=== PATIENT | male | born 1945 | race Caucasian/White ===

== ENCOUNTER 2022-08-04 14:24 | Emergency (ER) | payer MEDICARE, SELFPAY ==
[2022-08-04 14:36] VITALS: BP 126/77; PULSE 89; RESP 20; TEMP 36.3; O2SAT 96; BMI 31.0
--- NOTE | 2022-08-04 14:54 | ED_ITS ---
HPI - General Adult General Time Seen by Provider: 14:56 Date Seen: 08/04/22 Chief complaint: Arrhythmia/Palpitations Stated complaint: AFIB Time Seen by Provider: 08/04/22 14:47 Source: patient, family, RN notes reviewed and old records reviewed Mode of arrival: ambulatory Limitations: no limitations History of Present Illness HPI narrative: 76-year-old male with history of paroxysmal atrial fibrillation who comes in today with palpitations. Patient had a history of atrial fibrillation was doing well until recently when he started having episodes again. Has seen Cardiology and was recently started on Eliquis. Today started about 1:00 p.m. started having palpitations and some chest pressure with neck tightness. Denies nausea, vomiting, shortness of breath. Denies leg swelling. He is not sure what medications he takes, review of chart shows amlodipine on his medication list but he thinks this was stopped. No other medications for rate control noted. No lightheadedness or dizziness. Related Data Home Medications Medication Instructions Recorded Confirmed amlodipine 5 mg tablet 5 mg PO QDAY 07/24/22 08/04/22 aspirin 81 mg tablet,delayed 81 mg PO QDAY 07/24/22 08/04/22 release cetirizine 10 mg tablet (Zyrtec) 10 mg PO QDAY PRN 07/24/22 08/04/22 donepezil 10 mg tablet 10 mg PO QPM 07/24/22 08/04/22 donepezil 5 mg tablet 5 mg PO QPM 07/24/22 07/24/22 rosuvastatin 40 mg tablet 40 mg PO QDAY 07/24/22 08/04/22 tamsulosin 0.4 mg capsule 0.4 mg PO QDAY 07/24/22 08/04/22 apixaban 5 mg tablet (Eliquis) 5 mg PO Q12H 08/04/22 08/04/22 Previous Rx's Medication Instructions Recorded fluticasone propionate 50 2 spray intranasal QDAY #16 grams 07/24/22 mcg/actuation nasal spray,suspension (Flonase Allergy Relief) Allergies Allergy/AdvReac Type Severity Reaction Status Date / Time Iodinated Contrast Media Allergy Severe Anaphylaxis Verified 08/04/22 14:44 adhesive Allergy Mild Rash Verified 08/04/22 14:44 Penicillins Allergy Unknown Unknown Verified 08/04/22 14:44 methylphenidate AdvReac Unknown Verified 08/04/22 14:44 [From Ritalin] Review of Systems Status of ROS: Reports: 10 or more systems reviewed and unremarkable except as noted in History and below [facility] Medical History (Updated 08/04/22 @ 16:41 by Bull Min MD) Attention deficit disorder Borderline diabetes mellitus BPH (benign prostatic hyperplasia) Carotid artery stenosis Chronic headache Coronary artery disease (2017) Dementia Erectile dysfunction Essential hypertension History of alcoholism History of atrial fibrillation (2013) History of rheumatic fever as a child History of TIA (transient ischemic attack) (11/05/19) Hyperlipidemia Obstructive sleep apnea syndrome Paroxysmal atrial fibrillation Traumatic brain injury (1958) Wears hearing aid Surgical History (Updated 07/24/22 @ 10:50 by Iwona Packer) History of coronary artery stent placement (2017) History of detached retina repair History of left inguinal hernia repair History of left-sided carotid endarterectomy (2020) History of nasal septoplasty (2008) History of phacoemulsification of cataract of both eyes with intraocular lens implantation (12/31/21) History of repair of right rotator cuff (1996) History of umbilical hernia repair History of unilateral orchiectomy (1973) History of vasectomy Social History Smoking Status: Never smoker Non-prescribed substance use: denies use Exam Narrative: Exam Narrative: General: Well-developed and well-nourished, no acute distress Head: Atraumatic and normocephalic Eyes: Pupils are equal reactive, extraocular motions intact, conjunctiva clear ENT: External nose and ears are normal, posterior pharynx without erythema or exudate Neck: No midline cervical tenderness, full spontaneous range of motion the neck, trachea midline, no adenopathy Heart: Regular rate and irregular rhythm no murmurs or thrills Lungs: Clear to auscultation bilaterally without wheezes or crackles Abdomen: Soft, nontender, nondistended with active bowel sounds Musculoskeletal: No tenderness, deformity, or edema Neurologic: Awake, alert, and oriented x3, no gross focal neurologic deficits, cranial nerves intact as tested Psych: Mood and affect are appropriate Skin: No rashes Const: Vital Signs, click to edit/add: Vital Signs - 24 hr 08/04/22 14:36 Temperature 97.3 F L Pulse Rate [Right Pulse Oximeter] 89 Respiratory Rate 20 Blood Pressure [Ri ght Upper Arm] 126/77 Pulse Oximetry 96 Oxygen Delivery Me thod Room Air Course Course Hospital Course: Patient seen and examined, prior records reviewed. Differential diagnosis includes but not limited to dysrhythmia, heart failure, acute coronary syndrome. Patient with history of paroxysmal atrial fibrillation who appears to be back in atrial fibrillation for about the last 2 hours. He has associated chest tightness with this. Review of his phone says is heart rate was as high as 119 but generally around 80-90. In the emergency department, by auscultation patient is in atrial fibrillation with a heart rate of 80-100. Labs are ordered including troponin due to report of neck pain tightness and chest pain. Will have patient review of medications and further treatment for there. At this point, no indication for emergent cardioversion and as patient just started his Eliquis, like to avoid this if possible. Reevaluation(s) Reevaluation #1: EKG is reassuring, no ischemic changes edges rate controlled atrial fibrillation. Basic panel is reassuring, potassium and magnesium are both normal. Initial troponin is negative. BNP is pending. Plan for repeat troponin in 2 hours if this is negative patient can be discharged. Time: 16:13 Reevaluation #2: Repeat troponin is negative. Patient remains in route atrial fibrillation with rate control. Stable for discharge with outpatient follow-up with primary care doctor and cardiology. Time: 18:13 Vital Signs Vital signs: Initial Vital Signs Temperature 97.3 F L 08/04/22 14:36 Temperature Source Temporal Artery Scan 08/04/22 14:36 Pulse Rate 89 08/04/22 14:36 Respiratory Rate 20 08/04/22 14:36 Blood Pressure 126/77 08/04/22 14:36 Blood Pressure Mean 93 08/04/22 14:36 Blood Pressure Position Sitting 08/04/22 14:36 Pulse Oximetry 96 08/04/22 14:36 Oxygen Delivery Method 08/04/22 14:36 Vital Signs Temperature 97.3 F L 08/04/22 14:36 Pulse Rate 89 08/04/22 14:36 Respiratory Rate 20 08/04/22 14:36 Blood Pressure 126/77 08/04/22 14:36 Pulse Oximetry 96 08/04/22 14:36 Oxygen Delivery Method 08/04/22 14:36 Temperature 97.3 F L 08/04/22 14:36 Pulse Rate 89 08/04/22 14:36 Respiratory Rate 20 08/04/22 14:36 Blood Pressure 126/77 08/04/22 14:36 Pulse Oximetry 96 08/04/22 14:36 Oxygen Delivery Method 08/04/22 14:36 Medical Decision Making Medical Records Medical records reviewed: Yes I reviewed the patient's medical records Lab Data Lab results reviewed: Yes I reviewed the patient's lab results Labs: Lab Results 08/04/22 08/04/22 08/04/22 Range/Units 15:20 15:20 15:20 WBC 8.30 (4.50-11.00) K/uL RBC 5.14 (4.30-5.90) m/uL Hgb 15.0 (13.5-17.5) gm/dL Hct 47.3 (37.0-53.0) % MCV 92 (80-100) fL MCH 29 (26-34) pg MCHC 32 (32-36) gm/dL RDW Coeff of Gabe 13.5 (11.5-15.5) % Plt Count 265 (140-440) K/uL Neut % (Auto) 69.7 (42.0-72.0) % Lymph % (Auto) 19.9 L (20-44) % Stanley % (Auto) 8.2 (0.0-11.0) % Eos % (Auto) 2.0 (0.0-7.0) % Baso % (Auto) 0.1 (0.0-3.0) % Neut # (Auto) 5.78 (1.7-7.0) K/uL Lymph # (Auto) 1.70 (0.90-2.90) K/uL Stanley # (Auto) 0.70 (0.00-0.90) K/UL Eos # (Auto) 0.17 (0.00-0.50) K/uL Baso # (Auto) 0.01 (0.00-0.30) K/uL Abs Immat Gran (auto) 0.01 (0.00-0.30) K/uL Imm/Tot Granulo (auto) 0.1 % Sodium 143 (135-149) mmol/L Potassium 3.6 (3.6-5.1) mmol/L Chloride 108 (96-114) mmol/L Carbon Dioxide 28 (20-32) mmol/L BUN 16 (7-30) mg/dL Creatinine 0.8 (0.5-1.5) mg/dL Estimated Creat Clear 71.02 Estimated GFR 92 ml/min Glucose 91 (60-115) mg/dL Calcium 9.4 (8.4-10.6) mg/dL Magnesium 2.0 (1.5-2.6) mg/dL NT-Pro-B Natriuret Pep 214 (0-450) PG/mL POC Troponin I 0.00 L (0.01-0.04) ng/ml ECG Data Attestation: I personally reviewed and interpreted this ECG as follows: Prior ECG tracings: not available for review Interpretation: Performed at 3:24 p.m. demonstrates atrial fibrillation rate 85 with incomplete right bundle-branch block, no acute ST elevations or depressions, normal axis, QTC 452. No prior for comparison. Discharge Plan Discharge Clinical Impression: Anticoagulant long-term use, Paroxysmal atrial fibrillation Patient Disposition: Home, Self-Care Condition: Stable Instructions: A-fib (Atrial Fibrillation) (DC) Additional Instructions: Follow-up with your primary doctor this week or next week. Call your physical therapy aide as well. As long as your heart rate is below 100, if you are feeling okay you do not need to be seen in the emergency department. If your heart rate is consistently over 120 or you have shortness of breath or severe chest pain, return to the emergency department. Activity Level: No Restrictions Discharge Diet: Low Fat/Low Cholesterol Prescriptions: No Action rosuvastatin 40 mg tablet 40 mg PO QDAY tamsulosin 0.4 mg capsule 0.4 mg PO QDAY amlodipine 5 mg tablet 5 mg PO QDAY Label Comments: TAKE 1 TABLET BY MOUTH ONCE DAILY. donepezil 5 mg tablet 5 mg PO QPM donepezil 10 mg tablet 10 mg PO QPM Label Comments: Takes 15mg po daily cetirizine [Zyrtec] 10 mg tablet 10 mg PO QDAY PRN aspirin 81 mg tablet,delayed release (DR/EC) 81 mg PO QDAY fluticasone propionate [Flonase Allergy Relief] 50 mcg/actuation spray,suspension 2 spray intranasal QDAY Qty: 16 0RF Rx Instructions: administer into each nostril Eliquis 5 mg tablet 5 mg PO Q12H Follow Up/Referrals: Karan Mirza MD [Primary Care Provider] - Stand Alone Forms: [employer] Info Instructions
[2022-08-04 15:38] LABS: Basophils Absolute Auto 0.01 K/uL (0.00-0.30); Basophils Percent Auto 0.1 % (0.0-3.0); Eosinophils Absolute Auto 0.17 K/uL (0.00-0.50); Hematocrit 47.3 % (37.0-53.0); Immature Granulocytes Abs Auto 0.01 K/uL (0.00-0.30); Immature Granulocytes Pct Auto 0.1 %; Lymphocytes Percent Auto 19.9 % (20-44); Mean Corpuscular HGB Conc 32 gm/dL (32-36); Mean Corpuscular Hemoglobin 29 pg (26-34); Mean Corpuscular Volume 92 fL (80-100); Monocytes Percent Auto 8.2 % (0.0-11.0); Neutrophils Absolute Auto 5.78 K/uL (1.7-7.0); Neutrophils Percent Auto 69.7 % (42.0-72.0); Platelet Count* 265 K/uL (140-440); RDW Coefficient of Variation % 13.5 % (11.5-15.5); Red Blood Count 5.14 m/uL (4.30-5.90)
[2022-08-04 15:46] LABS: Slide Review Reflex No
[2022-08-04 16:00] LABS: Chloride* 108 mmol/L (96-114); Potassium* 3.6 mmol/L (3.6-5.1); Sodium* 143 mmol/L (135-149)
[2022-08-04 16:02] LABS: Creatinine* 0.8 mg/dL (0.5-1.5); Est. Creatinine Clearance* 71.02; Estimated Glomerular Filt Rate 92 ml/min
[2022-08-04 16:03] LABS: Blood Urea Nitrogen* 16 mg/dL (7-30); Calcium* 9.4 mg/dL (8.4-10.6); Carbon Dioxide* 28 mmol/L (20-32); Glucose* 91 mg/dL (60-115)
[2022-08-04 16:12] LABS: NT Pro B Type NatriureticPept* 214 PG/mL (0-450)
[2022-08-04 16:25] VITALS: BP 116/80; PULSE 80; RESP 15; O2SAT 95
--- NOTE | 2022-08-04 16:26 | CRLHL7_ITS ---
For Patients: As a result of the Century Cures Act, medical imaging exams and procedure reports are released immediately into your electronic medical record. You may view this report before your referring provider. If you have questions, please contact your health care provider. Indication: Cardiac dysrhythmia Technique: Chest 1 view Comparison: September 06, 2018 Findings/Impression: Cardiovascular and mediastinum: Heart size and vasculature are normal in caliber and appearance. Mediastinum is within normal limits. Lungs and pleural space: Lungs are clear. No sign of infiltrate or mass. No sign of pleural effusion. No pneumothorax. Bones and soft tissues: No significant findings. Dictated by Sridevi Muhammad MD @ 08/04/2022 5:43:28 PM (Electronically Signed)
[2022-08-04 18:23] VITALS: BP 109/81; PULSE 80; RESP 20; TEMP 36.3
== END 2022-08-04 18:28 | disposition home or self-care (01) ==
PROVIDERS: Emergency Provider Family Medicine; PCP Internal Medicine
DX: I48.0 Paroxysmal atrial fibrillation (principal); Z79.01 Long term (current) use of anticoagulants
CPT/HCPCS: 36415; 71045; 80048; 83735; 83880; 85025; 93005; 99284

== ENCOUNTER 2022-08-19 02:46 | Emergency (ER) | payer MEDICARE, SELFPAY ==
[2022-08-19] VITALS (9 sets, daily range): BP systolic 130–184; BP diastolic 74–108; PULSE 57–84; RESP 18; TEMP 36.7; O2SAT 96–99; BMI 30.3
--- NOTE | 2022-08-19 03:01 | CRLHL7_ITS ---
For Patients: As a result of the Cures Act, medical imaging exams and procedure reports are released immediately into your electronic medical record. You may view this report before your referring provider. If you have questions, please contact your health care provider. Indication: Fall Technique: Two views left knee Comparison: None Findings: Bones: Alignment is normal. No fractures or bone lesions. Joint spaces: Mild degenerative changes in the patellofemoral compartment. Soft tissues: Small suprapatellar effusion. Impression: No acute fracture. Small suprapatellar effusion. Mild degenerative changes in the patellofemoral compartment. Dictated by Sridevi Muhammad MD @ 08/19/2022 4:00:19 AM (Electronically Signed)
--- NOTE | 2022-08-19 03:01 | CRLHL7_ITS ---
For Patients: As a result of the Century Cures Act, medical imaging exams and procedure reports are released immediately into your electronic medical record. You may view this report before your referring provider. If you have questions, please contact your health care provider. INDICATION: Fall, on blood thinners TECHNIQUE: Head CT without contrast. COMPARISON: FINDINGS: CSF spaces: Within normal limits for age. Brain parenchyma: There are nonspecific low attenuation white matter changes consistent with chronic microvascular disease. No sign of mass, hemorrhage, or midline shift. Skull base and calvarium: The visualized paranasal sinuses and mastoid air cells demonstrate no acute or significant findings. The visualized orbits are grossly unremarkable. No skull fractures. There is intracranial atherosclerosis. IMPRESSION: 1. No acute findings. 2. Nonspecific white matter disease, typical of chronic microvascular disease. Please note that all CT scans at this facility use dose modulation, iterative reconstruction, and/or weight-based dosing when appropriate to reduce radiation dose to as low as reasonably achievable. Dictated by Sridevi Muhammad MD @ 08/19/2022 3:34:22 AM (Electronically Signed)
--- NOTE | 2022-08-19 03:02 | CRLHL7_ITS ---
For Patients: As a result of the Century Cures Act, medical imaging exams and procedure reports are released immediately into your electronic medical record. You may view this report before your referring provider. If you have questions, please contact your health care provider. Indication: Fall Technique: Three views right wrist Comparison: None Findings: Bones: On the lateral view there is a linear lucency through what is likely the pisiform bone. Joint spaces: Unremarkable. Soft tissues: Dorsal soft tissue swelling. Impression: Likely minimally displaced pisiform fracture. Recommend wrist CT for confirmation. Dictated by Sridevi Muhammad MD @ 08/19/2022 3:58:45 AM (Electronically Signed)
--- NOTE | 2022-08-19 03:06 | ED.GENADULT ---
HPI - General Adult General Time Seen by Provider: 03:07 Date Seen: 08/19/22 Chief complaint: Syncope/Fainted Stated complaint: fell and doesn't remember what happen. Time Seen by Provider: 08/19/22 02:55 Source: patient and family Mode of arrival: wheelchair Limitations: no limitations History of Present Illness HPI narrative: Guillermo is a 76-year-old male past medical history includes atrial fibrillation on chronic anticoagulation with Eliquis, CAD status post stent placement, hyperlipidemia, dementia presents emerged department via private car with after of fall. Patient states that around an hour ago he was up walking through the dining room when he had a syncopal episode, he knocked over the chair. He was able to get himself up, sustained an injury to his right wrist, left knee and left side of his head. Patient denied any chest pain, diaphoresis or shortness of breath prior to the fall. Patient did become lightheaded. There are times when he had a heart rate in the upper 40s with his atrial fibrillation, per patient and , patient does get lightheaded at these times. He states he has never had a syncopal episode before. Prior to going to bed this evening he was feeling well, he has been eating and drinking normally, he has not had any nausea vomiting, chest pain, abdominal pain diarrhea or urinary complaints. Patient denies any fevers or chills. Patient denies any neck pain or headache. He denies any upper lower back pain. Pain is worse in his right wrist 6/10, patient has full range of motion. Related Data Home Medications Medication Instructions Recorded Confirmed amlodipine 5 mg tablet 5 mg PO QDAY 07/24/22 08/19/22 donepezil 10 mg tablet 10 mg PO QPM 07/24/22 08/19/22 donepezil 5 mg tablet 5 mg PO QPM 07/24/22 08/19/22 rosuvastatin 40 mg tablet 40 mg PO QDAY 07/24/22 08/19/22 tamsulosin 0.4 mg capsule 0.4 mg PO QDAY 07/24/22 08/19/22 apixaban 5 mg tablet (Eliquis) 5 mg PO Q12H 08/04/22 08/19/22 Allergies Allergy/AdvReac Type Severity Reaction Status Date / Time Iodinated Contrast Media Allergy Severe Anaphylaxis Verified 08/19/22 03:01 adhesive Allergy Mild Rash Verified 08/19/22 03:01 Penicillins Allergy Mild Rash Verified 08/19/22 03:01 methylphenidate AdvReac Unknown Verified 08/19/22 03:01 [From Ritalin] Review of Systems Status of ROS: Reports: 10 or more systems reviewed and unremarkable except as noted in History and below [facility] Medical History Attention deficit disorder Borderline diabetes mellitus BPH (benign prostatic hyperplasia) Carotid artery stenosis Chronic headache Coronary artery disease (2017) Dementia Erectile dysfunction Essential hypertension History of alcoholism History of atrial fibrillation (2013) History of rheumatic fever as a child History of TIA (transient ischemic attack) (11/05/19) Hyperlipidemia Obstructive sleep apnea syndrome Paroxysmal atrial fibrillation Traumatic brain injury (1958) Wears hearing aid Surgical History History of coronary artery stent placement (2017) History of detached retina repair History of left inguinal hernia repair History of left-sided carotid endarterectomy (2020) History of nasal septoplasty (2008) History of phacoemulsification of cataract of both eyes with intraocular lens implantation (12/31/21) History of repair of right rotator cuff (1996) History of umbilical hernia repair History of unilateral orchiectomy (1973) History of vasectomy Social History Smoking Status: Never smoker Do you use any of these nicotine containing products: None Second hand tobacco smoke exposure: No How often do you have a drink containing alcohol: never How often do you have six or more drinks on one occasion: Never AUDIT-C Alcohol total score: 0 Non-prescribed substance use: denies use Exam Narrative: Exam Narrative: General: No obvious distress laying comfortably, HEENT: Tympanic membranes within normal limits bilaterally, is a small left frontal contusion with abrasion, pupils equal round reactive to light, extraocular muscles intact, oral mucosa moist Neck: Full range of motion, nontender to palpation the cervical spine, supple Lungs: Clear to auscultation bilaterally Heart: Normal sinus rhythm S1-S2 Abdomen: Nontender to palpation, bowel sounds present Muscle skeletal: Right wrist, tender to palpation the distal ulna, no deformity, no swelling or ecchymosis, active extension and flexion Left knee: Small abrasion to the patella, full range of motion extension and flexion, no effusion, no swelling or ecchymosis, nontender to palpation the medial and lateral joint line Neuro: Alert awake and oriented x3, GCS 15 Const: Vital Signs, click to edit/add: Vital Signs - 24 hr 08/19/22 02:55 08/19/22 03:27 08/19/22 03:03 Temperature 98.0 F Pulse Rate Pulse Rate [Right Pulse Oximeter] 84 Pulse Rate [orthos tatic lying] 66 66 Pulse Rate [orthos tatic sitting] 75 75 Pulse Rate [orthos tatic standing] 77 77 Respiratory Rate 18 Blood Pressure Blood Pressure [Ri ght Upper Arm] 184/78 H Blood Pressure [or thostatic lying] 164/86 H 164/86 H Blood Pressure [or thostatic sitting] 152/82 H 152/82 H Blood Pressure [or thostatic standing ] 136/78 136/78 Pulse Oximetry 99 Oxygen Delivery Me thod Room Air 08/19/22 03:26 08/19/22 03:31 08/19/22 04:02 Temperature Pulse Rate 84 75 64 Pulse Rate [Right Pulse Oximeter] Pulse Rate [orthos tatic lying] Pulse Rate [orthos tatic sitting] Pulse Rate [orthos tatic standing] Respiratory Rate 18 18 Blood Pressure 136/78 172/108 H 130/75 Blood Pressure [Ri ght Upper Arm] Blood Pressure [or thostatic lying] Blood Pressure [or thostatic sitting] Blood Pressure [or thostatic standing ] Pulse Oximetry 96 98 97 Oxygen Delivery Me thod 08/19/22 04:32 Temperature Pulse Rate 57 L Pulse Rate [Right Pulse Oximeter] Pulse Rate [orthos tatic lying] Pulse Rate [orthos tatic sitting] Pulse Rate [orthos tatic standing] Respiratory Rate Blood Pressure 152/79 H Blood Pressure [Ri ght Upper Arm] Blood Pressure [or thostatic lying] Blood Pressure [or thostatic sitting] Blood Pressure [or thostatic standing ] Pulse Oximetry 97 Oxygen Delivery Me thod Course Course Hospital Course: 2:55 am: AIDET performed. vitals are normal. Based on his history of chronic anticoagulation with head injury and fall, will obtain CT head without IV contrast, XR right wrist three views and left knee 2-3 views, will obtain orthostatics, EKG, troponin point of care, CBC, CMP, 500 mL bolus 0.9 normal saline. Differential diagnosis include cardiac arrhythmia, acute blood loss and intracranial bleed. Other differential diagnosis include but not limited to vasovagal syncope orthostatic syncope seizure as well as all etiologies. EKG showed a normal sinus rhythm, bpm 62, no ectopy or acute ST changes compared to 08/05/2022. Per ED provider. Orthostatics obtain, laying blood pressure 164/86, to standing 136/78 pretty significant drop of almost 30 systolic. Heart rate changed 66-77. Patient did have some symptoms of lightheadedness. Reevaluation(s) Reevaluation #1: CT head showed no acute findings. XR right wrist three views showed a minimally displaced pisiforme fracture, XR left knee showed no acute fracture. CBC and metabolic panel unchanged from previous. Chronically elevated LFTs, he was given the above care and did well, ambulating with no difficulty, went ahead and did a CT left wrist to rule out fracture. Imaging did show Acute nondisplaced fracture is present in the posterior margin of the triquetrum. No other fracture. Normal bone alignment. Unremarkable joint spaces and soft tissues. Time: 03:42 Reevaluation #2: Second point of care troponin was negative, volar splint applied with Ortho Glass, recommendations by orthopedics were to have him follow up with them in 1 weeks time, to continue with 1 g Tylenol every 4-6 hours as needed for pain, to follow up also with primary care provider in the next 7-10 days. Return if worsening symptoms. Time: 05:26 Vital Signs Vital signs: Initial Vital Signs Temperature 98.0 F 08/19/22 02:55 Temperature Source Temporal Artery Scan 08/19/22 02:55 Pulse Rate 84 08/19/22 02:55 Respiratory Rate 18 08/19/22 02:55 Blood Pressure 184/78 H 08/19/22 02:55 Blood Pressure Mean 113 08/19/22 02:55 Blood Pressure Position Sitting 08/19/22 02:55 Pulse Oximetry 99 08/19/22 02:55 Oxygen Delivery Method 08/19/22 02:55 Vital Signs Temperature 98.0 F 08/19/22 02:55 Pulse Rate 84 08/19/22 02:55 Respiratory Rate 18 08/19/22 02:55 Blood Pressure 184/78 H 08/19/22 02:55 Pulse Oximetry 99 11/30/22 02:55 Oxygen Delivery Method 08/19/22 02:55 Temperature 98.0 F 08/19/22 02:55 Pulse Rate 57 L 08/19/22 04:32 Respiratory Rate 18 08/19/22 03:31 Blood Pressure 152/79 H 08/19/22 04:32 Pulse Oximetry 97 08/19/22 04:32 Oxygen Delivery Method 08/19/22 02:55 Medical Decision Making Lab Data Labs: Lab Results 08/19/22 08/19/22 08/19/22 Range/Units 03:03 03:32 05:00 WBC 9.03 (4.50-11.00) K/uL RBC 5.47 (4.30-5.90) m/uL Hgb 16.1 (13.5-17.5) gm/dL Hct 49.8 (37.0-53.0) % MCV 91 (80-100) fL MCH 29 (26-34) pg MCHC 32 (32-36) gm/dL RDW Coeff of Gabe 13.5 (11.5-15.5) % Plt Count 276 (140-440) K/uL Neut % (Auto) 73.1 H (42.0-72.0) % Lymph % (Auto) 17.1 L (20-44) % [place] % (Auto) 7.4 (0.0-11.0) % Eos % (Auto) 2.2 (0.0-7.0) % Baso % (Auto) 0.1 (0.0-3.0) % Neut # (Auto) 6.60 (1.7-7.0) K/uL Lymph # (Auto) 1.50 (0.90-2.90) K/uL [place] # (Auto) 0.70 (0.00-0.90) K/UL Eos # (Auto) 0.20 (0.00-0.50) K/uL Baso # (Auto) 0.01 (0.00-0.30) K/uL Abs Immat Gran (auto) 0.01 (0.00-0.30) K/uL Imm/Tot Granulo (auto) 0.1 % Sodium 141 (135-149) mmol/L Potassium 4.9 (3.6-5.1) mmol/L Chloride 108 (96-114) mmol/L Carbon Dioxide 26 (20-32) mmol/L BUN 13 (7-30) mg/dL Creatinine 0.8 (0.5-1.5) mg/dL Estimated Creat Clear 71.02 Estimated GFR 92 ml/min Glucose 113 (60-115) mg/dL Calcium 9.1 (8.4-10.6) mg/dL Total Bilirubin 1.6 H (0.1-1.5) mg/dL AST 46 H (12-35) U/L ALT 54 H (4-50) U/L Alkaline Phosphatase 54 (40-150) U/L Troponin I < 0.01 L (0.01-0.04) ng/mL Total Protein 7.9 (6.0-8.3) g/dL Albumin 4.8 (3.3-5.0) g/dL POC Troponin I 0.00 L (0.01-0.04) ng/ml Discharge Plan Discharge Clinical Impression: Orthostatic hypotension, Syncope, Head injury, Closed fracture of triquetrum of right wrist Patient Disposition: Home, Self-Care Condition: Improved Instructions: Syncope (ED), Head Injury (ED), Hypotension (ED) Additional Instructions: To follow up with [facility]opedic [facility] in one weeks time for ED follow up and recheck. To also follow up with primary care provider over the next 7-10 days. Return if worsening symptoms. Activity Level: No Restrictions Prescriptions: No Action rosuvastatin 40 mg tablet 40 mg PO QDAY tamsulosin 0.4 mg capsule 0.4 mg PO QDAY amlodipine 5 mg tablet 5 mg PO QDAY Label Comments: TAKE 1 TABLET BY MOUTH ONCE DAILY. donepezil 5 mg tablet 5 mg PO QPM donepezil 10 mg tablet 10 mg PO QPM Label Comments: Takes 15mg po daily Eliquis 5 mg tablet 5 mg PO Q12H Follow Up/Referrals: Karan Mirza MD [Primary Care Provider] - Stand Alone [facility] Procedures Orthopedic Splinting/Casting Injury #1: Side: right Upper Extremity Injury Location: wrist Upper extremity immobilizer: volar splint Applied by clinician: / Conclusion: patient tolerated procedure
[2022-08-19] MEDS: 0.9 % SODIUM CHLORIDE 500 ML 500 ML IV (03:30)
[2022-08-19] MEDS: MORPHINE 2 MG/ML inj IVP (03:31)
[2022-08-19 03:37] LABS: Basophils Absolute Auto 0.01 K/uL (0.00-0.30); Basophils Percent Auto 0.1 % (0.0-3.0); Eosinophils Percent Auto 2.2 % (0.0-7.0); Hematocrit 49.8 % (37.0-53.0); Hemoglobin* 16.1 gm/dL (13.5-17.5); Immature Granulocytes Abs Auto 0.01 K/uL (0.00-0.30); Immature Granulocytes Pct Auto 0.1 %; Lymphocytes Percent Auto 17.1 % (20-44); Mean Corpuscular HGB Conc 32 gm/dL (32-36); Mean Corpuscular Hemoglobin 29 pg (26-34); Mean Corpuscular Volume 91 fL (80-100); Monocytes Percent Auto 7.4 % (0.0-11.0); Neutrophils Percent Auto 73.1 % (42.0-72.0); Platelet Count* 276 K/uL (140-440); RDW Coefficient of Variation % 13.5 % (11.5-15.5); Red Blood Count 5.47 m/uL (4.30-5.90); White Blood Count* 9.03 K/uL (4.50-11.00)
[2022-08-19 03:38] LABS: Slide Review Reflex No
[2022-08-19 03:49] LABS: Chloride* 108 mmol/L (96-114)
[2022-08-19 03:50] LABS: Albumin* 4.8 g/dL (3.3-5.0); Potassium* 4.9 mmol/L (3.6-5.1); Sodium* 141 mmol/L (135-149)
[2022-08-19 03:52] LABS: Creatinine* 0.8 mg/dL (0.5-1.5); Est. Creatinine Clearance* 71.02; Estimated Glomerular Filt Rate 92 ml/min
[2022-08-19 03:53] LABS: Alanine Aminotransferase* 54 U/L (4-50); Alkaline Phosphatase* 54 U/L (40-150); Aspartate Amino Transferase* 46 U/L (12-35); Bilirubin Total* 1.6 mg/dL (0.1-1.5); Blood Urea Nitrogen* 13 mg/dL (7-30); Carbon Dioxide* 26 mmol/L (20-32); Glucose* 113 mg/dL (60-115); Total Protein* 7.9 g/dL (6.0-8.3)
[2022-08-19 03:54] LABS: Calcium* 9.1 mg/dL (8.4-10.6)
--- NOTE | 2022-08-19 04:04 | CRLHL7_ITS ---
For Patients: As a result of the Century Cures Act, medical imaging exams and procedure reports are released immediately into your electronic medical record. You may view this report before your referring provider. If you have questions, please contact your health care provider. Indication: Trauma. Technique: CT right wrist without contrast. Comparison: Wrist x-ray August 19, 2022. Findings: Acute nondisplaced fracture is present in the posterior margin of the triquetrum. No other fracture. Normal bone alignment. Unremarkable joint spaces and soft tissues. Impression: Acute nondisplaced fracture of the triquetrum. Please note that all CT scans at this facility use dose modulation, iterative reconstruction, and/or weight-based dosing when appropriate to reduce radiation dose to as low as reasonably achievable. Dictated by Jonathan Fuller MD @ 08/19/2022 4:50:28 AM (Electronically Signed)
[2022-08-19 04:13] LABS: Troponin I* < 0.01 ng/mL (0.01-0.04)
== END 2022-08-19 05:30 | disposition home or self-care (01) ==
PROVIDERS: Emergency Provider Student in an Organized Health Care Education/Training Program; PCP Internal Medicine
DX: R55 Syncope and collapse (principal); S62.114A Nondisplaced fracture of triquetrum [cuneiform] bone, right wrist, initial encounter for closed fracture; W19.XXXA Unspecified fall, initial encounter
CPT/HCPCS: 29125; 36415; 70450; 73110; 73200; 73560; 80053; 84484; 85025; 93005; 94761; 96374; 99283; 99284; J2270; J7120

== ENCOUNTER 2022-10-31 14:27 | Emergency (ER) | payer MEDICARE, SELFPAY ==
[2022-10-31] VITALS (7 sets, daily range): BP systolic 127–183; BP diastolic 71–91; PULSE 52–72; RESP 11–23; TEMP 36.9; O2SAT 96–99; BMI 30.3
--- NOTE | 2022-10-31 15:07 | ED_ITS ---
HPI - General Adult General Date Seen: 10/31/22 Chief complaint: Chest Pain Stated complaint: Chest Pressure in upper right and neck Time Seen by Provider: 10/31/22 14:35 Source: patient Mode of arrival: ambulatory Limitations: no limitations History of Present Illness HPI narrative: Patient is a 77-year-old male here for evaluation of pressure in his left neck. He was with his at urgent care where she was being seen for rash. Apparently, while there, her blood pressure was noted to be high, and as a result they did an EKG. Her EKG looked abnormal and so she was referred to the ER because of her EKG. While here with her, he thought he would get his neck pressure checked out. He says earlier today, couple of hours ago, he developed this pressure in his neck associated with a funny feeling in his chest. He says he had 4 stents placed a while back and this feels sort of like what he remembers before his stents were placed. Pain started while at rest earlier today and has been present ever since. He feels like it got worse once he got here. Not associated with shortness of breath, nausea, vomiting, diaphoresis or any other symptoms. It otherwise does not radiate. It is not positional. He takes Eliquis due to atrial fibrillation. He is currently in sinus rhythm. He has had this sensation associated with atrial fibrillation in the past. Related Data Home Medications Medication Instructions Recorded Confirmed amlodipine 5 mg tablet 5 mg PO QDAY 07/24/22 10/31/22 donepezil 10 mg tablet 10 mg PO QPM 07/24/22 10/31/22 donepezil 5 mg tablet 5 mg PO QPM 07/24/22 10/31/22 rosuvastatin 40 mg tablet 40 mg PO QDAY 07/24/22 10/31/22 tamsulosin 0.4 mg capsule 0.4 mg PO QDAY 07/24/22 10/31/22 apixaban 5 mg tablet (Eliquis) 5 mg PO Q12H 08/04/22 10/31/22 Allergies Allergy/AdvReac Type Severity Reaction Status Date / Time Iodinated Contrast Media Allergy Severe Anaphylaxis Verified 10/31/22 14:43 adhesive Allergy Mild Rash Verified 10/31/22 14:43 Penicillins Allergy Mild Rash Verified 10/31/22 14:43 methylphenidate AdvReac Unknown Verified 10/31/22 14:43 [From Ritalin] Review of Systems Status of ROS: Reports: 10 or more systems reviewed and unremarkable except as noted in History and below [facility] Medical History Attention deficit disorder Borderline diabetes mellitus BPH (benign prostatic hyperplasia) Carotid artery stenosis Chronic headache Coronary artery disease (2017) Dementia Erectile dysfunction Essential hypertension History of alcoholism History of atrial fibrillation (2013) History of rheumatic fever as a child History of TIA (transient ischemic attack) (11/05/19) Hyperlipidemia Obstructive sleep apnea syndrome Paroxysmal atrial fibrillation Traumatic brain injury (1958) Wears hearing aid Surgical History History of coronary artery stent placement (2017) History of detached retina repair History of left inguinal hernia repair History of left-sided carotid endarterectomy (2020) History of nasal septoplasty (2008) History of phacoemulsification of cataract of both eyes with intraocular lens implantation (12/31/21) History of repair of right rotator cuff (1996) History of umbilical hernia repair History of unilateral orchiectomy (1973) History of vasectomy Social History Smoking Status: Former smoker What tobacco products do you use: cigarettes Smoking quit date/years: >15 years ago Do you use any of these nicotine containing products: None Second hand tobacco smoke exposure: No How often do you have a drink containing alcohol: never How often do you have six or more drinks on one occasion: Never AUDIT-C Alcohol total score: 0 Non-prescribed substance use: denies use Exam Narrative: Exam Narrative: Vital signs as noted above. In general, an alert, well-appearing patient. Head: Normocephalic, atraumatic. Eyes: Pupils are equal reactive. Extraocular movements are full. Conjunctivae are normal. ENT: Mucous membranes are moist. Throat is normal. Neck: Supple without lymphadenopathy. Heart: Regular rate and rhythm. No murmur or rub. Lungs: Clear bilaterally. No increased work of breathing, crackles or wheezes. Abdomen: Soft and nontender. No organomegaly. Extremities: Well perfused. No edema. No calf tenderness. Pulses intact. Neurologic: Patient is alert and oriented to person and place. Speech is flue nt. Face is symmetric. Moves all extremities equally. Affect: Normal. Skin: Warm and dry. Well perfused. Const: Vital Signs, click to edit/add: Vital Signs - 24 hr 10/31/22 14:38 10/31/22 15:18 Temperature 98.5 F Pulse Rate [Left P ulse Oximeter] 72 Respiratory Rate 16 Blood Pressure [Ri ght Upper Arm] 183/91 H Pulse Oximetry 99 96 Oxygen Delivery Me thod Room Air Documenting provider has reviewed patient's vital signs: yes Course Course Hospital Course: An EKG on arrival shows sinus rhythm today, ventricular rate of 67 beats per minute. No acute ST segment changes. T-waves are unremarkable. Initial troponin is 0. He was somewhat hypertensive on arrival. I did try giving him a nitroglycerin, and he also had an aspirin. Chest x-ray by my review did not show any acute findings. Final radiology report is likewise negative. CBC shows a white count of 8, hemoglobin of 14.9, normal platelets. Metabolic panel is normal. LFTs are normal and CRP is less than 0.5. His BNP is 85. A 2nd troponin at 2:00 a.m. is likewise negative. He did have relief of his symptoms with a single nitroglycerin and has been pain-free without further complaints since then. His chest symptoms are somewhat atypical, the neck pressure in isolation is a little bit unusual, but he does feel that this is similar to what he had prior to his stents. He did wonder if he might be having some muscle tension there related to stress. Fortunately, he is seeing Cardiology in just a few days, so I think it is reasonable to let him go home given the 2- troponins and unremarkable EKG with resolution of symptoms. I have asked him to avoid strenuous activity, and certainly if he has recurrences significant symptoms, he should return to the emergency department. He is comfortable with that plan. Vital Signs Vital signs: Initial Vital Signs Temperature 98.5 F 10/31/22 14:38 Temperature Source Temporal Artery Scan 10/31/22 14:38 Pulse Rate 72 10/31/22 14:38 Pulse Rhythm 10/31/22 14:38 Respiratory Rate 16 10/31/22 14:38 Blood Pressure 183/91 H 10/31/22 14:38 Blood Pressure Mean 121 10/31/22 14:38 Blood Pressure Position Supine 10/31/22 14:38 Pulse Oximetry 99 10/31/22 14:38 Oxygen Delivery Method 10/31/22 14:38 Vital Signs Temperature 98.5 F 10/31/22 14:38 Pulse Rate 72 10/31/22 14:38 Respiratory Rate 16 10/31/22 14:38 Blood Pressure 183/91 H 10/31/22 14:38 Pulse Oximetry 99 10/31/22 14:38 Oxygen Delivery Method 10/31/22 14:38 Temperature 98.5 F 10/31/22 14:38 Pulse Rate 72 10/31/22 14:38 Respiratory Rate 16 10/31/22 14:38 Blood Pressure 183/91 H 10/31/22 14:38 Pulse Oximetry 96 10/31/22 15:18 Oxygen Delivery Method 10/31/22 14:38 Medical Decision Making Lab Data Labs: Lab Results 10/31/22 10/31/22 10/31/22 Range/Units 15:19 15:40 15:40 WBC 8.08 (4.50-11.00) K/uL RBC 5.12 (4.30-5.90) m/uL Hgb 14.9 (13.5-17.5) gm/dL Hct 46.8 (37.0-53.0) % MCV 91 (80-100) fL MCH 29 (26-34) pg MCHC 32 (32-36) gm/dL RDW Coeff of Gabe 13.7 (11.5-15.5) % Plt Count 271 (140-440) K/uL Neut % (Auto) 67.0 (42.0-72.0) % Lymph % (Auto) 21.4 (20-44) % [place] % (Auto) 9.2 (0.0-11.0) % Eos % (Auto) 1.9 (0.0-7.0) % Baso % (Auto) 0.1 (0.0-3.0) % Neut # (Auto) 5.42 (1.7-7.0) K/uL Lymph # (Auto) 1.73 (0.90-2.90) K/uL [place] # (Auto) 0.70 (0.00-0.90) K/UL Eos # (Auto) 0.15 (0.00-0.50) K/uL Baso # (Auto) 0.01 (0.00-0.30) K/uL Sodium 145 (135-149) mmol/L Potassium 3.7 (3.6-5.1) mmol/L Chloride 110 (96-114) mmol/L Carbon Dioxide 27 (20-32) mmol/L BUN 14 (7-30) mg/dL Creatinine 0.7 (0.5-1.5) mg/dL Estimated Creat Clear 69.91 Estimated GFR 95 ml/min Glucose 100 (60-115) mg/dL Calcium 9.0 (8.4-10.6) mg/dL Total Bilirubin 1.5 (0.1-1.5) mg/dL Direct Bilirubin 0.0 (0.0-0.5) mg/dL AST 32 (12-35) U/L ALT 40 (4-50) U/L Alkaline Phosphatase 44 (40-150) U/L C-Reactive Protein < 0.5 L (0.5-1.0) mg/dL NT-Pro-B Natriuret Pep 85 pg/mL Total Protein 7.5 (6.0-8.3) g/dL Albumin 4.5 (3.3-5.0) g/dL POC Troponin I 0.00 L (0.01-0.04) ng/ml 10/31/22 Range/Units 17:25 WBC (4.50-11.00) K/uL RBC (4.30-5.90) m/uL Hgb (13.5-17.5) gm/dL Hct (37.0-53.0) % MCV (80-100) fL MCH (26-34) pg MCHC (32-36) gm/dL RDW Coeff of Gabe (11.5-15.5) % Plt Count (140-440) K/uL Neut % (Auto) (42.0-72.0) % Lymph % (Auto) (20-44) % [place] % (Auto) (0.0-11.0) % Eos % (Auto) (0.0-7.0) % Baso % (Auto) (0.0-3.0) % Neut # (Auto) (1.7-7.0) K/uL Lymph # (Auto) (0.90-2.90) K/uL [place] # (Auto) (0.00-0.90) K/UL Eos # (Auto) (0.00-0.50) K/uL Baso # (Auto) (0.00-0.30) K/uL Sodium (135-149) mmol/L Potassium (3.6-5.1) mmol/L Chloride (96-114) mmol/L Carbon Dioxide (20-32) mmol/L BUN (7-30) mg/dL Creatinine (0.5-1.5) mg/dL Estimated Creat Clear Estimated GFR ml/min Glucose (60-115) mg/dL Calcium (8.4-10.6) mg/dL Total Bilirubin (0.1-1.5) mg/dL Direct Bilirubin (0.0-0.5) mg/dL AST (12-35) U/L ALT (4-50) U/L Alkaline Phosphatase (40-150) U/L C-Reactive Protein (0.5-1.0) mg/dL NT-Pro-B Natriuret Pep pg/mL Total Protein (6.0-8.3) g/dL Albumin (3.3-5.0) g/dL POC Troponin I 0.00 L (0.01-0.04) ng/ml Discharge Plan Discharge Clinical Impression: Atypical chest pain, Neck pain Patient Disposition: Home, Self-Care Condition: Improved Instructions: Chest Pain (DC) Additional Instructions: Follow-up with marketing operations associate as planned on Wednesday. Avoid strenuous activities until then. If at any time you have severe symptoms return to the emergency department. Prescriptions: No Action rosuvastatin 40 mg tablet 40 mg PO QDAY tamsulosin 0.4 mg capsule 0.4 mg PO QDAY amlodipine 5 mg tablet 5 mg PO QDAY Label Comments: TAKE 1 TABLET BY MOUTH ONCE DAILY. donepezil 5 mg tablet 5 mg PO QPM donepezil 10 mg tablet 10 mg PO QPM Label Comments: Takes 15mg po daily Eliquis 5 mg tablet 5 mg PO Q12H Follow Up/Referrals: Karan Mirza MD [Primary Care Provider] - Stand Alone Forms: [facility] Info Instructions
--- NOTE | 2022-10-31 15:19 | CRLHL7_ITS ---
For Patients: As a result of the Cures Act, medical imaging exams and procedure reports are released immediately into your electronic medical record. You may view this report before your referring provider. If you have questions, please contact your health care provider. HISTORY: Chest pain. TECHNIQUE: Two-view chest. COMPARISON: Chest x-ray 08/04/2022. FINDINGS: Electronic device along the anterior left chest wall. No airspace consolidation. No pleural effusion or pneumothorax. Pulmonary vasculature and cardiomediastinal silhouette are unremarkable. Degenerative changes of the spine. IMPRESSION: No cardiopulmonary abnormality. Dictated by Faustino Watson MD @ 10/31/2022 4:51:24 PM (Electronically Signed)
[2022-10-31] MEDS: NITROGLYCERIN 0.4 MG TAB.SUBL SUBLINGUAL (15:29)
[2022-10-31] MEDS: ASPIRIN 81 MG TAB.CHEW 324 MG PO (15:29)
[2022-10-31 15:51] LABS: Basophils Absolute Auto 0.01 K/uL (0.00-0.30); Basophils Percent Auto 0.1 % (0.0-3.0); Eosinophils Absolute Auto 0.15 K/uL (0.00-0.50); Eosinophils Percent Auto 1.9 % (0.0-7.0); Hematocrit 46.8 % (37.0-53.0); Hemoglobin* 14.9 gm/dL (13.5-17.5); Immature Granulocytes Abs Auto 0.03 K/uL (0.00-0.30); Immature Granulocytes Pct Auto 0.4 %; Lymphocytes Absolute Auto 1.73 K/uL (0.90-2.90); Lymphocytes Percent Auto 21.4 % (20-44); Mean Corpuscular HGB Conc 32 gm/dL (32-36); Mean Corpuscular Hemoglobin 29 pg (26-34); Mean Corpuscular Volume 91 fL (80-100); Monocytes Percent Auto 9.2 % (0.0-11.0); Neutrophils Absolute Auto 5.42 K/uL (1.7-7.0); Platelet Count* 271 K/uL (140-440); RDW Coefficient of Variation % 13.7 % (11.5-15.5); Red Blood Count 5.12 m/uL (4.30-5.90); White Blood Count* 8.08 K/uL (4.50-11.00)
[2022-10-31 15:54] LABS: Slide Review Reflex No
[2022-10-31 16:04] LABS: Albumin* 4.5 g/dL (3.3-5.0); Chloride* 110 mmol/L (96-114); Sodium* 145 mmol/L (135-149)
[2022-10-31 16:05] LABS: Potassium* 3.7 mmol/L (3.6-5.1)
[2022-10-31 16:06] LABS: Creatinine* 0.7 mg/dL (0.5-1.5); Est. Creatinine Clearance* 69.91; Estimated Glomerular Filt Rate 95 ml/min
[2022-10-31 16:07] LABS: Alanine Aminotransferase* 40 U/L (4-50); Alkaline Phosphatase* 44 U/L (40-150); Aspartate Amino Transferase* 32 U/L (12-35); Bilirubin Total* 1.5 mg/dL (0.1-1.5); Blood Urea Nitrogen* 14 mg/dL (7-30); Carbon Dioxide* 27 mmol/L (20-32); Total Protein* 7.5 g/dL (6.0-8.3)
[2022-10-31 16:08] LABS: Glucose* 100 mg/dL (60-115)
[2022-10-31 16:13] LABS: C Reactive Protein* < 0.5 mg/dL (0.5-1.0)
[2022-10-31 16:16] LABS: NT Pro B Type NatriureticPept* 85 pg/mL
== END 2022-10-31 18:18 | disposition home or self-care (01) ==
PROVIDERS: Emergency Provider Emergency Medicine; PCP Internal Medicine
DX: R07.89 Other chest pain (principal); M54.2 Cervicalgia
CPT/HCPCS: 36415; 71046; 80048; 80076; 83880; 84484; 85025; 86140; 93005; 94761; 99284; 99285; A9270

== ENCOUNTER 2023-04-08 09:15 | Emergency (ER) | payer MEDICARE, SELFPAY ==
[2023-04-08] VITALS (17 sets, daily range): BP systolic 124–151; BP diastolic 70–86; PULSE 62–77; RESP 16–20; TEMP 36.2–36.4; O2SAT 92–97; BMI 30.3
--- NOTE | 2023-04-08 09:31 | ED_ITS ---
HPI - General Adult General Time Seen by Provider: 09:31 Date Seen: 04/08/23 Chief complaint: Flank Pain Stated complaint: possible kidney stones Time Seen by Provider: 04/08/23 09:31 Source: patient, RN notes reviewed and old records reviewed Mode of arrival: ambulatory Limitations: no limitations History of Present Illness HPI narrative: Guillermo is a very pleasant 77-year-old gentleman with history of anticoagulation with Eliquis status post atrial fibrillation and ablation, traumatic brain injury, recent urology procedure with recent diagnosis of UTI who comes to the emergency room for evaluation regarding right sided abdominal and back pain. Patient notes that a week ago he was seen by Urology at which time they wanted to look at his bladder and prostate. He actually had cystoscopy and was told everything ?looked good?. He began experiencing pain on that side in association with occasional dysuria and on WednesdayApril 05 was treated with Bactrim for UTI. Unfortunately he notes that the pain is actually worsening. Today he had an event where he had a lot of back pain in his right lower back to the point where was hard to move his right leg. He states that he is now urinating every 2 hours and thus is not getting a lot of sleep. He has not experienced any nausea or vomiting and denies a fever. He has not had a history of kidney stones. He has not taken any medication for pain. Related Data Home Medications Medication Instructions Recorded Confirmed amlodipine 5 mg tablet 5 mg PO QDAY 07/24/22 04/08/23 donepezil 10 mg tablet 10 mg PO QPM 07/24/22 04/08/23 donepezil 5 mg tablet 5 mg PO QPM 07/24/22 12/22/22 rosuvastatin 40 mg tablet 40 mg PO QDAY 07/24/22 04/08/23 tamsulosin 0.4 mg capsule 0.4 mg PO QDAY 07/24/22 04/08/23 apixaban 5 mg tablet (Eliquis) 5 mg PO Q12H 08/04/22 04/08/23 losartan 25 mg tablet 25 mg PO QDAY 12/22/22 04/08/23 sulfamethoxazole 800 1 tab PO BID 04/08/23 04/08/23 mg-trimethoprim 160 mg tablet Allergies Allergy/AdvReac Type Severity Reaction Status Date / Time Iodinated Contrast Media Allergy Severe Anaphylaxis Verified 12/22/22 13:22 adhesive Allergy Mild Rash Verified 12/22/22 13:22 Penicillins Allergy Mild Rash Verified 12/22/22 13:22 methylphenidate AdvReac Unknown Verified 12/22/22 13:22 [From Ritalin] Review of Systems Status of ROS: Reports: 10 or more systems reviewed and unremarkable except as noted in History and below Const: Reports: fatigue; Denies: fever or chills ENMT: Denies: difficulty swallowing Cardio: Denies: chest pain or shortness of breath with exertion Resp: Denies: shortness of breath GI: Reports: abdominal pain; Denies: nausea, vomiting, diarrhea, difficulty swallowing or blood in stool : Reports: painful urination, urinary frequency and urinary urgency; Denies: blood in urine Musculo: Reports: back pain Neuro: Reports: weakness in extremities; Denies: numbness in extremities Psych: Reports: anxiety Endo: Reports: fatigue PFSH PFS Medical History Paroxysmal atrial fibrillation ?I48.0 - Paroxysmal atrial fibrillation (ICD-10) Chronic headache ?R51.9 - Headache, unspecified (ICD-10) ?G89.29 - Other chronic pain (ICD-10) Carotid artery stenosis ?I65.29 - Occlusion and stenosis of unspecified carotid artery (ICD-10) Wears hearing aid ?Z97.4 - Presence of external hearing-aid (ICD-10) Traumatic brain injury (1959) ?S06.9XAA - Unspecified intracranial injury with loss of consciousness status unknown, initial encounter (ICD-10) Obstructive sleep apnea syndrome ?G47.33 - Obstructive sleep apnea (adult) (pediatric) (ICD-10) Hyperlipidemia ?E78.5 - Hyperlipidemia, unspecified (ICD-10) History of alcoholism ?F10.21 - Alcohol dependence, in remission (ICD-10) Essential hypertension ?I10 - Essential (primary) hypertension (ICD-10) Erectile dysfunction ?N52.9 - Male erectile dysfunction, unspecified (ICD-10) Dementia ?F03.90 - Unspecified dementia, unspecified severity, without behavioral disturbance, psychotic disturbance, mood disturbance, and anxiety (ICD-10) Coronary artery disease (2018) ?I25.10 - Atherosclerotic heart disease of [place] coronary artery without angina pectoris (ICD-10) BPH (benign prostatic hyperplasia) ?N40.0 - Benign prostatic hyperplasia without lower urinary tract symptoms (ICD-10) Borderline diabetes mellitus ?R73.03 - Prediabetes (ICD-10) Attention deficit disorder ?F98.8 - Other specified behavioral and emotional disorders with onset usually occurring in childhood and adolescence (ICD-10) History of TIA (transient ischemic attack) (11/05/19) ?Z86.73 - Personal history of transient ischemic attack (TIA), and cerebral infarction without residual deficits (ICD-10) History of rheumatic fever as a child ?Z86.79 - Personal history of other diseases of the circulatory system (ICD- 10) History of atrial fibrillation (2013) ?Z86.79 - Personal history of other diseases of the circulatory system (ICD- 10) Surgical History S/P ablation of atrial fibrillation ?Z98.890 - Other specified postprocedural states (ICD-10) ?Z86.79 - Personal history of other diseases of the circulatory system (ICD- 10) History of left inguinal hernia repair ?Z98.890 - Other specified postprocedural states (ICD-10) ?Z87.19 - Personal history of other diseases of the digestive system (ICD-10) History of repair of right rotator cuff (1996) ?Z98.890 - Other specified postprocedural states (ICD-10) History of phacoemulsification of cataract of both eyes with intraocular lens implantation (12/31/21) ?Z98.41 - Cataract extraction status, right eye (ICD-10) ?Z98.42 - Cataract extraction status, left eye (ICD-10) ?Z96.1 - Presence of intraocular lens (ICD-10) History of coronary artery stent placement (2017) ?Z95.5 - Presence of coronary angioplasty implant and graft (ICD-10) History of vasectomy ?Z98.52 - Vasectomy status (ICD-10) History of unilateral orchiectomy (1973) ?Z90.79 - Acquired absence of other genital organ(s) (ICD-10) History of umbilical hernia repair ?Z98.890 - Other specified postprocedural states (ICD-10) ?Z87.19 - Personal history of other diseases of the digestive system (ICD-10) History of nasal septoplasty (2008) ?Z98.890 - Other specified postprocedural states (ICD-10) History of left-sided carotid endarterectomy (2020) ?Z98.890 - Other specified postprocedural states (ICD-10) History of detached retina repair ?Z98.890 - Other specified postprocedural states (ICD-10) ?Z86.69 - Personal history of other diseases of the nervous system and sense organs (ICD-10) Social History Smoking Status: Former smoker What tobacco products do you use: cigarettes Smoking quit date/years: >15 years ago Do you use any of these nicotine containing products: None Second hand tobacco smoke exposure: No How often do you have a drink containing alcohol: never How often do you have six or more drinks on one occasion: Never AUDIT-C Alcohol total score: 0 Non-prescribed substance use: denies use Little interest or pleasure in doing things: not at all Feeling down, depressed, or hopeless: not at all Exam Narrative: Exam Narrative: Patient is alert and oriented. He is intermittently smiling but then he is near tears. Very emotional today. GCS appears to be 15. Neck is supple. Heart with regular rate and rhythm and lungs are clear bilaterally. Abdomen is protrude print but it is soft. Patient has pain in the right middle and lower lateral abdomen as well as pain with palpation over the right flank. He is able to move without difficulty but complains of extreme pain when he does it. The pain appears to be in the area of the right posterior superior iliac spine. Lower extremities without edema. He has full motor and sensation of the lower extremities. Const: Vital Signs, click to edit/add: Vital Signs - 24 hr 04/08/23 09:20 04/08/23 10:07 04/08/23 10:08 Temperature 97.2 F L Pulse Rate 72 66 Pulse Rate [Pulse Oximeter] 72 Respiratory Rate 20 16 Blood Pressure 140/78 H Blood Pressure [Ri ght Upper Arm] 151/86 H Pulse Oximetry 97 96 96 Oxygen Delivery Me thod Room Air 04/08/23 10:15 04/08/23 10:30 04/08/23 10:32 Temperature Pulse Rate 76 64 68 Pulse Rate [Pulse Oximeter] Respiratory Rate Blood Pressure 124/70 Blood Pressure [Ri ght Upper Arm] Pulse Oximetry 95 96 94 Oxygen Delivery Me thod 04/08/23 10:45 04/08/23 11:00 04/08/23 11:02 Temperature Pulse Rate 73 77 63 Pulse Rate [Pulse Oximeter] Respiratory Rate 16 Blood Pressure 132/79 Blood Pressure [Ri ght Upper Arm] Pulse Oximetry 97 97 96 Oxygen Delivery Me thod 04/08/23 11:03 04/08/23 11:15 04/08/23 11:30 Temperature Pulse Rate 62 65 66 Pulse Rate [Pulse Oximeter] Respiratory Rate Blood Pressure Blood Pressure [Ri ght Upper Arm] Pulse Oximetry 96 95 95 Oxygen Delivery Me thod 04/08/23 11:32 04/08/23 11:33 04/08/23 11:45 Temperature Pulse Rate 63 64 65 Pulse Rate [Pulse Oximeter] Respiratory Rate 16 Blood Pressure 128/74 Blood Pressure [Ri ght Upper Arm] Pulse Oximetry 92 93 92 Oxygen Delivery Me thod 04/08/23 12:00 04/08/23 12:02 Temperature 97.6 F Pulse Rate 65 63 Pulse Rate [Pulse Oximeter] Respiratory Rate 16 Blood Pressure 135/76 Blood Pressure [Ri ght Upper Arm] Pulse Oximetry 96 96 Oxygen Delivery Me thod Documenting provider has reviewed patient's vital signs: yes Course Course Hospital Course: Differential diagnosis includes but is not limited to ureteral colic, nephrolithiasis, pyelonephritis, retroperitoneal bleed, musculoskeletal pain. Will place IV. Patient has an anaphylactic reaction to IV contrast and therefore will do a noncontrast CT of the abdomen and pelvis. Will give patient morphine 4 mg Zofran 4 mg and 1 L of normal saline. Will check CBC, comprehensive panel, CRP as well as urinalysis. Reevaluation(s) Reevaluation #1: Patient feeling much better after catheter placed. Vital Signs Vital signs: Initial Vital Signs Temperature 97.2 F L 04/08/23 09:20 Temperature Source Temporal Artery Scan 04/08/23 09:20 Pulse Rate 72 04/08/23 09:20 Respiratory Rate 20 04/08/23 09:20 Blood Pressure 151/86 H 04/08/23 09:20 Blood Pressure Mean 107 H 04/08/23 09:20 Blood Pressure Position Supine 04/08/23 09:20 Pulse Oximetry 97 04/08/23 09:20 Oxygen Delivery Method Room Air 04/08/23 09:20 Vital Signs Temperature 97.2 F L 04/08/23 09:20 Pulse Rate 72 04/08/23 09:20 Respiratory Rate 20 04/08/23 09:20 Blood Pressure 151/86 H 04/08/23 09:20 Pulse Oximetry 97 04/08/23 09:20 Oxygen Delivery Method Room Air 04/08/23 09:20 Temperature 97.6 F 04/08/23 12:02 Pulse Rate 63 04/08/23 12:02 Respiratory Rate 16 04/08/23 12:02 Blood Pressure 135/76 04/08/23 12:02 Pulse Oximetry 96 04/08/23 12:02 Oxygen Delivery Method Room Air 04/08/23 09:20 Medical Decision Making MDM Narrative Medical decision making narrative: 1. Urinary retention-patient is feeling much better after catheter placement. Patient did have a bladder stone measuring 2.5 cm but it is mobile in so I am not entirely convinced that this was causing and outlet problem. I think this is more likely related to prostate issue. The [place] will remain in place. Patient will need to follow-up with urology for further evaluation. Patient did have some white cells on his urine. Previous urine grew out mixed kota. Will have patient stay on his antibiotic until this particular urine culture is returned. I do believe abdominal pain likely from urinary retention. 2. Constipation-patient did have large stool burden on the CT. Recommend Abdoulaye ax 1/2 cap p.o. b.i.d. for 3 days. May discontinue if stools get particularly loose. 3. Right renal nodule-will need outpatient follow-up with ultrasound. 3. Disposition-home. This time feeling much better. Back pain has also resolved any is ambulating without difficulty. Patient is discharged home in the care of his son. We did have a discussion with [facility] on the phone. She is up [place]. We spoke about the urinary retention, need for catheter, continuance of antibiotic. Spoke about using MiraLax to help with bowel clear out. Finally as she is aware that we will need outpatient follow-up ultrasound for the right renal nodule. Return as needed for worsening symptoms. Medical Records Medical records reviewed: Yes I reviewed the patient's medical records Lab Data Lab results reviewed: Yes I reviewed the patient's lab results Labs: Lab Results 04/08/23 04/08/23 Range/Units 09:45 10:04 WBC 11.36 H (4.50-11.00) K/uL RBC 5.14 (4.30-5.90) m/uL Hgb 14.7 (13.5-17.5) gm/dL Hct 46.4 (37.0-53.0) % MCV 90 (80-100) fL MCH 29 (26-34) pg MCHC 32 (32-36) gm/dL RDW Coeff of Gabe 14.4 (11.5-15.5) % Plt Count 250 (140-440) K/uL Neut % (Auto) 81.3 H (42.0-72.0) % Lymph % (Auto) 9.4 L (20-44) % Baxter % (Auto) 8.3 (0.0-11.0) % Eos % (Auto) 0.7 (0.0-7.0) % Baso % (Auto) 0.1 (0.0-3.0) % Neut # (Auto) 9.20 H (1.7-7.0) K/uL Lymph # (Auto) 1.10 (0.90-2.90) K/uL Baxter # (Auto) 0.90 (0.00-0.90) K/UL Eos # (Auto) 0.10 (0.00-0.50) K/uL Baso # (Auto) 0.00 (0.00-0.30) K/uL Abs Immat Gran (auto) 0.00 (0.00-0.30) K/uL Imm/Tot Granulo (auto) 0.2 % Sodium 138 (135-149) mmol/L Potassium 4.0 (3.6-5.1) mmol/L Chloride 104 (96-114) mmol/L Carbon Dioxide 23 (20-32) mmol/L BUN 14 (7-30) mg/dL Creatinine 0.9 (0.5-1.5) mg/dL Estimated Creat Clear 69.91 Estimated GFR 88 ml/min Glucose 99 (60-115) mg/dL Calcium 9.1 (8.4-10.6) mg/dL Total Bilirubin 1.7 H (0.1-1.5) mg/dL AST 28 (12-35) U/L ALT 34 (4-50) U/L Alkaline Phosphatase 53 (40-150) U/L C-Reactive Protein < 0.5 L (0.5-1.0) mg/dL Total Protein 7.8 (6.0-8.3) g/dL Albumin 4.5 (3.3-5.0) g/dL Urine Color Yellow (Yellow) Urine Appearance Clear (Clear) Urine pH 6.0 (5.0-8.5) Ur Specific [place] 1.020 (1.000-1.030) Urine Protein Negative (Negative) Urine Glucose (UA) Negative (Negative) Urine Ketones Negative (Negative) Urine Blood Trace-intact A (Negative) Urine Nitrite Negative (Negative) Urine Bilirubin Negative (Negative) Urine Urobilinogen 1.0 (0.2-1.0) Ur Leukocyte Esterase 1+ A (Negative) Urine RBC 2-5 A (0-2) Urine WBC 5-10 A (0-5) Ur Squamous Epith Cells Few (None-Few) Urine Bacteria None (None) Coarse Granular Casts Few A (None) Imaging Data CT scan - abdomen: Attestation: I have reviewed the pertinent imaging results. Radiologist's impression: Subcentimeter low-attenuation lesion in the inferior right hepatic lobe is too small to characterize but likely benign (series 2, image 50). The unenhanced liver is otherwise unremarkable. The unenhanced gallbladder, spleen, and adrenal glands are normal in appearance. Scattered pancreatic calcifications likely related to sequela of prior pancreatitis. No biliary dilation. No hydronephrosis or ureteral dilation. No obstructing urinary calculi identified. There is a 0.8 cm exophytic hyperdense nodule arising from the upper pole of the right kidney laterally. Small left renal cyst. There is a large irregular stone layering in the midline posterior bladder measuring approximately 2.5 cm (series 2, image 132). No signs of bladder inflammation. Enlarged prostate gland with calcifications. Atrophy of the right seminal vesicles. No small bowel dilation. Large amount of stool throughout the colon. Colonic diverticulosis without evidence of diverticulitis. Mildly redundant sigmoid colon. Negative appendix. No intraperitoneal free air or fluid. No lymphadenopathy. Aortoiliac vascular calcifications. Status post ventral hernia repair with mesh. Moderate-sized fat containing right inguinal hernia. Degenerative changes of the spine. Peripheral reticular opacities in the lung bases may be due to underlying pulmonary fibrosis. Coronary artery calcifications. IMPRESSION: 1. Large irregular stone layering in the midline posterior bladder. No evidence of bladder inflammation. Enlarged prostate gland. 2. No hydronephrosis or obstructing ureteral calculi. 3. Indeterminate hyperdense lesion in the right kidney. This could be further evaluated with nonemergent renal ultrasound. 4. Large amount of stool. 5. No other acute findings in the abdomen or pelvis on this noncontrast exam. Discharge Plan Discharge Clinical Impression: Bladder stone, Acute urinary retention Constipation Qualifiers: Constipation type: unspecified constipation type Qualified Code(s): K59.00 - Constipation, unspecified Patient Disposition: Home w/ Parent or Adult Condition: Improved Instructions: How to Change a Catheter Drainage Bag (DC) Additional Instructions: Continue current antibiotic. Follow-up with primary MD for outpatient ultrasound of your kidney. Follow-up with Urology to let them know that you had to have a catheter and that you have a large bladder stone measuring 2.5 cm. Suggest use of MiraLax 1/2 dose twice a day for 3 days.. If you start developing diarrhea, stop the medication. Return to the emergency room for worsening symptoms. Prescriptions: No Action rosuvastatin 40 mg tablet 40 mg PO QDAY tamsulosin 0.4 mg capsule 0.4 mg PO QDAY amlodipine 5 mg tablet 5 mg PO QDAY Patient Comments: TAKE 1 TABLET BY MOUTH ONCE DAILY. donepezil 5 mg tablet 5 mg PO QPM donepezil 10 mg tablet 10 mg PO QPM Patient Comments: Takes 15mg po daily losartan 25 mg tablet 25 mg PO QDAY Eliquis 5 mg tablet 5 mg PO Q12H sulfamethoxazole-trimethoprim 800-160 mg tablet 1 tab PO BID Follow Up/Referrals: Karan Mirza MD [Primary Care Provider] - Stand Alone Forms: [employer] Instructions
--- NOTE | 2023-04-08 09:43 | CRLHL7_ITS ---
For Patients: As a result of the Century Cures Act, medical imaging exams and procedure reports are released immediately into your electronic medical record. You may view this report before your referring provider. If you have questions, please contact your health care provider. INDICATION: Right lower quadrant and right flank pain. TECHNIQUE: CT of the abdomen and pelvis without intravenous contrast. Coronal and sagittal reconstructions. COMPARISON: None. FINDINGS: Subcentimeter low-attenuation lesion in the inferior right hepatic lobe is too small to characterize but likely benign (series 2, image 50). The unenhanced liver is otherwise unremarkable. The unenhanced gallbladder, spleen, and adrenal glands are normal in appearance. Scattered pancreatic calcifications likely related to sequela of prior pancreatitis. No biliary dilation. No hydronephrosis or ureteral dilation. No obstructing urinary calculi identified. There is a 0.8 cm exophytic hyperdense nodule arising from the upper pole of the right kidney laterally. Small left renal cyst. There is a large irregular stone layering in the midline posterior bladder measuring approximately 2.5 cm (series 2, image 132). No signs of bladder inflammation. Enlarged prostate gland with calcifications. Atrophy of the right seminal vesicles. No small bowel dilation. Large amount of stool throughout the colon. Colonic diverticulosis without evidence of diverticulitis. Mildly redundant sigmoid colon. Negative appendix. No intraperitoneal free air or fluid. No lymphadenopathy. Aortoiliac vascular calcifications. Status post ventral hernia repair with mesh. Moderate-sized fat containing right inguinal hernia. Degenerative changes of the spine. Peripheral reticular opacities in the lung bases may be due to underlying pulmonary fibrosis. Coronary artery calcifications. IMPRESSION: 1. Large irregular stone layering in the midline posterior bladder. No evidence of bladder inflammation. Enlarged prostate gland. 2. No hydronephrosis or obstructing ureteral calculi. 3. Indeterminate hyperdense lesion in the right kidney. This could be further evaluated with nonemergent renal ultrasound. 4. Large amount of stool. 5. No other acute findings in the abdomen or pelvis on this noncontrast exam. Please note that all CT scans at this facility use dose modulation, iterative reconstruction, and/or weight-based dosing when appropriate to reduce radiation dose to as low as reasonably achievable. Dictated by Devora Tomas MD @ 04/08/2023 10:45:48 AM (Electronically Signed)
[2023-04-08 09:56] LABS: Basophils Percent Auto 0.1 % (0.0-3.0); Eosinophils Percent Auto 0.7 % (0.0-7.0); Hematocrit 46.4 % (37.0-53.0); Hemoglobin* 14.7 gm/dL (13.5-17.5); Immature Granulocytes Pct Auto 0.2 %; Lymphocytes Percent Auto 9.4 % (20-44); Mean Corpuscular HGB Conc 32 gm/dL (32-36); Mean Corpuscular Hemoglobin 29 pg (26-34); Mean Corpuscular Volume 90 fL (80-100); Monocytes Percent Auto 8.3 % (0.0-11.0); Neutrophils Percent Auto 81.3 % (42.0-72.0); Platelet Count* 250 K/uL (140-440); RDW Coefficient of Variation % 14.4 % (11.5-15.5); Red Blood Count 5.14 m/uL (4.30-5.90); White Blood Count* 11.36 K/uL (4.50-11.00)
[2023-04-08 09:57] LABS: Slide Review Reflex No
[2023-04-08] MEDS: ONDANSETRON 2 MG/ML inj 4 MG IVP (10:07)
[2023-04-08] MEDS: 0.9 % SODIUM CHLORIDE 1000 ml 1,000 ML IV (10:07)
[2023-04-08] MEDS: MORPHINE 4 MG/ML INJ IVP (10:07)
[2023-04-08 10:11] LABS: Albumin* 4.5 g/dL (3.3-5.0); Chloride* 104 mmol/L (96-114); Sodium* 138 mmol/L (135-149)
[2023-04-08 10:14] LABS: Alanine Aminotransferase* 34 U/L (4-50); Alkaline Phosphatase* 53 U/L (40-150); Aspartate Amino Transferase* 28 U/L (12-35); Bilirubin Total* 1.7 mg/dL (0.1-1.5); Blood Urea Nitrogen* 14 mg/dL (7-30); Carbon Dioxide* 23 mmol/L (20-32); Creatinine* 0.9 mg/dL (0.5-1.5); Est. Creatinine Clearance* 69.91; Estimated Glomerular Filt Rate 88 ml/min; Total Protein* 7.8 g/dL (6.0-8.3)
[2023-04-08 10:15] LABS: Calcium* 9.1 mg/dL (8.4-10.6); Glucose* 99 mg/dL (60-115)
[2023-04-08 10:19] LABS: C Reactive Protein* < 0.5 mg/dL (0.5-1.0)
--- NOTE | 2023-04-08 10:32 | ED.NURSE ---
Patient's called to get an update. Patient okay for us to talk to her. is up near [facility] but has arranged for her grandson jewels to come and slat pickler patient when ready to be discharged. She would like updates once we have a plan. Stated he had a bladder scope done on april 01 for incontinence and frequency. Then on went to urgent care and they diagnosed him with UTI. Cultures came back today and it was mixed bacteria. Dr. Knowles was notified of this and will determine if patient needs to stay on antibiotic or not. Dr. Knowles notified that bladder scan was 335cc. Dr. Knowles requests to place a ricks and leave in place.
--- OUTSIDE RECORDS SUMMARY | 2023-04-08 10:55 | XMS_ITS | Continuity of Care Document ---
Author Name [employer] 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 [facility] Decreased hearing (finding) Active 10/29/2017 [facility] Hyperlipidemia (disorder) Resolved 10/29/2017 [facility] Hypertensive disorder, systemic arterial (disorder) Resolved 10/29/2017 [facility] Hypercholesterolemia (disorder) Active 10/29/2017 [facility] Impotence of organic origin (disorder) Active 10/29/2017 [facility] Obesity (disorder) Active 10/29/2017 [facility] Coronary arteriosclerosis (disorder) Active 10/29/2017 [facility] Non-ST elevation (NSTEMI) myocardial infarction 10/29/2017 [facility] Obstructive sleep apnea (adult) (pediatric) 10/29/2017 [facility] Atherosclerotic heart disease of [place] coronary artery without angina pectoris 10/29/2017 [facility] Essential (primary) hypertension 10/29/2017 [facility] Unspecified atrial fibrillation 10/29/2017 [facility] Obesity, unspecified 10/29/2017 [facility] Enlarged prostate without lower urinary tract symptoms 10/29/2017 [facility] Bradycardia, unspecified 10/29/2017 [facility] Hyperlipidemia, unspecified 10/29/2017 [facility] MCC (current) use of aspirin 10/29/2017 [facility] Body mass index (BMI) 30.0-30.9, adult 10/29/2017 [facility] Allergy status to penicillin 10/29/2017 [facility] Personal history of nicotine dependence 10/29/2017 [facility] Medications Medication Details Route Status Patient Instructions Ordering Provider Order Date Source Ticagrelor 90 MG Oral Tablet [Brilinta] 1 Tab, PO BID, Qty: 60 Tab, Refills: 0, Print Requisition Active [facility] lisinopril 10 mg oral tablet 1 Tab Tab, PO qDay, Qty: 30 Tab, Refills: 0, Print Requisition Active [facility] Metoprolol Tartrate 50 MG Oral Tablet [Lopressor] 1 Tab Tab, PO BID, Qty: 60 Tab, Refills: 0, Print Requisition Active [facility] atorvastatin 80 mg oral tablet 1 Tab Tab, PO qDay, Qty: 30 Tab, Refills: 0, Print Requisition Active [facility] Aspirin 81 MG Enteric Coated Tablet 1 Tab Tab, EC, PO qDay, Qty: 30 Tab, Refills: 0, Print Requisition Active [facility] alfuzosin 10 mg oral tablet, extended release 1 Tab, PO Daily, Refills: 0 Active [facility] Allergies, Adverse Reactions, Alerts Substance Category Reaction Severity Reaction type Status Date Reported Comments Source penicillins Assertion Unknown Drug allergy Active [facility] contrast media (iodine-based ) Assertion Severe Drug allergy Active [facility] Results Order Name Results Value Reference Range Date Interpretation Comments Source Renal Pnl Sodium 142 134 - 144 10/22 [facility] Pnl Potassium 3.5 3.4 - 4.6 10/22 [facility] Renal Pnl Chloride 110 98 - 111 10/22 [facility] Renal Pnl CO2 19 19 - 29 10/22 [facility] Renal Pnl Anion Gap 13 10/22 [facility] Renal Pnl BUN 20 5 - 23 10/22 [facility] Renal Pnl Creatinine .86 .50 - 1.20 10/22 [facility] Renal Pnl Glucose Level 155 65 - 99 10/[address] [facility] Renal Pnl BUN/Cr Ratio 23.3 10/22 [facility] Renal Pnl Calcium 8.1 8.1 - 10.0 10/22 [facility] Renal Pnl Phosphorus 3.4 2.3 - 4.4 10/22 [facility] Renal Pnl Albumin 3.1 3.2 - 5.0 10/[address] [facility] Renal Pnl eGFR NonAfr/Am >60 >=60 10/22 eGFR calculation is based on factors that include the age and gender of the patient. The calculation has not been validated for individuals below 18 years and above 70 years of age, or in women. [facility] Renal Pnl eGFR Afr/Am >60 >=60 10/22 eGFR calculation is based on factors that include the age and gender of the patient. The calculation has not been validated for individuals below 18 years and above 70 years of age, or in women. [facility] Hem[facility] WBC 12.3 4.0 - 12.0 10/22 H Note: Reference range change effective 12/13/2014 [facility] Hemogram RBC 4.79 4.00 - 6.00 10/22 Note: Reference range change effective 12/13/2014 [facility] Hemogram Hgb 14.1 12.5 - 17.5 10/22 Note: Reference range change effective 12/13/2014 [facility] Hemogram Hct 42.9 35.0 - 50.0 10/22 Note: Reference range change effective 12/13/2014 [facility] Hemogram MCV 89.7 81.0 - 99.0 10/22 [facility] Hemogram MCH 29.5 27.0 - 34.0 10/22 [facility] Hemogram MCHC 32.9 32.0 - 36.0 10/22 [facility] Hemogram RDW 15.0 12.0 - 17.0 10/22 Note: Reference range change effective 12/13/2014 [facility] Plt 253 150 - 400 [facility] 8.5 6.0 - 11.0 10/22 Note: Reference range change effective 12/13/2014 [facility] CBC MCHC 32.9 32.0 - 36.0 10/22 [facility] CBC MPV 8.5 6.0 - 11.0 10/22 [facility] CBC Plt 253 150 - 400 10/22 [facility] CBC RDW 15.0 12.0 - 17.0 10/22 [facility] CBC MCH 29.5 27.0 - 34.0 10/22 [facility] CBC MCV 89.7 81.0 - 99.0 10/22 [facility] CBC Hct 42.9 35.0 - 50.0 10/22 [facility] CBC Hgb 14.1 12.5 - 17.5 10/22 [facility] CBC RBC 4.79 4.00 - 6.00 10/22 [facility] CBC WBC 12.3 4.0 - 12.0 10/22 [facility] General Chemistry eGFR Afr/Am >60 >=60 10/22 [facility] General Chemistry BUN/Cr Ratio 23.3 10/22 [facility] General Chemistry Glucose Level 155 65 - 99 10/22 [facility] General Chemistry Anion Gap 13 10/22 [facility] General Chemistry Phosphorus 3.4 2.3 - 4.4 10/22 [facility] General Chemistry Albumin 3.1 3.2 - 5.0 10/22 [facility] General Chemistry Calcium 8.1 8.1 - 10.0 10/22 [facility] General Chemistry BUN 20 5 - 23 10/22 [facility] General Chemistry CO2 19 19 - 29 10/22 [facility] General Chemistry Potassium 3.5 3.4 - 4.6 10/22 [facility] General Chemistry Chloride 110 98 - 111 10/22 [facility] General Chemistry Creatinine 0.86 0.50 - 1.20 10/22 [facility] General Chemistry Sodium 142 134 - 144 10/22 [facility] General Chemistry eGFR NonAfr/Am >60 >=60 10/22 [facility] Renal Pnl Sodium 144 134 - 144 10/21 [facility] Renal Pnl Potassium 3.4 3.4 - 4.6 10/21 [facility] Renal Pnl Chloride 110 98 - 111 10/21 [facility] Renal Pnl CO2 22 19 - 29 10/21 [facility] Renal Pnl Anion Gap 12 10/21 [facility] Renal Pnl BUN 23 5 - 23 10/21 [facility] Renal Pnl Creatinine .81 .50 - 1.20 10/21 [facility] Renal Pnl Glucose Level 106 65 - 99 10/21 H [facility] Renal Pnl BUN/Cr Ratio 28.4 10/21 [facility] Renal Pnl Calcium 8.9 8.1 - 10.0 10/21 [facility] Renal Pnl Phosphorus 3.2 2.3 - 4.4 10/21 [facility] Renal Pnl Albumin 3.6 3.2 - 5.0 10/21 [facility] Renal Pnl eGFR Afr/Am >60 >=60 10/21 eGFR calculation is based on factors that include the age and gender of the patient. The calculation has not been validated for individuals below 18 years and above 70 years of age, or in women. [facility] Renal Pnl eGFR NonAfr/Am >60 >=60 10/21 eGFR calculation is based on factors that include the age and gender of the patient. The calculation has not been validated for individuals below 18 years and above 70 years of age, or in women. [facility] PTT PTT 41.0 25.1 - 36.5 10/21 H ???Published data suggest effective therapeutic heparin range to prevent extension of thrombosis with a minimum of hemorrhage is generally obtained with plasma heparin value of 0.3-0.7 U/mL. This level may be achieved with an average APTT value of 1.5-2.5 times patient baseline APTT value. Lepirudin may be monitored using the aPTT. The therapeutic range is 1.5 to 2.5 times the baseline value. Argatroban may be monitored using the aPTT. The therapeutic range is 1.5 to 3.0 times the baseline value. Bivalirudin may be monitored using the ACT. Low Molecular weight heparin can be monitored using Anti-Xa assay.??? Note: Reference range change effective 06/11/2015 [facility] Hemogram WBC 15.4 4.0 - 12.0 10/21 H Note: Reference range change effective 12/13/2014 [facility] Hemogram RBC 5.24 4.00 - 6.00 10/21 Note: Reference range change effective 12/13/2014 [facility] Hemogram Hgb 15.3 12.5 - 17.5 10/21 Note: Reference range change effective 12/13/2014 [facility] Hemogram Hct 46.5 35.0 - 50.0 10/21 Note: Reference range change effective 12/13/2014 [facility] MCV 88.8 81.0 - 99.0 10/[facility] MCH 29.3 27.0 - 34.0 10/21 [facility] MCHC 33.0 32.0 - 36.0 10/21 [facility] RDW 15.2 12.0 - 17.0 10/21 Note: Reference range change effective 12/13/2014 [facility] Hemogram Plt 274 150 - 400 10/[facility] MPV 8.7 6.0 - 11.0 10/21 Note: Reference range change effective 12/13/2014 [facility] CBC MPV 8.7 6.0 - 11.0 10/21 [facility] CBC Plt 274 150 - 400 10/21 [facility] CBC RDW 15.2 12.0 - 17.0 10/21 [facility] CBC MCV 88.8 81.0 - 99.0 10/21 [facility] CBC Hct 46.5 35.0 - 50.0 10/21 [facility] CBC RBC 5.24 4.00 - 6.00 10/21 [facility] CBC Hgb 15.3 12.5 - 17.5 10/21 [facility] CBC MCHC 33.0 32.0 - 36.0 10/21 [facility] CBC MCH 29.3 27.0 - 34.0 10/21 [facility] CBC WBC 15.4 4.0 - 12.0 10/21 [facility] Coagulation PTT 41.0 25.1 - 36.5 10/21 [facility] General Chemistry Potassium 3.4 3.4 - 4.6 02/01 /2018 [facility] General Chemistry Chloride 110 98 - 111 10/21 [facility] General Chemistry CO2 22 19 - [address] [facility] General Chemistry Anion Gap 12 10/21 [facility] General Chemistry BUN 23 5 - 23 10/21 [facility] General Chemistry Creatinine 0.81 0.50 - 1.20 10/21 [facility] General Chemistry Sodium 144 134 - 144 10/21 [facility] General Chemistry Glucose Level 106 65 - 99 10/21 [facility] General Chemistry BUN/Cr Ratio 28.4 10/21 [facility] General Chemistry Calcium 8.9 8.1 - 10.0 10/21 [facility] General Chemistry Albumin 3.6 3.2 - 5.0 10/21 [facility] General Chemistry Phosphorus 3.2 2.3 - 4.4 10/21 [facility] General Chemistry eGFR Afr/Am >60 >=60 10/21 [facility] General Chemistry eGFR NonAfr/Am >60 >=60 10/21 [facility] HgbA1C HgbA1C 5.6 - <=5.5 10/21 H <= 5.6% Normal 5.7 - 6.4% High risk Pre-Diabetes >=6.5% Diabetes, if confirmed by repeating test on different day. [facility] HgbA1C Est Mean Bld Glu 114 10/21 [facility] PTT PTT 45.4 25.1 - 36.5 10/20 H ???Published data suggest effective therapeutic heparin range to prevent extension of thrombosis with a minimum of hemorrhage is generally obtained with plasma heparin value of 0.3-0.7 U/mL. This level may be achieved with an average APTT value of 1.5-2.5 times patient baseline APTT value. Lepirudin may be monitored using the aPTT. The therapeutic range is 1.5 to 2.5 times the baseline value. Argatroban may be monitored using the aPTT. The therapeutic range is 1.5 to 3.0 times the baseline value. Bivalirudin may be monitored using the ACT. Low Molecular weight heparin can be monitored using Anti-Xa assay.??? Note: Reference range change effective 06/11/2015 [facility] Lipid Panel Cholesterol 156 140 - 200 10/20 [facility] Triglycerides 78 30 - 150 10/20 [facility] HDL 44 35 - 65 10/20 [facility] Cholest/HDL Ratio 3.55 10/20 [facility] LDL 96 70 - 130 10/20 Triglycerides greater than 400 mg/dL render the LDL calculation invalid. [facility] Lipid Panel VLDL 16 0 - 40 10/20 [facility] Hemogram WBC 15.7 4.0 - 12.0 10/20 H Note: Reference range change effective 12/13/2014 [facility] Hemogram RBC 4.98 4.00 - 6.00 10/20 Note: Reference range change effective 12/13/2014 [facility] Hemogram Hgb 14.8 12.5 - 17.5 10/20 Note: Reference range change effective 12/13/2014 [facility] Hemogram Hct 44.2 35.0 - 50.0 10/20 Note: Reference range change effective 12/13/2014 [facility] Hemogram MCV 88.8 81.0 - 99.0 10/20 [facility] Hemogram MCH 29.8 27.0 - 34.0 10/20 [facility] Hemogram MCHC 33.6 32.0 - 36.0 10/20 [facility] Hemogram RDW 15.3 12.0 - 17.0 10/20 Note: Reference range change effective 12/13/2014 [facility] Hemogram Plt 279 150 - 400 10/20 [facility] Hemogram MPV 8.2 6.0 - 11.0 10/20 Note: Reference range change effective 12/13/2014 [facility] CBC MPV 8.2 6.0 - 11.0 10/20 [facility] CBC Plt 279 150 - 400 10/20 [facility] CBC RDW 15.3 12.0 - 17.0 10/20 [facility] CBC MCHC 33.6 32.0 - 36.0 10/20 [facility] CBC MCV 88.8 81.0 - 99.0 10/20 [facility] CBC Hct 44.2 35.0 - 50.0 10/20 [facility] CBC Hgb 14.8 12.5 - 17.5 10/20 [facility] CBC RBC 4.98 4.00 - 6.00 10/20 [facility] CBC WBC 15.7 4.0 - 12.0 10/20 [facility] CBC MCH 29.8 27.0 - 34.0 10/20 [facility] Coagulation PTT 45.4 25.1 - 36.5 10/20 [facility] Special Chemistry Est Mean Bld Glu 114 10/20 [facility] Special Chemistry HgbA1C 5.6 <=5.5 % 10/20 [facility] PT PT 12.0 9.4 - 12.5 10/20 Note: Reference range change effective 06/11/2015 [facility] PT INR 1.06 0.86 - 1.14 10/20 Recommended therapeutic ranges for INR: Therapeutic Range 2.0-3.0 Mechanical Prosthetic Aortic Valve Pts 2.0-3.0 Mechanical Prosthetic Mitral Valve Pts 2.5-3.5 Note: Reference range change effective 06/11/2015 [facility] PTT PTT 53.0 25.1 - 36.5 10/20 H ???Published data suggest effective therapeutic heparin range to prevent extension of thrombosis with a minimum of hemorrhage is generally obtained with plasma heparin value of 0.3-0.7 U/mL. This level may be achieved with an average APTT value of 1.5-2.5 times patient baseline APTT value. Lepirudin may be monitored using the aPTT. The therapeutic range is 1.5 to 2.5 times the baseline value. Argatroban may be monitored using the aPTT. The therapeutic range is 1.5 to 3.0 times the baseline value. Bivalirudin may be monitored using the ACT. Low Molecular weight heparin can be monitored using Anti-Xa assay.??? Note: Reference range change effective 06/11/2015 [facility] Troponin-I Troponin I 1.716 - <=0.028 10/19 [facility] PREVIOUSLY CALLED CRITICAL Less than normal high: No evidence of myocardial damage Normal high to critical high: Indeterminate Greater than critical high: Consistent with myocardial injury (94.6 ??? 96.5% specific for myocardial infarction) [facility] Cardiac Troponin I 1.716 <=0.028 ng/mL 10/19 Result Comment: PREVIOUSLY CALLED CRITICAL [facility] Coagulation PT 12.0 9.4 - 12.5 10/19 [facility] Coagulation INR 1.06 0.86 - 1.14 10/19 [facility] Coagulation PTT 53.0 25.1 - 36.5 10/19 [facility] Troponin-I Troponin I 1.529 - <=0.028 10/19 HH Previously Called Critical _ Less than normal high: No evidence of myocardial damage Normal high to critical high: Indeterminate Greater than critical high: Consistent with myocardial injury (94.6 ??? 96.5% specific for myocardial infarction) [facility] CMP Sodium 141 134 - 144 10/19 [facility] CMP Potassium 4.1 3.4 - 4.6 10/19 [facility] CMP Chloride 109 98 - 111 10/19 [facility] CMP CO2 20 19 - 29 10/19 [facility] CMP Anion Gap 12 10/19 [facility] CMP Glucose Level 149 65 - 99 10/[address] [facility] CMP BUN 15 5 - 23 10/19 [facility] CMP Creatinine .81 .50 - 1.20 10/19 [facility] CMP BUN/Cr Ratio 18.5 10/19 [facility] CMP Calcium 9.3 8.1 - 10.0 10/19 [facility] CMP Protein, Total 7.3 6.3 - 8.6 10/19 [facility] CMP Albumin 3.9 3.2 - 5.0 10/19 [facility] CMP Globulin 3.4 10/19 [facility] CMP A/G Ratio 1.1 10/19 [facility] CMP Alkphos 75 25 - 120 10/19 [facility] CMP ALT 36 5 - 54 10/19 [facility] CMP AST 27 9 - 34 10/19 [facility] CMP Bili Total 1.7 0.2 - 1.2 10/[address] [facility] CMP eGFR Afr/Am >60 >=60 10/19 eGFR calculation is based on factors that include the age and gender of the patient. The calculation has not been validated for individuals below 18 years and above 70 years of age, or in women. [facility] CMP eGFR NonAfr/Am >60 >=60 10/19 eGFR calculation is based on factors that include the age and gender of the patient. The calculation has not been validated for individuals below 18 years and above 70 years of age, or in women. [facility] PT PT 11.2 9.4 - 12.5 10/19 Note: Reference range change effective 06/11/2015 [facility] PT INR 0.99 0.86 - 1.14 10/19 Recommended therapeutic ranges for INR: Therapeutic Range 2.0-3.0 Mechanical Prosthetic Aortic Valve Pts 2.0-3.0 Mechanical Prosthetic Mitral Valve Pts 2.5-3.5 Note: Reference range change effective 06/11/2015 [facility] PTT PTT 56.4 25.1 - 36.5 10/19 H ???Published data suggest effective therapeutic heparin range to prevent extension of thrombosis with a minimum of hemorrhage is generally obtained with plasma heparin value of 0.3-0.7 U/mL. This level may be achieved with an average APTT value of 1.5-2.5 times patient baseline APTT value. Lepirudin may be monitored using the aPTT. The therapeutic range is 1.5 to 2.5 times the baseline value. Argatroban may be monitored using the aPTT. The therapeutic range is 1.5 to 3.0 times the baseline value. Bivalirudin may be monitored using the ACT. Low Molecular weight heparin can be monitored using Anti-Xa assay.??? Note: Reference range change effective 06/11/2015 [facility] *Diff Auto Neut% 88.4 41.0 - 75.0 10/19 H Note: Reference range change effective 12/13/2014 [facility] *Diff Auto Lymph% 10.2 20.0 - 45.0 10/19 L Note: Reference range change effective 12/13/2014 [facility] *Diff Auto [place]% 1.1 2.0 - 15.0 10/19 L Note: Reference range change effective 12/13/2014 [facility] *Diff Auto Eos% 0.1 0.0 - 8.0 10/19 [facility] *Diff Auto Baso% 0.2 0.0 - 2.9 10/19 [facility] CBC w/ Diff WBC 6.5 4.0 - 12.0 10/19 Note: Reference range change effective 12/13/2014 [facility] CBC w/ Diff RBC 5.23 4.00 - 6.00 10/19 Note: Reference range change effective 12/13/2014 [facility] CBC w/ Diff Hgb 15.7 12.5 - 17.5 10/19 Note: Reference range change effective 12/13/2014 [facility] CBC w/ Diff Hct 46.4 35.0 - 50.0 10/19 Note: Reference range change effective 12/13/2014 [facility] CBC w/ Diff MCV 88.8 81.0 - 99.0 10/[facility] MCH 30.0 27.0 - 34.0 10/[facility] w/ Diff MCHC 33.8 32.0 - 36.0 10/19 [facility] w/ Diff RDW 14.7 12.0 - 17.0 10/19 Note: Reference range change effective [facility]/13/[facility] w/ Diff Plt 237 150 - 400 10/[facility] w/ Diff MPV 8.0 6.0 - 11.0 10/19 Note: Reference range change effective [facility]13/[facility] Card[facility] T[facility] I 1.529 <=0.028 ng/mL 10/19 Result Comment: Previously Called Critical _ [facility] CBC Eos% 0.1 0.0 - 8.0 10/19 [facility] CBC Baso% 0.2 0.0 - 2.9 10/19 [facility] CBC Lymph% 10.2 20.0 - 45.0 10/19 [facility] CBC Neut% 88.4 41.0 - 75.0 10/19 [facility] CBC [place]% 1.1 2.0 - 15.0 10/19 [facility] Coagulation PT 11.2 9.4 - 12.5 10/19 [facility] Coagulation INR 0.99 0.86 - 1.14 10/19 [facility] General Chemistry eGFR Afr/Am >60 >=60 10/19 [facility] General Chemistry A/G Ratio 1.1 10/19 [facility] General Chemistry ALT 36 5 - 54 10/19 [facility] General Chemistry Glucose Level 149 65 - 99 10/19 [facility] General Chemistry Calcium 9.3 8.1 - 10.0 10/19 [facility] General Chemistry AST 27 9 - 34 10/19 [facility] General Chemistry BUN/Cr Ratio 18.5 10/19 [facility] General Chemistry Alkphos 75 25 - 120 10/19 [facility] General Chemistry Bili Total 1.7 0.2 - 1.2 10/19 [facility] General Chemistry Globulin 3.4 10/19 [facility] General Chemistry Albumin 3.9 3.2 - 5.0 10/19 [facility] General Chemistry Protein, Total 7.3 6.3 - 8.6 10/19 [facility] General Chemistry CO2 20 19 - 29 10/19 [facility] General Chemistry Potassium 4.1 3.4 - 4.6 10/19 [facility] General Chemistry Chloride 109 98 - 111 10/19 [facility] General Chemistry BUN 15 5 - 23 10/19 [facility] General Chemistry Anion Gap 12 10/19 [facility] General Chemistry Sodium 141 134 - 144 10/19 [facility] General Chemistry Creatinine 0.81 0.50 - 1.20 10/19 [facility] General Chemistry eGFR NonAfr/Am >60 >=60 10/19 [facility] PTT PTT 29.5 25.1 - 36.5 10/19 ???Published data suggest effective therapeutic heparin range to prevent extension of thrombosis with a minimum of hemorrhage is generally obtained with plasma heparin value of 0.3-0.7 U/mL. This level may be achieved with an average APTT value of 1.5-2.5 times patient baseline APTT value. Lepirudin may be monitored using the aPTT. The therapeutic range is 1.5 to 2.5 times the baseline value. Argatroban may be monitored using the aPTT. The therapeutic range is 1.5 to 3.0 times the baseline value. Bivalirudin may be monitored using the ACT. Low Molecular weight heparin can be monitored using Anti-Xa assay.??? Note: Reference range change effective 06/11/2015 [facility] Troponin-I Troponin I 0.659 - <=0.028 10/19 HH _ results called (read-back confirmed) to nick shabazz @ 10/19/2017 00:27:28 PST by aylin. Less than normal high: No evidence of myocardial damage Normal high to critical high: Indeterminate Greater than critical high: Consistent with myocardial injury (94.6 ??? 96.5% specific for myocardial infarction) [facility] BNP B-Natriuretic Peptide 14 0 - 100 10/19 In the appropriate clinical setting, a BNP value greater than or equal to 100 pg/mL is consistent with the diagnosis of CHF. [facility] CK w/rflx CK 145 30 - 234 10/19 [facility] CMP Sodium 142 134 - 144 10/19 [facility] CMP Potassium 3.8 3.4 - 4.6 10/19 [facility] CMP Chloride 108 98 - 111 10/19 [facility] CMP CO2 21 19 - 29 10/19 [facility] CMP Anion Gap 13 10/19 [facility] CMP Glucose Level 109 65 - 99 10/19 H [facility] CMP BUN 17 5 - 23 10/19 [facility] CMP Creatinine .82 .50 - 1.20 10/19 [facility] CMP BUN/Cr Ratio 20.7 10/19 [facility] CMP Calcium 9.1 8.1 - 10.0 10/19 [facility] CMP Protein, Total 7.2 6.3 - 8.6 10/19 [facility] CMP Albumin 3.8 3.2 - 5.0 10/19 [facility] CMP Globulin 3.4 10/19 [facility] CMP A/G Ratio 1.1 10/19 [facility] CMP Alkphos 73 25 - 120 10/19 [facility] CMP ALT 36 5 - 54 10/19 [facility] CMP AST 28 9 - 34 10/19 [facility] CMP Bili Total 1.3 0.2 - 1.2 10/[address] [facility] CMP eGFR Afr/Am >60 >=60 10/19 eGFR calculation is based on factors that include the age and gender of the patient. The calculation has not been validated for individuals below 18 years and above 70 years of age, or in women. [facility] CMP eGFR NonAfr/Am >60 >=60 10/19 eGFR calculation is based on factors that include the age and gender of the patient. The calculation has not been validated for individuals below 18 years and above 70 years of age, or in women. [facility] PT PT 11.3 9.4 - 12.5 10/19 Note: Reference range change effective 06/11/2015 [facility] PT INR 1.00 0.86 - 1.14 10/19 Recommended therapeutic ranges for INR: Therapeutic Range 2.0-3.0 Mechanical Prosthetic Aortic Valve Pts 2.0-3.0 Mechanical Prosthetic Mitral Valve Pts 2.5-3.5 Note: Reference range change effective 06/11/2015 [facility] CBC w/ Diff WBC 9.0 4.0 - 12.0 10/19 Note: Reference range change effective 12/13/2014 [facility] CBC w/ Diff RBC 5.01 4.00 - 6.00 10/19 Note: Reference range change effective 12/13/2014 [facility] CBC w/ Diff Hgb 15.1 12.5 - 17.5 10/19 Note: Reference range change effective 12/13/2014 [facility] CBC w/ Diff Hct 44.9 35.0 - 50.0 10/19 Note: Reference range change effective 12/13/2014 [facility] CBC w/ Diff MCV 89.7 81.0 - 99.0 10/19 [facility] CBC w/ Diff MCH 30.1 27.0 - 34.0 10/19 [facility] CBC w/ Diff MCHC 33.5 32.0 - 36.0 10/19 [facility] CBC w/ Diff RDW 14.9 12.0 - 17.0 10/19 Note: Reference range change effective 12/13/2014 [facility] CBC w/ Diff Plt 231 150 - 400 10/19 [facility] CBC w/ Diff MPV 8.0 6.0 - 11.0 10/19 Note: Reference range change effective 12/13/2014 [facility] *Diff Auto Neut% 69.0 41.0 - 75.0 10/19 Note: Reference range change effective 12/13/2014 [facility] *Diff Auto Lymph% 21.1 20.0 - 45.0 10/19 Note: Reference range change effective 12/13/2014 [facility] *Diff Auto [place]% 7.2 2.0 - 15.0 10/19 Note: Reference range change effective 12/13/2014 [facility] *Diff Auto Eos% 2.5 0.0 - 8.0 10/19 [facility] *Diff Auto Baso% 0.2 0.0 - 2.9 10/19 [facility] Cardiac Troponin I 0.659 <=0.028 ng/mL 10/19 Result Comment: _ results called (read-back confirmed) to nick shabazz @ 10/19/2017 00:27:[address] [facility] Cardiac B-Natriuretic Peptide 14 0 - 100 10/19 [facility] Cardiac CK 145 30 - 234 10/19 [facility] CBC Neut% 69.0 41.0 - 75.0 10/19 [facility] CBC Eos% 2.5 0.0 - 8.0 10/19 [facility] CBC [place]% 7.2 2.0 - 15.0 10/19 [facility] CBC Lymph% 21.1 20.0 - 45.0 10/19 [facility] CBC Baso% 0.2 0.0 - 2.9 10/19 [facility] Coagulation INR 1.00 0.86 - 1.14 10/19 [facility] Coagulation PT 11.3 9.4 - 12.5 10/19 [facility] General Chemistry Globulin 3.4 10/19 [facility] General Chemistry Alkphos 73 25 - 120 10/19 [facility] General Chemistry Bili Total 1.3 0.2 - 1.2 10/19 [facility] General Chemistry Protein, Total 7.2 6.3 - 8.6 10/19 [facility] General Chemistry A/G Ratio 1.1 10/19 [facility] General Chemistry ALT 36 5 - [address] [facility] General Chemistry AST 28 9 - 34 10/19 [facility] BNP B-Natriuretic Peptide 12 0 - 100 11/11 In the appropriate clinical setting, a BNP value greater than or equal to 100 pg/mL is consistent with the diagnosis of CHF. [facility] Troponin-I Troponin I 0.007 - <=0.100 11/11 Less than normal high: No evidence of myocardial damage Normal high to critical high: Indeterminate Greater than critical high: Consistent with myocardial injury (94.6 ??? 96.5% specific for myocardial infarction) [facility] CK CK 104 30 - 234 11/11 Note: Reference range change effective 10/18/2013 [facility] CMP Sodium 140 134 - 144 11/11 Note: Reference range change effective 10/18/2013 [facility] CMP Potassium 3.9 3.4 - 4.6 11/11 Note: Reference range change effective 10/18/2013 [facility] CMP Chloride 107 98 - 111 11/11 Note: Reference range change effective 02/05/2014 [facility] CMP CO2 22 19 - 29 11/11 Note: Reference range change effective 10/18/2013 [facility] CMP Anion Gap 11 11/11 [facility] CMP Glucose Level 98 65 - 99 11/11 [facility] CMP BUN 22 5 - 23 11/11 Note: Reference range change effective 10/18/2013 [facility] CMP Creatinine 1.40 .50 - 1.20 11/11 H Note: Reference range change effective 10/18/2013 [facility] CMP BUN/Cr Ratio 15.7 11/11 [facility] CMP Calcium 9.7 8.1 - 10.0 11/11 Note: Reference range change effective 02/05/2014 [facility] CMP Protein, Total 7.6 6.3 - 8.6 11/11 Note: Reference range change effective 10/18/2013 [facility] CMP Albumin 4.1 3.2 - 5.0 11/11 Note: Reference range change effective 10/18/2013 [facility] CMP Globulin 3.5 11/11 [facility] CMP A/G Ratio 1.2 11/11 [facility] CMP Alkphos 62 25 - 120 11/11 [facility] CMP ALT 42 5 - 54 11/11 [facility] CMP AST 20 9 - 34 11/11 Note: Reference range change effective 10/18/2013 [facility] CMP Bili Total 1.4 0.2 - 1.2 11/11 H Note: Reference range change effective 10/18/2013 [facility] CMP eGFR Afr/Am >60 >=60 11/11 eGFR calculation is based on factors that include the age and gender of the patient. The calculation has not been validated for individuals below 18 years and above 70 years of age, or in women. [facility] CMP eGFR NonAfr/Am 50 >=60 11/11 L eGFR calculation is based on factors that include the age and gender of the patient. The calculation has not been validated for individuals below 18 years and above 70 years of age, or in women. [facility] CMP Drug Calc Weight (kg) 97.000 11/11 [facility] CMP Height cm 180.00 0 11/11 [facility] PTT PTT 26.0 23.0 - 38.0 11/10 Published data suggest effective therapeutic heparin range to prevent extension of thrombosis with a minimum of hemorrhage is generally obtained with plasma heparin value of 0.2-0.5 U/mL. This level may be achieved with an average APTT value of 1.5-2.5 times patient baseline APTT value. Lepirudin may be monitored using the aPTT. The therapeutic range is 1.5 to 2.5 times the baseline value. Argatroban may be monitored using the aPTT. The therapeutic range is 1.5 to 3.0 times the baseline value. Bivalirudin may be monitored using the ACT. Low Molecular weight heparin can be monitored using Anti-Xa assay. [facility] PT PT 13.50 13.00 - 14.50 11/10 [facility] PT INR 0.98 0.90 - 1.20 11/10 RECOMMENDED THERAPEUTIC RANGES FOR INR: THERAPEUTIC RANGE 2.0-3.0 MECHANICAL PROSTHETIC HEART VALVE PTS 2.5-3.5 [facility] *Diff Auto Neut% 74.9 41.0 - 71.0 11/[address] [facility] *Diff Auto Lymph% 15.8 24.0 - 44.0 11/[address] [facility] *Diff Auto [place]% 7.5 2.0 - 12.0 11/10 [facility] *Diff Auto Eos% 1.3 0.0 - 8.0 11/10 [facility] *Diff Auto Baso% 0.5 0.0 - 2.9 11/10 [facility] CBC w/ Diff WBC Instr 11 11/10 [facility] CBC w/ Diff WBC 10.6 4.0 - 11.0 11/10 [facility] CBC w/ Diff RBC 5.01 4.50 - 6.00 11/10 [facility] CBC w/ Diff Hgb 15.2 12.5 - 17.5 11/10 [facility] CBC w/ Diff Hct 46.1 37.0 - 50.0 11/10 [facility] CBC w/ Diff MCV 92.1 81.0 - 99.0 11/10 [facility] CBC w/ Diff MCH 30.3 27.0 - 34.0 11/10 [facility] CBC w/ Diff MCHC 32.9 32.0 - 36.0 11/10 [facility] CBC w/ Diff RDW 13.7 10.0 - 16.0 11/10 [facility] CBC w/ Diff Plt 294 150 - 400 11/10 [facility] CBC w/ Diff MPV 7.9 6.0 - 10.0 11/10 [facility] Diagnostic Reports Report Value Date Source EKG Stationary ECG Study SRS Test Date: 2017-10-22 Pat Name: TIANNA HERNANDEZ Department: Room: 2282 Gender: M Refractory Manager: Raúl Mcdowell : 1945 Requested By: Lidia Finley Order Number: [id number] Reading MD: JARRED SANDERS MD Measurements Intervals [place] Rate: 61 P: 54 OR: 168 QRS: -7 QRSD: 105 T: 9 QT: 422 QTc: 427 Severity: Borderline ECG Interpretive Statements SINUS RHYTHM MODERATE VOLTAGE CRITERIA FOR LVH, CONSIDER NORMAL VARIANT Borderline ECG Compared to ECG 10/20/2017 04:23:27 Sinus bradycardia no longer present Left-axis deviation no longer present Electronically signed on 10-25-2017 17:08:05 PST by will Piedra on behalf of JARRED SANDERS MD 10/22/2017 [facility] EKG Stationary ECG Study SRS Test Date: 2017-10-20 Pat Name: TIANNA HERNANDEZ Department: Room: 2282 Gender: M Refractory Manager: Hay Lemus : 1945 Requested By: LIZZY SUGGS Order Number: [id number] Reading MD: ALEXANDER CUMMINGS MD Measurements Intervals [place] Rate: 59 P: 64 OR: 178 QRS: -32 QRSD: 102 T: 28 QT: 421 QTc: 419 Severity: Abnormal ECG Interpretive Statements SINUS BRADYCARDIA MARKED LEFT AXIS DEVIATION Abnormal ECG Compared to ECG 10/18/2017 22:09:08 Left-axis deviation now present Sinus rhythm no longer present Electronically signed on 10-21-2017 15:14:13 PST by Batool Navarro on behalf of ALEXANDER CUMMINGS MD. 10/20/2017 [facility] ECHO TTE w Doppler Comp *[facility]* *[facility]* [address] [place] [address] Shreya Gonzales [address] TRANSTHORACIC ECHOCARDIOGRAM PATIENT: Tianna Hernandez STUDY DATE: 10/19/2017 STUDY TIME: 05:08 PM : 1945 AGE: 72 GENDER: M HT/WT: 0 cm 0 kg ORDERING PHYSICIAN: Jerson Velásquez Md SIDE STAPLER: Giovanna Fitzpatrick RDCS INTERPRETING PHYSICIAN: Lizzy Suggs MD --------- INDICATIONS: Angina Pectoris, Unspecified. --------- CONCLUSIONS SUMMARY: 1. Left ventricle: The cavity size is normal. Wall thickness is normal. Systolic function is normal. The estimated ejection fraction is 55-65%. Wall motion is normal; there are no regional wall motion abnormalities. Doppler parameters are consistent with abnormal left ventricular relaxation (grade 1 diastolic dysfunction). 2. Mitral valve: There is mild regurgitation. --------- STUDY DATA: M-mode, complete 2D, complete spectral Doppler, and color Doppler. --------- FINDINGS LEFT VENTRICLE: The cavity size is normal. Wall thickness is normal. Systolic function is normal. The estimated ejection fraction is 55-65%. Wall motion is normal; there are no regional wall motion abnormalities. Doppler parameters are consistent with abnormal left ventricular relaxation (grade 1 diastolic dysfunction). RIGHT VENTRICLE: The cavity size is normal. Wall thickness is normal. Systolic function is normal. MITRAL VALVE: Structurally normal valve. Leaflet separation is normal. Doppler: There is no evidence for stenosis. There is mild regurgitation. Peak gradient (D): 3 mm Hg. AORTIC VALVE: Structurally normal valve. Trileaflet. Doppler: There is no stenosis. There is no regurgitation. TRICUSPID VALVE: Structurally normal valve. Leaflet separation is normal. Doppler: There is no evidence for stenosis. There is mild regurgitation. PULMONIC VALVE: Structurally normal valve. Doppler: There is no regurgitation. AORTA: Aortic root: The aortic root is not dilated. PERICARDIUM: There is no pericardial effusion. --------- Measurements Left ventricle Value Reference LV ID, ED, MM (N) 5.0 cm 4.2 - 5.9 LV ID, ES, MM 2.9 cm --------- LV fx shortening, MM (N) 43 % 25 - 43 LV PW thickness, ED, MM (H) 1.1 cm 0.6 - 1.0 LV PW thickness, ES, MM 1.6 cm --------- LV ejection fraction, Teichholz MM (N) 74 % >=55 Ventricular septum Value Reference IVS thickness, ED, MM (H) 1.1 cm 0.6 - 1.0 IVS thickness, ES, MM 1.6 cm --------- Aortic valve Value Reference Aortic leaflet separation, MM 1.6 cm --------- Aorta Value Reference Ascending aorta ID, A-P, S 3.4 cm --------- Aortic root ID, ED, MM 3.1 cm --------- Left atrium Value Reference LA ID, A-P, ES (L) 0.0 cm 3.0 - 4.0 Mitral valve Value Reference Mitral E-wave peak velocity 0.84 m/sec --------- Mitral A-wave peak velocity 1.08 m/sec --------- Mitral deceleration slope 4.27 cm/s2 --------- Mitral deceleration time 196 ms --------- Mitral pressure half-time 57 ms --------- Mitral peak gradient, D 3 mm Hg --------- Mitral E/A ratio, peak 0.77 --------- Mitral valve area, PHT, DP 3.9 cm2 --------- Pulmonary arteries Value Reference PA pressure, S, DP 44 mm Hg --------- Tricuspid valve Value Reference Tricuspid regurg peak velocity 2.3 m/sec --------- Tricuspid peak RV-RA gradient 21 mm Hg --------- Systemic veins Value Reference Estimated CVP 10 mm Hg --------- Right ventricle Value Reference RV pressure, S, DP 44 mm Hg --------- Legend: (L) and (H) mindi values outside specified reference range. (N) martinez values inside specified reference range. Electronically signed by Lizzy Suggs MD 10/21/2017 17:16 10/20/2017 [facility] EKG Stationary ECG Study SRS Test Date: 2017-10-19 Pat Name: TIANNA HERNANDEZ Department: Room: 2282 Gender: M Refractory Manager: SOLAAKASH PINOBRADEN : 1945 Requested By: Dang Dozier Order Number: [id number] Artis MD: ALESSIA WILLIAMSON MD Measurements Intervals [place] Rate: 75 P: 60 OR: 195 QRS: -31 QRSD: 100 T: 34 QT: 381 QTc: 428 Severity: Abnormal ECG Interpretive Statements SINUS RHYTHM MARKED LEFT AXIS DEVIATION [QRS AXIS < -30] Abnormal ECG Compared to ECG 10/18/2017 22:09:08 Left-axis deviation now present Electronically signed on 10-22-2017 9:25:07 PST by Batool Navarro on behalf of ALESSIA WILLIAMSON MD. 10/19/2017 [facility] XR Chest 2 Views Reason For Exam Shortness of Breath Clinical history: Left neck, shoulder, and arm pain with shortness of breath. Comparison: 11/10/2014. Technique 2 views of the chest were obtained at 9:36 PM on 10/18/2017. Findings: Heart size is normal. Aortic contours are normal. No pleural effusion or pneumothorax. Atelectasis/scarring the left lower lobe is similar. Peribronchial inflammatory changes. No focal consolidation, edema, or suspicious nodule/mass. Trachea is patent. No acute bony or soft tissue abnormality. IMPRESSION: Acute viral small airway disease. No consolidation or edema. Report generated on workstation: [id number] 10/19/2017 [facility] Electrocardiogram (retail department reset) Stationary ECG Study SRS Test Date: 2017-10-18 Pat Name: TIANNA HERNANDEZ Department: Room: Gender: M Refractory Manager: MANUEL CHARLTON : 1945 Requested By: Jada Hicks Order Number: [id number] Reading MD: Pedro Harris DO Measurements Intervals [place] Rate: 83 P: 63 OR: 188 QRS: -10 QRSD: 89 T: 75 QT: 357 QTc: 421 Severity: Normal ECG Interpretive Statements SINUS RHYTHM Normal ECG No previous ECG available for comparison Electronically signed on 10-18-2017 22:29:41 PST by MANUEL CHARLTON on behalf of Pedro Harris DO. 10/19/2017 [facility] XR Chest 2 Views AP or PA+Lat Reason For Exam Acute Weakness EXAM: XR Chest 2 Views AP or PA+Lat 11/10/2014 3:39 PM HISTORY: Acute Weakness COMPARISON: None available. TECHNIQUE: XR Chest 2 Views AP or PA+Lat FINDINGS: The heart is of normal size. The pulmonary vasculature is unremarkable. There are no focal areas of lung consolidation or suspicious lung masses. No pleural, hilar, or mediastinal masses are detected. No acute bony lesions are seen. IMPRESSION: 1. No acute pathology noted. Report generated on workstation: [id number] 11/10/2014 [facility] EKG 83 Atrial Rate 83 BPM P-R Interval 166 ms QRS Duration 84 ms Q-T Interval 380 ms QTC Calculation(Bezet) 446 ms P [place] 72 degrees R [place] 14 degrees T [place] 51 degrees Diagnosis Normal sinus rhythm Normal ECG no stemi Confirmed by MD Meneses Patrick ([id number]), food editor ANN ANDINO ([id number]) on 11/10/2014 3:18:20 PM 11/10/2014 [facility] Consultation Notes Results Value Date Source Office/Clinic Note-Physician Patient: TIANNA HERNANDEZ Age: 72 years Sex: M : 1945 Admitting MD: Location: [facility]: : Author: Neo Hampton MD Chief Complaint cc: hospital follow up from heart attack History of Present Illness Hospital follow-up p jovanna presented to hospital the evening of October 18 with discomfort in left jaw and chest. EKG was negative. CK was negative but troponin was abnormal. Patient eventually went to cath on October 21. Patient describes that he had right coronary artery disease requiring 4 stents. Patient did well with this and is on Brilinta. Lisinopril was restarted and metoprolol was added empirically. Patient has had no more chest pain. Patient interested in following up in [place] where he has family. He also has physicians and has an appointment in another week or so. Review of Systems as per hpi Physical Exam Vitals and Measurements T: 36.5 C (Oral) HR: 51 RR: 16 BP: 134/75 SpO2: 97% HT: 180 cm WT: 102.909 kg WT: 226.4 lb BMI: 31.76 in room [facility]N in no distress lungs clear, cor regular. arms nontender without bruise right groin site clean, minimal superior bruising.no redness Assessment/Plan Coronary artery disease I25.10 s/p stenting for symptomatic disease. follow with cards on brillinta , nathan, aspirin, b-delicia, statin. encourage increase activity. cath site reasonable Hypertension I10 on lisinopril and metoprolol . previously had problems with low bp. watch Problem List/Past Medical History Chronic Acute low back pain ADD (attention deficit disorder) Atrial fibrillation Coronary artery disease Decreased hearing Erectile dysfunction High cholesterol Hypertension Obesity, Class I, BMI 30-34.9 Historical BPH - Benign prostatic hypertrophy Central sleep apnea HLD - Hyperlipidaemia HTN - Hypertension HTN - Hypertension Procedure/Surgical History Colonoscopy (09/20/2008) Ear work Feet work Inguinal hernia Shoulder Testicle removal Umbilical hernia Vasectomy Medications alfuzosin 10 mg oral tablet, extended release, 10 mg, 1 Tab, PO, Daily aspirin 81 mg oral enteric coated tablet, 81 mg, 1 Tab, PO, qDay atorvastatin 80 mg oral tablet, 80 mg, 1 Tab, PO, qDay Brilinta (ticagrelor) 90 mg oral tablet, 90 mg, 1 Tab, PO, BID lisinopril 10 mg oral tablet, 10 mg, 1 Tab, PO, qDay Lopressor 50 mg oral tablet, 50 mg, 1 Tab, PO, BID Allergies contrast media (iodine-based) Reaction: None Documented penicillins Reaction: None Documented Social History Alcohol Current Denies Home/Environment [employer] restrictions/concerns: None. Living situation: Home/Independent. Alcohol abuse in household: No. Substance abuse in household: No. Smoker in household: No. Injuries/Abuse/Neglect in household: No. Feels unsafe at home: No. [employer] restrictions/concerns: None. Substance Abuse Denies Denies Tobacco Never (less than 100 in lifetime), Previous treatment: None. Never used tobacco, Denies Family History Heart disease...: Mother and Father. Electronically Signed By: Neo Hampton MD On 10/26/17 11:52 Co Signature By: Modified Signature By: 10/26/2017 [facility] Case Management DC Needs - Text Discharge Plan Entered On: 10/22/2017 10:58 PST Performed On: 10/22/2017 10:57 PST by Kim Jessica RN Discharge Plan Discharge Location : Home with family Important Message Notification (CM) : Yes DME (CM) : None Transportation (CM) : Family, Self Kim Jessica RN - 10/22/2017 10:57 PST 10/22/2017 [facility] Heart Cath Procedure \[id number]\ *[facility]* *[facility]* [address] [place], [place] [address] INVASIVE CARDIAC PROCEDURE Patient: Lady, : 1945 Tianna Hernandez #: Patient [id number] Age: 72 ID: Study 10/21/2017 Gender: M Date: Clinical Operations Specialist: Moses Galeana MD Ordering Physician: Moses Arredondo Md ------- HISTORY: Risk factors: Family history of coronary artery disease. Hypertension. Diabetes mellitus; on therapy with oral hypog lycemics. Dyslipidemia. Allergies: Penicillin allergy. Iodinated contrast allergy. ------- LABS, PRIOR TESTS, PROCEDURES, and SURGERY: Serum creatinine (current admission) of 0.8 mg/dl. Prothrombin time (PT) of 12 sec. Partial thromboplastin time (PTT) of 41 sec. Hematocrit of 46.5 %. White blood cell count (WBC) of 15.4 th/ul. Platelet count of 274 th/ul. Serum sodium (Na) of 144 mEq/l. Serum potassium (K) of 3.4 mEq/l. Glucose of 106 mg/dl. CPK peak of 145 units/l. Blood urea nitrogen of 23 mg/dl. Hemoglobin (pre-procedu re) of 15.3 g/dl. International normalized ratio (INR) of 1.06. Tr oponin I (pre-procedure) of 1.72 ng/ml. ------- Procedures performed: \XE2\20AC\XA2\ Right femoral sheath side-port angiography. \XE2\20AC\XA2\ Left coronary angiography. \XE2\20AC\XA2\ Right coronary angiography. \XE2\20AC\XA2\ Percutaneous intervention on the 75% stenosis in the proximal right coronary. Balloon angioplasty. Stent placement. Stent placement. Stent placement. Stent placement. Balloon angioplasty. Balloon angioplasty. ------- PROCEDURE IN DETAIL: Study status: Cardiac cath: elective. Percutaneous coronary intervention: elective. Percutaneous coronary intervention performed for high risk NSTEMI or unstable angina. Con sent: The risks, benefits, and alternatives to the procedure were e xplained to the patient and informed consent was obtained. A time ou t was performed prior to procedure. Fluoroscopy time: Fluoroscopy time: 6.7 min. Fluoroscopy dose: Fluoroscopy dose: 230.4 cGy. Location: Catheterization laboratory. PROCEDURE: 1. Initial setup. The patient was brought to the laboratory in the fasting state. A baseline ECG was recorded. Surface ECG leads, blood pressure measurements, and pulse oximetric signals were monitored. 2. Skin preparation. The planned puncture sites were prepped and draped in the usual sterile manner. 3. Right femoral artery access. The access site was infiltrated with lidocaine. The vessel was entered with a Micro needle and the Seldinger technique. A 6Fr x 10cm [place] sheath was advanced into the vessel. 4. Nonselective right femoral sheath side-port angiography for closure evaluation, under fluoroscopic guidance. Contrast was injected into the sheath side port by hand. Images were obtained in ZACARIAS projections. 5. Selective left coronary angiography. A 6FR x 100cm FL4 (MultiPack Kit) catheter was advanced into the left coronary vessel ostium under fluoroscopic guidance. Contrast was injected by hand. Images were obtained in multiple projections. The catheter was removed. 6. Selective right coronary angiography. A 6FR x 100cm FR4 (MultiPack Kit) catheter was advanced into the right coronary vessel ostium under fluoroscopic guidance. Contrast was injected by hand. Images were obtained in multiple projections. The catheter was removed. 7. Activated clotting time measurement. ACT was 218 secby Silentsoft. This value was maintained throughout the case. 8. Right femoral artery hemostasis. The sheath was removed. Vessel closure was achieved with a 6Fr Perclose ProGlide device. Hemostasis was successfully obtained.There was no groin hematoma. 1st lesion intervention: Percutaneous intervention on the 75% stenosis in the proximal right coronary. 1. Guider placement. A 6Fr x 100cm RunWay ART4 guiding catheter was successfully placed into the ostium of the right coronary artery. 2. Wire placement. A .014/182cm Mailman wire was placed across the lesion in the right coronary artery. 3. Successful balloon angioplasty. A 3 mm (D) x 15 mm (L), AngioSculpt RX PTCA balloon was employed. The balloon was placed across the lesion and given two inflations with a maximum inflation pressure of 20 lidya. The resulting stenosis was 50%. 4. Successful drug-eluting stent placement. A 3 mm (D) x 38 mm (L), drug-eluting, RESOLUTE NELL RX stent was advanced across the lesion and deployed with a single inflation and a maximum pressure of 20 lidya. The resulting stenosis was 0%. 5. Successful drug-eluting stent placement. A 4 mm (D) x 38 mm (L), drug-eluting, RESOLUTE NELL RX stent was advanced across the lesion and deployed with a single inflation and a maximum pressure of 12 lidya. The resulting stenosis was 0%. 6. Successful drug-eluting stent placement. A 4 mm (D) x 38 mm (L), drug-eluting, RESOLUTE NELL RX stent was advanced across the lesion and deployed with a single inflation and a maximum pressure of 12 lidya. The resulting stenosis was 0%. 7. Successful drug-eluting stent placement. A 4.5 mm (D) x 30 mm (L), drug-eluting, RESOLUTE NELL RX stent was advanced across the lesion and deployed with a single inflation and a maximum pressure of 12 lidya. The resulting stenosis was 0%. 8. Successful balloon angioplasty. A 4 mm (D) x 20 mm (L), NC Euphora RX balloon was employed. The balloon was placed across the lesion and given six inflations with a maximum inflation pressure of 26 lidya. The resulting stenosis was 0%. 9. Successful balloon angioplasty. A 4.5mm x 20mm NC Emerge RX balloon was employed. The balloon was placed across the lesion and given two inflations with a maximum inflation pressure of 12 lidya. The resulting stenosis was 0%. 10. All wires, catheters and devices used for this lesion were removed. STUDY COMPLETION: The estimated blood loss was 20 ml. All catheters inserted during the procedure were removed. The patient to lerated the procedure well and was transferred from the lab in a sta ble condition. There were no immediate complications. Administered medications: OXYGEN, infusion rate of 2L/min. Midazolam, 2mg. Fe ntanyl, 50mcg. Heparin, 10,000units. Nitroglycerin, 1,000mcg. Hyd rocortisone, 100mg. Meperidine, 50mg. BRILINTA, 180mg. Aspirin, 3 25mg. OXYGEN, infusion rate of 4L/min. Protamine sulfate, 20mg. F entanyl, 50mcg. Contrast: Isovue 300/200cc 170 ml (total dose). Isovue 300/200cc 30 ml (wasted). ------- CORONARY ARTERIES: The coronary circulation is right dominant. The left main bifurcates normally into the LAD and circumflex. The l eft anterior descending gives rise to 2 diagonals. The left circumfl ex gives rise to 1 obtuse marginal and no posterolaterals. The right coronary gives rise to an AV node branch, the posterior descending artery, and 1 posterolateral. Left main: Normal. LAD: Ostial lesion: There is a 30% stenosis. Proximal vessel lesion: There is a 30% stenosis. This lesion is calcified. Left circumflex: Ostial lesion: There is a 30% stenosis. Proximal vessel lesion: There is a 30% stenosis. 1st obtuse marginal: Proximal vessel lesion: There is a 50% stenosis. This lesion is eccentric. Right coronary: Proximal vessel lesion: There is a diffuse, 75% stenosis. This lesion is irregularly contoured, hazy, and calcified. There is ARTURO grade 3 flow (brisk flow) across the lesion. The lesi on was stented using a drug-eluting stent (see 1st lesion interventi on), with balloon angioplasty. Following intervention, the lesion [place] s a residual stenosis of 0%, an excellent angiographic appearance, a nd ARTURO grade 3 flow (brisk flow). There were no site complications. HEMODYNAMICS: + +--- + !Stage description !Condition1:Condition 1 -! + +--- + !Arterial pressure s/d (m)!176/82 (117) ! + +--- + ------- SUMMARY: 1. 1st obtuse marginal: Proximal vessel lesion: There is a 50% stenosis. 2. Right coronary: Proximal vessel lesion: There is a diffuse, 75% stenosis. The lesion was stented using a drug-eluting stent (see 1st lesion intervention), with balloon angioplasty. Following intervention, the lesion has a residual stenosis of 0%, an excellent angiographic appearance, and ARTURO grade 3 flow (brisk flow). IMPRESSIONS: successful rca intervention with todd. RECOMMENDATIONS: 1. Patient management should include aggressive medical therapy, risk factor modification, and a cardiac rehabilitation program. The patient was counseled regarding the importance of adherence to the prescribed antiplatelet therapy and a low fat diet. The patient may resume all previous activities in 1 wk. 2. Add statin therapy. 3. Add beta blockers. 4. Continue aspirin, at 81mgPOdaily, indefinitely. 5. Add ticagrelor (Brilinta), loading dose 180mgPO, standing dose 90mgPObid. 6. DC HOME IN AM. ------- Prepared and electronically signed by Moses Galeana MD [id number] 10/22/2017 [facility] Case Management DC Needs - Text Discharge Plan Entered On: 10/20/2017 17:18 PST Performed On: 10/20/2017 16:00 PST by Catherine Angeles Discharge Plan Discharge Location : Home with family Discharge Referrals/Instructions : Home care needs: Pending hospital course; for cardaic cath today; IV Hep. gtt D/C Disposition: Home with STG: Stabilize current medical condition. Provide resources throughout Hospitalization. LTG: Facilitate safe and timely Transition to next appropriate LOC by collaborating with Multidisciplinary Team. Catherine Angeles - 10/20/2017 17:12 PST 10/21/2017 [facility] Consultation DATE OF CONSULTATION : CARDIAC CONSULTATION HISTORY OF PRESENT ILLNESS: Mr. Hernandez is a pleasant 72-year-old gentleman, who was admitted to the hospital with one day of chest pressure that radiated to his jaw and his arm. For several weeks, he has noted increasing shortness of breath with some associated wheezing. Here, his initial troponin is elevated at 0.6. His EKG shows sinus rhythm with no significant ST-T wave abnormalities. His risk factors include hypertension and hyperlipidemia. He states that last January, he went off his blood pressure medications when he was experiencing hypotension. He has obstructive sleep apnea, which is central in nature and does use a CPAP routinely. He is currently pain-free. PAST MEDICAL HISTORY: Central sleep apnea, hypertension, hyperlipidemia, and BPH. PAST SURGICAL HISTORY: Bilateral inguinal surgery and umbilical hernia surgery. ALLERGIES: TO IODINE CONTRAST AND PENICILLIN. MEDICATIONS: Aspirin, atorvastatin, and alfuzosin. SOCIAL HISTORY: Nonsmoker, quit many years ago, smoking about 3 packs a day. Alcohol, does not use. He is and goes back and forth between [facility] and [place]. PHYSICAL EXAMINATION: VITAL SIGNS: Blood pressure is 150/90. HEENT EXAM: Pupils are equal, round, and reactive to light. Extraocular muscles are intact. Mucous membranes are moist. NECK: Supple. LUNGS: Expiratory wheezes. CARDIAC EXAM: Regular rate and rhythm. No murmurs, rubs, or gallops. ABDOMEN: Soft and nontender. EXTREMITIES: Negative for edema. DIAGNOSTIC DATA: Chest x-ray shows small airway disease with atelectasis and scarring in the left lower lobe demonstrated. LABORATORY DATA: Labs are otherwise unremarkable outside of the elevated troponin. Mr. Hernandez presents with what appears to be a non-STEMI. His initial cardiac troponin is elevated and he did present with symptoms consistent with acute coronary syndrome. We will await further cardiac troponins, but likely we will proceed with the recommendation of invasive angiography. Because of his iodine-based allergy, we will administer appropriate medications for contrast allergy including steroids, proton-pump inhibitors, as well as Benadryl therapy. I have discussed the risks, benefits, and indications of diagnostic coronary angiography with him and his today. We will try and arrange this in 24 hours from now as he is currently symptom-free. He will be maintained on aspirin, beta-blockers, heparin, and statin therapy. We will administer bronchodilators for his wheezing. Transthoracic echo will be ordered for assessment of left ventricular function. Lizzy Suggs M.D. PI / MedQ Electronically Signed By: LIZZY SUGGS MD On 11/11/17 10:17 Co Signature By: Modified Signature By: 10/19/2017 [facility] ED Physician Notes Patient: TIANNA HERNANDEZ Age: 72 years Sex: M : 1945 Associated Diagnoses: None Author: Pedro Harris DO Basic Information Time seen: Provider Initial Contact Time 10/18/2017 22:23. History source: Patient. Arrival mode: Private vehicle. History limitation: None. Additional information: Patient's physician(s): No PCP, Chief Complaint (ST) Chief Complaint ED: complain of left sided chest pain that radiate to the left arm started today but went away.now pain coming back 10/18/17 22:23. History of Present Illness The patient presents with chest pain. The onset was 3 days ago and gradual. The course/duration of symptoms is resolved. Location: Left chest. Radiating pain: left side of the neck. The character of symptoms is pressure. The degree at present is none. The exacerbating factor is exertion. The relieving factor is none. Risk factors consist of hypertension and obesity. Associated symptoms: denies back pain and denies abdominal pain. Pt presents to the ED c/o left sided chest pain onset 3 days ago. Pt states pain is pressure-like and radiates to left neck. Pt states pain is worse with exertion but is currently resolved. Pt is positive for MARRERO. Pt denies orthopnea, abdominal pain, back pain, and hx of blood thinners. Review of Systems Constitutional symptoms: No fever, no chills. Respiratory symptoms: Shortness of breath, no orthopnea, no cough, no hemoptysis. Cardiovascular symptoms: Chest pain, left chest, pressure, No palpitations, Gastrointestinal symptoms: no hematemesis, no hematochezia, no melena, no abdominal pain, no nausea, no vomiting, no diarrhea. Genitourinary symptoms: No dysuria, no excessive urination. Musculoskeletal symptoms: No back pain, Neurologic symptoms: No headache, Additional review of systems information: All other systems reviewed and otherwise negative, Ten point review of system was conducted and otherwise negative, please see the HPI and MDM for any other questions. Health Status Allergies: Allergic Reactions (Selected) Severe Contrast media (iodine-based)- No reactions were documented. Unknown Penicillins- No reactions were documented., Per nurse's notes. Medications: Include documented meds (Selected) Prescriptions Prescribed atorvastatin 40 mg oral tablet: See Instructions, TAKE ONE TABLET BY MOUTH DAILY, 90 Tab Documented Medications Documented Aspirin (ASA): 300 mg, PO, q4hr, PRN: Fever alfuzosin 10 mg oral tablet, extended release: 1 Tab, PO, Daily, per nurse's notes. Past Medical/ Family/ Social History Medical history: All Problems Acute low back pain / [id number] / Confirmed ADD (attention deficit disorder) / [id number] / Confirmed Decreased hearing / 452488430 / Confirmed Erectile dysfunction / 982455655 / Confirmed High cholesterol / 83732744 / Confirmed Hypertension / 2331969611 / Confirmed Obesity, Class I, BMI 30-34.9 / 9915407179 / Confirmed Inactive: Atrial fibrillation / [id number], Per nurse's notes. Surgical history: Colonoscopy on 09/20/2008 at 63 Years. Shoulder. Feet work. Vasectomy. Comments: 06/10/2015 07:27 - 1973 Ear work. Umbilical hernia. Inguinal hernia. Testicle removal. Comments: 06/10/2015 07:27 - Due to infection, Per nurse's notes. Social history: Alcohol use: Occasionally, Tobacco use: Denies, Drug use: Denies. Physical Examination Vital Signs Vital-Signs 10/18/2017 22:23 PST Temperature PO 36.7 deg C Heart Rate 79 bpm NIBP Systolic 186 mm Hg >HHI NIBP Diastolic 90 mm Hg Resp Rate (Monitor) 18 Breaths/Min SPO2 97 % Oxygen Amount Room air . Per nurse's notes. General: Alert, no acute distress, awake and oriented, appropriate and non-toxic appearing. Skin: Warm, dry, pink, no rashes or lesions. Head: Normocephalic, atraumatic. Eye: Pupils are equal, round and reactive to light, extraocular movements are intact. Cardiovascular: Regular rate and rhythm, S1, S2. Respiratory: Lungs are clear to auscultation, good air movement, Respirations: no respiratory distress. Gastrointestinal: Soft, Nontender (benign abdomen), Guarding: Negative, Rebound: Negative. Back: No costovertebral angle tenderness, Musculoskeletal: Normal ROM, no swelling. Neurological: No focal neurological deficit observed. Psychiatric: appropriate mentation and thought processing. Medical Decision Making Rationale: Please see seperate dictation for MDM. Documents reviewed: Emergency department nurses' notes, no emergency department records. Orders Launch Order Profile (Selected) Inpatient Orders Ordered Decadron INJ: 10 mg, IV, once Heparin additive 25,000 Unit + Dextrose 5% in Water Heparin 250 mL: 10 mL/hr, IV, Stop: 11/18/17 1:21:00 PST heparin 10,000 unit/mL (SUPPLEMENTAL boluses): SeeRefTxt, IV Push, Per Parameter, PRN: Other (see Comments) heparin 10,000 unit/mL bolus (ACS): 5,000 Unit, IV Push, x1 saline flush 0.9%: 3 mL, IV Push, Per Parameter, PRN: Other (see Comments) Completed Aspirin (ASA): 324 mg, Chew, x1. Electrocardiogram: Time 10/18/17 22:09:00, rate 83, normal sinus rhythm, No ST-T changes, no ectopy, normal OR and QRS intervals, EP Interp, The [place] is leftward. , EKG interpreted contemporaneously by me, QTC within normal limits. soda tester: Time 10/18/17 22:09:00, Rate 83, normal sinus rhythm, interpreted contemporaneously by me no Premature Atrial Contraction (PAC), no Premature Ventricular Contraction (PVC). Results review: Lab results : Laboratory 10/18/2017 22:44 PST WBC 9.0 K/uL RBC 5.01 M/uL Hgb 15.1 gm/dL Hct 44.9 % MCV 89.7 fL MCH 30.1 pg MCHC 33.5 gm/dL RDW 14.9 % Plt 231 K/uL MPV 8.0 fL Neut% 69.0 % Lymph% 21.1 % [place]% 7.2 % Eos% 2.5 % Baso% 0.2 % PT 11.3 sec INR 1.00 ratio PTT 29.5 sec Sodium 142 mmol/L Potassium 3.8 mmol/L Chloride 108 mmol/L CO2 21 mmol/L Anion Gap 13 NA Glucose Level 109 mg/dL H BUN 17 mg/dL Creatinine 0.82 mg/dL BUN/Cr Ratio 20.7 NA eGFR Afr/Am >60 eGFR NonAfr/Am >60 Calcium 9.1 mg/dL Protein, Total 7.2 gm/dL Albumin 3.8 gm/dL Globulin 3.4 NA A/G Ratio 1.1 NA Bili Total 1.3 mg/dL H ALT 36 Units/L AST 28 Units/L Alkphos 73 Units/L B-Natriuretic Peptide 14 pg/mL CK 145 Units/L Troponin I 0.659 ng/mL CRIT . Radiology results: Reviewed radiologist's report, Report : XR Chest 2 Views IMPRESSION: Acute viral small airway disease. No consolidation or edema . Reexamination/ Reevaluation Vital signs results included from flowsheet : Vital-Signs 10/19/2017 02:00 PST Heart Rate 69 bpm NIBP Systolic 152 mm Hg H NIBP Diastolic 80 mm Hg Resp Rate (Monitor) 18 Breaths/Min SPO2 95 % per nurse's notes Notes: Rechecked pt. D/w pt about all results, dx, and plan for admission. Pt understands and agrees with plan. All questions answered. Procedure Critical care note Total time: 35 minutes spent engaged in work directly related to patient care and/ or available for direct patient care, exclusive of procedure time. Critical condition(s) addressed for impending deterioration include: cardiovascular. Associated risk factors. Management: bedside assessment, supervision of care, Interpretation, Interventions, Case review (medical dosimetrist, nursing). Performed by: self. Impression and Plan Diagnosis NSTEMI (non-ST elevated myocardial infarction) ([id number]-AN I21.4, Admitting, Medical) Calls-Consults - 10/19/17 00:59:00 , Florence Diaz MD, Clinical Operations Specialist, phone call, consult. Plan Condition: Stable. Disposition: Admit: Time 10/19/17 01:22:00, Jerson Velásquez MD, The patient has Medicare insurance which has no insurance directive. The patient's PCP is none who has no directive in which patient will be [facility] [place] [facility]. Call returned: [phone] Dr[address] Velásquez covering, and at this time they have assumed care of the patient. Admitting provider is aware of time-sensitive studies and will follow these results. Counseled: Patient, Regarding diagnosis, Regarding diagnostic results, Regarding treatment plan, Patient indicated understanding of instructions. Notes: Nando Tyson, (10/19/2017 and 034) scribing for and in the presence of Pedro Harris DO, I personally performed the services described in the documentation, reviewed and edited the documentation which was dictated to the scribe in my presence and it accurately records my words and actions. Pedro Harris DO. Electronically Signed By: Pedro Harris DO On 10/20/17 13:45 Co Signature By: Modified Signature By: Nando Tyson On 10/19/17 02:46 10/19/2017 [facility] Admit ER Report DATE OF SERVICE: BRIEF HISTORY AND MEDICAL DECISION MAKING: This is a 72-year-old male, who has had left-sided chest pain for the last 3 days that got worse today. He describes as pressure like, radiating to his left neck and worse when he exerts himself. He endorses dyspnea on exertion, but denies orthopnea, back pain, abdominal pain, or blood thinning medications and his chest pain is currently resolved. EKG does not show much, but essentially he appears to be having an NSTEMI with a troponin of 0.7. He was started on heparin and he is admitted for the same. I spoke with Dr. Diaz of Cardiology, who agrees to be involved in his care. ADMISSION DIAGNOSES: 1. Non ST-elevation myocardial infarction. 2. Chest pain (as above). 3. Shortness of breath (as above). 4. History of hypertension. 5. History of atrial fibrillation (currently in sinus rhythm). Please see PowerNote for critical care attestation. Pedro Harris DO DG / MedQ Electronically Signed By: Pedro Harris DO On 10/19/17 03:11 Co Signature By: Modified Signature By: 10/19/2017 [facility] Office/Clinic Note-Physician Patient: TIANNA HERNANDEZ Age: 71 years Sex: M : 1945 Admitting MD: Location: [facility]: Exam 18: Author: Anu Marion MD Chief Complaint F/u back pain, discuss HTN and weight gain History of Present Illness 71yo WM PMH sig for HTN presenting for f/u back pain and discuss HTN and weight gain Back pain: Improved. Inc ROM. Still with some pain and stiffness. Tizanidine helped but pt ran out. Pt also using Naproxen. HTN: Brought log- scanned into chart. Using Lisinopril 10mg recently instead of 5mg. Weight gain: Pt has not been monitoring his nutrition. Pt states he can work on it. Was on medication for ADD in past, but is not longer on it therefore appetite has inc. Afib: On Verapamil. No recent issues. Review of Systems As mentioned in HPI. Physical Exam Vitals and Measurements T: 36.5 C (Oral) HR: 64 (Apical) RR: 14 BP: 156/91 SpO2: 96% HT: 185 cm WT: 106.455 kg BMI: 31.1 GEN: NAD, A&Ox3 HEENT: NCAT; EOMI, no conjunctival erythema CV: RRR, no m/r/g PULM: CTAB, no w/r/r, no labored breathing MS: Limited ROM extension, flexion, lateral bending and twisting hip DERM: No visible rashes NEURO: Stable gait PSYCH: Full affect Assessment/Plan 1. Acute low back pain M54.5 Improved. ROM on PE improved, too. Refill Tizanidine as pt still with stiffness and pain. Can use Naproxen PRN, too. Ordered: Office Visit Level 4 Est 64797 AMB 2. Hypertension I10 Elevated today but controlled at home. H/o labile BP. Controlled using Lisinopril 10mg qday- pt to cont, no change in regimen. Ordered: Office Visit Level 4 Est 81580 AMB 3. Obesity, Class I, BMI 30-34.9 E66.9 Weight gain due to pt not monitoring nutrition. Discussed lifestyle changes- mon nutrition and inc activity. Rec DASH diet as pt with HTN. Ordered: Office Visit Level 4 Est 31485 AMB 4. Atrial fibrillation I48.91 Rate controlled on Verapamil- cont. Ordered: Office Visit Level 4 Est 11693 AMB Problem List/Past Medical History Chronic Acute low back pain ADD (attention deficit disorder) Atrial fibrillation Decreased hearing Erectile dysfunction High cholesterol Hypertension Obesity, Class I, BMI 30-34.9 Historical No qualifying data Procedure/Surgical History Colonoscopy (09/20/2008), Ear work, Feet work, Inguinal hernia, Shoulder, Testicle removal, Umbilical hernia, Vasectomy. Medications alfuzosin 10 mg oral tablet, extended release, 10 mg, 1 Tab, PO, Daily atorvastatin 40 mg oral tablet, See Instructions, 3 refills, TAKE ONE TABLET BY MOUTH DAILY lisinopril 10 mg oral tablet, See Instructions, 3 refills, TAKE 1 TABLET BY MOUTH EVERY DAY naproxen 500 mg oral tablet, 500 mg, 1 Tab, PO, q12hr, PRN tiZANidine 2 mg oral tablet, 2 mg, 1 Tab, PO, every 8 hours, PRN, Stop if causes dizziness verapamil 180 mg oral tablet, extended release, 360 mg, 2 Tab, PO, qHS Allergies contrast media (iodine-based) Reaction: None Documented penicillins Reaction: None Documented Social History Alcohol Denies Home/Environment [employer] restrictions/concerns: None. Substance Abuse Denies Tobacco Never used tobacco, Denies Electronically Signed By: Anu Marion MD On 12/14/16 03:22 Co Signature By: Modified Signature By: Anu Marion MD On 12/14/16 03:22 12/11/2016 [facility] Office/Clinic Note-Physician Patient: TIANNA HERNANDEZ Age: 71 years Sex: M : 1945 Admitting MD: Location: [facility]: Exam 17: Author: Anu Marion MD Chief Complaint LBP History of Present Illness 71yo WM LBP: Started Wed after lifting sewing machine, which is heavy. Difficulty getting out of bed. R paraspinal. No LE weakness, sciatica, saddle anesthesia. Taking Aleve and icing. Not using heat. +Muscle spasm. HTN and afib: Verapamil 120mg bid, Lisinopril 5-10mg qday depending on BP. H/o labile BP. No recent issues with afib. Review of Systems As mentioned in HPI. Physical Exam Vitals and Measurements T: 36.5 C (Oral) HR: 72 (Apical) RR: 15 BP: 120/76 SpO2: 94% HT: 185 cm WT: 105 kg BMI: 30.68 Initial BP 155/88 GEN: NAD, A&Ox3 HEENT: NCAT; EOMI, no conjunctival erythema CV: RRR, no m/r/g PULM: CTAB, no w/r/r, no labored breathing MS: TTP R paraspinal muscles with muscle tension, limited hip flexion/extension/lateral bend/twist DERM: No visible rashes NEURO: Stable gait but appears to be in mod pain PSYCH: Full affect Assessment/Plan 1. Acute low back pain M54.5 No xray for now. Rec heat, Zanaflex and Naproxen. ADEs of Zanaflex d/w pt. Ordered: Office Visit Level 4 Est 61301 AMB 2. Hypertension I10 Repeat improved. Cont current regimen. Cont mon BP. Seek medical attention if hypotensive. Ordered: Office Visit Level 4 Est 76954 AMB 3. Atrial fibrillation I48.91 Currently rate controlled. Cont current regimen. Ordered: Office Visit Level 4 Est 87674 AMB Problem List/Past Medical History Chronic Acute low back pain ADD (attention deficit disorder) Atrial fibrillation Decreased hearing Erectile dysfunction High cholesterol Hypertension Historical No qualifying data Procedure/Surgical History Colonoscopy (09/20/2008), Ear work, Feet work, Inguinal hernia, Shoulder, Testicle removal, Umbilical hernia, Vasectomy. Medications alfuzosin 10 mg oral tablet, extended release, 10 mg, 1 Tab, PO, Daily atorvastatin 40 mg oral tablet, See Instructions, 3 refills, TAKE ONE TABLET BY MOUTH DAILY lisinopril 10 mg oral tablet, See Instructions, 3 refills, TAKE 1 TABLET BY MOUTH EVERY DAY naproxen 500 mg oral tablet, 500 mg, 1 Tab, PO, q12hr, PRN tiZANidine 2 mg oral tablet, 2 mg, 1 Tab, PO, every 8 hours, PRN, Stop if causes dizziness verapamil 180 mg oral tablet, extended release, 360 mg, 2 Tab, PO, qHS Allergies contrast media (iodine-based) Reaction: None Documented penicillins Reaction: None Documented Social History Alcohol Denies Home/Environment [employer] restrictions/concerns: None. Substance Abuse Denies Tobacco Never used tobacco, Denies Electronically Signed By: Anu Marion MD On 12/07/16 07:51 Co Signature By: Modified Signature By: Anu Marion MD On 12/07/16 07:51 12/04/2016 [facility] ED Physician Notes Patient: TIANNA HERNANDEZ Age: 69 years Sex: M : 1945 Author: Roger Meneses DO Basic Information Time seen: Date and time 11/10/14 15:01:00. History source: Patient. Arrival mode: Private vehicle. History limitation: None. Additional information: Patient's physician(s): Neo Hampton (PCP), Chief Complaint (ST) Chief Complaint ED: stated have low bld pressure and felt dizzy after eating 11/10/14 14:52, Triage Assessment :awake alert gcs 15 verbally responsive gcs 15 . History of Present Illness The patient presents with dizziness. The onset was just prior to arrival. The course/duration of symptoms is resolved: lasted 30 minute(s). The character of symptoms is lightheaded and presyncope. The degree at present is moderate. The exacerbating factor is none. The relieving factor is none. Risk factors consist of hypertension, not diabetes mellitus, not cerebral vascular accident and not medication change. Prior episodes: occasional. Associated symptoms: denies nausea, denies vomiting, denies headache, denies palpitations and denies altered vision. Additional history: pt reports a 30 minute episode of lightheadedness and near syncope after eating a sandwich at [employer]. Denies nausea, visual or neurological changes, or sweats at that time. No recent medication change. Pt's states that pt's BP was similar to 70s systolic and was advised by PCP to be seen in the ED. Review of Systems Constitutional symptoms: No fever, no chills, no sweats. Skin symptoms: Negative except as documented in HPI. Eye symptoms: Vision unchanged. ENMT symptoms: Negative except as documented in HPI. Respiratory symptoms: No shortness of breath, no cough. Cardiovascular symptoms: No chest pain, no palpitations. Gastrointestinal symptoms: No abdominal pain, no nausea, no vomiting. Genitourinary symptoms: Negative except as documented in HPI. Musculoskeletal symptoms: Negative except as documented in HPI. Neurologic symptoms: Dizziness, no headache, no numbness, no tingling. Psychiatric symptoms: Negative except as documented in HPI. Endocrine symptoms: Negative except as documented in HPI. Hematologic/Lymphatic symptoms: Negative except as documented in HPI. Allergy/immunologic symptoms: Negative except as documented in HPI. Additional review of systems information: All other systems reviewed and otherwise negative, other than the above noted. Health Status Allergies: Allergic Reactions (Selected) Unknown Penicillins- No reactions were documented.. Medications: Include documented meds (Selected) Documented Medications Documented alfuzosin 10 mg oral tablet, extended release: 1 Tab, PO, Daily atorvastatin 40 mg oral tablet: 1 Tab, PO, Daily hydrochlorothiazide-lisinopril 12.5 mg-10 m Tab, PO, Daily verapamil 180 mg oral tablet, extended release: , per nurse's notes. Past Medical/ Family/ Social History Medical history: All Problems High cholesterol / [id number] / Confirmed Hypertension / [id number] / Confirmed, Atrial fibrillation. Surgical history: Hernia ([id number]). Shoulder ([id number]).. Family history: Not significant. Social history: Alcohol use: Denies, Tobacco use: Denies, Drug use: Denies. Physical Examination Vital Signs Vital-Signs 11/10/2014 14:52 Heart Rate 89 bpm NIBP Systolic 132 mm Hg NIBP Diastolic 79 mm Hg Resp Rate (Monitor) 18 Breaths/Min SPO2 97 % . Per nurse's notes. General: Alert, appropriate for age, within normal limits, within normal limits, well hydrated, No signs of distress, Skin: Warm, dry, no rash. Head: Normocephalic, atraumatic. Neck: Supple, trachea midline, no JVD, no carotid bruit, full range of motion, No stiffness, Eye: Pupils are equal, round and reactive to light, extraocular movements are intact, vision grossly normal. Ears, nose, mouth and throat: Oral mucosa moist. Cardiovascular: Regular rate and rhythm, No murmur, Normal peripheral perfusion, No edema. Respiratory: Lungs are clear to auscultation, breath sounds are equal. Chest wall: No tenderness. Back: Nontender, Normal range of motion. Musculoskeletal: Normal ROM, normal strength, no tenderness. Gastrointestinal: Soft, Nontender, Non distended, Normal bowel sounds, Mass: No abdominal bruit, not pulsatile. Genitourinary: Exam deferred. Neurological: Alert and oriented to person, place, time, and situation, No focal neurological deficit observed, CN II-XII intact, normal sensory observed, normal motor observed, normal speech observed. Lymphatics: No lymphadenopathy. Psychiatric: Cooperative, appropriate mood and affect, normal judgment. Medical Decision Making Differential Diagnosis: Syncope, hypotension. Rationale: pt with near syncope on and off for the last month. he states he has had intermittent hypotension and his symptoms usually occur when he stands up too fast. he states he is on 'quite a few' bp meds. labs, bp and imaging neg here. he is asymptomatic. no orthostasis. dw pt and offered admission however he declined and stated he wanted to go home and fu pcp. zully ordoñez. dw at bedside.. Documents reviewed: Emergency department nurses' notes, no emergency department records. Orders Launch Order Profile (Selected) Inpatient Orders Ordered saline flush (SL): 3 mL, IV Push, qShift (12hr). soda tester: Time 11/10/14 15:09:00, Rate 83, normal sinus rhythm, interpreted contemporaneously by me, no Premature Atrial Contraction (PAC). Electrocardiogram: Time 11/10/14 15:09:00, rate 83, normal sinus rhythm, No ST-T changes, no ectopy, normal OR and QRS intervals, The [place] is normal. , Previous EKG available None available, Interpretation by Emergency Physician no STEMI, no ischemic changes, Interpreted contemporaneously by me. Results review: Lab results : Laboratory 11/10/2014 15:30 WBC 10.6 K/uL WBC Instr 11 thousand/uL NA RBC 5.01 M/uL Hgb 15.2 gm/dL Hct 46.1 % Plt 294 K/uL MCV 92.1 fL MCH 30.3 gm/dL MCHC 32.9 gm/dL RDW 13.7 M/uL MPV 7.9 fL Neut% 74.9 % H Lymph% 15.8 % L [place]% 7.5 % Eos% 1.3 % Baso% 0.5 % PT 13.50 sec INR 0.98 ratio PTT 26.0 sec Sodium 140 mmol/L Potassium 3.9 mmol/L Chloride 107 mmol/L CO2 22 mmol/L Anion Gap 11 NA Glucose Level 98 mg/dL BUN 22 mg/dL Creatinine 1.40 mg/dL H BUN/Cr Ratio 15.7 NA eGFR Afr/Am >60 eGFR NonAfr/Am 50 L Calcium 9.7 mg/dL Protein, Total 7.6 gm/dL Albumin 4.1 gm/dL Globulin 3.5 NA A/G Ratio 1.2 NA Bili Total 1.4 mg/dL H ALT 42 Units/L AST 20 Units/L Alkphos 62 Units/L B-Natriuretic Peptide 12 pg/mL CK 104 Units/L Troponin I 0.007 ng/mL . Radiology results: Reviewed radiologist's report, Radiologist's interpretation Report : XR Chest 2 Views AP or PA+Lat IMPRESSION: 1. No acute pathology noted. Reexamination/ Reevaluation Time: 11/10/14 16:40:00 . Vital signs results included from flowsheet : Vital-Signs 11/10/2014 16:50 Temperature PO 36.6 deg C Heart Rate 80 bpm NIBP Systolic 130 mm Hg NIBP Diastolic 70 mm Hg Resp Rate (Monitor) 17 Breaths/Min SPO2 98 % per nurse's notes Notes: Discussed all results with pt with at bedside. Offered admission for further testing but pt declines at this time and states that he would like to f/u with his PCP closely. Pt informed to return immediately should another episode occur and pt voices understanding. Impression and Plan Diagnosis 1. Near syncope Plan Condition: Stable. Disposition: Discharged: Time 11/10/14 16:58:00, to home. Patient was given the following educational materials: Near-Syncope. Follow up with: Neo Hampton Within 1 to 3 days Call for follow up appointment. Return to ED if symptoms worsen. Counseled: Patient, Family, Regarding diagnosis, Regarding diagnostic results, Regarding treatment plan, Patient indicated understanding of instructions, family indicated understanding of instructions. Notes: This document was transcribed by prosper Kraft for Provider: Dr. Roger Meneses on 11/10/14 at 16:41. 11/11/2014 [facility] Discharge Summaries Results Value Date Source Discharge Summary Patient: DIEGO HERNANDEZ Age: 72 years Sex: M : 1945 Admitting MD: Jerson Velásquez MD Location: [facility] COU: 2282: P Author: Constantin Rodriguez DO Admission Information Admit Date: 10/19/17 02:35 Discharge Date: 10/22/17 Diagnosis NSTEMI (non-ST elevated myocardial infarction) 10/22/2017 10:07 Discharge CAD (coronary artery disease) 10/22/2017 10:07 Discharge HTN (hypertension) 10/22/2017 10:07 Discharge DEANN (obstructive sleep apnea) 10/22/2017 10:07 Discharge Reason for Admission NSTEMI Hospital Course HPI: 72 year old male presents with 1 week of paroxysmal chest pain radiating to the jaw found to have an NSTEMI. Assessment/Plan Consults Cardiology: Dr. Suggs Assessment NSTEMI - troponin elevated - Cardiac Echo suggests preserved ejection fraction with Grade 1 diastolic dysfunction. - Patient underwent cardiac cath on 10/21/17 with TODD stenting to the proximal RCA by Dr. Galeana. - Per cardiology patient to continue aggressive medical management, diet modifications, and cardiac rehab - Continue Aspirin, Atorvastatin, Metoprolol, Brilinta, and Lisinopril - Follow up with cardiology Dr. Sugsg in 1-2 weeks. - Resume regular activities in 1 week. Hypertension - Continue above prescribed medications - Continue outpatient follow up BPH - Continue Afluzosin DEANN - CPAP at home Previous smoker Patient is now cleared by cardiology and stable for discharge with follow up to outpatient cardiology in 1-2 weeks. Patient states understanding and is in full agreement with the discharge plan. Note: More than 30 minutes spent on this discharge. Objective Vitals and Measurements T: 36.5 C (Oral) HR: 60 RR: 18 BP: 155/76 SpO2: 95% Oxygen Amount: Room air Oxygen Method: Nasal cannula Physical Exam GEN: No acute distress, awake and alert HEENT: atraumatic, oropharynx clear, mucous membranes moist NECK: supple, no jugular venous distention CV: regular rate and regular rhythm, no murmurs, groin cardiac cath insertion site clean/dry PULM: clear to auscultation bilaterally, mild bilateral wheezes ABD: soft, nontender, nondistended, normoactive bowel sounds, no guarding or rebound. EXTR: no cyanosis, no edema NEURO: Non-focal, , no gross motor deficits, Cranial nerves 2-12 grossly intact Lab Results Common Labs - This Encounter, Most Recent, Last 24 hrs Last 24 Hours Basic Metabolic Panel: Hematology: Sodium: 142 (10/22/17) Hgb: 14.1 (10/22/17) Potassium: 3.5 (10/22/17) HgbA1c: ------ Phosphorus: 3.4 (10/22/17) WBC: 12.3 (10/22/17) Mg: ------ Plt: 253 (10/22/17) BUN: 20 (10/22/17) INR: ------ Creatinine: .86 (10/22/17) Creatinine Clearance: ------ Additional - Last 24 Hours Albumin: 3.1 (10/22/17) Anion Gap: 13 (10/22/17) BUN/Cr Ratio: 23.3 (10/22/17) Calcium: 8.1 (10/22/17) Chloride: 110 (10/22/17) CO2: 19 (10/22/17) eGFR Afr/Am: >60 (10/22/17) eGFR NonAfr/Am: >60 (10/22/17) Glucose Level: 155 (10/22/17) Hct: 42.9 (10/22/17) MCH: 29.5 (10/22/17) MCHC: 32.9 (10/22/17) MCV: 89.7 (10/22/17) MPV: 8.5 (10/22/17) RBC: 4.79 (10/22/17) RDW: 15.0 (02/02/18) Diagnostic Results Radiology - Full Interpretation, This Encounter Name: TIANNA HERNANDEZ Account: [id number] : 1945 Result Date: 10/18/17 22:55 Verified By: Holden Marie MD at 10/18/17 23:00 Report : XR Chest 2 Views Clinical history: Left neck, shoulder, and arm pain with shortness of breath. Comparison: 11/10/2014. Technique 2 views of the chest were obtained at 9:36 PM on 10/18/2017. Findings: Heart size is normal. Aortic contours are normal. No pleural effusion or pneumothorax. Atelectasis/scarring the left lower lobe is similar. Peribronchial inflammatory changes. No focal consolidation, edema, or suspicious nodule/mass. Trachea is patent. No acute bony or soft tissue abnormality. IMPRESSION: Acute viral small airway disease. No consolidation or edema. Report generated on workstation: [id number] 10/18/17 23:00 +++++++++++++++++++++++++++++++++++++++++ ++++++++++++++ Result Date: 10/18/17 22:08 Verified By: Moses Arredondo MD at 10/21/17 19:40 Report : CA Heart Cath Procedure \XBB\XBF *[facility]* [facility]* [address] [place], [place] [id number] INVASIVE CARDIAC PROCEDURE Patient: Lady : 1945 Tianna Hernandez #: Patient [id number] Age: 72 ID: Study 10/21/2017 Gender: M Date: Clinical Operations Specialist: Moses Galeana MD Ordering Physician: Moses Arredondo Md HISTORY: Risk factors: Family history of coronary artery disease. Hypertension. Diabetes mellitus; on therapy with oral hypog lycemics. Dyslipidemia. Allergies: Penicillin allergy. Iodinated contrast allergy. LABS, PRIOR TESTS, PROCEDURES, and SURGERY: Serum creatinine (current admission) of 0.8 mg/dl. Prothrombin time (PT) of 12 sec. Partial thromboplastin time (PTT) of 41 sec. Hematocrit of 46.5 %. White blood cell count (WBC) of 15.4 th/ul. Platelet count of 274 th/ul. Serum sodium (Na) of 144 mEq/l. Serum potassium (K) of 3.4 mEq/l. Glucose of 106 mg/dl. CPK peak of 145 units/l. Blood urea nitrogen of 23 mg/dl. Hemoglobin (pre-procedu re) of 15.3 g/dl. International normalized ratio (INR) of 1.06. Tr oponin I (pre-procedure) of 1.72 ng/ml. Procedures performed: ACRight femoral sheath side-port angiography. ACLeft coronary angiography. ACRight coronary angiography. ACPercutaneous intervention on the 75% stenosis in the proximal right coronary. Balloon angioplasty. Stent placement. Stent placement. Stent placement. Stent placement. Balloon angioplasty. Balloon angioplasty. PROCEDURE IN DETAIL: Study status: Cardiac cath: elective. Percutaneous coronary intervention: elective. Percutaneous coronary intervention performed for high risk NSTEMI or unstable angina. Con sent: The risks, benefits, and alternatives to the procedure were e xplained to the patient and informed consent was obtained. A time ou t was performed prior to procedure. Fluoroscopy time: Fluoroscopy time: 6.7 min. Fluoroscopy dose: Fluoroscopy dose: 230.4 cGy. Location: Catheterization laboratory. PROCEDURE: 1. Initial setup. The patient was brought to the laboratory in the fasting state. A baseline ECG was recorded. Surface ECG leads, blood pressure measurements, and pulse oximetric signals were monitored. 2. Skin preparation. The planned puncture sites were prepped and draped in the usual sterile manner. 3. Right femoral artery access. The access site was infiltrated with lidocaine. The vessel was entered with a Micro needle and the Seldinger technique. A 6Fr x 10cm [place] sheath was advanced into the vessel. 4. Nonselective right femoral sheath side-port angiography for closure evaluation, under fluoroscopic guidance. Contrast was injected into the sheath side port by hand. Images were obtained in ZACARIAS projections. 5. Selective left coronary angiography. A 6FR x 100cm FL4 (MultiPack Kit) catheter was advanced into the left coronary vessel ostium under fluoroscopic guidance. Contrast was injected by hand. Images were obtained in multiple projections. The catheter was removed. 6. Selective right coronary angiography. A 6FR x 100cm FR4 (MultiPack Kit) catheter was advanced into the right coronary vessel ostium under fluoroscopic guidance. Contrast was injected by hand. Images were obtained in multiple projections. The catheter was removed. 7. Activated clotting time measurement. ACT was 218 secby Hemochron. This value was maintained throughout the case. 8. Right femoral artery hemostasis. The sheath was removed. Vessel closure was achieved with a 6Fr Perclose ProGlide device. Hemostasis was successfully obtained.There was no groin hematoma. 1st lesion intervention: Percutaneous intervention on the 75% stenosis in the proximal right coronary. 1. Guider placement. A 6Fr x 100cm RunWay ART4 guiding catheter was successfully placed into the ostium of the right coronary artery. 2. Wire placement. A .014/182cm Mailman wire was placed across the lesion in the right coronary artery. 3. Successful balloon angioplasty. A 3 mm (D) x 15 mm (L), AngioSculpt RX PTCA balloon was employed. The balloon was placed across the lesion and given two inflations with a maximum inflation pressure of 20 lidya. The resulting stenosis was 50%. 4. Successful drug-eluting stent placement. A 3 mm (D) x 38 mm (L), drug-eluting, RESOLUTE NELL RX stent was advanced across the lesion and deployed with a single inflation and a maximum pressure of 20 lidya. The resulting stenosis was 0%. 5. Successful drug-eluting stent placement. A 4 mm (D) x 38 mm (L), drug-eluting, RESOLUTE NELL RX stent was advanced across the lesion and deployed with a single inflation and a maximum pressure of 12 lidya. The resulting stenosis was 0%. 6. Successful drug-eluting stent placement. A 4 mm (D) x 38 mm (L), drug-eluting, RESOLUTE NELL RX stent was advanced across the lesion and deployed with a single inflation and a maximum pressure of 12 lidya. The resulting stenosis was 0%. 7. Successful drug-eluting stent placement. A 4.5 mm (D) x 30 mm (L), drug-eluting, RESOLUTE NELL RX stent was advanced across the lesion and deployed with a single inflation and a maximum pressure of 12 lidya. The resulting stenosis was 0%. 8. Successful balloon angioplasty. A 4 mm (D) x 20 mm (L), NC Euphora RX balloon was employed. The balloon was placed across the lesion and given six inflations with a maximum inflation pressure of 26 lidya. The resulting stenosis was 0%. 9. Successful balloon angioplasty. A 4.5mm x 20mm NC Emerge RX balloon was employed. The balloon was placed across the lesion and given two inflations with a maximum inflation pressure of 12 lidya. The resulting stenosis was 0%. 10. All wires, catheters and devices used for this lesion were removed. STUDY COMPLETION: The estimated blood loss was 20 ml. All catheters inserted during the procedure were removed. The patient to lerated the procedure well and was transferred from the lab in a sta ble condition. There were no immediate complications. Administered medications: OXYGEN, infusion rate of 2L/min. Midazolam, 2mg. Fe ntanyl, 50mcg. Heparin, 10,000units. Nitroglycerin, 1,000mcg. Hyd rocortisone, 100mg. Meperidine, 50mg. BRILINTA, 180mg. Aspirin, 3 25mg. OXYGEN, infusion rate of 4L/min. Protamine sulfate, 20mg. F entanyl, 50mcg. Contrast: Isovue 300/200cc 170 ml (total dose). Isovue 300/200cc 30 ml (wasted). CORONARY ARTERIES: The coronary circulation is right dominant. The left main bifurcates normally into the LAD and circumflex. The l eft anterior descending gives rise to 2 diagonals. The left circumfl ex gives rise to 1 obtuse marginal and no posterolaterals. The right coronary gives rise to an AV node branch, the posterior descending artery, and 1 posterolateral. Left main: Normal. LAD: Ostial lesion: There is a 30% stenosis. Proximal vessel lesion: There is a 30% stenosis. This lesion is calcified. Left circumflex: Ostial lesion: There is a 30% stenosis. Proximal vessel lesion: There is a 30% stenosis. 1st obtuse marginal: Proximal vessel lesion: There is a 50% stenosis. This lesion is eccentric. Right coronary: Proximal vessel lesion: There is a diffuse, 75% stenosis. This lesion is irregularly contoured, hazy, and calcified. There is ARTURO grade 3 flow (brisk flow) across the lesion. The lesi on was stented using a drug-eluting stent (see 1st lesion interventi on), with balloon angioplasty. Following intervention, the lesion [place] s a residual stenosis of 0%, an excellent angiographic appearance, a nd ARTURO grade 3 flow (brisk flow). There were no site complications. HEMODYNAMICS: + + + !Stage description !Condition1:Condition 1 -! + + + !Arterial pressure s/d (m)!176/82 (117) ! + + + SUMMARY: 1. 1st obtuse marginal: Proximal vessel lesion: There is a 50% stenosis. 2. Right coronary: Proximal vessel lesion: There is a diffuse, 75% stenosis. The lesion was stented using a drug-eluting stent (see 1st lesion intervention), with balloon angioplasty. Following intervention, the lesion has a residual stenosis of 0%, an excellent angiographic appearance, and ARTURO grade 3 flow (brisk flow). IMPRESSIONS: successful rca intervention with todd. RECOMMENDATIONS: 1. Patient management should include aggressive medical therapy, risk factor modification, and a cardiac rehabilitation program. The patient was counseled regarding the importance of adherence to the prescribed antiplatelet therapy and a low fat diet. The patient may resume all previous activities in 1 wk. 2. Add statin therapy. 3. Add beta blockers. 4. Continue aspirin, at 81mgPOdaily, indefinitely. 5. Add ticagrelor (Brilinta), loading dose 180mgPO, standing dose 90mgPObid. 6. DC HOME IN AM. Prepared and electronically signed by Moses Galeana MD [id number] 10/21/17 17:59 +++++++++++++++++++++++++++++++++++++++++ ++++++++++++++ Result Date: 10/18/17 22:08 Verified By: LIZZY SUGGS MD at 10/21/17 17:16 Report : CA ECHO TTE w Doppler Comp *[facility]* *[facility]* [address] [place], [place] [address] TRANSTHORACIC ECHOCARDIOGRAM PATIENT: Tianna Hernandez STUDY DATE: 10/19/2017 STUDY TIME: 05:08 PM : 1945 AGE: 72 GENDER: M HT/WT: 0 cm 0 kg ORDERING PHYSICIAN: Jerson Velásquez Md SIDE STAPLER: Giovanna Fitzpatrick [facility] INTERPRETING PHYSICIAN: Lizzy Suggs MD INDICATIONS: Angina Pectoris, Unspecified. CONCLUSIONS SUMMARY: 1. Left ventricle: The cavity size is normal. Wall thickness is normal. Systolic function is normal. The estimated ejection fraction is 55-65%. Wall motion is normal; there are no regional wall motion abnormalities. Doppler parameters are consistent with abnormal left ventricular relaxation (grade 1 diastolic dysfunction). 2. Mitral valve: There is mild regurgitation. STUDY DATA: M-mode, complete 2D, complete spectral Doppler, and color Doppler. FINDINGS LEFT VENTRICLE: The cavity size is normal. Wall thickness is normal. Systolic function is normal. The estimated ejection fraction is 55-65%. Wall motion is normal; there are no regional wall motion abnormalities. Doppler parameters are consistent with abnormal left ventricular relaxation (grade 1 diastolic dysfunction). RIGHT VENTRICLE: The cavity size is normal. Wall thickness is normal. Systolic function is normal. MITRAL VALVE: Structurally normal valve. Leaflet separation is normal. Doppler: There is no evidence for stenosis. There is mild regurgitation. Peak gradient (D): 3 mm Hg. AORTIC VALVE: Structurally normal valve. Trileaflet. Doppler: There is no stenosis. There is no regurgitation. TRICUSPID VALVE: Structurally normal valve. Leaflet separation is normal. Doppler: There is no evidence for stenosis. There is mild regurgitation. PULMONIC VALVE: Structurally normal valve. Doppler: There is no regurgitation. AORTA: Aortic root: The aortic root is not dilated. PERICARDIUM: There is no pericardial effusion. Measurements Left ventricle Value Reference LV ID, ED, MM (N) 5.0 cm 4.2 - 5.9 LV ID, ES, MM 2.9 cm --------- LV fx shortening, MM (N) 43 % 25 - 43 LV PW thickness, ED, MM (H) 1.1 cm 0.6 - 1.0 LV PW thickness, ES, MM 1.6 cm --------- LV ejection fraction, Teichholz MM (N) 74 % >=55 Ventricular septum Value Reference IVS thickness, ED, MM (H) 1.1 cm 0.6 - 1.0 IVS thickness, ES, MM 1.6 cm --------- Aortic valve Value Reference Aortic leaflet separation, MM 1.6 cm --------- Aorta Value Reference Ascending aorta ID, A-P, S 3.4 cm --------- Aortic root ID, ED, MM 3.1 cm --------- Left atrium Value Reference LA ID, A-P, ES (L) 0.0 cm 3.0 - 4.0 Mitral valve Value Reference Mitral E-wave peak velocity 0.84 m/sec --------- Mitral A-wave peak velocity 1.08 m/sec --------- Mitral deceleration slope 4.27 cm/s2 --------- Mitral deceleration time 196 ms --------- Mitral pressure half-time 57 ms --------- Mitral peak gradient, D 3 mm Hg --------- Mitral E/A ratio, peak 0.77 --------- Mitral valve area, PHT, DP 3.9 cm2 --------- Pulmonary arteries Value Reference PA pressure, S, DP 44 mm Hg --------- Tricuspid valve Value Reference Tricuspid regurg peak velocity 2.3 m/sec --------- Tricuspid peak RV-RA gradient 21 mm Hg --------- Systemic veins Value Reference Estimated CVP 10 mm Hg --------- Right ventricle Value Reference RV pressure, S, DP 44 mm Hg --------- Legend: (L) and (H) mindi values outside specified reference range. (N) martinez values inside specified reference range. Electronically signed by Lizzy Suggs MD 10/21/2017 17:16 10/19/17 17:08 +++++++++++++++++++++++++++++++++++++++++ ++++++++++++++ Condition on Discharge Stable Discharge Plan Discharge Medications 1. lisinopril(lisinopril 10 mg oral tablet) 10 mg= 1 Tab By mouth Tab once daily 2. ticagrelor(Brilinta (ticagrelor) 90 mg oral tablet) 90 mg= 1 Tab By mouth twice daily 30 Day 3. Aspirin (ASA)(aspirin 81 mg oral enteric coated tablet) 81 mg= 1 Tab By mouth Tab, EC once daily 4. atorvastatin(atorvastatin 80 mg oral tablet) 80 mg= 1 Tab By mouth Tab once daily 5. metoprolol(Lopressor 50 mg oral tablet) 50 mg= 1 Tab By mouth Tab twice daily Medications to Continue 6. alfuzosin(alfuzosin 10 mg oral tablet, extended release) 10 mg= 1 Tab By mouth once daily Discontinued Meds Aspirin (ASA) By mouth Tab every 4 hours as needed for Fever Discharge Disposition Discharge Order Details: 10/22/17 10:16:00 PST, Today, Home or self long term self care Discharge Diet Heart Healthy Discharge Activity As tolerated in 1 week Discharge Follow-up Instructions Follow-Up Details: Provider/Org Name: LIZZY SUGGS Within: 1 week Provider/Org Name: Follow up with primary care provider Within: 1 week Electronically Signed By: Constantin Rodriguez DO On 10/22/17 10:25 Co Signature By: Modified Signature By: 10/22/2017 [facility] History and Physicals Results Value Date Source History and Physical Patient: Loly HERNANDEZ Age: 72 years Sex: M : 1945 Admitting MD: Jerson Velásquez MD Location: [facility] COU: 2282: P Author: Lidia Finley Subjective resting no complaints Objective Vitals and Measurements T: 36.5 C (Oral) HR: 60 RR: 18 BP: 155/76 SpO2: 95% Oxygen Amount: Room air Oxygen Method: Nasal cannula Physical Exam alert/oriented no distress regular rate and rhythm no edema LE bilat R groin mildly tender to palpation but no hematoma- pedal pulses present Lab Results Common Labs - This Encounter, Most Recent, Last 24 hrs Last 24 Hours Basic Metabolic Panel: Hematology: Sodium: 142 (10/22/17) Hgb: 14.1 (10/22/17) Potassium: 3.5 (10/22/17) HgbA1c: ------ Phosphorus: 3.4 (10/22/17) WBC: 12.3 (10/22/17) Mg: ------ Plt: 253 (10/22/17) BUN: 20 (10/22/17) INR: ------ Creatinine: .86 (10/22/17) Creatinine Clearance: ------ Additional - Last 24 Hours Albumin: 3.1 (10/22/17) Anion Gap: 13 (10/22/17) BUN/Cr Ratio: 23.3 (10/22/17) Calcium: 8.1 (10/22/17) Chloride: 110 (10/22/17) CO2: 19 (10/22/17) eGFR Afr/Am: >60 (10/22/17) eGFR NonAfr/Am: >60 (10/22/17) Glucose Level: 155 (10/22/17) Hct: 42.9 (10/22/17) MCH: 29.5 (10/22/17) MCHC: 32.9 (10/22/17) MCV: 89.7 (10/22/17) MPV: 8.5 (10/22/17) RBC: 4.79 (10/22/17) RDW: 15.0 (10/22/17) Diagnostic Results XR - Most Recent, Last 24 hours No qualifying data available. Assessment/Plan IMPRESSIONS: 1- NSTEMI s/p PCI RCA TODD 2- dyslipids 3- sleep apnea - on CPAP 4- sinus bradycardia 5- normal LVEF PLAN: patient with some chest tightness atypical this am- on exam pain is reproducible with palpation of chest wall f/u ekg ambulate if stable ok for DC home and f/u in clinic (as well as establish care with student activities director in [place]) asa/brilinta discussed with patient and family add low dose BB as HR allows Electronically Signed By: Lidia Finley On 10/22/17 11:05 Co Signature By: Modified Signature By: Pt amulated well in [place]. As above. OK for discharge and follow up as outpt Electronically Signed By: Brett Barnes DO On 10/22/17 13:02 Co Signature By: Moses Arredondo MD On 10/22/17 15:20 Modified Signature By: Brett Barnes DO On 10/22/17 13:02 10/22/2017 [facility] History and Physical Patient: Loly HERNANDEZ Age: 72 years Sex: M : 1945 Admitting MD: Jerson Velásquez MD Location: [facility] COU: 2282: P Author: LIZZY SUGGS MD Subjective Still with persistent cp. BP running high. On iv heparin. Objective Vitals and Measurements T: 36.7 C (Oral) HR: 54 RR: 20 BP: 154/96 SpO2: 97% Oxygen Amount: 1 L/min Oxygen Method: Nasal cannula Physical Exam GEN: No acute distress, alert and oriented x 3 HEENT: oropharynx clear, mucous membranes moist NECK: supple, no jugular venous distention CV: regular rate and rhythm, no rubs or gallops PULM: clear to auscultation bilaterally, normal respiratory excursion ABD: soft, nontender, nondistended, normoactive bowel sounds, no guarding or rebound. EXTR: no cyanosis, clubbing or edema NEURO: Non-focal, moves all extremities Lab Results Common Labs - This Encounter, Most Recent, Last 24 hrs Last 24 Hours Basic Metabolic Panel: Hematology: Sodium: 144 (10/21/17) Hgb: 15.3 (10/21/17) Potassium: 3.4 (10/21/17) HgbA1c: ------ Phosphorus: 3.2 (10/21/17) WBC: 15.4 (10/21/17) Mg: ------ Plt: 274 (10/21/17) BUN: 23 (10/21/17) INR: ------ Creatinine: .81 (10/21/17) Creatinine Clearance: ------ Additional - Last 24 Hours Albumin: 3.6 (10/21/17) Anion Gap: 12 (10/21/17) BUN/Cr Ratio: 28.4 (10/21/17) Calcium: 8.9 (10/21/17) Chloride: 110 (10/21/17) CO2: 22 (10/21/17) eGFR Afr/Am: >60 (10/21/17) eGFR NonAfr/Am: >60 (10/21/17) Est Mean Bld Glu: 114 (10/20/17) Glucose Level: 106 (10/21/17) Hct: 46.5 (10/21/17) HgbA1C: 5.6 (10/20/17) MCH: 29.3 (10/21/17) MCHC: 33.0 (10/21/17) MCV: 88.8 (10/21/17) MPV: 8.7 (10/21/17) PTT: 41.0 (10/21/17) RBC: 5.24 (10/21/17) RDW: 15.2 (10/21/17) Assessment/Plan 1. Non ST SC - cath planned for today. Iodine allergy - pt received medications (steroids, benadryl, pepcid) through yesterday. Will administer dose of steroids today. Cont asa, bb, add nathan, statin Electronically Signed By: LIZZY SUGGS MD On 10/21/17 15:10 Co Signature By: Modified Signature By: 10/21/2017 [facility] History and Physical Patient: Loly HERNANDEZ Age: 72 years Sex: M : 1945 Admitting MD: Jerson Velásquez MD Location: [facility] COU: 2282: P Author: Constantin Rodriguez DO Subjective HPI: 72 year old male presents with 1 week of paroxysmal chest pain radiating to the jaw found to have an NSTEMI. Resting comfortably Mild episode of chest pain overnight, now resolved Still Pending cardiac cath Review of Systems Pertinent positives as noted in HPI. All other ROS reviewed and are negative. Objective Vitals and Measurements T: 36.7 C (Oral) HR: 54 RR: 20 BP: 154/96 SpO2: 97% Oxygen Amount: 1 L/min Oxygen Method: Nasal cannula WT: 104.5 kg Physical Exam GEN: No acute distress, awake and alert HEENT: atraumatic, oropharynx clear, mucous membranes moist NECK: supple, no jugular venous distention CV: regular rate and regular rhythm, no murmurs PULM: clear to auscultation bilaterally, mild bilateral wheezes ABD: soft, nontender, nondistended, normoactive bowel sounds, no guarding or rebound. EXTR: no cyanosis, no edema NEURO: Non-focal, , no gross motor deficits, Cranial nerves 2-12 grossly intact Lab Results Common Labs - This Encounter, Most Recent, Last 24 hrs Last 24 Hours Basic Metabolic Panel: Hematology: Sodium: 144 (10/21/17) Hgb: 15.3 (10/21/17) Potassium: 3.4 (10/21/17) HgbA1c: ------ Phosphorus: 3.2 (10/21/17) WBC: 15.4 (10/21/17) Mg: ------ Plt: 274 (10/21/17) BUN: 23 (10/21/17) INR: ------ Creatinine: .81 (10/21/17) Creatinine Clearance: ------ Additional - Last 24 Hours Albumin: 3.6 (10/21/17) Anion Gap: 12 (10/21/17) BUN/Cr Ratio: 28.4 (10/21/17) Calcium: 8.9 (10/21/17) Chloride: 110 (10/21/17) CO2: 22 (10/21/17) eGFR Afr/Am: >60 (10/21/17) eGFR NonAfr/Am: >60 (10/21/17) Est Mean Bld Glu: 114 (10/20/17) Glucose Level: 106 (10/21/17) Hct: 46.5 (10/21/17) HgbA1C: 5.6 (10/20/17) MCH: 29.3 (10/21/17) MCHC: 33.0 (10/21/17) MCV: 88.8 (10/21/17) MPV: 8.7 (10/21/17) PTT: 41.0 (10/21/17) RBC: 5.24 (10/21/17) RDW: 15.2 (10/21/17) Diagnostic Results Radiology - Full Interpretation, This Encounter Name: TIANNA HERNANDEZ Account: [id number] : 1945 Result Date: 10/18/17 22:55 Verified By: Holden Marie MD at 10/18/17 23:00 Report : XR Chest 2 Views Clinical history: Left neck, shoulder, and arm pain with shortness of breath. Comparison: 11/10/2014. Technique 2 views of the chest were obtained at 9:36 PM on 10/18/2017. Findings: Heart size is normal. Aortic contours are normal. No pleural effusion or pneumothorax. Atelectasis/scarring the left lower lobe is similar. Peribronchial inflammatory changes. No focal consolidation, edema, or suspicious nodule/mass. Trachea is patent. No acute bony or soft tissue abnormality. IMPRESSION: Acute viral small airway disease. No consolidation or edema. Report generated on workstation: [id number] 10/18/17 23:00 ++++++++++++++++++++++++++++++++++++++ +++++++++++++++++ Assessment/Plan Consults Cardiology: Dr. Suggs Assessment NSTEMI - troponin elevated Hypertension BPH DEANN - CPAP at home Previous smoker Plan - Pending cardiac cath today, cath was postponed yesterday - TTE pending - Continue with cardiac monitoring - Continue heparin gtt - Continue with ASA/Statin/BB - Prophylaxis for iodine allergy prior to cath - Blood pressure control - Continue Flomax - CPAP QHS for DEANN - DVT Prophylaxis: heparin gtt - Diet: Heart Healthy - Activity: As tolerated - Code Status: Full Code Dispo: Pending cardiac cath, continue current mgmt Constantin Rodriguez DO Electronically Signed By: Constantin Rodriguez DO On 10/21/17 12:55 Co Signature By: Modified Signature By: 10/21/2017 [facility] History and Physical Patient: Loly HERNANDEZ Age: 72 years Sex: M : 1945 Admitting MD: Jerson Velásquez MD Location: [facility] COU: 2282: P Author: Constantin Rodriguez DO Subjective HPI: 72 year old male presents with 1 week of paroxysmal chest pain radiating to the jaw found to have an NSTEMI. Resting comfortably No chest pain Pending cardiac cath Review of Systems Pertinent positives as noted in HPI. All other ROS reviewed and are negative. Objective Vitals and Measurements T: 36.8 C (Oral) HR: 65 RR: 18 BP: 154/83 SpO2: 96% Oxygen Amount: Room air Oxygen Method: None WT: 104.5 kg Physical Exam GEN: No acute distress, awake and alert HEENT: atraumatic, oropharynx clear, mucous membranes moist NECK: supple, no jugular venous distention CV: regular rate and regular rhythm, no murmurs PULM: clear to auscultation bilaterally, mild bilateral wheezes ABD: soft, nontender, nondistended, normoactive bowel sounds, no guarding or rebound. EXTR: no cyanosis, no edema NEURO: Non-focal, , no gross motor deficits, Cranial nerves 2-12 grossly intact Lab Results Common Labs - This Encounter, Most Recent, Last 24 hrs Last 24 Hours Lipid Profile: Hematology: Triglyceride: ------ Hgb: 14.8 (10/20/17) Cholesterol Total: ------ HgbA1c: ------ HDL Cholesterol: ------ WBC: 15.7 (10/20/17) LDL Ca (10/20/17) Plt: 279 (10/20/17) INR: 1.06 (10/19/17) Additional - Last 24 Hours Cholest/HDL Ratio: 3.55 (10/20/17) Cholesterol: 156 (10/20/17) Hct: 44.2 (10/20/17) HDL: 44 (10/20/17) MCH: 29.8 (10/20/17) MCHC: 33.6 (10/20/17) MCV: 88.8 (10/20/17) MPV: 8.2 (10/20/17) PT: 12.0 (10/19/17) PTT: 45.4 (10/20/17) RBC: 4.98 (10/20/17) RDW: 15.3 (10/20/17) Triglycerides: 78 (10/20/17) Troponin I: 1.716 (10/19/17) VLDL: 16 (10/20/17) Diagnostic Results Radiology - Full Interpretation, This Encounter Name: TIANNA HERNANDEZ Account: [id number] : 1945 Result Date: 10/18/17 22:55 Verified By: Holden Marie MD at 10/18/17 23:00 Report : XR Chest 2 Views Clinical history: Left neck, shoulder, and arm pain with shortness of breath. Comparison: 11/10/2014. Technique 2 views of the chest were obtained at 9:36 PM on 10/18/2017. Findings: Heart size is normal. Aortic contours are normal. No pleural effusion or pneumothorax. Atelectasis/scarring the left lower lobe is similar. Peribronchial inflammatory changes. No focal consolidation, edema, or suspicious nodule/mass. Trachea is patent. No acute bony or soft tissue abnormality. IMPRESSION: Acute viral small airway disease. No consolidation or edema. Report generated on workstation: [id number] 10/18/17 23:00 ++++++++++++++++++++++++++++++++++++++ +++++++++++++++++ Assessment/Plan Consults Cardiology: Dr. Suggs Assessment NSTEMI - troponin elevated Hypertension BPH DEANN - CPAP at home Previous smoker Plan - Pending cardiac cath today - TTE pending - Continue with cardiac monitoring - Continue heparin gtt - Continue with ASA/Statin/BB - Prophylaxis for iodine allergy started prior to cath - Blood pressure control - Continue Flomax - CPAP QHS for DEANN - DVT Prophylaxis: heparin gtt - Diet: Heart Healthy - Activity: As tolerated - Code Status: Full Code Dispo: Pending cardiac cath, continue current mgmt Constantin Rodriguez DO Electronically Signed By: Constantin Rodriguez DO On 10/20/17 11:54 Co Signature By: Modified Signature By: 10/20/2017 [facility] History and Physical Patient: Loly HERNANDEZ Age: 72 years Sex: M : 1945 Admitting MD: Jerson Velásquez MD Location: [facility] EDIP: [facility]: Author: Constantin Rodriguez DO Subjective HPI: 72 year old male presents with 1 week of paroxysmal chest pain radiating to the jaw found to have an NSTEMI. 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 All other ROS reviewed and are negative.o Objective Vitals and Measurements T: 37.0 C (Oral) HR: 75 RR: 19 BP: 143/93 SpO2: 91% Oxygen Amount: Room air WT: 104.545 kg WT: 230 lb Physical Exam GEN: No acute distress, awake and alert HEENT: atraumatic, oropharynx clear, mucous membranes moist NECK: supple, no jugular venous distention CV: regular rate and regular rhythm, no murmurs PULM: clear to auscultation bilaterally, no wheezes ABD: soft, nontender, nondistended, normoactive bowel sounds, no guarding or rebound. EXTR: no cyanosis, no edema NEURO: Non-focal, , no gross motor deficits, Cranial nerves 2-12 grossly intact Lab Results Common Labs - This Encounter, Most Recent, Last 24 hrs Last 24 Hours Basic Metabolic Panel: Hematology: Sodium: 141 (10/19/17) Hgb: 15.7 (10/19/17) Potassium: 4.1 (10/19/17) HgbA1c: ------ Phosphorus: ------ WBC: 6.5 (10/19/17) Mg: ------ Plt: 237 (10/19/17) BUN: 15 (10/19/17) INR: 1.06 (10/19/17) Creatinine: .81 (10/19/17) Creatinine Clearance: ------ Additional - Last 24 Hours A/G Ratio: 1.1 (10/19/17) Albumin: 3.9 (10/19/17) Alkphos: 75 (10/19/17) ALT: 36 (10/19/17) Anion Gap: 12 (10/19/17) AST: 27 (10/19/17) B-Natriuretic Peptide: 14 (10/18/17) Baso%: 0.2 (10/19/17) Bili Total: 1.7 (10/19/17) BUN/Cr Ratio: 18.5 (10/19/17) Calcium: 9.3 (10/19/17) Chloride: 109 (10/19/17) CK: 145 (10/18/17) CO2: 20 (10/19/17) eGFR Afr/Am: >60 (10/19/17) eGFR NonAfr/Am: >60 (10/19/17) Eos%: 0.1 (10/19/17) Globulin: 3.4 (10/19/17) Glucose Level: 149 (10/19/17) Hct: 46.4 (10/19/17) Lymph%: 10.2 (10/19/17) MCH: 30.0 (10/19/17) MCHC: 33.8 (10/19/17) MCV: 88.8 (10/19/17) [place]%: 1.1 (10/19/17) MPV: 8.0 (10/19/17) Neut%: 88.4 (10/19/17) Protein, Total: 7.3 (10/19/17) PT: 12.0 (10/19/17) PTT: 53.0 (10/19/17) RBC: 5.23 (10/19/17) RDW: 14.7 (10/19/17) Troponin I: 1.716 (10/19/17) Diagnostic Results Radiology - Full Interpretation, This Encounter Name: TIANNA HERNANDEZ Account: [id number] : 1945 Result Date: 10/18/17 22:55 Verified By: Holden Marie MD at 10/18/17 23:00 Report : XR Chest 2 Views Clinical history: Left neck, shoulder, and arm pain with shortness of breath. Comparison: 11/10/2014. Technique 2 views of the chest were obtained at 9:36 PM on 10/18/2017. Findings: Heart size is normal. Aortic contours are normal. No pleural effusion or pneumothorax. Atelectasis/scarring the left lower lobe is similar. Peribronchial inflammatory changes. No focal consolidation, edema, or suspicious nodule/mass. Trachea is patent. No acute bony or soft tissue abnormality. IMPRESSION: Acute viral small airway disease. No consolidation or edema. Report generated on workstation: [id number] 10/18/17 23:00 ++++++++++++++++++++++++++++++++++++++ +++++++++++++++++ Assessment/Plan Consults Cardiology: Dr. Suggs Assessment NSTEMI - troponin elevated on admission Hypertension BPH DEANN Plan - Continue with cardiac monitoring - Continue heparin gtt - Continue with ASA/Statin/BB - Pending cardiac cath - Prophylaxis for iodine allergy started prior to cath - TTE pending - Blood pressure control - Continue Flomax - CPAP QHS for DEANN - DVT Prophylaxis: heparin gtt - Diet: Heart Healthy - Activity: As tolerated - Code Status: Full Code Dispo: Pending cardiac cath, continue current mgmt Constantin Rodriguez DO Electronically Signed By: Constantin Rodriguez DO On 10/19/17 18:43 Co Signature By: Modified Signature By: 10/20/2017 [facility] History and Physical Patient: TIANNA HERNANDEZ Age: 72 years Sex: M : 1945 Associated Diagnoses: None Author: Jerson Velásquez MD Admission Information Date of Service: 10/19/2017 02:46. History of Present Illness The patient is a 72 year old male with a past medical history of htn, bph, and central sleep apnea presenting to the ED with a one-week history of wosening left sided chest pain that is squeezing in character and radiates to the left shoulder and jaw. The patient and his note that there was no inciting event and the only associated symptom is dyspnea on exertion. . Review of Systems ROS reviewed as documented in chart Constitutional: Decreased activity, No fever, No chills. Eye: No visual disturbances. Respiratory: Shortness of breath. Cardiovascular: Chest pain. Gastrointestinal: No nausea, No vomiting. Musculoskeletal: No trauma. Psychiatric: No anxiety, No depression. Histories Past Medical History: Resolved BPH - Benign prostatic hypertrophy ([id number]): Resolved. Central sleep apnea (9537694193): Resolved. HLD - Hyperlipidaemia (778252416): Resolved. HTN - Hypertension (4340594052): Resolved. HTN - Hypertension (1636990509): Resolved. Procedure history: No active procedure history items have been selected or recorded. Family History: Mother Heart disease... Father Heart disease... Social History Social and Psychosocial Habits Alcohol 10/19/2017 Use: Current Home/Environment 10/19/2017 [employer] restrictions/concerns: None Living situation: Home/Independent Alcohol abuse in household: No Substance abuse in household: No Smoker in household: No Injuries/Abuse/Neglect in household: No Feels unsafe at home: No Substance Abuse 10/19/2017 Use: Denies Tobacco 10/19/2017 Tobacco Use Never (less than 100 in l Previous treatment: None . Health Status Intake and Output 24 hour I&O data 24hr I&O Intake Output Balance Yesterday: 0.00 0.00 0.00 Today: 0.00 0.00 0.00 Allergies: Allergic Reactions (Selected) Severe Contrast media (iodine-based)- No reactions were documented. Unknown Penicillins- No reactions were documented., Allergies (1) Active Reaction penicillins None Documented VS/Measurements 24 hr vital signs (All documented values resulted over the prior 24 hours) Low High Last 36.7 36.7 36.7 (10/18 22:23) (10/18 21:23) (10/18 21:) Temperature PO Temperature PO Temperature PO HR 69 80 69 (10/19 02:00) (10/19 00:48) (10/19 02:00) RR 16 18 18 (10/19 00:48) (10/19 02:00) (10/19 02:00) NIBP 152/80 186/90 152/80 (10/19 02:00) (10/18 22:23) (10/19 02:00) Weight (kg) Admit 104.55 (10/18 21:23) Current 104.55 (10/18 21:23) BMI = 30.41 10/18/17 22:23 BMI Ventilation Low High Last SaO2 95 98 95 (10/19 02:00) (10/19 00:48) (10/19 02:00) L/min (10/18 21:23) (10/18 21:23) (10/18 21:) , Last Documented Vital Signs Vital Signs (Most Recent ) Temp PO Heart Rate Resp Rate 36.7 69 18 (10/18 22:23) (10/19 02:00) (10/19 02:00) Non Invasive BP AdmitWeight CurrentWeight BMI 152 / 80 104.55 104.55 30.41 (10/19 02:00) (10/18 22:23) (10/18 22:23) (10/18 22:23) Ventilation SaO2 L/min 95 Room air (10/19 02:00) (10/18 22:23) , Vital Signs Summary 10/19/2017 02:00 PST SPO2 95 % Heart Rate 69 bpm NIBP Systolic 152 mm Hg H NIBP Diastolic 80 mm Hg Resp Rate (Monitor) 18 Breaths/Min 10/19/2017 00:48 PST SPO2 98 % Heart Rate 80 bpm Monitored Cardiac Rhythm Normal sinus rhythm NIBP Systolic 153 mm Hg H NIBP Diastolic 79 mm Hg Resp Rate (Monitor) 16 Breaths/Min 10/18/2017 22:23 PST Oxygen Amount Room air SPO2 97 % Heart Rate 79 bpm NIBP Systolic 186 mm Hg >HHI NIBP Diastolic 90 mm Hg Resp Rate (Monitor) 18 Breaths/Min Temperature PO 36.7 deg C Current medications: Antibiotic Info - Active ( 0 days ) , Scheduled aspirin 81 mg EC Tab: 81 mg, PO, qDay atorvastatin 80 mg Tab: 80 mg, PO, qDay dexamethasone 10 mg/mL 1mL Inj 10 mg, IV, once heparin 10,000 Units/mL 1mL In 5,000 Unit, IV Push, x1 sodium chloride: 3 mL, IV Push, q12hr tamsulosin 0.4 mg Cap: 0.4 mg, PO, qDay PRN Meds heparin 10,000 Units/mL 1mL In SeeRefTxt, IV Push, Per Parameter, PRN: Other (see Comments) morphine: 1 - 3 mg, IV Push, q4hr, PRN: Pain Scale (See Comments) nalOXone 0.4 mg/mL 1mL Inj: 0.2 mg, IV Push, q2min, PRN: Respiratory depression sodium chloride: 3 mL, IV Push, Per Parameter, PRN: Other (see Comments) Unscheduled Electrolyte Replacement Protoc 1 Each, MISC, oncall IV Medications heparin/ D5W + D5W for Premix: 10 mL/hr, IV, Stop: 11/18/17 1:21:00 PST . Physical Examination General: No acute distress. Integumentary: Warm, Dry. HENT: Normocephalic. Respiratory: Lungs are clear to auscultation, Respirations are non-labored, Symmetrical chest wall expansion. Cardiovascular: Normal rate, Regular rhythm, Trace Pedal Edema. Gastrointestinal: Soft, Non-tender, Normal bowel sounds. Neurologic: Alert, Orientation. Psychiatric: Cooperative. Review / Management Results Review: 24 hr Labs Labs (All documented values resulted over the prior 24 hours..) Hematology WBC 9.00 Hgb 15.10 Hct 44.90 Plt 231.00 Chemistry Na 142.00 K 3.80 Cl 108.00 CO2 21.00 Gluc 109.00H Bun 17.00 Cr 0.82 Ca 9.10 T Bili 1.30H Enzymes Alkphos 73.00 ALT 36 Trop.I. 0.659C AST 28 Coagulation PT 11.30 INR 1.00 PTT 29.50 Proteins Alb 3.80 (10/18 22:44) Anion Anion Gap 13.00 (10/18 22:44) , Microbiology Studies Recently Resulted 0 . Radiology Results Radiologist's interpretation Name: TIANNA HERNANDEZ Account: [id number] : 1945 Result Date: 10/18/17 22:55 Verified By: Holden Marie MD at 10/18/17 23:00 Report : XR Chest 2 Views IMPRESSION: Acute viral small airway disease. No consolidation or edema.Report generated on workstation: [id number] 10/18/17 23:00 ++++++++++++++++++++++++++++++++++++++ +++++++++++++++++ Impression and Plan The patient is a 72 year old male with a past medical history of htn, bph, and central sleep apnea presenting to the ED with a one-week history of wosening left sided chest pain that is squeezing in character and radiates to the left shoulder and jaw. 1. NSTEMI -Troponin elevated x 1 set -Cardiology consulted from ED (Dr. Jackie Diaz): For likely intervention this AM, will keep NPO for now -Premedicate with Decadron for iodine allergy -Received ASA in ED -CW Heparin GTT -CW ASA/Statin -TTE Pending 2. BPH -CW Flomax 3. HTN-BP Stable -No home meds, had been discontinued by his PMD (in [place]) -Tele Monitor 4. HLD-Statin as above PPX: SCD Problem list: All Problems (Selected) Acute low back pain / [id number] / Confirmed ADD (attention deficit disorder) / [id number] / Confirmed Decreased hearing / 172209664 / Confirmed High cholesterol / 45962297 / Confirmed Hypertension / 6306829558 / Confirmed Erectile dysfunction / 478291466 / Confirmed Obesity, Class I, BMI 30-34.9 / 8435573765 / Confirmed. Electronically Signed By: Jerson Velásquez MD On 10/19/17 02:57 Co Signature By: Modified Signature By: 10/19/2017 [facility] Vital Signs Vital Sign Value Date Comments Source Heart Rate (bpm) 62 10/22/2017 [facility] Respiratory Rate 16 Breaths/Min 10/22/2017 [facility] Oxygen Amount Room air (10/22/17 11:00 AM) 10/22/2017 [facility] Systolic (mm Hg) 127 10/22/2017 [facility] Diastolic (mm Hg) 71 10/22/2017 [facility] NIBP Mean 88 10/22/2017 [facility] Temperature (c) 36.6 10/22/2017 [facility] SPO2 95 10/22/2017 [facility] Glucose Level (mg/dL) 155 10/22/2017 [facility] NIBP Mean 99 10/22/2017 [facility] Respiratory Rate 18 Breaths/Min 10/22/2017 [facility] Temperature (c) 36.5 10/22/2017 [facility] Heart Rate (bpm) 60 10/22/2017 [facility] Oxygen Amount Room air (10/22/17 7:00 AM) 10/22/2017 [facility] Systolic (mm Hg) 155 10/22/2017 [facility] Diastolic (mm Hg) 76 10/22/2017 [facility] Monitored Cardiac Rhythm Normal sinus rh ythm (10/22/17 7:00 AM) 10/22/2017 [facility] SPO2 95 10/22/2017 [facility] Monitored Cardiac Rhythm Normal sinus rh ythm (10/22/17 4:00 AM) 10/22/2017 [facility] Monitored Cardiac Rhythm Normal sinus rh ythm (10/22/17 12:00 AM) 10/22/2017 [facility] Heart Rate (bpm) 50 10/22/2017 [facility] NIBP Mean 114 10/21/2017 [facility] SPO2 97 10/21/2017 [facility] Systolic (mm Hg) 154 10/21/2017 [facility] Diastolic (mm Hg) 96 10/21/2017 [facility] Respiratory Rate 20 Breaths/Min 10/21/2017 [facility] Oxygen Amount 1 L/min (10/21/17 12:00 PM) 10/21/2017 [facility] Oxygen Method Nasal cannula (10/21/17 12:00 PM) 10/21/2017 [facility] Oxygen Method Nasal cannula (10/21/17 8:00 AM) 10/21/2017 [facility] Temperature (c) 36.7 10/21/2017 [facility] Oxygen Method Nasal cannula (10/21/17 6:15 AM) 10/21/2017 [facility] Glucose Level (mg/dL) 106 10/21/2017 [facility] Balancing Self (10/20/17 4:00 PM) 10/21/2017 [facility] Toileting Self (10/20/17 4:00 PM) 10/21/2017 [facility] Walking Self (10/20/17 4:00 PM) 10/21/2017 [facility] Dressing Self (10/20/17 4:00 PM) 10/21/2017 [facility] Transferring Self (10/20/17 4:00 PM) 10/21/2017 [facility] Eating Self (10/20/17 4:00 PM) 10/21/2017 [facility] Bathing Self (10/20/17 4:00 PM) 10/21/2017 [facility] Assistive Devices Home None (10/20/17 4:0 0 PM) 10/21/2017 [facility] Sensory Deficits None (10/20/17 4:00 PM) 10/21/2017 [facility] Sensory Deficits None (10/20/17 1:58 PM) 10/20/2017 [facility] Transferring Self (10/19/17 8:00 PM) 10/20/2017 [facility] Toileting Self (10/19/17 8:00 PM) 10/20/2017 [facility] Bathing Self (10/19/17 8:00 PM) 10/20/2017 [facility] Dressing Self (10/19/17 8:00 PM) 10/20/2017 [facility] Eating Self (10/19/17 8:00 PM) 10/20/2017 [facility] Living Situation Lives with spouse (10/19/17 8:00 PM) 10/20/2017 [facility] Sensory Deficits None (10/19/17 8:00 PM) 10/20/2017 [facility] Balancing Self (10/19/17 8:00 PM) 10/20/2017 [facility] Walking Self (10/19/17 8:00 PM) 10/20/2017 [facility] Glucose Level (mg/dL) 149 10/19/2017 [facility] Encounters Location Location Details Encounter Type Encounter Number Reason For Visit Attending Provider ADM Date DC Date Status Source [facility] Inpatient [id number] Pedro Harris 10/19 [facility] Procedures Procedure Code Date Perfomer Comments Source DILATION OF 1 COR ART WITH 4 DRUG-ELUT, PERC APPROACH [id number] 10/21/2017 [facility] Brooklynn [id number] 10/21/2017 [facility] FLUOROSCOPY OF MULT COR ART USING L OSM CONTRAST [id number] 10/21/2017 [facility] FLUOROSCOPY OF R LOW EXTREM ART USING L OSM CONTRAST [id number] 10/21/2017 [facility] INTRODUCE PLATELET INHIBITOR IN PERIPH VEIN, PERC [id number] 10/19/2017 [facility] Colonoscopy 09/20/2008 [facility] Ear work [facility] Feet work [facility] Inguinal hernia [facility] Shoulder [facility] Testicle removal<sup>1</sup> Due to infection [facility] Umbilical hernia [facility] Vasectomy<sup>2</sup> 1973 [facility] Social History Social History Date Source Social History TypeResponse Smoking Status Never (less than 100 in lifetime); Previous treatment: None entered on: 10/19/17 10/19/2017 [facility] Assessment and Plan Result Assessment and Plan Date Source Assessment and Plan Extracted from:Title : Discharge Summary Note Author: Constantin Rodriguez DO Date: 10/22/17 1. lisinopril(lisinopril 10 mg oral tablet) 10 mg= 1 Tab By mouth Tab once daily 2. ticagrelor(Brilinta (ticagrelor) 90 mg oral tablet) 90 mg= 1 Tab By mouth twice daily 30 Day 3. Aspirin (ASA)(aspirin 81 mg oral enteric coated tablet) 81 mg= 1 Tab By mouth Tab, EC once daily 4. atorvastatin(atorvastatin 80 mg oral tablet) 80 mg= 1 Tab By mouth Tab once daily 5. metoprolol(Lopressor 50 mg oral tablet) 50 mg= 1 Tab By mouth Tab twice daily Medications to Continue 6. alfuzosin(alfuzosin 10 mg oral tablet, extended release) 10 mg= 1 Tab By mouth once daily Discontinued Meds Aspirin (ASA) By mouth Tab every 4 hours as needed for Fever Discharge Order Details: 10/22/17 10:16:00 PST, Today, Home or self long term self care Heart Healthy As tolerated in 1 week Follow-Up Details: Provider/Org Name: [facility] Within: 1 week Provider/Org Name: Follow up with primary care provider Within: 1 week Extracted from:Title: History and Physical Author: Jerson Velásquez MD Date: 10/19/17 Impression and Plan The patient is a 72 year old male with a past medical history of htn, bph, and central sleep apnea presenting to the ED with a one-week history of wosening left sided chest pain that is squeezing in character and radiates to the left shoulder and jaw. 1. NSTEMI -Troponin elevated x 1 set -Cardiology consulted from ED (Dr. Jackie Diaz): For likely intervention this AM, will keep NPO for now -Premedicate with Decadron for iodine allergy -Received ASA in ED -CW Heparin GTT -CW ASA/Statin -TTE Pending 2. BPH -CW Flomax 3. HTN-BP Stable -No home meds, had been discontinued by his PMD (in [place]) -Tele Monitor 4. HLD-Statin as above PPX: SCD Problem list: All Problems (Selected) Acute low back pain / [id number] / Confirmed ADD (attention deficit disorder) / 3157497336 / Confirmed Decreased hearing / 498705515 / Confirmed High cholesterol / 28076427 / Confirmed Hypertension / 0274980131 / Confirmed Erectile dysfunction / 891654928 / Confirmed Obesity, Class I, BMI 30-34.9 / 4954140740 / Confirmed. 10/22/2017 [facility]
[2023-04-08 11:02] LABS: Appearance Urine Clear (Clear); Bilirubin Urine Negative (Negative); Blood Urine Trace-intact (Negative); Color Urine Yellow (Yellow); Glucose Urine Negative (Negative); Ketones Urine Negative (Negative); Leukocyte Esterase Urine 1+ (Negative); Nitrite Urine Negative (Negative); Protein Urine Negative (Negative)
[2023-04-08 11:20] LABS: Squamous Epithelial Cell Urine Few (None-Few)
[2023-04-08 11:21] LABS: Coarse Granular Casts Urine Few
--- NOTE | 2023-04-08 12:31 | ED.NURSE ---
Patients was on the phone when Dr. Knowles was in the room to discuss discharge plan. Ace donis was called at 1200 to come and get the patient. He plans to help patient and stay with patient overnight until returns tomorrow. Catheter care education was demonstrated and verbally understood by patient. Left with a leg bag on and night bag was sent with along with supplies to care for catheter. PIV was taken out and catheter intact. Patient ambulated to lobby without difficulty. Does still have right sided back pain but it is much better. All questions answered. Will follow up with PCP and urology.
== END 2023-04-08 12:35 | disposition home or self-care (01) ==
PROVIDERS: Emergency Provider Family Medicine; PCP Internal Medicine
DX: N21.0 Calculus in bladder (principal); R33.9 Retention of urine, unspecified; K59.00 Constipation, unspecified
CPT/HCPCS: 36415; 51702; 51798; 74176; 80053; 81001; 85025; 86140; 87086; 96374; 96375; 99284; 99285; J2270; J2405; J7030

== ENCOUNTER 2023-04-09 12:29 | Outpatient (CLI) | payer MEDICARE, SELFPAY ==
--- OUTSIDE RECORDS SUMMARY | 2023-04-11 06:42 | XMS_ITS | Continuity of Care Document ---
Author Name [email or web address] Trusted [facility] Care Team Providers Care Inventory Control Analyst Name Role Phone [facility] Unavailable Unavailable Problems Problem Status Onset Date Classification Date Reported Comments Source Acute low back pain (disorder) Active 10/29/2017 [facility] Attention deficit hyperactivity disorder (disorder) Active 10/29/2017 [facility] Benign prostatic hyperplasia (disorder) Resolved 10/29/2017 [facility] Central sleep apnea syndrome (disorder) Resolved 10/29/2017 [facility] Decreased hearing (finding) Active 10/29/2017 [facility] Hyperlipidemia (disorder) Resolved 10/29/2017 [facility] Hypertensive disorder, systemic arterial (disorder) Resolved 10/29/2017 [facility] Hypercholesterolemia (disorder) Active 10/29/2017 [facility] Impotence of organic origin (disorder) Active 10/29/2017 [facility] Obesity (disorder) Active 10/29/2017 [facility] Coronary arteriosclerosis (disorder) Active 10/29/2017 [facility] Non-ST elevation (NSTEMI) myocardial infarction 10/29/2017 [facility] Obstructive sleep apnea (adult) (pediatric) 10/29/2017 [facility] Atherosclerotic heart disease of [place] coronary artery without angina pectoris 10/29/2017 [facility] Essential (primary) hypertension 10/29/2017 [facility] Unspecified atrial fibrillation 10/29/2017 [facility] Obesity, unspecified 10/29/2017 [facility] Enlarged prostate without lower urinary tract symptoms 10/29/2017 [facility] Bradycardia, unspecified 10/29/2017 [facility] Hyperlipidemia, unspecified 10/29/2017 [facility] correction (current) use of aspirin 10/29/2017 [facility] Body mass index (BMI) 30.0-30.9, adult 10/29/2017 [facility] Allergy status to penicillin 10/29/2017 [facility] Personal history of nicotine dependence 10/29/2017 [facility] Medications Medication Details Route Status Patient Instructions Ordering Provider Order Date Source Ticagrelor 90 MG Oral Tablet [Brilinta] 1 Tab, PO BID, Qty: 60 Tab, Refills: 0, Print Requisition Active [facility] lisinopril 10 mg oral tablet 1 Tab Tab, PO qDay, Qty: 30 Tab, Refills: 0, Print Requisition Active [facility] Metoprolol Tartrate 50 MG Oral Tablet [Lopressor] 1 Tab Tab, PO BID, Qty: 60 Tab, Refills: 0, Print Requisition Active [facility] atorvastatin 80 mg oral tablet 1 Tab Tab, PO qDay, Qty: 30 Tab, Refills: 0, Print Requisition Active [facility] Aspirin 81 MG Enteric Coated Tablet 1 Tab Tab, EC, PO qDay, Qty: 30 Tab, Refills: 0, Print Requisition Active [facility] alfuzosin 10 mg oral tablet, extended release 1 Tab, PO Daily, Refills: 0 Active [facility] Allergies, Adverse Reactions, Alerts Substance Category Reaction Severity Reaction type Status Date Reported Comments Source penicillins Assertion Unknown Drug allergy Active [facility] contrast media (iodine-based ) Assertion Severe Drug allergy Active [facility] Results Order Name Results Value Reference Range [...] 70 years of age, or in women. [facility] Hemogram WBC 12.3 4.0 - 12.0 10/22 H Note: Reference range change effective 12/13/2014 [facility] Hemogram RBC 4.79 4.00 - 6.00 10/22 Note: Reference range change effective 12/13/2014 [facility] Hemogram Hgb 14.1 12.5 - 17.5 10/22 Note: Reference range change effective 12/13/2014 [facility] Hemogram Hct 42.9 35.0 - 50.0 10/22 Note: Reference range change effective 12/13/2014 [facility] Hemogram MCV 89.7 81.0 - 99.0 10/22 [facility] Hemogram MCH 29.5 27.0 - 34.0 10/22 [facility] Hemogram MCHC 32.9 32.0 - 36.0 10/22 [facility] Hemogram RDW 15.0 12.0 - 17.0 10/22 Note: Reference range change effective 12/13/2014 [facility] Hemogram Plt 253 150 - 400 10/22 [facility] MPV 8.5 6.0 - 11.0 10/22 Note: Reference range change effective 12/13/2014 [facility] CBC MCHC 32.9 32.0 - 36.0 10/22 [facility] CBC MPV 8.5 6.0 - 11.0 10/22 [facility] CBC Plt 253 150 - 400 10/22 [facility] CBC RDW 15.0 12.0 - 17.0 10/22 [facility] CBC MCH 29.5 27.0 - 34.0 10/22 [facility] CBC MCV 89.7 81.0 - 99.0 10/22 [facility] CBC Hct 42.9 35.0 - 50.0 10/22 [facility] CBC Hgb 14.1 12.5 - 17.5 10/22 [facility] CBC RBC 4.79 4.00 - 6.00 10/22 [facility] CBC WBC 12.3 4.0 - 12.0 10/22 [facility] General Chemistry eGFR Afr/Am >60 >=60 10/22 [facility] General Chemistry BUN/Cr Ratio 23.3 10/22 [facility] General Chemistry Glucose Level 155 65 - 99 10/22 [facility] General Chemistry Anion Gap 13 10/22 [facility] General Chemistry Phosphorus 3.4 2.3 - 4.4 10/22 [facility] General Chemistry Albumin 3.1 3.2 - 5.0 10/22 [facility] General Chemistry Calcium 8.1 8.1 - 10.0 10/22 [facility] General Chemistry BUN 20 5 - 23 10/22 [facility] General Chemistry CO2 19 19 - 29 10/22 [facility] General Chemistry Potassium 3.5 3.4 - 4.6 10/22 [facility] General Chemistry Chloride 110 98 - 111 10/22 [facility] General Chemistry Creatinine 0.86 0.50 - 1.20 10/22 [facility] General Chemistry Sodium 142 134 - 144 10/22 [facility] General Chemistry eGFR NonAfr/Am >60 >=60 10/22 [facility] Renal Pnl Sodium 144 134 - 144 10/21 [facility] Renal Pnl Potassium 3.4 3.4 - 4.6 10/21 [facility] Renal Pnl Chloride 110 98 - 111 10/21 [facility] Renal Pnl CO2 22 19 - 29 10/21 [facility] Renal Pnl Anion Gap 12 10/21 [facility] Renal Pnl BUN 23 5 - 23 10/21 [facility] Renal Pnl Creatinine .81 .50 - 1.20 10/21 [facility] Renal Pnl Glucose Level 106 65 - 99 10/21 H [facility] Renal Pnl BUN/Cr Ratio 28.4 10/21 St. [...] 10/21 Note: Reference range change effective 12/13/2014 [facility] Hemogram MCV 88.8 81.0 - 99.0 10/21 [facility] MCH 29.3 27.0 - 34.0 10/21 [facility] MCHC 33.0 32.0 - 36.0 10/21 [facility] RDW 15.2 12.0 - 17.0 10/21 Note: Reference range change effective 12/13/2014 [facility] Hemogram Plt 274 150 - 400 10/21 [facility] MPV 8.7 6.0 - 11.0 10/21 Note: Reference range change effective 12/13/2014 [facility] CBC MPV 8.7 6.0 - 11.0 10/21 [facility] CBC Plt 274 150 - 400 10/21 [facility] CBC RDW 15.2 12.0 - 17.0 10/21 [facility] CBC MCV 88.8 81.0 - 99.0 10/21 [facility] CBC Hct 46.5 35.0 - 50.0 10/21 [facility] CBC RBC 5.24 4.00 - 6.00 10/21 [facility] CBC Hgb 15.3 12.5 - 17.5 10/21 [facility] CBC MCHC 33.0 32.0 - 36.0 10/21 [facility] CBC MCH 29.3 27.0 - 34.0 10/21 [facility] CBC WBC 15.4 4.0 - 12.0 10/21 [facility] Coagulation PTT 41.0 25.1 - 36.5 10/21 [facility] General Chemistry Potassium 3.4 3.4 - 4.6 02/01 /2018 [facility] General Chemistry Chloride 110 98 - 111 10/21 [facility] General Chemistry CO2 22 19 - 29 10/21 [facility] General Chemistry Anion Gap 12 10/21 [facility] General Chemistry BUN 23 5 - 23 10/21 [facility] General Chemistry Creatinine 0.81 0.50 - 1.20 10/21 [facility] General Chemistry Sodium 144 134 - 144 10/21 [facility] General Chemistry Glucose Level 106 65 - 99 10/21 [facility] General Chemistry BUN/Cr Ratio 28.4 10/21 [facility] General Chemistry Calcium 8.9 8.1 - 10.0 10/21 [facility] General Chemistry Albumin 3.6 3.2 - 5.0 10/21 [facility] General Chemistry Phosphorus 3.2 2.3 - 4.4 10/21 [facility] General Chemistry eGFR Afr/Am >60 >=60 10/21 [facility] General Chemistry eGFR NonAfr/Am >60 >=60 10/21 [facility] HgbA1C HgbA1C 5.6 - <=5.5 10/21 H <= 5.6% Normal 5.7 - 6.4% High risk Pre-Diabetes >=6.5% Diabetes, if confirmed by repeating test on different day. [facility] HgbA1C Est Mean Bld Glu 114 10/21 [facility] PTT PTT 45.4 25.1 - 36.5 10/20 [...] assay.??? Note: Reference range change effective 06/11/2015 [facility] Lipid Panel Cholesterol 156 140 - 200 10/20 [facility] Lipid Panel Triglycerides 78 30 - 150 10/20 [facility] Lipid Panel HDL 44 35 - 65 10/20 [facility] Lipid Panel Cholest/HDL Ratio 3.55 10/20 [facility] Lipid Panel LDL 96 70 - 130 10/20 Triglycerides greater than 400 mg/dL render the LDL calculation invalid. [facility] Lipid Panel VLDL 16 0 - 40 10/20 [facility] Hemogram WBC 15.7 4.0 - 12.0 10/20 H Note: Reference range change effective 12/13/2014 [facility] Hemogram RBC 4.98 4.00 - 6.00 10/20 Note: Reference range change effective 12/13/2014 [facility] Hemogram Hgb 14.8 12.5 - 17.5 10/20 Note: Reference range change effective 12/13/2014 [facility] Hemogram Hct 44.2 35.0 - 50.0 10/20 Note: Reference range change effective 12/13/2014 [facility] Hemogram MCV 88.8 81.0 - 99.0 10/20 [facility] Hemogram MCH 29.8 27.0 - 34.0 10/20 [facility] Hemogram MCHC 33.6 32.0 - 36.0 10/20 [facility] Hemogram RDW 15.3 12.0 - 17.0 10/20 Note: Reference range change effective 12/13/2014 [facility] Hemogram Plt 279 150 - 400 10/20 [facility] Hemogram MPV 8.2 6.0 - 11.0 10/20 Note: Reference range change effective 12/13/2014 [facility] CBC MPV 8.2 6.0 - 11.0 10/20 [facility] CBC Plt 279 150 - 400 10/20 [facility] CBC RDW 15.3 12.0 - 17.0 10/20 [facility] CBC MCHC 33.6 32.0 - 36.0 10/20 [facility] CBC MCV 88.8 81.0 - 99.0 10/20 [facility] CBC Hct 44.2 35.0 - 50.0 10/20 [facility] CBC Hgb 14.8 12.5 - 17.5 10/20 [facility] CBC RBC 4.98 4.00 - 6.00 10/20 [facility] CBC WBC 15.7 4.0 - 12.0 10/20 [facility] CBC MCH 29.8 27.0 - 34.0 10/20 [facility] Coagulation PTT 45.4 25.1 - 36.5 10/20 [facility] Special Chemistry Est Mean Bld Glu 114 10/20 [facility] Special Chemistry HgbA1C 5.6 <=5.5 % 10/20 [facility] PT PT 12.0 9.4 - 12.5 10/20 Note: Reference range change effective 06/11/2015 [facility] PT INR 1.06 0.86 - 1.14 10/20 Recommended therapeutic ranges for INR: Therapeutic Range 2.0-3.0 Mechanical Prosthetic Aortic Valve Pts 2.0-3.0 Mechanical Prosthetic Mitral Valve Pts 2.5-3.5 Note: Reference range change effective 06/11/2015 [facility] PTT PTT 53.0 25.1 - 36.5 10/20 [...] assay.??? Note: Reference range change effective 06/11/2015 [facility] Troponin-I Troponin I 1.716 - <=0.028 10/19 [facility] PREVIOUSLY CALLED CRITICAL Less than normal high: No evidence of myocardial damage Normal high to critical high: Indeterminate Greater than critical high: Consistent with myocardial injury (94.6 ??? 96.5% specific for myocardial infarction) [facility] Cardiac Troponin I 1.716 <=0.028 ng/mL 10/19 Result Comment: PREVIOUSLY CALLED CRITICAL [facility] Coagulation PT 12.0 9.4 - 12.5 10/19 [facility] Coagulation INR 1.06 0.86 - 1.14 10/19 [facility] Coagulation PTT 53.0 25.1 - 36.5 10/19 [facility] Troponin-I Troponin I 1.529 - <=0.028 10/19 HH Previously Called Critical _ Less than normal high: No evidence of myocardial damage Normal high to critical high: Indeterminate Greater than critical high: Consistent with myocardial injury (94.6 ??? 96.5% specific for myocardial infarction) [facility] CMP Sodium 141 134 - 144 10/19 [facility] CMP Potassium 4.1 3.4 - 4.6 10/19 [facility] CMP Chloride 109 98 - 111 10/19 [facility] CMP CO2 20 19 - 29 10/19 [facility] CMP Anion Gap 12 10/19 [facility] CMP Glucose Level 149 65 - 99 10/[address] [facility] CMP BUN 15 5 - 23 10/19 [facility] CMP Creatinine .81 .50 - 1.20 10/19 [facility] CMP BUN/Cr Ratio 18.5 10/19 [facility] CMP Calcium 9.3 8.1 - 10.0 10/19 [facility] CMP Protein, Total 7.3 6.3 - [...] 0.2 - 1.2 10/[address] [facility] CMP eGFR Afr/Am >60 >=60 10/19 eGFR [...] effective 12/13/2014 [facility] *Diff Auto Stearns% 1.1 2.0 - 15.0 10/19 L Note: Reference range change effective 12/13/2014 [facility] *Diff Auto Eos% 0.1 0.0 - [...] Diff MCV 88.8 81.0 - 99.0 10/19 [facility] CBC w/ Diff MCH 30.0 27.0 - 34.0 10/19 [facility] CBC w/ Diff MCHC 33.8 32.0 - 36.0 10/19 [facility] CBC w/ Diff RDW 14.7 12.0 - 17.0 10/19 Note: Reference range change effective 12/13/2014 [facility] CBC w/ Diff Plt 237 150 - 400 10/19 [facility] CBC w/ Diff MPV 8.0 6.0 - 11.0 10/19 Note: Reference range change effective 12/13/2014 [facility] Cardiac Troponin I 1.529 <=0.028 ng/mL 10/19 Result Comment: Previously Called Critical _ [facility] CBC Eos% 0.1 0.0 - 8.0 10/19 [facility] CBC Baso% 0.2 0.0 - 2.9 10/19 [facility] CBC Lymph% 10.2 20.0 - 45.0 10/19 [facility] CBC Neut% 88.4 41.0 - 75.0 10/19 [facility] CBC Stearns% 1.1 2.0 - 15.0 10/19 [facility] Coagulation PT 11.2 9.4 - 12.5 10/19 [facility] Coagulation INR 0.99 0.86 - 1.14 10/19 [facility] General Chemistry eGFR Afr/Am >60 >=60 10/19 [facility] General Chemistry A/G Ratio 1.1 10/19 [facility] General Chemistry ALT 36 5 - 54 10/19 [facility] General Chemistry Glucose Level 149 65 - 99 10/19 [facility] General Chemistry Calcium 9.3 8.1 - 10.0 10/19 [facility] General Chemistry AST 27 9 - 34 10/19 [facility] General Chemistry BUN/Cr Ratio 18.5 10/19 [facility] General Chemistry Alkphos 75 25 - 120 10/19 [facility] General Chemistry Bili Total 1.7 0.2 - 1.2 10/19 [facility] General Chemistry Globulin 3.4 10/19 [facility] General Chemistry Albumin 3.9 3.2 - 5.0 10/19 [facility] General Chemistry Protein, Total 7.3 6.3 - 8.6 10/19 [facility] General Chemistry CO2 20 19 - 29 10/19 [facility] General Chemistry Potassium 4.1 3.4 - 4.6 10/19 [facility] General Chemistry Chloride 109 98 - 111 10/19 [facility] General Chemistry BUN 15 5 - 23 10/19 [facility] General Chemistry Anion Gap 12 10/19 [facility] General Chemistry Sodium 141 134 - 144 10/19 [facility] General Chemistry Creatinine 0.81 0.50 - 1.20 10/19 [facility] General Chemistry eGFR NonAfr/Am >60 >=60 10/19 [facility] PTT PTT 29.5 25.1 - 36.5 10/19 [...] assay.??? Note: Reference range change effective 06/11/2015 [facility] Troponin-I Troponin I 0.659 - <=0.028 10/19 HH _ results called (read-back confirmed) to nick shabazz @ 10/19/2017 00:27:28 PST by aylin. Less than normal high: No evidence of myocardial damage Normal high to critical high: Indeterminate Greater than critical high: Consistent with myocardial injury (94.6 ??? 96.5% specific for myocardial infarction) [facility] BNP B-Natriuretic Peptide 14 0 - 100 10/19 In the appropriate clinical setting, a BNP value greater than or equal to 100 pg/mL is consistent with the diagnosis of CHF. [facility] CK w/rflx CK 145 30 - 234 10/19 [facility] CMP Sodium 142 134 - 144 10/19 [facility] CMP Potassium 3.8 3.4 - 4.6 10/19 [facility] CMP Chloride 108 98 - 111 10/19 [facility] CMP CO2 21 19 - 29 10/19 [facility] CMP Anion Gap 13 10/19 [facility] CMP Glucose Level 109 65 - 99 10/19 H [facility] CMP BUN 17 5 - 23 10/19 [facility] CMP Creatinine .82 .50 - 1.20 10/19 [facility] CMP BUN/Cr Ratio 20.7 10/19 [facility] CMP Calcium 9.1 8.1 - 10.0 10/19 [facility] CMP Protein, Total 7.2 6.3 - 8.6 10/19 [facility] CMP Albumin 3.8 3.2 - 5.0 10/19 [facility] CMP Globulin 3.4 10/19 [facility] CMP A/G Ratio 1.1 10/19 St. [...] Note: Reference range change effective 12/13/2014 [facility] *Diff Auto Lymph% 21.1 20.0 - 45.0 10/19 Note: Reference range change effective 12/13/2014 [facility] *Diff Auto Stearns% 7.2 2.0 - 15.0 10/19 Note: Reference range change effective 12/13/2014 [facility] *Diff Auto Eos% 2.5 0.0 - 8.0 10/19 [facility] *Diff Auto Baso% 0.2 0.0 - 2.9 10/19 [facility] Cardiac Troponin I 0.659 <=0.028 ng/mL 10/19 Result Comment: _ results called (read-back confirmed) to nick shabazz @ 10/19/2017 00:27:28 PST by [facility] Cardiac B-Natriuretic Peptide 14 0 - 100 10/19 [facility] Cardiac CK 145 30 - 234 10/19 [facility] CBC Neut% 69.0 41.0 - 75.0 10/19 [facility] CBC Eos% 2.5 0.0 - 8.0 10/19 [facility] CBC Stearns% 7.2 2.0 - 15.0 10/19 [facility] CBC Lymph% 21.1 20.0 - 45.0 10/19 [facility] CBC Baso% 0.2 0.0 - 2.9 10/19 [facility] Coagulation INR 1.00 0.86 - 1.14 10/19 [facility] Coagulation PT 11.3 9.4 - 12.5 10/19 [facility] General Chemistry Globulin 3.4 10/19 [facility] General Chemistry Alkphos 73 25 - 120 10/19 [facility] General Chemistry Bili Total 1.3 0.2 - 1.2 10/19 [facility] General Chemistry Protein, Total 7.2 6.3 - 8.6 10/19 [facility] General Chemistry A/G Ratio 1.1 10/19 [facility] General Chemistry ALT 36 5 - 54 10/19 [facility] General Chemistry AST 28 9 - 34 10/19 [facility] BNP B-Natriuretic Peptide 12 0 - 100 [...] 11/11 Note: Reference range change effective 10/18/2013 [facility] CMP Sodium 140 134 - 144 11/11 Note: Reference range change effective 10/18/2013 [facility] CMP Potassium 3.9 3.4 - 4.6 11/11 Note: Reference range change effective 10/18/2013 [facility] CMP Chloride 107 98 - 111 11/11 Note: Reference range change effective 02/05/2014 [facility] CMP CO2 22 19 - 29 [...] CMP Drug Calc Weight (kg) 97.000 11/11 [facility] CMP Height cm 180.00 0 11/11 [...] 24.0 - 44.0 11/[address] [facility] *Diff Auto Stearns% 7.5 2.0 - 12.0 11/10 [facility] [...] Diff MCV 92.1 81.0 - 99.0 11/10 [facility] CBC w/ Diff MCH 30.3 27.0 - 34.0 11/10 [facility] CBC w/ Diff MCHC 32.9 32.0 - 36.0 11/10 [facility] CBC w/ Diff RDW 13.7 10.0 - 16.0 11/10 [facility] CBC w/ Diff Plt 294 150 - 400 11/10 [facility] CBC w/ Diff MPV 7.9 6.0 - 10.0 11/10 [facility] Diagnostic Reports Report Value Date Source EKG Stationary ECG Study SRS Test Date: 2017-10-22 Pat Name: TIANNA HERNANDEZ Department: Room: 2282 Gender: M Tap Builder: Raúl Mcdowell : 1945 Requested By: Lidia Finley Order Number: [id number] Reading MD: JARRED SANDERS MD Measurements Intervals [place] Rate: 61 P: 54 WA: 168 QRS: -7 QRSD: 105 T: 9 QT: 422 QTc: 427 Severity: Borderline ECG Interpretive Statements SINUS RHYTHM MODERATE VOLTAGE CRITERIA FOR LVH, CONSIDER NORMAL VARIANT Borderline ECG Compared to ECG 10/20/2017 04:23:27 Sinus bradycardia no longer present Left-axis deviation no longer present Electronically signed on 10-25-2017 17:08:05 PST by will Piedra on behalf of JARRED SANDERS MD 10/22/2017 [facility] EKG Stationary ECG Study SRS Test Date: 2017-10-20 Pat Name: TIANNA HERNANDEZ Department: Room: 2282 Gender: M Tap Builder: Hay Lemus : 1945 Requested By: LIZZY SUGGS Order Number: [id number] Reading MD: ALEXANDER CUMMINGS MD Measurements Intervals [place] Rate: 59 P: 64 WA: 178 QRS: -32 QRSD: 102 T: 28 QT: 421 QTc: 419 Severity: Abnormal ECG Interpretive Statements SINUS BRADYCARDIA MARKED LEFT AXIS DEVIATION Abnormal ECG Compared to ECG 10/18/2017 22:09:08 Left-axis deviation now present Sinus rhythm no longer present Electronically signed on 10-21-2017 15:14:13 PST by Batool Navarro on behalf of ALEXANDER CUMMINGS MD. 10/20/2017 [facility] ECHO TTE w Doppler Comp *[facility] *[facility]* [address] [place] [address] Shreya Gonzales [id number] TRANSTHORACIC ECHOCARDIOGRAM PATIENT: Tianna Hernandez STUDY DATE: 10/19/2017 STUDY TIME: 05:08 PM : 1945 AGE: 72 GENDER: M HT/WT: 0 cm 0 kg ORDERING PHYSICIAN: Jerson Velásquez Md ENGINEER SYSTEM ADMINISTRATOR: Giovanna Fitzpatrick RDCS INTERPRETING PHYSICIAN: Lizzy Suggs [...] TIANNA HERNANDEZ Department: Room: 2282 Gender: M Tap Builder: SOLAAKASH PINOBRADEN : 1945 Requested By: Dang Dozier Order Number: [id number] Artis MD: ALESSIA WILLIAMSON MD Measurements Intervals [place] Rate: 75 P: 60 WA: 195 QRS: -31 QRSD: 100 T: 34 [...] consolidation or edema. Report generated on workstation: [id number] 10/19/2017 [facility] Electrocardiogram (sign artist) Stationary ECG Study SRS Test Date: 2017-10-18 Pat Name: TIANNA HERNANDEZ Department: Room: Gender: M Tap Builder: MANUEL CHARLTON : 1945 Requested By: Jada Hicks Order Number: [id number] Reading MD: Pedro Harris DO Measurements Intervals [place] Rate: 83 P: 63 WA: 188 QRS: -10 QRSD: 89 T: 75 [...] acute pathology noted. Report generated on workstation: [id number] 11/10/2014 [facility] EKG 83 Atrial Rate 83 BPM P-R Interval 166 ms QRS Duration 84 ms Q-T Interval 380 ms QTC Calculation(Bezet) 446 ms P [place] 72 degrees R [place] 14 degrees T [place] 51 degrees Diagnosis Normal sinus rhythm Normal ECG no stemi Confirmed by MD Meneses Patrick ([id number]), loan expeditor ANN ANDINO ([id number]) on 11/10/2014 3:18:20 PM 11/10/2014 [facility] Consultation Notes Results Value Date Source Office/Clinic Note-Physician Patient: TIANNA HERNANDEZ Age: 72 years Sex: M : 1945 Admitting MD: Location: [facility]: : Author: Neo Hampton MD Chief Complaint [...] pain. Patient interested in following up in [place] where he has family. He also has [...] Documented Social History Alcohol Current Denies Home/Environment Spiritism restrictions/concerns: None. Living situation: Home/Independent. Alcohol abuse in household: No. Substance abuse in household: No. Smoker in household: No. Injuries/Abuse/Neglect in household: No. Feels unsafe at home: No. Spiritism restrictions/concerns: None. Substance Abuse Denies Denies Tobacco Never (less than 100 in lifetime), Previous treatment: None. Never used tobacco, Denies Family History Heart disease...: Mother and Father. Electronically Signed By: Neo Hampton MD On 10/26/17 11:52 Co Signature By: Modified Signature By: 10/26/2017 [facility] Case Management DC Needs - Text Discharge Plan Entered On: 10/22/2017 10:58 PST Performed On: 10/22/2017 10:57 PST by Kim Jessica RN Discharge Plan Discharge Location : Home with family Important Message Notification (CM) : Yes DME (CM) : None Transportation (CM) : Family, Self Kim Jessica RN - 10/22/2017 10:57 PST 10/22/2017 [facility] Heart Cath Procedure \XEF\\XBB\\XBF\ *[facility]* *[facility]* [address], [place] [address] INVASIVE CARDIAC PROCEDURE Patient: Lady, : 1945 Tianna Hernandez #: Patient [id number] Age: 72 ID: Study 10/21/2017 Gender: M Date: Spinal Surgeon: Moses Galeana MD Ordering Physician: Moses Arredondo [...] the Seldinger technique. A 6Fr x 10cm Patagonia sheath was advanced into the vessel. 4. [...] clotting time measurement. ACT was 218 secby Vivocha. This value was maintained throughout the case. [...] and electronically signed by Moses Galeana MD [id number] 10/22/2017 [facility] Case Management DC [...] is and goes back and forth [facility] and [place]. PHYSICAL EXAMINATION: VITAL SIGNS: Blood pressure is [...] Co Signature By: Modified Signature By: 10/19/2017 [facility] ED Physician Notes Patient: TIANNA HERNANDEZ Age: [...] All Problems Acute low back pain / 300959232 / Confirmed ADD (attention deficit disorder) / 0728454425 / Confirmed Decreased hearing / 114042725 / Confirmed Erectile dysfunction / 503394706 / Confirmed High cholesterol / 79154528 / Confirmed Hypertension / 5304520491 / Confirmed Obesity, Class I, BMI 30-34.9 / 4803110554 / Confirmed Inactive: Atrial fibrillation / 33132965, Per nurse's notes. Surgical history: Colonoscopy on [...] rhythm, No ST-T changes, no ectopy, normal WA and QRS intervals, EP Interp, The Abercrombie is leftward. , EKG interpreted contemporaneously by me, QTC within normal limits. quality assurance monitor body: Time 10/18/17 22:09:00, Rate 83, normal sinus [...] fL Neut% 69.0 % Lymph% 21.1 % Stearns% 7.2 % Eos% 2.5 % Baso% 0.2 [...] of care, Interpretation, Interventions, Case review (medical oncology physician, nursing). Performed by: self. Impression and Plan Diagnosis NSTEMI (non-ST elevated myocardial infarction) ([id number]-AN I21.4, Admitting, Medical) Calls-Consults - 10/19/17 00:59:00 , Florence Diaz MD, Spinal Surgeon, phone call, consult. Plan Condition: Stable. Disposition: Admit: Time 10/19/17 01:22:00, Jerson Velásquez MD, The patient has Medicare insurance which has no insurance directive. The patient's PCP is none who has no directive in which patient will be [facility] [place] [facility] Call returned: [phone] Dr[address] Velásquez covering, [...] Sex: M : 1945 Admitting MD: Location: [facility]: Exam 18: Author: Anu Marion MD [...] too. Ordered: Office Visit Level 4 Est 69207 AMB 2. Hypertension I10 Elevated today but controlled at home. H/o labile BP. Controlled using Lisinopril 10mg qday- pt to cont, no change in regimen. Ordered: Office Visit Level 4 Est 04395 AMB 3. Obesity, Class I, BMI 30-34.9 E66.9 Weight gain due to pt not monitoring nutrition. Discussed lifestyle changes- mon nutrition and inc activity. Rec DASH diet as pt with HTN. Ordered: Office Visit Level 4 Est 96231 AMB 4. Atrial fibrillation I48.91 Rate controlled on Verapamil- cont. Ordered: Office Visit Level 4 Est 55838 AMB Problem List/Past Medical History Chronic Acute [...] None Documented Social History Alcohol Denies Home/Environment Spiritism restrictions/concerns: None. Substance Abuse Denies Tobacco Never used tobacco, Denies Electronically Signed By: Anu Marion MD On 12/14/16 03:22 Co Signature By: Modified Signature By: Anu Marion MD On 12/14/16 03:22 12/11/2016 [facility] Office/Clinic Note-Physician Patient: TIANNA HERNANDEZ Age: 71 years Sex: M : 1945 Admitting MD: Location: [facility]: Exam 17: Author: Anu Marion MD [...] pt. Ordered: Office Visit Level 4 Est 76964 AMB 2. Hypertension I10 Repeat improved. Cont current regimen. Cont mon BP. Seek medical attention if hypotensive. Ordered: Office Visit Level 4 Est 30499 AMB 3. Atrial fibrillation I48.91 Currently rate controlled. Cont current regimen. Ordered: Office Visit Level 4 Est 50029 AMB Problem List/Past Medical History Chronic Acute [...] None Documented Social History Alcohol Denies Home/Environment Spiritism restrictions/concerns: None. Substance Abuse Denies Tobacco Never used tobacco, Denies Electronically Signed By: Anu Marion MD On 12/07/16 07:51 Co Signature By: Modified Signature By: Anu Marion MD On 12/07/16 07:51 12/04/2016 [facility] ED Physician Notes Patient: TIANNA HERNANDEZ [...] near syncope after eating a sandwich at [employer]. Denies nausea, visual or neurological changes, or [...] Medical history: All Problems High cholesterol / 48720360 / Confirmed Hypertension / 9416152897 / Confirmed, Atrial fibrillation. Surgical history: Hernia (M-00080). Shoulder (T-Y1220).. Family history: Not significant. Social [...] (SL): 3 mL, IV Push, qShift (12hr). quality assurance monitor body: Time 11/10/14 15:09:00, Rate 83, normal sinus rhythm, interpreted contemporaneously by me, no Premature Atrial Contraction (PAC). Electrocardiogram: Time 11/10/14 15:09:00, rate 83, normal sinus rhythm, No ST-T changes, no ectopy, normal WA and QRS intervals, The Abercrombie is normal. , Previous EKG available None [...] 74.9 % H Lymph% 15.8 % L Stearns% 7.5 % Eos% 1.3 % Baso% 0.5 [...] Roger Meneses on 11/10/14 at 16:41. 11/11/2014 [facility] Discharge Summaries Results Value Date Source Discharge Summary Patient: DIEGO HERNANDEZ Age: 72 years Sex: M : 1945 Admitting MD: Jerson Velásquez MD Location: [facility] COU: 2282: P Author: Constantin Rodriguez DO [...] Lisinopril - Follow up with cardiology Dr. Suggs in 1-2 weeks. - Resume regular activities [...] Interpretation, This Encounter Name: TIANNA HERNANDEZ Account: [id number] : 1945 Result Date: 10/18/17 22:55 Verified [...] consolidation or edema. Report generated on workstation: [id number] 10/18/17 23:00 +++++++++++++++++++++++++++++++++++++++++ ++++++++++++++ Result Date: 10/18/17 22:08 Verified By: Moses Arredondo MD at 10/21/17 19:40 Report : [place] Heart Cath Procedure \XBB\XBF *[facility]* [facility]* [address] [place], [place] [id number] INVASIVE CARDIAC PROCEDURE Patient: Lady : 1945 Tianna Hernandez #: Patient [id number] Age: 72 ID: Study 10/21/2017 Gender: M Date: Spinal Surgeon: Moses Galeana MD Ordering Physician: Moses Arredondo [...] the Seldinger technique. A 6Fr x 10cm Patagonia sheath was advanced into the vessel. 4. [...] and electronically signed by Moses Galeana MD [id number] 10/21/17 17:59 +++++++++++++++++++++++++++++++++++++++++ ++++++++++++++ Result Date: 10/18/17 22:08 Verified By: LIZZY SUGGS MD at 10/21/17 17:16 Report : CA ECHO TTE w Doppler Comp *[facility]* *[facility]* [address], [place] [address] TRANSTHORACIC ECHOCARDIOGRAM PATIENT: Tianna Hernandez STUDY DATE: 10/19/2017 STUDY TIME: 05:08 PM : 1945 AGE: 72 GENDER: M HT/WT: 0 cm 0 kg ORDERING PHYSICIAN: Jerson Velásquez Md ENGINEER SYSTEM ADMINISTRATOR: Giovanna Fitzpatrick [facility] INTERPRETING PHYSICIAN: Lizzy Suggs MD INDICATIONS: Angina [...] 10/22/17 10:16:00 PST, Today, Home or self longterm self care Discharge Diet Heart Healthy Discharge [...] 1945 Admitting MD: Jerson Velásquez MD Location: [facility] COU: 2282: P Author: Lidia Finley Subjective [...] clinic (as well as establish care with director of litigation in [place]) asa/brilinta discussed with patient and family add [...] Brett Barnes DO On 10/22/17 13:02 10/22/2017 [facility] [place] History and Physical Patient: Loly HERNANDEZ Age: 72 years Sex: M : 1945 Admitting MD: Jerson Velásquez MD Location: [facility] COU: 2282: P Author: LIZZY SUGGS MD [...] RDW: 15.2 (10/21/17) Assessment/Plan 1. Non ST MA - cath planned for today. Iodine allergy [...] 1945 Admitting MD: Jerson Velásquez MD Location: [facility] COU: 2282: P Author: Constantin Rodriguez DO [...] Interpretation, This Encounter Name: TIANNA HERNANDEZ Account: [id number] : 1945 Result Date: 10/18/17 22:55 Verified [...] consolidation or edema. Report generated on workstation: [id number] 10/18/17 23:00 ++++++++++++++++++++++++++++++++++++++ +++++++++++++++++ Assessment/Plan Consults Cardiology: [...] 1945 Admitting MD: Jerson Velásquez MD Location: [facility] COU: 2282: P Author: Constantin Rodriguez DO [...] Interpretation, This Encounter Name: TIANNA HERNANDEZ Account: [id number] : 1945 Result Date: 10/18/17 22:55 Verified [...] consolidation or edema. Report generated on workstation: [id number] 10/18/17 23:00 ++++++++++++++++++++++++++++++++++++++ +++++++++++++++++ Assessment/Plan Consults Cardiology: [...] 1945 Admitting MD: Jerson Velásquez MD Location: [facility] EDIP: [facility]: Author: Constantin Rodriguez DO Subjective HPI: 72 year old male presents with 1 week of paroxysmal chest pain radiating to the jaw found to have an NSTEMI. Comfortable this AM with no Chest pain States director of litigation just saw him Still on heparin gtt [...] (10/19/17) MCHC: 33.8 (10/19/17) MCV: 88.8 (10/19/17) Stearns%: 1.1 (10/19/17) MPV: 8.0 (10/19/17) Neut%: 88.4 (10/19/17) Protein, Total: 7.3 (10/19/17) PT: 12.0 (10/19/17) PTT: 53.0 (10/19/17) RBC: 5.23 (10/19/17) RDW: 14.7 (10/19/17) Troponin I: 1.716 (10/19/17) Diagnostic Results Radiology - Full Interpretation, This Encounter Name: TIANNA HERNANDEZ Account: [id number] : 1945 Result Date: 10/18/17 22:55 Verified [...] consolidation or edema. Report generated on workstation: [id number] 10/18/17 23:00 ++++++++++++++++++++++++++++++++++++++ +++++++++++++++++ Assessment/Plan Consults Cardiology: [...] History: Resolved BPH - Benign prostatic hypertrophy (757220919): Resolved. Central sleep apnea (8022810573): Resolved. HLD - Hyperlipidaemia (780081489): Resolved. HTN - Hypertension (0448936051): Resolved. HTN - Hypertension (8565904920): Resolved. Procedure history: No active procedure history items have been selected or recorded. Family History: Mother Heart disease... Father Heart disease... Social History Social and Psychosocial Habits Alcohol 10/19/2017 Use: Current Home/Environment 10/19/2017 Spiritism restrictions/concerns: None Living situation: Home/Independent Alcohol abuse [...] Results Radiologist's interpretation Name: TIANNA HERNANDEZ Account: [id number] : 1945 Result Date: 10/18/17 22:55 Verified By: Holden Marie MD at 10/18/17 23:00 Report : XR Chest 2 Views IMPRESSION: Acute viral small airway disease. No consolidation or edema.Report generated on workstation: [id number] 10/18/17 23:00 ++++++++++++++++++++++++++++++++++++++ +++++++++++++++++ Impression and Plan [...] Problems (Selected) Acute low back pain / 041287917 / Confirmed ADD (attention deficit disorder) / 0029457578 / Confirmed Decreased hearing / 300067267 / Confirmed High cholesterol / 90100441 / Confirmed Hypertension / 3689009424 / Confirmed Erectile dysfunction / 920238711 / Confirmed Obesity, Class I, BMI 30-34.9 / 1003481700 / Confirmed. Electronically Signed By: Jerson Velásquez MD On 10/19/17 02:57 Co Signature By: Modified Signature By: 10/19/2017 [facility] Vital Signs Vital Sign Value Date Comments Source Heart Rate (bpm) 62 10/22/2017 [facility] Respiratory Rate 16 Breaths/Min 10/22/2017 [facility] Oxygen Amount Room air (10/22/17 11:00 AM) 10/22/2017 [facility] Systolic (mm Hg) 127 10/22/2017 [facility] Diastolic (mm Hg) 71 10/22/2017 [facility] NIBP Mean 88 10/22/2017 [facility] Temperature (c) 36.6 10/22/2017 [facility] SPO2 95 10/22/2017 [facility] Glucose Level (mg/dL) 155 10/22/2017 [facility] NIBP Mean 99 10/22/2017 [facility] Respiratory Rate 18 Breaths/Min 10/22/2017 [facility] Temperature (c) 36.5 10/22/2017 [facility] Heart Rate (bpm) 60 10/22/2017 [facility] Oxygen Amount Room air (10/22/17 7:00 AM) 10/22/2017 [facility] Systolic (mm Hg) 155 10/22/2017 [facility] Diastolic (mm Hg) 76 10/22/2017 [facility] Monitored Cardiac Rhythm Normal sinus rh ythm (10/22/17 7:00 AM) 10/22/2017 [facility] SPO2 95 10/22/2017 [facility] Monitored Cardiac Rhythm Normal sinus rh ythm (10/22/17 4:00 AM) 10/22/2017 [facility] Monitored Cardiac Rhythm Normal sinus rh ythm (10/22/17 12:00 AM) 10/22/2017 [facility] Heart Rate (bpm) 50 10/22/2017 [facility] NIBP Mean 114 10/21/2017 [facility] SPO2 97 10/21/2017 [facility] Systolic (mm Hg) 154 10/21/2017 [facility] Diastolic (mm Hg) 96 10/21/2017 [facility] Respiratory Rate 20 Breaths/Min 10/21/2017 [facility] Oxygen Amount 1 L/min (10/21/17 12:00 PM) 10/21/2017 [facility] Oxygen Method Nasal cannula (10/21/17 12:00 PM) 10/21/2017 [facility] Oxygen Method Nasal cannula (10/21/17 8:00 AM) 10/21/2017 [facility] Temperature (c) 36.7 10/21/2017 [facility] Oxygen Method Nasal cannula (10/21/17 6:15 AM) 10/21/2017 [facility] Glucose Level (mg/dL) 106 10/21/2017 [facility] Balancing Self (10/20/17 4:00 PM) 10/21/2017 [facility] Toileting Self (10/20/17 4:00 PM) 10/21/2017 [facility] Walking Self (10/20/17 4:00 PM) 10/21/2017 [facility] Dressing Self (10/20/17 4:00 PM) 10/21/2017 [facility] Transferring Self (10/20/17 4:00 PM) 10/21/2017 [facility] Eating Self (10/20/17 4:00 PM) 10/21/2017 [facility] Bathing Self (10/20/17 4:00 PM) 10/21/2017 [facility] Assistive Devices Home None (10/20/17 4:0 0 PM) 10/21/2017 [facility] Sensory Deficits None (10/20/17 4:00 PM) 10/21/2017 [facility] Sensory Deficits None (10/20/17 1:58 PM) 10/20/2017 [facility] Transferring Self (10/19/17 8:00 PM) 10/20/2017 [facility] Toileting Self (10/19/17 8:00 PM) 10/20/2017 [facility] Bathing Self (10/19/17 8:00 PM) 10/20/2017 [facility] Dressing Self (10/19/17 8:00 PM) 10/20/2017 [facility] Eating Self (10/19/17 8:00 PM) 10/20/2017 [facility] Living Situation Lives with spouse (10/19/17 8:00 PM) 10/20/2017 [facility] Sensory Deficits None (10/19/17 8:00 PM) 10/20/2017 [facility] Balancing Self (10/19/17 8:00 PM) 10/20/2017 [facility] Walking Self (10/19/17 8:00 PM) 10/20/2017 [facility] Glucose Level (mg/dL) 149 10/19/2017 [facility] Encounters Location Location Details Encounter Type Encounter Number Reason For Visit Attending Provider ADM Date DC Date Status Source [facility] Inpatient [id number] Pedro Harris 10/19 [facility] Procedures Procedure Code Date Perfomer Comments Source DILATION OF 1 COR ART WITH 4 DRUG-ELUT, PERC APPROACH 994372N 10/21/2017 [facility] [id number] 10/21/2017 [facility] FLUOROSCOPY OF MULT COR ART USING L OSM CONTRAST [id number] 10/21/2017 [facility] FLUOROSCOPY OF R LOW EXTREM ART USING L OSM CONTRAST [id number] 10/21/2017 [facility] INTRODUCE PLATELET INHIBITOR IN PERIPH VEIN, PERC [id number] 10/19/2017 [facility] Colonoscopy 09/20/2008 [facility] Ear work [facility] Feet work [facility] Inguinal hernia [facility] Shoulder [facility] Testicle removal<sup>1</sup> Due to infection [facility] Umbilical hernia [facility] Vasectomy<sup>2</sup> 1973 [facility] Social History Social History Date Source Social History TypeResponse Smoking Status Never (less than 100 in lifetime); Previous treatment: None entered on: 10/19/17 10/19/2017 [facility] Assessment and Plan Result Assessment and Plan [...] 10/22/17 10:16:00 PST, Today, Home or self longterm self care Heart Healthy As tolerated in [...] Problems (Selected) Acute low back pain / 458896800 / Confirmed ADD (attention deficit disorder) / 0676520786 / Confirmed Decreased hearing / 458177612 / Confirmed High cholesterol / 85256180 / Confirmed Hypertension / 0594387843 / Confirmed Erectile dysfunction / 130423118 / Confirmed Obesity, Class I, BMI 30-34.9 / 3000285113 / Confirmed. 10/22/2017 [facility]
== END 2023-04-09 12:30 | disposition home or self-care (01) ==
LOC: AMB 04-11 06:40
PROVIDERS: PCP Internal Medicine; Visit Provider Emergency Medicine Emergency Medical Services
DX: M54.9 Dorsalgia, unspecified (principal)
CPT/HCPCS: A0425; A0427

== ENCOUNTER 2023-04-09 13:05 | Observation (INO) | payer MEDICARE, SELFPAY ==
[2023-04-09] VITALS (28 sets, daily range): BP systolic 124–138; BP diastolic 62–78; PULSE 65–79; RESP 16–22; TEMP 36–36.9; O2SAT 91–98; BMI 30.3; BMI 34.5
--- NOTE | 2023-04-09 13:22 | ED.NURSE ---
pt reports no bowel movement for 3 days, was given mirilax yesterday
[2023-04-09] MEDS: HYDROmorphone 0.5 mg/0.5 ml inj IVP (14:14)
--- NOTE | 2023-04-09 14:19 | ED_ITS ---
HPI - General Adult General Chief complaint: Flank Pain Stated complaint: Back pain Time Seen by Provider: 04/09/23 13:38 History of Present Illness HPI narrative: This 77-year-old male comes in by ambulance stating that he has back pain that makes it such that he is unable to get up and ambulate. He was seen yesterday in this emergency department at which time he had a CT scan of the abdomen and pelvis. He does have a very large bladder stone that is nonobstructive. He currently does have a catheter in place and is taking an antibiotic. There were no other acute findings to explain his symptoms from the results of the CT scan in the labs. There is a large amount of stool present which may account for some discomfort in his abdomen. The patient did receive some pain medication while here yesterday and his states that he was able to go home and made supper and seem to function well. This morning he states that he was unable to get up and had pain even when rolling over to his side. He does not report any fever. Related Data Home Medications Medication Instructions Recorded Confirmed donepezil 10 mg tablet 10 mg PO HS 07/24/22 04/09/23 rosuvastatin 40 mg tablet 40 mg PO HS 07/24/22 04/09/23 tamsulosin 0.4 mg capsule 0.4 mg PO DAILY 07/24/22 04/09/23 apixaban 5 mg tablet (Eliquis) 5 mg PO BID 08/04/22 04/09/23 losartan 25 mg tablet 25 mg PO DAILY 12/22/22 04/09/23 sulfamethoxazole 800 1 tab PO BID 04/08/23 04/09/23 mg-trimethoprim 160 mg tablet amlodipine 2.5 mg tablet 2.5 - 5 mg PO BID 04/09/23 04/09/23 Previous Rx's Medication Instructions Recorded oxycodone 5 mg tablet 5 mg PO QID PRN pain #30 tabs 04/09/23 Allergies Allergy/AdvReac Type Severity Reaction Status Date / Time Iodinated Contrast Media Allergy Severe Anaphylaxis Verified 12/22/22 13:22 adhesive Allergy Mild Rash Verified 12/22/22 13:22 Penicillins Allergy Mild Rash Verified 12/22/22 13:22 methylphenidate AdvReac Unknown Verified 12/22/22 13:22 [From Ritalin] Review of Systems Status of ROS: Reports: 10 or more systems reviewed and unremarkable except as noted in History and below Narrative: Constitutional: No fevers, no weight gain or loss. Eyes: No discharge. No vision changes. HENT: No congestion, no sore throat, no ear pain. Cardiovascular: No chest pain, no palpitations. Respiratory: No shortness of breath, no wheezes, no cough. Gastrointestinal: No abdominal pain, no vomiting, no diarrhea. Genitourinary: No dysuria, no hematuria. Musculoskeletal: Pain in the low and mid back region. Pain does not radiate down either leg. Skin: No rashes, no pruritis. Neurological: No sensory change, speech change. He states that he feels unsteady when attempting to get up because of the pain in his back. Endo/Heme/Allergies: No bruising or bleeding. No polydipsia. Pysch: no suicidality, no anxiety, no insomnia. All other systems reviewed and are negative. [facility] Medical History (Updated 04/09/23 @ 19:11 by Mumtaz Parra MD) Renal cyst ?N28.1 - Cyst of kidney, acquired (ICD-10) Paroxysmal atrial fibrillation ?I48.0 - Paroxysmal atrial fibrillation (ICD-10) Chronic headache ?R51.9 - Headache, unspecified (ICD-10) ?G89.29 - Other chronic pain (ICD-10) Carotid artery stenosis ?I65.29 - Occlusion and stenosis of unspecified carotid artery (ICD-10) Wears hearing aid ?Z97.4 - Presence of external hearing-aid (ICD-10) Traumatic brain injury (1959) ?S06.9XAA - Unspecified intracranial injury with loss of consciousness status unknown, initial encounter (ICD-10) Obstructive sleep apnea syndrome ?G47.33 - Obstructive sleep apnea (adult) (pediatric) (ICD-10) Hyperlipidemia ?E78.5 - Hyperlipidemia, unspecified (ICD-10) History of alcoholism ?F10.21 - Alcohol dependence, in remission (ICD-10) Essential hypertension ?I10 - Essential (primary) hypertension (ICD-10) Erectile dysfunction ?N52.9 - Male erectile dysfunction, unspecified (ICD-10) Dementia ?F03.90 - Unspecified dementia, unspecified severity, without behavioral disturbance, psychotic disturbance, mood disturbance, and anxiety (ICD-10) Coronary artery disease (2018) ?I25.10 - Atherosclerotic heart disease of [place] coronary artery without angina pectoris (ICD-10) BPH (benign prostatic hyperplasia) ?N40.0 - Benign prostatic hyperplasia without lower urinary tract symptoms (ICD-10) Borderline diabetes mellitus ?R73.03 - Prediabetes (ICD-10) Attention deficit disorder ?F98.8 - Other specified behavioral and emotional disorders with onset usually occurring in childhood and adolescence (ICD-10) History of TIA (transient ischemic attack) (11/05/19) ?Z86.73 - Personal history of transient ischemic attack (TIA), and cerebral infarction without residual deficits (ICD-10) History of rheumatic fever as a child ?Z86.79 - Personal history of other diseases of the circulatory system (ICD- 10) History of atrial fibrillation (2013) ?Z86.79 - Personal history of other diseases of the circulatory system (ICD- 10) Surgical History S/P ablation of atrial fibrillation ?Z98.890 - Other specified postprocedural states (ICD-10) ?Z86.79 - Personal history of other diseases of the circulatory system (ICD- 10) History of left inguinal hernia repair ?Z98.890 - Other specified postprocedural states (ICD-10) ?Z87.19 - Personal history of other diseases of the digestive system (ICD-10) History of repair of right rotator cuff (1996) ?Z98.890 - Other specified postprocedural states (ICD-10) History of phacoemulsification of cataract of both eyes with intraocular lens implantation (12/31/21) ?Z98.41 - Cataract extraction status, right eye (ICD-10) ?Z98.42 - Cataract extraction status, left eye (ICD-10) ?Z96.1 - Presence of intraocular lens (ICD-10) History of coronary artery stent placement (2017) ?Z95.5 - Presence of coronary angioplasty implant and graft (ICD-10) History of vasectomy ?Z98.52 - Vasectomy status (ICD-10) History of unilateral orchiectomy (1973) ?Z90.79 - Acquired absence of other genital organ(s) (ICD-10) History of umbilical hernia repair ?Z98.890 - Other specified postprocedural states (ICD-10) ?Z87.19 - Personal history of other diseases of the digestive system (ICD-10) History of nasal septoplasty (2008) ?Z98.890 - Other specified postprocedural states (ICD-10) History of left-sided carotid endarterectomy (2020) ?Z98.890 - Other specified postprocedural states (ICD-10) History of detached retina repair ?Z98.890 - Other specified postprocedural states (ICD-10) ?Z86.69 - Personal history of other diseases of the nervous system and sense organs (ICD-10) Social History Smoking Status: Former smoker What tobacco products do you use: cigarettes Smoking quit date/years: >15 years ago Do you use any of these nicotine containing products: None Second hand tobacco smoke exposure: No How often do you have a drink containing alcohol: never How often do you have six or more drinks on one occasion: Never AUDIT-C Alcohol total score: 0 Non-prescribed substance use: denies use Little interest or pleasure in doing things: not at all Feeling down, depressed, or hopeless: not at all Exam Narrative: Exam Narrative: Constitutional: Well-developed, well-nourished, no acute distress. HEENT: Normocephalic, atraumatic. Neck: Normal range of motion. Nontender. Supple. Heart: Regular. No murmurs. Normal rate. Intact distal pulses. Lungs: Clear to auscultation. No chest discomfort. No wheezes, rhonchi, or rales. Abdomen: Normal bowel sounds. Nontender. No rebound tenderness. Genitalia: Deferred. Back: He reports pain diffusely through the low back and midback. No pain radiating down either leg. Extremities: Normal range of motion. No injury. Skin: Intact. No rash. Warm. No erythema or pallor. Neurologic: No altered sensation. No weakness. Alert and oriented. No facial asymmetry. No unilateral weakness. Psychiatric: No suicidality. No anxiety or depression. No insomnia. Nursing notes and vitals signs are reviewed. Const: Vital Signs, click to edit/add: Vital Signs - 24 hr 04/09/23 13:09 04/09/23 15:00 04/09/23 15:01 Temperature 97.6 F Pulse Rate 69 68 Pulse Rate [Right Pulse Oximeter] 69 Respiratory Rate 22 Blood Pressure 124/65 Blood Pressure [Le ft Upper Arm] 136/74 Pulse Oximetry 95 91 93 Oxygen Delivery Me thod Room Air 04/09/23 15:02 04/09/23 15:14 04/09/23 15:15 Temperature 98.4 F Pulse Rate 70 74 Pulse Rate [Right Pulse Oximeter] Respiratory Rate Blood Pressure Blood Pressure [Le ft Upper Arm] Pulse Oximetry 94 94 Oxygen Delivery Me thod 04/09/23 15:30 04/09/23 15:32 04/09/23 15:45 Temperature Pulse Rate 69 70 70 Pulse Rate [Right Pulse Oximeter] Respiratory Rate Blood Pressure 129/69 Blood Pressure [Le ft Upper Arm] Pulse Oximetry 94 95 95 Oxygen Delivery Me thod 04/09/23 16:00 04/09/23 16:01 04/09/23 16:15 Temperature Pulse Rate 65 67 70 Pulse Rate [Right Pulse Oximeter] Respiratory Rate Blood Pressure 126/65 Blood Pressure [Le ft Upper Arm] Pulse Oximetry 92 95 92 Oxygen Delivery Me thod 04/09/23 16:30 04/09/23 16:32 04/09/23 17:40 Temperature Pulse Rate 68 70 72 Pulse Rate [Right Pulse Oximeter] Respiratory Rate Blood Pressure 127/65 Blood Pressure [Le ft Upper Arm] Pulse Oximetry 93 95 96 Oxygen Delivery Me thod 04/09/23 17:41 04/09/23 17:41 04/09/23 17:45 Temperature 96.8 F L Pulse Rate 77 78 Pulse Rate [Right Pulse Oximeter] 75 Respiratory Rate 16 Blood Pressure 133/68 Blood Pressure [Le ft Upper Arm] 133/68 Pulse Oximetry 92 95 92 Oxygen Delivery Me thod Room Air 04/09/23 18:00 04/09/23 18:01 04/09/23 18:15 Temperature Pulse Rate 72 72 73 Pulse Rate [Right Pulse Oximeter] Respiratory Rate Blood Pressure 132/62 Blood Pressure [Le ft Upper Arm] Pulse Oximetry 93 95 97 Oxygen Delivery Me thod Course Vital Signs Vital signs: Initial Vital Signs Temperature 97.6 F 04/09/23 13:09 Temperature Source Temporal Artery Scan 04/09/23 13:09 Pulse Rate 69 04/09/23 13:09 Pulse Rhythm Regular 04/09/23 13:09 Pulse Strength 3+ Normal 04/09/23 13:09 Respiratory Rate 22 04/09/23 13:09 Blood Pressure 136/74 04/09/23 13:09 Blood Pressure Mean 94 04/09/23 13:09 Pulse Oximetry 95 04/09/23 13:09 Oxygen Delivery Method Room Air 04/09/23 13:09 Vital Signs Temperature 97.6 F 04/09/23 13:09 Pulse Rate 69 04/09/23 13:09 Respiratory Rate 22 04/09/23 13:09 Blood Pressure 136/74 04/09/23 13:09 Pulse Oximetry 95 04/09/23 13:09 Oxygen Delivery Method Room Air 04/09/23 13:09 Temperature 96.8 F L 04/09/23 17:41 Pulse Rate 73 04/09/23 18:15 Respiratory Rate 16 04/09/23 17:41 Blood Pressure 132/62 04/09/23 18:01 Pulse Oximetry 97 04/09/23 18:15 Oxygen Delivery Method Room Air 04/09/23 17:41 Medical Decision Making MDM Narrative Medical decision making narrative: This patient comes in with severe low back pain and midback pain such that he states he is unable to get up and ambulate. This occurred or worsened since last night. He states that he has severe pain even attempting to roll to the left or to the right. He was seen in the emergency department yesterday at which time he had CT scan of the abdomen and pelvis and labs done. He received medication which brought some improvement to his symptoms. CT imaging showed a large stone in the bladder but no sign of obstructive uropathy. He had a fair amount of stool on that scan. He is not taking any pain medications. After arrival here today I did review labs and imaging results from yesterday and stated that perhaps his symptoms would improve with pain medication which would also allow to evaluate again his ability to ambulate. He did receive an IV dose of Dilaudid 0.5 mg. Sometime later an attempt was made to get up and ambulate but he was unable to do so because of pain. I did speak with the hospitalist attraction attendant, Dr. Rosales, stated that it would be helpful to have some further imaging of his pelvis and SI joints in particular. An MRI was acquired and preliminary results show no acute changes. He does have mild degenerative disease. I spoke again with Dr. Rosales who agrees to bring him into the hospital for further evaluation and treatment. Discharge Plan Discharge Clinical Impression: Back pain, Bladder stone, Weakness Patient Disposition: Admitted As Inpatient Condition: Unchanged Prescriptions: No Action rosuvastatin 40 mg tablet 40 mg PO HS tamsulosin 0.4 mg capsule 0.4 mg PO DAILY donepezil 10 mg tablet 10 mg PO HS losartan 25 mg tablet 25 mg PO DAILY amlodipine 2.5 mg tablet 2.5 - 5 mg PO BID Rx Instructions: 2 TABS IN AM AND 1 TAB IN PM Eliquis 5 mg tablet 5 mg PO BID sulfamethoxazole-trimethoprim 800-160 mg tablet 1 tab PO BID oxycodone 5 mg tablet 5 mg PO QID PRN (Reason: pain) Qty: 30 0RF Follow Up/Referrals: Karan Mirza MD [Primary Care Provider] -
--- NOTE | 2023-04-09 15:01 | ED.NURSE ---
Pt's and daughter are concerned about his state of being, they do not think he is being looked at thoroughly enough. They are worried of being able to take care of him at home, as both the and daughter are disabled. Pt is normally up independently, but this morning needed almost full assistance. Concerns were brought to 's attention. wants pt to ambulate, and based on that assessment will go from there.
--- NOTE | 2023-04-09 15:15 | ED.NURSE ---
tried to sit pt on the edge of bed with another nurse, pt was unable to move and sit due to so much pain. Pt became nauseous and did vomit.
[2023-04-09] MEDS: ONDANSETRON 2 MG/ML inj 4 MG IVP (15:33)
--- NOTE | 2023-04-09 15:41 | CRLHL7_ITS ---
For Patients: As a result of the Century Cures Act, medical imaging exams and procedure reports are released immediately into your electronic medical record. You may view this report before your referring provider. If you have questions, please contact your health care provider. INDICATION: Joint pain. TECHNIQUE: Oblique axial, oblique coronal and sagittal T1 and STIR sequences of the sacroiliac joints. FINDINGS: Mild degenerative anterior spurring. No fusion or erosion. Minor hazy areas of subarticular marrow edema particularly inferior posterior right. No fracture or bone lesion. Anatomic lumbosacral alignment. Normal appearance of the piriform muscles. Horton catheter decompresses the urinary bladder. 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 Dictated by Richard Gregg MD @ 04/12/2023 8:21:43 AM (Electronically Signed)
--- NOTE | 2023-04-09 15:45 | ED.NURSE ---
After dilaudid was given, pt felt more nauseous and dizzy. Pt was becoming tired and drowsy.
--- NOTE | 2023-04-09 15:56 | ED.NURSE ---
pt was reported to have a couple more emesis after getting Zofran.
[2023-04-09] MEDS: 0.9 % SODIUM CHLORIDE 500 ML 500 ML IV (16:35)
[2023-04-09] MEDS: METOCLOPRAMIDE HCL 5 MG/ML INJ 10 MG IV (16:37)
--- NOTE | 2023-04-09 20:47 | PC.NURSE ---
patient taken to [facility], report given to Cb Dalal RN
--- NOTE | 2023-04-09 21:13 | P.IMHP_ITS ---
Hospitalist- H&P: HPI History of Present Illness Time Seen by Provider: 20:30 Date Seen: 04/09/23 Chief complaint: Back pain Narrative: Guillermo Narayanan is a 77 year old man who presents to the emergency department today due to severe back pain such that he is unable to transfer or ambulate independently. Reportedly he was in his usual state of health up until about a week ago when he believes he might have strained his back while shopping. Thin think much of it. States the discomfort is only been nagging him for the last few days. Yesterday he was assessed in the emergency department for dysuria. Found to have urinary retention. Found to have a 25 mm stone in the bladder. Had a fair amount of stool present in his bowel. When he arrived home yesterday after being seen in the emergency department, he was doing well. Went to bed doing well. Upon awakening this morning the pain was so severe he could not get out of bed without assistance. [id number] discomfort when resting still. Pain is certainly exacerbated with any movement in effort. Believes he can lateralize the pain to the right side of back more so than the left. Seems like trying to move the right leg exacerbates the discomfort as well. Has not had any fevers, rigors, diaphoresis. Tolerating the urinary catheter that is in place since yesterday when he had the urinary retention and catheter needed to be placed. No recent trauma or injury. No recent travel. Review of Systems Status of ROS: Reports: 10 or more systems reviewed and unremarkable except as noted in History and below Narrative: . Lives with his . 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 Requests DNR DNI resuscitation status in the event of cardiopulmonary demise. Primary care physician is Dr. Jacob Mirza. [facility] Medical History (Updated 04/09/23 @ 21:38 by Delvis Rosales MD) Tear of lateral meniscus of left knee ?S83.282A - Other tear of lateral meniscus, current injury, left knee, initial encounter (ICD-10) Osteoarthritis of left knee ?M17.12 - Unilateral primary osteoarthritis, left knee (ICD-10) Acute sinusitis ?J01.90 - Acute sinusitis, unspecified (ICD-10) Sinus pressure ?J34.89 - Other specified disorders of nose and nasal sinuses (ICD-10) Renal cyst ?N28.1 - Cyst of kidney, acquired (ICD-10) Paroxysmal atrial fibrillation ?I48.0 - Paroxysmal atrial fibrillation (ICD-10) Chronic headache ?R51.9 - Headache, unspecified (ICD-10) ?G89.29 - Other chronic pain (ICD-10) Carotid artery stenosis ?I65.29 - Occlusion and stenosis of unspecified carotid artery (ICD-10) Wears hearing aid ?Z97.4 - Presence of external hearing-aid (ICD-10) Traumatic brain injury (1959) ?S06.9XAA - Unspecified intracranial injury with loss of consciousness status unknown, initial encounter (ICD-10) Obstructive sleep apnea syndrome ?G47.33 - Obstructive sleep apnea (adult) (pediatric) (ICD-10) Hyperlipidemia ?E78.5 - Hyperlipidemia, unspecified (ICD-10) History of alcoholism ?F10.21 - Alcohol dependence, in remission (ICD-10) Essential hypertension ?I10 - Essential (primary) hypertension (ICD-10) Erectile dysfunction ?N52.9 - Male erectile dysfunction, unspecified (ICD-10) Dementia ?F03.90 - Unspecified dementia, unspecified severity, without behavioral disturbance, psychotic disturbance, mood disturbance, and anxiety (ICD-10) Coronary artery disease (2018) ?I25.10 - Atherosclerotic heart disease of [place] coronary artery without angina pectoris (ICD-10) BPH (benign prostatic hyperplasia) ?N40.0 - Benign prostatic hyperplasia without lower urinary tract symptoms (ICD-10) Borderline diabetes mellitus ?R73.03 - Prediabetes (ICD-10) Attention deficit disorder ?F98.8 - Other specified behavioral and emotional disorders with onset usually occurring in childhood and adolescence (ICD-10) History of TIA (transient ischemic attack) (11/05/19) ?Z86.73 - Personal history of transient ischemic attack (TIA), and cerebral infarction without residual deficits (ICD-10) History of rheumatic fever as a child ?Z86.79 - Personal history of other diseases of the circulatory system (ICD- 10) History of atrial fibrillation (2013) ?Z86.79 - Personal history of other diseases of the circulatory system (ICD- 10) Surgical History S/P ablation of atrial fibrillation ?Z98.890 - Other specified postprocedural states (ICD-10) ?Z86.79 - Personal history of other diseases of the circulatory system (ICD- 10) History of left inguinal hernia repair ?Z98.890 - Other specified postprocedural states (ICD-10) ?Z87.19 - Personal history of other diseases of the digestive system (ICD-10) History of repair of right rotator cuff (1996) ?Z98.890 - Other specified postprocedural states (ICD-10) History of phacoemulsification of cataract of both eyes with intraocular lens implantation (12/31/21) ?Z98.41 - Cataract extraction status, right eye (ICD-10) ?Z98.42 - Cataract extraction status, left eye (ICD-10) ?Z96.1 - Presence of intraocular lens (ICD-10) History of coronary artery stent placement (2017) ?Z95.5 - Presence of coronary angioplasty implant and graft (ICD-10) History of vasectomy ?Z98.52 - Vasectomy status (ICD-10) History of unilateral orchiectomy (1973) ?Z90.79 - Acquired absence of other genital organ(s) (ICD-10) History of umbilical hernia repair ?Z98.890 - Other specified postprocedural states (ICD-10) ?Z87.19 - Personal history of other diseases of the digestive system (ICD-10) History of nasal septoplasty (2008) ?Z98.890 - Other specified postprocedural states (ICD-10) History of left-sided carotid endarterectomy (2020) ?Z98.890 - Other specified postprocedural states (ICD-10) History of detached retina repair ?Z98.890 - Other specified postprocedural states (ICD-10) ?Z86.69 - Personal history of other diseases of the nervous system and sense organs (ICD-10) Social History What is your current living situation?: I presently have a place to live Problems where you live: no known problems Problems where you live details: n/a In the past 12 months, utilities in danger of being shut off: no In the past 12 mos, have been you worried that your food would run out before you had money to buy more?: never true In the past 12 mos, the food you bought just didn't last and you didn't have money to buy more?: never true Highest level of school completed/degree received: Associate degree: occupational, technical, vocational program Smoking Status: Never smoker Do you use any of these nicotine containing products: None Second hand tobacco smoke exposure: No How often do you have a drink containing alcohol: never How often do you have six or more drinks on one occasion: Never AUDIT-C Alcohol total score: 0 Non-prescribed substance use: denies use Caffeine: Yes How often does anyone, including family, friends and others, physically hurt you : never How often does anyone, including family, friends and others, insult or talk down to you: never How often does anyone, including family, friends and others, threaten you with harm: never How often does anyone, including family, friends and others, scream or curse at you: never Little interest or pleasure in doing things: not at all Feeling down, depressed, or hopeless: not at all service: No Meds Home Medications and Allergies Home Medications Medication Instructions Recorded Confirmed Type donepezil 10 mg tablet 10 mg PO HS 07/24/22 04/09/23 History rosuvastatin 40 mg tablet 40 mg PO HS 07/24/22 04/09/23 History tamsulosin 0.4 mg capsule 0.4 mg PO DAILY 07/24/22 04/09/23 History apixaban 5 mg tablet (Eliquis) 5 mg PO BID 08/04/22 04/09/23 History losartan 25 mg tablet 25 mg PO DAILY 12/22/22 04/09/23 History sulfamethoxazole 800 1 tab PO BID 04/08/23 04/09/23 History mg-trimethoprim 160 mg tablet amlodipine 2.5 mg tablet 2.5 - 5 mg PO BID 04/09/23 04/09/23 History Allergies Allergy/AdvReac Type Severity Reaction Status Date / Time Iodinated Contrast Media Allergy Severe Anaphylaxis Verified 12/22/22 13:22 adhesive Allergy Mild Rash Verified 12/22/22 13:22 Penicillins Allergy Mild Rash Verified 12/22/22 13:22 methylphenidate AdvReac Unknown Verified 12/22/22 13:22 [From Ritalin] Exam Narrative: Exam Narrative: I examine him in the emergency department as he is laying in a semi recumbent position on exam table. Appears comfortable and in no acute distress when he is laying still. Any movement seems to exacerbate his back pain. Vision and hearing are grossly normal. Alert and oriented to self, place, in part to time and oriented to situation. Does look to his and daughter to answer certain questions. Friendly, articulate, cooperative. Mood and affect are congruent. Tympanic membranes are normal. Midline nasal septum. Normal oropharynx. Moist buccal mucosa. Dentition in fair repair. No icterus or conjunctival injection. Pupils equally round and reactive to light and accommodation. Extraocular muscles are intact. Neck is supple. Midline trachea. Normal thyroid. No JVD or hepatojugular ref lux. No carotid bruits. Lungs are clear to auscultation without wheezing, rhonchi, or rales. Chest wall excursions are full. No real pain to percussion over the CVA area or over the spine. Does have point tenderness in the paraspinal and oblique muscle group on the right. Strength of lower extremity muscles are normal and symmetric bilaterally. Heart tones with chaotic rhythm, normal S1-S2. Soft systolic murmur. No gallop or rub. Abdomen with active bowel sounds, soft, nontender. No rebound or guarding. Upper and lower extremity muscle strength testing are symmetric and normal. No focal motor neurologic deficits. I am unable to get him to relax enough to be able to carry out a straight leg raising exam on either the right or the left. Const: Vital Signs, click to edit/add: Vital Signs - 24 hr 04/09/23 13:09 04/09/23 15:00 04/09/23 15:01 Temperature 97.6 F Pulse Rate 69 68 Pulse Rate [Right Pulse Oximeter] 69 Respiratory Rate 22 Blood Pressure 124/65 Blood Pressure [Le ft Upper Arm] 136/74 Blood Pressure [Ri ght Arm] Pulse Oximetry 95 91 93 Oxygen Delivery Me thod Room Air 04/09/23 15:02 04/09/23 15:14 04/09/23 15:15 Temperature 98.4 F Pulse Rate 70 74 Pulse Rate [Right Pulse Oximeter] Respiratory Rate Blood Pressure Blood Pressure [Le ft Upper Arm] Blood Pressure [Ri ght Arm] Pulse Oximetry 94 94 Oxygen Delivery Me thod 04/09/23 15:30 04/09/23 15:32 04/09/23 15:45 Temperature Pulse Rate 69 70 70 Pulse Rate [Right Pulse Oximeter] Respiratory Rate Blood Pressure 129/69 Blood Pressure [Le ft Upper Arm] Blood Pressure [Ri ght Arm] Pulse Oximetry 94 95 95 Oxygen Delivery Me thod 04/09/23 16:00 04/09/23 16:01 04/09/23 16:15 Temperature Pulse Rate 65 67 70 Pulse Rate [Right Pulse Oximeter] Respiratory Rate Blood Pressure 126/65 Blood Pressure [Le ft Upper Arm] Blood Pressure [Ri ght Arm] Pulse Oximetry 92 95 92 Oxygen Delivery Me thod 04/09/23 16:30 04/09/23 16:32 04/09/23 17:40 Temperature Pulse Rate 68 70 72 Pulse Rate [Right Pulse Oximeter] Respiratory Rate Blood Pressure 127/65 Blood Pressure [Le ft Upper Arm] Blood Pressure [Ri ght Arm] Pulse Oximetry 93 95 96 Oxygen Delivery Me thod 04/09/23 17:41 04/09/23 17:41 04/09/23 17:45 Temperature 96.8 F L Pulse Rate 77 78 Pulse Rate [Right Pulse Oximeter] 75 Respiratory Rate 16 Blood Pressure 133/68 Blood Pressure [Le ft Upper Arm] 133/68 Blood Pressure [Ri ght Arm] Pulse Oximetry 92 95 92 Oxygen Delivery Me thod Room Air 04/09/23 18:00 04/09/23 18:01 04/09/23 18:15 Temperature Pulse Rate 72 72 73 Pulse Rate [Right Pulse Oximeter] Respiratory Rate Blood Pressure 132/62 Blood Pressure [Le ft Upper Arm] Blood Pressure [Ri ght Arm] Pulse Oximetry 93 95 97 Oxygen Delivery Me thod 04/09/23 18:30 04/09/23 18:32 04/09/23 18:45 Temperature Pulse Rate 75 69 72 Pulse Rate [Right Pulse Oximeter] Respiratory Rate Blood Pressure 124/69 Blood Pressure [Le ft Upper Arm] Blood Pressure [Ri ght Arm] Pulse Oximetry 97 95 98 Oxygen Delivery Me thod 04/09/23 19:00 04/09/23 19:01 04/09/23 19:16 Temperature 96.8 F L Pulse Rate 69 70 Pulse Rate [Right Pulse Oximeter] Respiratory Rate 18 Blood Pressure 129/71 Blood Pressure [Le ft Upper Arm] Blood Pressure [Ri ght Arm] Pulse Oximetry 96 97 Oxygen Delivery Me thod 04/09/23 20:57 Temperature 98.4 F Pulse Rate Pulse Rate [Right Pulse Oximeter] 78 Respiratory Rate 18 Blood Pressure Blood Pressure [Le ft Upper Arm] Blood Pressure [Ri ght Arm] 138/71 Pulse Oximetry 97 Oxygen Delivery Me thod Room Air Documenting provider has reviewed patient's vital signs: yes Hospitalist - H&P: Result Imaging MR low back: Radiologist's impression: Preliminary results suggest mild bilateral SI joint osteoarthritis. No SI joint effusion or adjacent bone marrow edema to suggest active inflammation. Final report is still pending Assessment and Plan Assessment and plan (1) Back pain: Problem comment: At this time seems more soft tissue musculoskeletal related and not due to neurologic complication. Presently pain precludes him from being able to transfer or ambulate independently. Status: Acute Assessment and Plan: Await final reading of MRI scan that was obtained today. Lumbar spine x-rays tomorrow morning. Repeat laboratory studies tomorrow morning. Initiate senna twice daily, with patient complained of constipation. (2) Constipation: Status: Acute (3) Acute urinary retention: Problem comment: Horton urethral catheter placed 04/08/2023. Status: Acute (4) Bladder stone: Problem comment: 25 mm stone noted on assessment 04/08/2023. Status: Acute (5) BPH (benign prostatic hyperplasia): Status: Chronic (6) Dementia: Problem comment: Alzheimer's per scanned Neuro notes. Status: Chronic (7) Coronary artery disease: Problem comment: 4 stents in 2018. Status: Chronic (8) Carotid artery stenosis: Problem comment: Moderate right. Had L endarterectomy in 2020. Status: Chronic (9) Obstructive sleep apnea syndrome: Problem comment: On BiPap. Status: Chronic Plan 1. Reviewed impression with patient, , daughter. 2. Admit for observation. 3. Schedule acetaminophen. Initiate scheduled tizanidine at bedtime and once daily as needed. Will give single dose of ketorolac 15 mg IV today. Schedule ibuprofen 400 mg 3 times daily, with PPI prophylaxis. Oxycodone as needed. Will initiate lidocaine patch topically tomorrow morning. 4. Physical therapy and occupational therapy consultation. 5. Continue with urethral catheter care which was initiated yesterday. 6. Continue with supportive efforts for other underlying medical conditions. 7. Discussed with patient and the possibility that he may need additional resources in the home or possible short-term intermediate care facility support. 8. Answered their questions to their satisfaction. 9. There are agreeable with above stated plans and recommendations.
[2023-04-09] MEDS: KETOROLAC 15 MG/ML inj IVP (22:37)
[2023-04-09] MEDS: OXYCODONE 5 MG TABLET PO (22:38)
[2023-04-09] MEDS: SENNOSIDES/DOCUSATE TABLET 2 TAB PO (22:38)
[2023-04-09] MEDS: DONEPEZIL 10 MG TABLET PO (22:38)
[2023-04-09] MEDS: TIZANIDINE HCL 4 MG TABLET 2 MG PO (22:39)
[2023-04-09] MEDS: APIXABAN 5 MG TABLET PO (22:39)
[2023-04-09] MEDS: SODIUM CHLORIDE 0.9 % (FLUSH) 10 ML SYRINGE 5 ML IVF (22:40)
[2023-04-10] VITALS (7 sets, daily range): BP systolic 116–147; BP diastolic 48–80; PULSE 62–78; RESP 18–20; TEMP 36.7–37; O2SAT 94–97
[2023-04-10] MEDS: OXYCODONE 5 MG TABLET PO ×4 (02:50→14:35)
[2023-04-10 06:35] LABS: Lactate* 1.1 mmol/L (0.5-1.9)
[2023-04-10 06:38] LABS: Basophils Percent Auto 0.1 % (0.0-3.0); Eosinophils Percent Auto 0.3 % (0.0-7.0); Hematocrit 42.3 % (37.0-53.0); Hemoglobin* 13.4 gm/dL (13.5-17.5); Immature Granulocytes Pct Auto 0.2 %; Lymphocytes Percent Auto 9.2 % (20-44); Mean Corpuscular HGB Conc 32 gm/dL (32-36); Mean Corpuscular Hemoglobin 29 pg (26-34); Mean Corpuscular Volume 91 fL (80-100); Monocytes Percent Auto 7.8 % (0.0-11.0); Neutrophils Percent Auto 82.4 % (42.0-72.0); Platelet Count* 267 K/uL (140-440); RDW Coefficient of Variation % 14.4 % (11.5-15.5); Red Blood Count 4.67 m/uL (4.30-5.90); White Blood Count* 12.81 K/uL (4.50-11.00)
[2023-04-10 06:41] LABS: Slide Review Reflex No
[2023-04-10 06:50] LABS: Albumin* 3.9 g/dL (3.3-5.0); Chloride* 105 mmol/L (96-114); Sodium* 136 mmol/L (135-149)
[2023-04-10 06:51] LABS: Potassium* 4.1 mmol/L (3.6-5.1)
[2023-04-10 06:53] LABS: Creatinine* 0.8 mg/dL (0.5-1.5); Est. Creatinine Clearance* 69.91; Estimated Glomerular Filt Rate 91 ml/min
[2023-04-10 06:54] LABS: Alanine Aminotransferase* 27 U/L (4-50); Alkaline Phosphatase* 45 U/L (40-150); Aspartate Amino Transferase* 25 U/L (12-35); Bilirubin Direct* 0.1 mg/dL (0.0-0.5); Bilirubin Total* 1.9 mg/dL (0.1-1.5); Blood Urea Nitrogen* 20 mg/dL (7-30); Calcium* 8.4 mg/dL (8.4-10.6); Carbon Dioxide* 21 mmol/L (20-32); Glucose* 101 mg/dL (60-115); Total Protein* 6.9 g/dL (6.0-8.3)
[2023-04-10 06:55] LABS: Magnesium* 2.2 mg/dL (1.5-2.6)
[2023-04-10 06:57] LABS: C Reactive Protein* 2.2 mg/dL (0.5-1.0)
--- NOTE | 2023-04-10 07:25 | PC.NURSE ---
Shift note: Pt arrived to the unit with history of back pain. Pt was brought to the unit on a bed with Horton. Alert and oriented and vital signs were stable. Pain was rated 8 which get worse with activity. PRN med given were effective. Urinary catheter was patent and draining dark manny color urine. Pt had adequate sleep.
--- NOTE | 2023-04-10 08:20 | P.IMPN_ITS ---
Progress Note: A&P Assessment and plan (1) Weakness: Problem details: multifocal. 77 y/o with poor motor planning, poor insight and hx of TBI/dementia/falls and new dx of bladder stone, flank pain. will take a couple of days to sort out. avoid narcotics if possible. use nonmedicinal modalities as much as possible. Status: Acute (2) Flank pain: Problem details: WBC up, CRP up. Total bilirubin. need a clear urine for analysis. consider UTI, nephrolithiasis, cholelithiasis. Noncontrast abdomen pelvis CT was done on the . Ordering a abdominal ultrasound today. Status: Acute (3) Constipation: Problem details: Bowel regimen Status: Acute (4) Acute urinary retention: Problem details: Horton urethral catheter placed 04/08/2023. Status: Acute (5) Bladder stone: Problem details: 25 mm stone noted on assessment 04/08/2023. Status: Acute (6) S/P ablation of atrial fibrillation: Status: Acute Subjective Date Seen: 04/10/23 Interval history: Daily Progress Note - Hospital Medicine Day #: 2 CC: right flank pain OVERNIGHT UPDATES FROM STAFF & MED, LAB, IMAGING UPDATES maybe a little better. pain stays primarily in the right flank. has catheter. no fever. mildly elevated wbc and crp. no fever. normal vitals. PT implied this was more flank/kidney appearing than [facility] OT implied his TBI/personality seem to muddy the evaluation Preliminary Report: PelvicMR PRELIMINARY IMPRESSION: 1. Mild bilateral SI joint osteoarthritis is present. 2. No SI joint effusion or adjacent bone marrow edema is present to suggest active inflammation. CT from outpatient eval 2 days ago reviewed. no obvious kidney stone but obvious bladder stone identified. No hydro. no obstructing stone. CBC reflects a mild leukocytosis. Up to 12.8 from 2 days ago. Platelet count is normal. Hemoglobin is normal. Electrolytes, renal function, lactate, phosphorus and magnesium are all normal. Total bili, interestingly is mildly elevated but with normal LFTs. CRP is elevated from 2 days ago from undetectable to 2.2. Urine is pending Horton catheter in place Dark manny urine, blood tinged? Noted Objective: odd affect. makes jokes. seems to be managing pain well. anxiety about exercises and evaluation. Vitals: see above Lungs: Clear. Cardiac: S1S2. abdomen: benign. obese. tender along the right flank. Disposition/Potential discharge - Likely to return to previous living situation. Total time is 35 minutes with greater than 50% spent in counseling and coordination of care. Exam Const: Vital Signs, click to edit/add: Vital Signs - 24 hr 04/09/23 13:09 04/09/23 15:00 04/09/23 15:01 Temperature 97.6 F Pulse Rate 69 68 Pulse Rate [Right Pulse Oximeter] 69 Respiratory Rate 22 Blood Pressure 124/65 Blood Pressure [Le ft Upper Arm] 136/74 Blood Pressure [Ri ght Arm] Pulse Oximetry 95 91 93 Oxygen Delivery Me thod Room Air 04/09/23 15:02 04/09/23 15:14 04/09/23 15:15 Temperature 98.4 F Pulse Rate 70 74 Pulse Rate [Right Pulse Oximeter] Respiratory Rate Blood Pressure Blood Pressure [Le ft Upper Arm] Blood Pressure [Ri ght Arm] Pulse Oximetry 94 94 Oxygen Delivery Me thod 04/09/23 15:30 04/09/23 15:32 04/09/23 15:45 Temperature Pulse Rate 69 70 70 Pulse Rate [Right Pulse Oximeter] Respiratory Rate Blood Pressure 129/69 Blood Pressure [Le ft Upper Arm] Blood Pressure [Ri ght Arm] Pulse Oximetry 94 95 95 Oxygen Delivery Me thod 04/09/23 16:00 04/09/23 16:01 04/09/23 16:15 Temperature Pulse Rate 65 67 70 Pulse Rate [Right Pulse Oximeter] Respiratory Rate Blood Pressure 126/65 Blood Pressure [Le ft Upper Arm] Blood Pressure [Ri ght Arm] Pulse Oximetry 92 95 92 Oxygen Delivery Me thod 04/09/23 16:30 04/09/23 16:32 04/09/23 17:40 Temperature Pulse Rate 68 70 72 Pulse Rate [Right Pulse Oximeter] Respiratory Rate Blood Pressure 127/65 Blood Pressure [Le ft Upper Arm] Blood Pressure [Ri ght Arm] Pulse Oximetry 93 95 96 Oxygen Delivery Me thod 04/09/23 17:41 04/09/23 17:41 04/09/23 17:45 Temperature 96.8 F L Pulse Rate 77 78 Pulse Rate [Right Pulse Oximeter] 75 Respiratory Rate 16 Blood Pressure 133/68 Blood Pressure [Le ft Upper Arm] 133/68 Blood Pressure [Ri ght Arm] Pulse Oximetry 92 95 92 Oxygen Delivery Me thod Room Air 04/09/23 18:00 04/09/23 18:01 04/09/23 18:15 Temperature Pulse Rate 72 72 73 Pulse Rate [Right Pulse Oximeter] Respiratory Rate Blood Pressure 132/62 Blood Pressure [Le ft Upper Arm] Blood Pressure [Ri ght Arm] Pulse Oximetry 93 95 97 Oxygen Delivery [facility] 04/09/23 18:30 04/09/23 18:32 04/09/23 18:45 Temperature Pulse Rate 75 69 72 Pulse Rate [Right Pulse Oximeter] Respiratory Rate Blood Pressure 124/69 Blood Pressure [Le ft Upper Arm] Blood Pressure [Ri ght Arm] Pulse Oximetry 97 95 98 Oxygen Delivery [facility] 04/09/23 19:00 04/09/23 19:01 04/09/23 19:16 Temperature 96.8 F L Pulse Rate 69 70 Pulse Rate [Right Pulse Oximeter] Respiratory Rate 18 Blood Pressure 129/71 Blood Pressure [Le ft Upper Arm] Blood Pressure [Ri ght Arm] Pulse Oximetry 96 97 Oxygen Delivery [facility] 04/09/23 20:57 04/09/23 23:00 04/09/23 23:00 Temperature 98.4 F Pulse Rate Pulse Rate [Right Pulse Oximeter] 78 79 Respiratory Rate 18 18 18 Blood Pressure Blood Pressure [Le ft Upper Arm] Blood Pressure [Ri ght Arm] 138/71 Pulse Oximetry 97 94 Oxygen Delivery [facility] Room Air Room Air 04/09/23 23:00 04/10/23 03:00 Temperature 98.4 F 98.6 F Pulse Rate Pulse Rate [Right Pulse Oximeter] 79 77 Respiratory Rate 18 18 Blood Pressure Blood Pressure [Le ft Upper Arm] Blood Pressure [Ri ght Arm] 137/78 122/80 Pulse Oximetry 94 96 Oxygen Delivery [facility] Room Air Room Air Labs Labs: Laboratory Results - last 24 hr 04/10/23 06:10 WBC 12.81 H RBC 4.67 Hgb 13.4 L Hct 42.3 MCV 91 MCH 29 MCHC 32 RDW Coeff of Gabe 14.4 Plt Count 267 Neut % (Auto) 82.4 H Lymph % (Auto) 9.2 L Orange % (Auto) 7.8 Eos % (Auto) 0.3 Baso % (Auto) 0.1 Neut # (Auto) 10.60 H Lymph # (Auto) 1.20 Orange # (Auto) 1.00 H Eos # (Auto) 0.00 Baso # (Auto) 0.00 Abs Immat Gran (auto) 0.00 Imm/Tot Granulo (auto) 0.2 Sodium 136 Potassium 4.1 Chloride 105 Carbon Dioxide 21 BUN 20 Creatinine 0.8 Estimated Creat Clear 69.91 Estimated GFR 91 Glucose 101 Lactate 1.1 Calcium 8.4 Phosphorus 4.0 Magnesium 2.2 Total Bilirubin 1.9 H Direct Bilirubin 0.1 AST 25 ALT 27 Alkaline Phosphatase 45 C-Reactive Protein 2.2 H Total Protein 6.9 Albumin 3.9 TSH 3.270
[2023-04-10] MEDS: ACETAMINOPHEN 325 MG TABLET 650 MG PO ×3 (10:08→20:50)
[2023-04-10] MEDS: LOSARTAN POTASSIUM 50 MG TABLET 25 MG PO (10:10)
--- NOTE | 2023-04-10 10:10 | RESP.RT ---
Home CPAP set up at bedside. Unit, tubing, cord, nasal pillows, and water chamber found to be clean, and functioning. Patient does not use water in the summer months.
[2023-04-10] MEDS: TAMSULOSIN HCL 0.4 MG CAPSULE PO (10:11)
[2023-04-10] MEDS: APIXABAN 5 MG TABLET PO ×2 (10:11→20:52)
[2023-04-10] MEDS: AMLODIPINE 5 MG TABLET PO (10:12)
[2023-04-10] MEDS: SENNOSIDES/DOCUSATE TABLET 2 TAB PO ×2 (10:13→20:52)
[2023-04-10] MEDS: LIDOCAINE 5% PATCH 1 PATCH TRANSDERMA (10:13)
[2023-04-10] MEDS: IBUPROFEN 400 MG TABLET PO (10:14)
[2023-04-10] MEDS: OMEPRAZOLE 20 MG CAPSULE DR PO (10:19)
[2023-04-10] MEDS: SODIUM CHLORIDE 0.9 % (FLUSH) 10 ML SYRINGE 5 ML IVF ×2 (10:56→20:52)
[2023-04-10] MEDS: 0.9 % SODIUM CHLORIDE 1000 ml 1,000 ML 500 ML IV (11:25)
[2023-04-10] MEDS: ONDANSETRON ODT 4 MG TAB PO (11:58)
[2023-04-10] MEDS: bisacodyL 10 MG SUPP.RECT PR (13:00)
[2023-04-10 13:12] LABS: Appearance Urine Slightly Cloudy (Clear); Bilirubin Urine 1+ (Negative); Blood Urine 3+ (Negative); Color Urine Yellow (Yellow); Glucose Urine Negative (Negative); Ketones Urine 1+ (Negative); Leukocyte Esterase Urine Trace (Negative); Nitrite Urine Negative (Negative); Protein Urine 2+ (Negative); Specific Gravity Urine >= 1.030 (1.000-1.030); Urobilinogen Urine 0.2 (0.2-1.0); pH Urine 5.5 (5.0-8.5)
[2023-04-10 13:45] LABS: Bacteria Urine Few; Squamous Epithelial Cell Urine Few (None-Few)
[2023-04-10] MEDS: TIZANIDINE HCL 4 MG TABLET 2 MG PO ×2 (14:36→20:51)
[2023-04-10 14:38] LABS: Lipase* 633 U/L (23-300)
[2023-04-10 14:39] LABS: Uric Acid* 4.9 mg/dL (2.2-8.4)
--- NOTE | 2023-04-10 16:11 | PC.NURSE ---
Pt was supine at initial assessment, pain 3-4 at rest however 8 with movement. Please see eMar for meds provided on day shift for comfort. 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 Dtr Soo and Pat present and supportive at bedside for hospitalist's rounds. Pt received a 1000cc fluid bolus over 2 hours (500cc/hr), RN emptied ricks for 450cc. Urine sample obtained from fresh urine using catheter port. Pt up to walk in room with PT and sat up in recliner for 1 hour and 15 minutes. Initially he c/o dizziness and mild nausea. VS check 127/80, HR 66 and oxygen sats 96% when pt sitting up. Encouraged pt to take slow deep breaths, reassurance provided. Pt did have 500cc of white colored emesis (he had two ice creams for bkfst). Pt treated with zofran ODT w/ relief of symptoms. Pt was later able to tolerate 100 % of his lunch, you were right about me needing to get up, I'm feeling better now. Pt rating his right lower back pain 5 out of 10. MRI screening form completed along with radiology passport. Pt will need to have his lidoderm patch and hearing aides removed for the MRI at 1930 this evening. Small BM after dulcolax supp given. Report to oncoming shift Lesly FRAGOSO.
--- NOTE | 2023-04-10 19:30 | CRLHL7_ITS ---
For Patients: As a result of the Century Cures Act, medical imaging exams and procedure reports are released immediately into your electronic medical record. You may view this report before your referring provider. If you have questions, please contact your health care provider. INDICATION: Elevated bilirubin. FINDINGS: Transabdominal imaging. Visualized pancreas is normal. Aorta not aneurysmal. IVC is patent. Liver echotexture is normal. Gallbladder is mildly distended. No wall thickening. No sonographic Torres`s sign. Common bile duct 4 mm at the minerva hepatis. Right kidney 10.5 cm in length. Tiny exophytic cyst. IMPRESSION: Gallbladder maybe slightly distended but otherwise unremarkable. Dictated by Richard Gregg MD @ 04/10/2023 10:55:29 PM (Electronically Signed)
[2023-04-10] MEDS: ROSUVASTATIN CALCIUM 10 MG TABLET 40 MG PO (20:51)
[2023-04-10] MEDS: DONEPEZIL 10 MG TABLET PO (20:51)
[2023-04-11 03:00] VITALS: BP 129/73; PULSE 65; RESP 18; TEMP 36.6; O2SAT 95
[2023-04-11] MEDS: OMEPRAZOLE 20 MG CAPSULE DR PO (06:38)
[2023-04-11] MEDS: OXYCODONE 5 MG TABLET PO (06:38)
--- NOTE | 2023-04-11 06:47 | PC.NURSE ---
Pt is doing well with A1, walker and GB. Pain level overnight have been minimal requiring no medication. Except this morning at 0630 where pt complained of back pain of about 7. Oxycodone 5mg given. No SoB, N/V noted. Vitally stable.
[2023-04-11 06:48] LABS: HCO3 VBG 24 mmol/L (21-28); PCO2 VBG 37 mmHG (40-50); PO2 VBG 61.5 mmHG (25-47); pH VBG 7.418 (7.32-7.43)
[2023-04-11 06:57] LABS: Basophils Absolute Auto 0.02 K/uL (0.00-0.30); Basophils Percent Auto 0.2 % (0.0-3.0); Eosinophils Absolute Auto 0.24 K/uL (0.00-0.50); Eosinophils Percent Auto 2.5 % (0.0-7.0); Hematocrit 41.5 % (37.0-53.0); Hemoglobin* 13.2 gm/dL (13.5-17.5); Immature Granulocytes Abs Auto 0.01 K/uL (0.00-0.30); Immature Granulocytes Pct Auto 0.1 %; Lymphocytes Percent Auto 17.1 % (20-44); Mean Corpuscular HGB Conc 32 gm/dL (32-36); Mean Corpuscular Hemoglobin 29 pg (26-34); Mean Corpuscular Volume 91 fL (80-100); Monocytes Percent Auto 9.1 % (0.0-11.0); Neutrophils Absolute Auto 6.88 K/uL (1.7-7.0); Platelet Count* 285 K/uL (140-440); RDW Coefficient of Variation % 14.3 % (11.5-15.5); Red Blood Count 4.56 m/uL (4.30-5.90); White Blood Count* 9.69 K/uL (4.50-11.00)
[2023-04-11 07:01] LABS: Slide Review Reflex No
[2023-04-11 07:23] LABS: Albumin* 3.5 g/dL (3.3-5.0); Chloride* 106 mmol/L (96-114); Sodium* 137 mmol/L (135-149)
[2023-04-11 07:25] LABS: Creatinine* 0.7 mg/dL (0.5-1.5); Est. Creatinine Clearance* 69.91; Estimated Glomerular Filt Rate 95 ml/min
[2023-04-11 07:26] LABS: Alanine Aminotransferase* 24 U/L (4-50); Alkaline Phosphatase* 42 U/L (40-150); Aspartate Amino Transferase* 26 U/L (12-35); Bilirubin Total* 0.9 mg/dL (0.1-1.5); Blood Urea Nitrogen* 19 mg/dL (7-30); Calcium* 8.2 mg/dL (8.4-10.6); Carbon Dioxide* 22 mmol/L (20-32); Glucose* 102 mg/dL (60-115); Lipase* 637 U/L (23-300); Total Protein* 6.4 g/dL (6.0-8.3)
[2023-04-11 07:29] LABS: C Reactive Protein* 1.1 mg/dL (0.5-1.0)
[2023-04-11 07:50] VITALS: BP 141/86; PULSE 64; RESP 18; TEMP 36.8; O2SAT 96
[2023-04-11] MEDS: TIZANIDINE HCL 4 MG TABLET 2 MG PO ×3 (08:03→21:24)
[2023-04-11] MEDS: ACETAMINOPHEN 325 MG TABLET 650 MG PO ×4 (08:03→21:25)
[2023-04-11] MEDS: SENNOSIDES/DOCUSATE TABLET 2 TAB PO ×2 (09:58→21:25)
[2023-04-11] MEDS: AMLODIPINE 5 MG TABLET PO (09:59)
[2023-04-11] MEDS: LIDOCAINE 5% PATCH 1 PATCH TRANSDERMA (09:59)
[2023-04-11] MEDS: APIXABAN 5 MG TABLET PO ×2 (10:00→21:25)
[2023-04-11] MEDS: TAMSULOSIN HCL 0.4 MG CAPSULE PO (10:00)
[2023-04-11] MEDS: LOSARTAN POTASSIUM 50 MG TABLET 25 MG PO (10:01)
[2023-04-11] MEDS: SODIUM CHLORIDE 0.9 % (FLUSH) 10 ML SYRINGE 5 ML IVF ×2 (10:02→21:25)
--- NOTE | 2023-04-11 10:28 | CRLHL7_ITS ---
For Patients: As a result of the Century Cures Act, medical imaging exams and procedure reports are released immediately into your electronic medical record. You may view this report before your referring provider. If you have questions, please contact your health care provider. INDICATION: Right lower extremity pain and weakness. TECHNIQUE: Multiplanar multisequence noncontrast MR images acquired through the thoracic spine. COMPARISON: CT abdomen pelvis 04/08/2023. FINDINGS: Mild rightward thoracic curvature. Mildly exaggerated thoracic kyphosis. Mild chronic anterior wedging of the T3 and T7 through the T11 vertebral bodies. No acute fracture or spondylolisthesis. No T1 hypointense marrow replacing lesions or significant marrow edema. The thoracic cord is normal and signal intensity. Diffuse disc degeneration. Mild to moderate multilevel facet arthropathy contributing up to [id number]-bj-fnwbymab neural foraminal narrowing on the right at T10-11. No spinal canal or neural foraminal stenosis. IMPRESSION: 1. Multilevel thoracic spondylosis without spinal canal or neural foraminal stenosis. 2. Mildly exaggerated thoracic kyphosis and mild rightward thoracic curvature. Dictated by Raymond Self MD @ 04/11/2023 9:38:02 PM (Electronically Signed)
--- NOTE | 2023-04-11 10:28 | CRLHL7_ITS ---
For Patients: As a result of the Century Cures Act, medical imaging exams and procedure reports are released immediately into your electronic medical record. You may view this report before your referring provider. If you have questions, please contact your health care provider. INDICATION: Right lower extremity pain and weakness. TECHNIQUE: Multiplanar multisequence noncontrast MR images acquired through the lumbar spine. COMPARISON: CT abdomen pelvis 04/08/2023. FINDINGS: The lumbar lordosis is preserved. Slight biconvex lumbar curvature. Vertebral heights maintained. No acute fracture or spondylolisthesis. No T1 hypointense marrow replacing lesions. Normal conus terminates at L1-2. Mild edema within the L5 superior endplate ventrally, likely representing a stress response. T12-L1: Moderate disc degeneration. No spinal canal or neural foraminal narrowing. L1-2: Moderate disc degeneration. Mild facet arthropathy. No spinal canal or neural foraminal narrowing. L2-3: Moderate disc degeneration. Circumferential disc bulge. Ventral annular fissure. Mild facet arthropathy. Minimal spinal canal narrowing. No neural foraminal narrowing. L3-4: Moderate disc degeneration. Circumferential disc bulge. Mild facet arthropathy. No spinal canal or neural foraminal narrowing. L4-5: Moderate disc degeneration. Mild disc height loss. Segmental disc bulge. Mild right left and mild right facet arthropathy. Thickening ligamentum flavum. Mild spinal canal narrowing. Moderate narrowing of the left greater than right lateral recesses. Mild bilateral neural foraminal narrowing. L5-S1: Moderate disc degeneration. Shallow broad-based central disc protrusion. Pbtd-md-dhgunbms facet arthropathy. No spinal canal narrowing. Mild narrowing of the lateral recesses. No neural foraminal narrowing. Sacroiliac joint degenerative changes. IMPRESSION: 1. Multilevel lumbar spondylosis without spinal canal or neural foraminal stenosis. 2. At L4-5, moderate narrowing of the left greater than right lateral recesses. Mild narrowing of the spinal canal and neural foramina. Dictated by Raymond Self MD @ 04/11/2023 9:44:14 PM (Electronically Signed)
[2023-04-11 11:45] VITALS: BP 129/98; PULSE 62; RESP 18; TEMP 36.8; O2SAT 97
--- NOTE | 2023-04-11 14:09 | P.IMPN_ITS ---
Progress Note: A&P Assessment and plan (1) Weakness: Problem details: - multifocal: hx of TBI/dementia/falls and new dx of bladder stone, flank pain - bilirubin has normalized, mildly contracted GB on ultrasound (normal on CT). Reviewed case with General Surgery, no need for acute intervention at this time, follow - MRI of T-spine and L-spine ordered 04/11 - therapies following Status: Acute (2) Flank pain: Problem details: - ddx: UTI, nephrolithiasis, cholelithiasis, musculoskeletal process - no evidence of systemic infection at this time, MRIs ordered to better evaluate Status: Acute (3) Constipation: Problem details: - on bowel regimen Status: Acute (4) Acute urinary retention: Problem details: - Horton urethral catheter placed 04/08/2023 Status: Acute (5) Bladder stone: Problem details: - 25 mm stone noted on assessment 04/08/2023 Status: Acute (6) S/P ablation of atrial fibrillation: Problem details: - sinus rhythm, anticoagulated on Apixiban Status: Acute Plan - per above - Apixaban for ppx - dispo pending therapy recommendations and MRI results - and daughter updated at bedside, questions answered Subjective Date Seen: 04/11/23 Interval history: Guillermo is seen with and daughter in room today. He continues to have R sided flank pain, worse with movement. No postprandial symptoms. Tolerating catheter, unsure about continence status given catheter placement. Labs and VS are stable (bilirubin has normalized). 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 and intrinsic hand muscles Psych: Appropriate for TBI history Const: Vital Signs, click to edit/add: Vital Signs - 24 hr 04/10/23 15:00 04/10/23 15:00 04/10/23 15:00 Temperature 98.3 F Pulse Rate [Left A pical] Pulse Rate [Right Pulse Oximeter] 78 78 Respiratory Rate 18 18 18 Blood Pressure [Ri ght Arm] 146/76 H Pulse Oximetry 96 96 Oxygen Delivery Me thod Room Air Room Air 04/10/23 19:00 04/10/23 23:00 04/10/23 23:00 Temperature 98.1 F Pulse Rate [Left A pical] 62 66 Pulse Rate [Right Pulse Oximeter] 78 Respiratory Rate 18 18 18 Blood Pressure [Ri ght Arm] 116/69 Pulse Oximetry 96 97 Oxygen Delivery Me thod Room Air Room Air 04/10/23 23:00 04/11/23 03:00 04/11/23 07:50 Temperature 98.6 F 98 F Pulse Rate [Left A pical] 66 65 Pulse Rate [Right Pulse Oximeter] 78 Respiratory Rate 18 18 18 Blood Pressure [Ri ght Arm] 119/68 129/73 Pulse Oximetry 97 95 96 Oxygen Delivery Me thod Room Air Room Air Room Air 04/11/23 07:50 Temperature 98.2 F Pulse Rate [Left A pical] 64 Pulse Rate [Right Pulse Oximeter] 64 Respiratory Rate 18 Blood Pressure [Ri ght Arm] 141/86 H Pulse Oximetry 96 Oxygen Delivery Me thod Room Air Labs Labs: Laboratory Results - last 24 hr 04/10/23 04/10/23 04/11/23 06:10 14:26 06:06 WBC 9.69 RBC 4.56 Hgb 13.2 L Hct 41.5 MCV 91 MCH 29 MCHC 32 RDW Coeff of Gabe 14.3 Plt Count 285 Neut % (Auto) 71.0 Lymph % (Auto) 17.1 L [place] % (Auto) 9.1 Eos % (Auto) 2.5 Baso % (Auto) 0.2 Neut # (Auto) 6.88 Lymph # (Auto) 1.70 [place] # (Auto) 0.90 Eos # (Auto) 0.24 Baso # (Auto) 0.02 Abs Immat Gran (auto) 0.01 Imm/Tot Granulo (auto) 0.1 VBG pH 7.418 VBG pCO2 37 L VBG pO2 61.5 H VBG HCO3 24 Sodium 137 Potassium 4.0 Chloride 106 Carbon Dioxide 22 BUN 19 Creatinine 0.7 Estimated Creat Clear 69.91 Estimated GFR 95 Glucose 102 Uric Acid 4.9 Calcium 8.2 L Magnesium 2.0 Total Bilirubin 0.9 AST 26 ALT 24 Alkaline Phosphatase 42 C-Reactive Protein 1.1 H Total Protein 6.4 Albumin 3.5 Lipase 633 H 637 H Lab Acknowledgement Test Added
--- NOTE | 2023-04-11 15:33 | PC.NURSE ---
Pt rated his back pain 6 out of 10 at initial assessment. Pain decreased to 4-5 out of 10 after pt received scheduled tylenol and prn tizanidine. Pt eval by PT, Oziel has been able to ambulate in hallway, sit in chair for both meals and tolerate a shower with RAJANI Casas's assistance. Katherin & dtr Soo present for [place] rounds. MRI pending for later today or tomorrow. Pt has declined oxycodone on day shift, he is aware it is available for break through pain. Denies dizziness or nausea. Pain rating his pain 3 out of 10 at shift change. Report to oncoming RN Amanda Marrero for evening shift.
[2023-04-11 15:42] LABS: Ammonia* < 9.0 umol/L (13.1-30.0)
[2023-04-11 16:00] VITALS: BP 127/72; PULSE 73; RESP 16; TEMP 36.6; O2SAT 95
[2023-04-11 19:05] VITALS: BP 151/84; PULSE 78; RESP 16; TEMP 36.7; O2SAT 96
[2023-04-11] MEDS: DONEPEZIL 10 MG TABLET PO (21:24)
[2023-04-11] MEDS: ROSUVASTATIN CALCIUM 10 MG TABLET 40 MG PO (21:25)
--- NOTE | 2023-04-11 22:22 | PC.NURSE ---
Shift [id number]- Patient appears satisfied with pain control, rating pain at 4/10. Daughter at bedside this afternoon and also states satisfaction with improvement. He requests to ambulate in the hallway, which is done with walker, gait belt and assist of 1. Appetite intact. Lidocaine patch removed prior to MRI.
[2023-04-11 23:00] VITALS: BP 124/79; PULSE 69; RESP 16; TEMP 37.1; O2SAT 95
[2023-04-12 03:00] VITALS: PULSE 69; PULSE 79; RESP 16; TEMP 36.9; O2SAT 97
[2023-04-12 05:08] LABS: Procalcitonin* 0.07 ng/mL (<0.50)
--- NOTE | 2023-04-12 06:22 | PC.NURSE ---
Shift note: Pt continue to use CPAP at night. Confirmed pain level has been low. No PRN medication requested. Alert and oriented. Assist of 1, walker and GB. Pt had adequate sleep. Vitally stable.
[2023-04-12] MEDS: OXYCODONE 5 MG TABLET PO (06:43)
[2023-04-12] MEDS: OMEPRAZOLE 20 MG CAPSULE DR PO (06:44)
[2023-04-12 07:04] LABS: Basophils Absolute Auto 0.01 K/uL (0.00-0.30); Basophils Percent Auto 0.1 % (0.0-3.0); Eosinophils Absolute Auto 0.29 K/uL (0.00-0.50); Eosinophils Percent Auto 3.4 % (0.0-7.0); Hematocrit 43.8 % (37.0-53.0); Hemoglobin* 13.9 gm/dL (13.5-17.5); Immature Granulocytes Abs Auto 0.02 K/uL (0.00-0.30); Immature Granulocytes Pct Auto 0.2 %; Lymphocytes Percent Auto 14.4 % (20-44); Mean Corpuscular HGB Conc 32 gm/dL (32-36); Mean Corpuscular Hemoglobin 29 pg (26-34); Mean Corpuscular Volume 90 fL (80-100); Monocytes Percent Auto 8.5 % (0.0-11.0); Neutrophils Percent Auto 73.4 % (42.0-72.0); Platelet Count* 321 K/uL (140-440); RDW Coefficient of Variation % 14.5 % (11.5-15.5); Red Blood Count 4.85 m/uL (4.30-5.90); White Blood Count* 8.54 K/uL (4.50-11.00)
[2023-04-12 07:16] LABS: Chloride* 107 mmol/L (96-114); Slide Review Reflex No
[2023-04-12 07:17] LABS: Albumin* 3.6 g/dL (3.3-5.0); Potassium* 3.6 mmol/L (3.6-5.1); Sodium* 140 mmol/L (135-149)
[2023-04-12 07:19] LABS: Bilirubin Total* 0.8 mg/dL (0.1-1.5); Creatinine* 0.7 mg/dL (0.5-1.5); Est. Creatinine Clearance* 69.91; Estimated Glomerular Filt Rate 95 ml/min
[2023-04-12 07:20] LABS: Alanine Aminotransferase* 24 U/L (4-50); Alkaline Phosphatase* 47 U/L (40-150); Aspartate Amino Transferase* 22 U/L (12-35); Blood Urea Nitrogen* 18 mg/dL (7-30); Calcium* 8.6 mg/dL (8.4-10.6); Carbon Dioxide* 24 mmol/L (20-32); Glucose* 108 mg/dL (60-115); Total Protein* 6.6 g/dL (6.0-8.3)
[2023-04-12 07:59] VITALS: BP 171/86; PULSE 86; RESP 18; TEMP 37.5; O2SAT 94
[2023-04-12 08:10] VITALS: RESP 18; O2SAT 94
[2023-04-12] MEDS: LIDOCAINE 5% PATCH 1 PATCH TRANSDERMA (09:36)
[2023-04-12] MEDS: APIXABAN 5 MG TABLET PO (09:37)
[2023-04-12] MEDS: SENNOSIDES/DOCUSATE TABLET 2 TAB PO (09:37)
[2023-04-12] MEDS: TAMSULOSIN HCL 0.4 MG CAPSULE PO (09:37)
[2023-04-12] MEDS: LOSARTAN POTASSIUM 50 MG TABLET 25 MG PO (09:37)
[2023-04-12] MEDS: ACETAMINOPHEN 325 MG TABLET 650 MG PO (09:38)
[2023-04-12] MEDS: AMLODIPINE 5 MG TABLET PO (09:38)
[2023-04-12 11:00] VITALS: BP 185/89; PULSE 67; RESP 18; TEMP 36.5; O2SAT 96
--- NOTE | 2023-04-12 12:33 | PC.SOCIAL ---
Met with pt and pt's to discuss discharge plans. Pt's informs that pt's daughter is cautious about pt going home and wanted transitional care for about 2 days. Discussed financial situation and informed that they would have to private pay for SNF. OT was in room and discussed with on pt's progresss with PT and OT. Pt is doing well with all cares and contact guard assist with transfers. Discussed mobile home mechanic care with pt and pt's . is interested in getting a copy of the list for mobile home mechanic care, so she can reach out to the agencies. Pt's discussed with daughter on the phone. Daughter will go to the home and set things up. informs that she does not want to private pay for a SNF and would like to take pt home. will reach out to mobile home mechanic care options. Provided update to nursing and MD. Provided pt's with mobile home mechanic care options. Social work will follow up as needed.
--- NOTE | 2023-04-12 15:22 | P.DS_ITS ---
DS: Providers Provider Date Seen: 04/12/23 Date of admission: 04/09/23 20:18 Primary care physician: Karan Mirza MD Admitting Clinician: Delvis Rosales MD Consults: OT, PT Attending Physician on discharge: Indira Dodson MD Date of Discharge: 04/12/23 DS: Diagnosis Discharge Diagnosis (1) Weakness: Status: Acute Problem details: - multifocal: hx of TBI/dementia/falls and new dx of bladder stone, flank pain - MRI of T-spine and L-spine revealed no acute abnormalities - therapies followed during stay, patient appropriate for discharge home with outpatient therapy follow-up on 04/12/23 (2) Flank pain: Status: Acute Problem details: - ddx: UTI, constipation, nephrolithiasis, cholelithiasis, musculoskeletal process - no evidence of systemic infection during stay - urine culture remained negative, imaging revealed no acute process - patient improved and felt comfortable with discharge on hospital day 3 (3) Constipation: Status: Acute Problem details: - on bowel regimen (4) Acute urinary retention: Status: Acute Problem details: - Horton urethral catheter placed 04/08/2023 - follow-up with Urology scheduled upon discharge (5) Bladder stone: Status: Acute Problem details: - 25 mm stone noted on assessment 04/08/2023 (6) S/P ablation of atrial fibrillation: Status: Acute Problem details: - sinus rhythm, anticoagulated on Apixiban DS: Summary Hospital Course Hospital Course: Guillermo is a very pleasant 77-year-old male who was admitted to the hospital on 04/09 for right-sided flank pain and weakness. He had been seen in the emergency room the night before for new onset urinary retention, and had a Horton placed. During that evaluation, a stone in the bladder with incidentally discovered. During stay, no obvious source for pain or weakness identified (patient had MRI of bilateral SI joints, MRI of T-spine and L-spine, abdominal CT and ultrasound, urine culture). He improved with therapies and a lidocaine patch for pain management and was medically appropriate for discharge home on 04/12. and daughter both have chronic medical conditions that limit their ability to assist at home, social work consulted to help with discharge planning, short term SNF stay ultimately deferred. He will be discharged home with family; recommend short interval follow-up with PCP and urologist (Horton left in upon discharge). Status at Discharge Functional status at discharge: uses cane/walker Overall status at discharge: patient is progressing back to baseline Time Spent with Patient Time attestation: Total time spent providing and/or coordinating discharge services: Time spent: Greater than 30 minutes Specific discharge activities: Medication reconciliation, discharge Education Exam Narrative: Exam Narrative: GEN: Alert HEENT: Normal external ears, EOMIs bilaterally, no scleral icterus CV: RRR, No concerning murmurs R: LCTA bilaterally, breathing comfortably Ext: wwp, no concerning edema Skin: No concerning skin lesions or rashes on exposed skin Neuro: Nonfocal, patient was seen ambulating in the halls with PT and appeared significantly improved Psych: Appropriate for TBI history Const: Vital Signs, click to edit/add: Vital Signs - 24 hr 04/11/23 16:00 04/11/23 16:00 04/11/23 19:05 Temperature 98 F 98.1 F Pulse Rate [Left A pical] 73 78 Pulse Rate [Right Pulse Oximeter] Respiratory Rate 16 16 Blood Pressure [Ri ght Arm] 127/72 151/84 H Pulse Oximetry 95 95 96 Oxygen Delivery Me thod Room Air Room Air Room Air 04/11/23 23:00 04/11/23 23:00 04/12/23 03:00 Temperature 98.7 F 98.4 F Pulse Rate [Left A pical] 79 Pulse Rate [Right Pulse Oximeter] 69 69 Respiratory Rate 16 16 16 Blood Pressure [Ri ght Arm] 124/79 Pulse Oximetry 95 95 97 Oxygen Delivery Me thod Room Air Room Air Room Air 04/12/23 07:59 04/12/23 08:10 04/12/23 11:00 Temperature 99.5 F 97.7 F Pulse Rate [Left A pical] 86 Pulse Rate [Right Pulse Oximeter] 67 Respiratory Rate 18 18 18 Blood Pressure [Ri ght Arm] 171/86 H 185/89 H Pulse Oximetry 94 94 96 Oxygen Delivery Me thod Room Air Room Air Room Air DS: Data Data Completed and Pending Completed studies during hospitalization: T Spine MRI FINDINGS: Mild rightward thoracic curvature. Mildly exaggerated thoracic kyphosis. Mild chronic anterior wedging of the T3 and T7 through the T11 vertebral bodies. No acute fracture or spondylolisthesis. No T1 hypointense marrow replacing lesions or significant marrow edema. The thoracic cord is normal and signal intensity. Diffuse disc degeneration. Mild to moderate multilevel facet arthropathy contributing up to [id number] neural foraminal narrowing on the right at T10-11. No spinal canal or neural foraminal stenosis. IMPRESSION: 1. Multilevel thoracic spondylosis without spinal canal or neural foraminal stenosis. 2. Mildly exaggerated thoracic kyphosis and mild rightward thoracic curvature. Dictated by Raymond Self MD @ 04/11/2023 9:38:02 PM L SPINE MRI FINDINGS: The lumbar lordosis is preserved. Slight biconvex lumbar curvature. Vertebral heights maintained. No acute fracture or spondylolisthesis. No T1 hypointense marrow replacing lesions. Normal conus terminates at L1-2. Mild edema within the L5 superior endplate ventrally, likely representing a stress response. T12-L1: Moderate disc degeneration. No spinal canal or neural foraminal narrowing. L1-2: Moderate disc degeneration. Mild facet arthropathy. No spinal canal or neural foraminal narrowing. L2-3: Moderate disc degeneration. Circumferential disc bulge. Ventral annular fissure. Mild facet arthropathy. Minimal spinal canal narrowing. No neural foraminal narrowing. L3-4: Moderate disc degeneration. Circumferential disc bulge. Mild facet arthropathy. No spinal canal or neural foraminal narrowing. L4-5: Moderate disc degeneration. Mild disc height loss. Segmental disc bulge. Mild right left and mild right facet arthropathy. Thickening ligamentum flavum. Mild spinal canal narrowing. Moderate narrowing of the left greater than right lateral recesses. Mild bilateral neural foraminal narrowing. L5-S1: Moderate disc degeneration. Shallow broad-based central disc protrusion. [id number]-hk-[id number] facet arthropathy. No spinal canal narrowing. Mild narrowing of the lateral recesses. No neural foraminal narrowing. Sacroiliac joint degenerative changes. IMPRESSION: 1. Multilevel lumbar spondylosis without spinal canal or neural foraminal stenosis. 2. At L4-5, moderate narrowing of the left greater than right lateral recesses. Mild narrowing of the spinal canal and neural foramina. Dictated by Raymond Self MD @ 04/11/2023 9:44:14 PM Labs on day of discharge: Labs from last 24 hours 04/12/23 04/11/23 04/11/23 06:21 15:04 06:06 WBC 8.54 RBC 4.85 Hgb 13.9 Hct 43.8 MCV 90 MCH 29 MCHC 32 RDW Coeff of Gabe 14.5 Plt Count 321 Neut % (Auto) 73.4 H Lymph % (Auto) 14.4 L [place] % (Auto) 8.5 Eos % (Auto) 3.4 Baso % (Auto) 0.1 Neut # (Auto) 6.30 Lymph # (Auto) 1.20 [place] # (Auto) 0.70 Eos # (Auto) 0.29 Baso # (Auto) 0.01 Abs Immat Gran (auto) 0.02 Imm/Tot Granulo (auto) 0.2 Sodium 140 Potassium 3.6 Chloride 107 Carbon Dioxide 24 BUN 18 Creatinine 0.7 Estimated Creat Clear 69.91 Estimated GFR 95 Glucose 108 Calcium 8.6 Total Bilirubin 0.8 AST 22 ALT 24 Alkaline Phosphatase 47 Ammonia < 9.0 L Total Protein 6.6 Albumin 3.6 Procalcitonin 0.07 Discharge Plan Discharge Disposition: Home, Self-Care Date of Admission: 04/09/23 20:18 Attending Provider on Discharge: Indira Dodson Primary Care Provider: Karan Mirza Condition: Improved Anticipated Discharge Date/Time: 04/12/23 13:09 Discharge Medications: New tizanidine 4 mg Tablet 2 mg PO DAILY PRNQty: 30 0RF sennosides-docusate sodium [Stool Softener-Laxative] 8.6-50 mg Tablet 2 tab PO BID Qty: 20 0RF amlodipine 5 mg Tablet 5 mg PO DAILY Qty: 30 0RF oxycodone 5 mg Tablet 2.5 - 5 mg PO Q6H PRNQty: 20 0RF lidocaine [Lidoderm] 5 % Adhesive Patch,Medicated 1 patch transdermal DAILY Qty: 30 0RF Continued rosuvastatin 40 mg tablet 40 mg PO HS tamsulosin 0.4 mg capsule 0.4 mg PO DAILY donepezil 10 mg tablet 10 mg PO HS losartan 25 mg tablet 25 mg PO DAILY cyanocobalamin (vitamin B-12) 1,000 mcg capsule 1,000 mcg PO DAILY lutein 20 mg capsule 20 mg PO DAILY Eliquis 5 mg tablet 5 mg PO BID Discontinued amlodipine 2.5 mg tablet 2.5 - 5 mg PO BID Rx Instructions: 2 TABS IN AM AND 1 TAB IN PM sulfamethoxazole-trimethoprim 800-160 mg tablet 1 tab PO BID oxycodone 5 mg tablet 5 mg PO QID PRN (Reason: pain) Qty: 30 0RF Discharge Orders: Discharge Order (Routine); Ordered 04/12/23 Ordered By: Indira Dodson Patient Education: Laxative, Stimulant (By mouth), Oxycodone, Rapid Release (By mouth), Amlodipine (By mouth), Tizanidine (By mouth), Acute Low Back Pain (GEN) Additional Instructions: Consider seeing Dr. Kumar for your back symptoms (he's at [facility]). We will set up a Urology appt for followup - keep catheter in for now. See PT and OT as an outpatient to help with continued strengthening. Activity Level: Activity as Tolerated and No strenuous activity Discharge Diet: Regular Follow Up Appointments: [place] [Other] - 04/19/23 8:30 am Darinel Corbin MD [Referring] - None (Please call [facility] at [phone] for FIRST AVAILABLE appt (any physician, any location) - for urinary retention (patient has catheter in place from hospital stay). See other appointment scheduled) Karan Mirza MD [Primary Care Provider] - 04/19/23 12:45 pm ([facility] and Clinic for postop.) Forms: [employer] Info Instructions
--- NOTE | 2023-04-12 16:24 | PC.NURSE ---
shift note: pt bp elevated. pt asymptomatic. Dr. Dodson aware. Pt received new ricks bag and leg bag. Leg bag attached to catheter prior to dc. No IV present at dc. pt states pain to lower back 0/[address] place. Reviewed personal belongings. Reviewed dc instructions. Copies of dc sent with pt. Belongings sent with pt. Charge nurse notified of pt needing walker at dc. Hospital PT walker sent with pt at dc and note per [facility] nurse given to PT to call pt and exchange walker for pt's personal walker 04/13/23. Pt instructed to continue with current Phy therapist on [facility].
== END 2023-04-12 16:28 | disposition home or self-care (01) ==
LOC: ED 19:11 → MEDSURG 20:19
PROVIDERS: Family Medicine; Admitting Provider Internal Medicine; Emergency Provider Emergency Medicine Emergency Medical Services; PCP Internal Medicine; Visit Provider Internal Medicine
DX: R33.8 Other retention of urine (principal); N21.0 Calculus in bladder; K59.00 Constipation, unspecified; R53.1 Weakness; N40.0 Benign prostatic hyperplasia without lower urinary tract symptoms; F02.80 Dementia in other diseases classified elsewhere, unspecified severity, without behavioral disturbance, psychotic disturbance, mood disturbance, and anxiety; G30.9 Alzheimer's disease, unspecified; I25.10 Atherosclerotic heart disease of native coronary artery without angina pectoris; I65.29 Occlusion and stenosis of unspecified carotid artery; I10 Essential (primary) hypertension; E78.5 Hyperlipidemia, unspecified; G47.33 Obstructive sleep apnea (adult) (pediatric); R39.15 Urgency of urination; R35.0 Frequency of micturition; R30.9 Painful micturition, unspecified; R30.0 Dysuria; Z72.820 Sleep deprivation; R53.83 Other fatigue; R10.9 Unspecified abdominal pain; M54.9 Dorsalgia, unspecified; Z79.01 Long term (current) use of anticoagulants; Z98.890 Other specified postprocedural states; Z98.52 Vasectomy status; Z99.89 Dependence on other enabling machines and devices; Z90.79 Acquired absence of other genital organ(s); Z97.4 Presence of external hearing-aid; Z96.0 Presence of urogenital implants; Z86.79 Personal history of other diseases of the circulatory system; Z86.73 Personal history of transient ischemic attack (TIA), and cerebral infarction without residual deficits; Z87.19 Personal history of other diseases of the digestive system; Z98.41 Cataract extraction status, right eye; Z98.42 Cataract extraction status, left eye; Z96.1 Presence of intraocular lens; Z95.5 Presence of coronary angioplasty implant and graft; Z86.69 Personal history of other diseases of the nervous system and sense organs; Z87.891 Personal history of nicotine dependence
CPT/HCPCS: 36415; 51701; 72146; 72148; 72195; 76705; 80048; 80053; 80076; 81001; 82140; 82803; 83605; 83690; 83735; 84100; 84145; 84443; 84550; 85025; 86140; 87086; 96361; 96374; 96375; 97110; 97116; 97162; 97165; 97530; 97535; 99284; 99285; A9270; G0378; J1170; J1885; J2405; J2765; J7030; J7120

== ENCOUNTER 2023-04-22 22:48 | Emergency (ER) | payer MEDICARE, SELFPAY ==
[2023-04-22 22:56] VITALS: BP 195/100; PULSE 100; RESP 18; TEMP 36.7; O2SAT 99; BMI 29.0
--- NOTE | 2023-04-22 23:01 | ED.MALEGU ---
HPI - Male Genitourinary General Chief complaint: Urogenital Problems, Male Stated complaint: Can't pee Time Seen by Provider: 04/22/23 22:49 History of Present Illness HPI Narrative: This 77-year-old male comes in with urinary retention. He had a Horton catheter in place until 2 days ago which time it was removed. He states he was able to urinate but has had less ability to do so since then. He comes in with some discomfort with bladder distension. He states currently he is unable to pass any urine. Initial bladder scan showed over 300 mL of urine in the bladder. He also has incidentally a 2.5 cm stone in the bladder. He is following with a urologist. He does not report any fever or other symptoms of dysuria. Related Data Home Medications Medication Instructions Recorded Confirmed donepezil 10 mg tablet 10 mg PO HS 07/24/22 04/19/23 rosuvastatin 40 mg tablet 40 mg PO HS 07/24/22 04/19/23 tamsulosin 0.4 mg capsule 0.4 mg PO DAILY 07/24/22 04/19/23 apixaban 5 mg tablet (Eliquis) 5 mg PO BID 08/04/22 04/19/23 losartan 25 mg tablet 25 mg PO DAILY 12/22/22 04/19/23 cyanocobalamin (vitamin B-12) 1,000 mcg PO DAILY 04/10/23 04/19/23 1,000 mcg capsule lutein 20 mg capsule 20 mg PO DAILY 04/10/23 04/19/23 Previous Rx's Medication Instructions Recorded amlodipine 5 mg tablet 5 mg PO DAILY #30 tabs 04/12/23 oxycodone 5 mg tablet 2.5 - 5 mg (0.5 - 1 x 5 mg) PO Q6H 04/12/23 PRN #20 tabs sennosides 8.6 mg-docusate sodium 2 tab PO BID #20 tabs 04/12/23 50 mg tablet (Stool Softener-Laxative) tizanidine 4 mg tablet 2 mg (1/2 x 4 mg) PO DAILY PRN #30 04/12/23 tabs cefuroxime axetil 500 mg tablet 500 mg PO BID 10 days #20 tabs 04/22/23 Allergies Allergy/AdvReac Type Severity Reaction Status Date / Time Iodinated Contrast Media Allergy Severe Anaphylaxis Verified 04/19/23 12:39 adhesive Allergy Mild Rash Verified 04/19/23 12:39 Penicillins Allergy Mild Rash Verified 04/19/23 12:39 methylphenidate AdvReac Unknown Verified 04/19/23 12:39 [From Ritalin] Review of Systems Status of ROS: Reports: 10 or more systems reviewed and unremarkable except as noted in History and below Narrative: Constitutional: No fevers, no weight gain or loss. Eyes: No discharge. No vision changes. HENT: No congestion, no sore throat, no ear pain. Cardiovascular: No chest pain, no palpitations. Respiratory: No shortness of breath, no wheezes, no cough. Gastrointestinal: No vomiting, no diarrhea. Abdominal discomfort from a distended bladder. Genitourinary: Urinary retention. Unable to void urine. Musculoskeletal: Normal range of motion. Skin: No rashes, no pruritis. Neurological: No dizziness, weakness, sensory change, speech change. Endo/Heme/Allergies: No bruising or bleeding. No polydipsia. Pysch: no suicidality, no anxiety, no insomnia. All other systems reviewed and are negative. [facility] Medical History (Updated 04/22/23 @ 23:24 by Mumtaz Parra MD) Bladder stone ?N21.0 - Calculus in bladder (ICD-10) Acute urinary retention ?R33.8 - Other retention of urine (ICD-10) Tear of lateral meniscus of left knee ?S83.282A - Other tear of lateral meniscus, current injury, left knee, initial encounter (ICD-10) Osteoarthritis of left knee ?M17.12 - Unilateral primary osteoarthritis, left knee (ICD-10) Acute sinusitis ?J01.90 - Acute sinusitis, unspecified (ICD-10) Sinus pressure ?J34.89 - Other specified disorders of nose and nasal sinuses (ICD-10) Renal cyst ?N28.1 - Cyst of kidney, acquired (ICD-10) Paroxysmal atrial fibrillation ?I48.0 - Paroxysmal atrial fibrillation (ICD-10) Chronic headache ?R51.9 - Headache, unspecified (ICD-10) ?G89.29 - Other chronic pain (ICD-10) Carotid artery stenosis ?I65.29 - Occlusion and stenosis of unspecified carotid artery (ICD-10) Wears hearing aid ?Z97.4 - Presence of external hearing-aid (ICD-10) Traumatic brain injury (1959) ?S06.9XAA - Unspecified intracranial injury with loss of consciousness status unknown, initial encounter (ICD-10) Obstructive sleep apnea syndrome ?G47.33 - Obstructive sleep apnea (adult) (pediatric) (ICD-10) Hyperlipidemia ?E78.5 - Hyperlipidemia, unspecified (ICD-10) History of alcoholism ?F10.21 - Alcohol dependence, in remission (ICD-10) Essential hypertension ?I10 - Essential (primary) hypertension (ICD-10) Erectile dysfunction ?N52.9 - Male erectile dysfunction, unspecified (ICD-10) Dementia ?F03.90 - Unspecified dementia, unspecified severity, without behavioral disturbance, psychotic disturbance, mood disturbance, and anxiety (ICD-10) Coronary artery disease (2018) ?I25.10 - Atherosclerotic heart disease of hughes coronary artery without angina pectoris (ICD-10) BPH (benign prostatic hyperplasia) ?N40.0 - Benign prostatic hyperplasia without lower urinary tract symptoms (ICD-10) Borderline diabetes mellitus ?R73.03 - Prediabetes (ICD-10) Attention deficit disorder ?F98.8 - Other specified behavioral and emotional disorders with onset usually occurring in childhood and adolescence (ICD-10) History of TIA (transient ischemic attack) (11/05/19) ?Z86.73 - Personal history of transient ischemic attack (TIA), and cerebral infarction without residual deficits (ICD-10) History of rheumatic fever as a child ?Z86.79 - Personal history of other diseases of the circulatory system (ICD-10) History of atrial fibrillation (2013) ?Z86.79 - Personal history of other diseases of the circulatory system (ICD-10) Surgical History S/P ablation of atrial fibrillation ?Z98.890 - Other specified postprocedural states (ICD-10) ?Z86.79 - Personal history of other diseases of the circulatory system (ICD-10) History of left inguinal hernia repair ?Z98.890 - Other specified postprocedural states (ICD-10) ?Z87.19 - Personal history of other diseases of the digestive system (ICD-10) History of repair of right rotator cuff (1996) ?Z98.890 - Other specified postprocedural states (ICD-10) History of phacoemulsification of cataract of both eyes with intraocular lens implantation (12/31/21) ?Z98.41 - Cataract extraction status, right eye (ICD-10) ?Z98.42 - Cataract extraction status, left eye (ICD-10) ?Z96.1 - Presence of intraocular lens (ICD-10) History of coronary artery stent placement (2017) ?Z95.5 - Presence of coronary angioplasty implant and graft (ICD-10) History of vasectomy ?Z98.52 - Vasectomy status (ICD-10) History of unilateral orchiectomy (1973) ?Z90.79 - Acquired absence of other genital organ(s) (ICD-10) History of umbilical hernia repair ?Z98.890 - Other specified postprocedural states (ICD-10) ?Z87.19 - Personal history of other diseases of the digestive system (ICD-10) History of nasal septoplasty (2008) ?Z98.890 - Other specified postprocedural states (ICD-10) History of left-sided carotid endarterectomy (2020) ?Z98.890 - Other specified postprocedural states (ICD-10) History of detached retina repair ?Z98.890 - Other specified postprocedural states (ICD-10) ?Z86.69 - Personal history of other diseases of the nervous system and sense organs (ICD-10) Social History What is your current living situation?: I presently have a place to live Problems where you live: no known problems Problems where you live details: n/a In the past 12 months, utilities in danger of being shut off: no In the past 12 mos, have been you worried that your food would run out before you had money to buy more?: never true In the past 12 mos, the food you bought just didn't last and you didn't have money to buy more?: never true Highest level of school completed/degree received: Associate degree: occupational, technical, vocational program Smoking Status: Never smoker Do you use any of these nicotine containing products: None Second hand tobacco smoke exposure: No How often do you have a drink containing alcohol: never How often do you have six or more drinks on one occasion: Never AUDIT-C Alcohol total score: 0 Non-prescribed substance use: denies use Caffeine: Yes How often does anyone, including family, friends and others, physically hurt you: never How often does anyone, including family, friends and others, insult or talk down to you: never How often does anyone, including family, friends and others, threaten you with harm: never How often does anyone, including family, friends and others, scream or curse at you: never Little interest or pleasure in doing things: not at all Feeling down, depressed, or hopeless: not at all service: No Exam Narrative: Exam Narrative: Constitutional: Well-developed, well-nourished, no acute distress. HEENT: Normocephalic, atraumatic. Neck: Normal range of motion. Nontender. Supple. Heart: Regular. No murmurs. Normal rate. Intact distal pulses. Lungs: Clear to auscultation. No chest discomfort. No wheezes, rhonchi, or rales. Abdomen: Normal bowel sounds. Distended lower abdomen due to urinary retention. Genitalia: Deferred. Back: No midline tenderness. Normal range of motion. Extremities: Normal range of motion. No injury. Skin: Intact. No rash. Warm. No erythema or pallor. Neurologic: No altered sensation. No weakness. Alert and oriented. Psychiatric: No suicidality. No anxiety or depression. No insomnia. Nursing notes and vitals signs are reviewed. Const: Vital Signs, click to edit/add: Vital Signs - 24 hr 04/22/23 22:56 04/22/23 23:13 Temperature 98.1 F 99.9 F H Pulse Rate [Left P ulse Oximeter] 100 Respiratory Rate 18 Blood Pressure [Ri ght Upper Arm] 195/100 H Pulse Oximetry 99 Oxygen Delivery Me thod Room Air Course Vital Signs Vital signs: Initial Vital Signs Temperature 98.1 F 04/22/23 22:56 Temperature Source Temporal Artery Scan 04/22/23 22:56 Pulse Rate 100 04/22/23 22:56 Respiratory Rate 18 04/22/23 22:56 Blood Pressure 195/100 H 04/22/23 22:56 Blood Pressure Mean 131 H 04/22/23 22:56 Blood Pressure Position Sitting 04/22/23 22:56 Pulse Oximetry 99 04/22/23 22:56 Oxygen Delivery Method Room Air 04/22/23 22:56 Vital Signs Temperature 98.1 F 04/22/23 22:56 Pulse Rate 100 04/22/23 22:56 Respiratory Rate 18 04/22/23 22:56 Blood Pressure 195/100 H 04/22/23 22:56 Pulse Oximetry 99 04/22/23 22:56 Oxygen Delivery Method Room Air 04/22/23 22:56 Temperature 99.9 F H 04/22/23 23:13 Pulse Rate 100 04/22/23 22:56 Respiratory Rate 18 04/22/23 22:56 Blood Pressure 195/100 H 04/22/23 22:56 Pulse Oximetry 99 04/22/23 22:56 Oxygen Delivery Method Room Air 04/22/23 22:56 MDM - Male Genitourinary MDM Narrative Medical decision making narrative: This patient presents here essentially for replacement of a Horton catheter which had been removed a couple days ago. He has urinary retention again. A Horton catheter was placed and urinalysis is acquired with results pending. Approximately 300 mL of urine drained into the catheter bag with the presence of some clots. Urinalysis returns with evidence of urinary tract infection. The patient received a tablet of Keflex 500 mg here and a prescription for the same. Lab Data Labs: Lab Results 04/22/23 Range/Units 22:55 Urine Color Yellow (Yellow) Urine Appearance Cloudy A (Clear) Urine pH 6.0 (5.0-8.5) Ur Specific [place] >= 1.030 (1.000-1.030) Urine Protein 3+ A (Negative) Urine Glucose (UA) Negative (Negative) Urine Ketones Negative (Negative) Urine Blood 3+ A (Negative) Urine Nitrite Positive A (Negative) Urine Bilirubin Negative (Negative) Urine Urobilinogen 1.0 (0.2-1.0) Ur Leukocyte Esterase 1+ A (Negative) Urine RBC 10-25 A (0-2) Urine WBC 25-50 A (0-5) Ur Squamous Epith Cells Moderate A (None-Few) Urine Bacteria Moderate A (None) Discharge Plan Discharge Clinical Impression: Acute urinary retention, Urinary tract infection Patient Disposition: Home, Self-Care Condition: Improved Additional Instructions: Keep Horton catheter in place. Follow-up with primary physician and urologist for ongoing management. Return if worseneing. Prescriptions: New cefuroxime axetil 500 mg tablet 500 mg PO BID 10 Days Qty: 20 0RF No Action rosuvastatin 40 mg tablet 40 mg PO HS tamsulosin 0.4 mg capsule 0.4 mg PO DAILY donepezil 10 mg tablet 10 mg PO HS losartan 25 mg tablet 25 mg PO DAILY cyanocobalamin (vitamin B-12) 1,000 mcg capsule 1,000 mcg PO DAILY lutein 20 mg capsule 20 mg PO DAILY tizanidine 4 mg Tablet 2 mg PO DAILY PRNQty: 30 0RF sennosides-docusate sodium [Stool Softener-Laxative] 8.6-50 mg Tablet 2 tab PO BID Qty: 20 0RF amlodipine 5 mg Tablet 5 mg PO DAILY Qty: 30 0RF oxycodone 5 mg Tablet 2.5 - 5 mg PO Q6H PRNQty: 20 0RF Eliquis 5 mg tablet 5 mg PO BID Follow Up/Referrals: Karan Mirza MD [Primary Care Provider] - Stand Alone Forms: [facility] Info Instructions
[2023-04-22 23:08] LABS: Appearance Urine Cloudy (Clear); Bilirubin Urine Negative (Negative); Blood Urine 3+ (Negative); Color Urine Yellow (Yellow); Glucose Urine Negative (Negative); Ketones Urine Negative (Negative); Leukocyte Esterase Urine 1+ (Negative); Nitrite Urine Positive (Negative); Protein Urine 3+ (Negative); Specific Gravity Urine >= 1.030 (1.000-1.030)
[2023-04-22 23:13] VITALS: TEMP 37.7
--- OUTSIDE RECORDS SUMMARY | 2023-04-22 23:14 | XMS_ITS | Continuity of Care Document ---
Author Name [employer] [facility] Care Team Providers Care Freight Inspector Name Role Phone [facility] Unavailable Unavailable Problems Problem Status Onset Date Classification Date Reported Comments Source Acute low back pain (disorder) Active 10/29/2017 [facility] Attention deficit hyperactivity disorder (disorder) Active 10/29/2017 [facility] Benign prostatic hyperplasia (disorder) Resolved 10/29/2017 [facility] Central sleep apnea syndrome (disorder) Resolved 10/29/2017 [facility] Decreased hearing (finding) Active 10/29/2017 [facility] Hyperlipidemia (disorder) Resolved 10/29/2017 [facility] Hypertensive disorder, systemic arterial (disorder) Resolved 10/29/2017 [facility] Hypercholesterolemia (disorder) Active 10/29/2017 [facility] Impotence of organic origin (disorder) Active 10/29/2017 [facility] Obesity (disorder) Active 10/29/2017 [facility] Coronary arteriosclerosis (disorder) Active 10/29/2017 [facility] Non-ST elevation (NSTEMI) myocardial infarction 10/29/2017 [facility] Obstructive sleep apnea (adult) (pediatric) 10/29/2017 [facility] Atherosclerotic heart disease of [place] coronary artery without angina pectoris 10/29/2017 [facility] Essential (primary) hypertension 10/29/2017 [facility] Unspecified atrial fibrillation 10/29/2017 [facility] Obesity, unspecified 10/29/2017 [facility] Enlarged prostate without lower urinary tract symptoms 10/29/2017 [facility] Bradycardia, unspecified 10/29/2017 [facility] Hyperlipidemia, unspecified 10/29/2017 [facility] intermediate (current) use of aspirin 10/29/2017 [facility] Body mass index (BMI) 30.0-30.9, adult 10/29/2017 [facility] Allergy status to penicillin 10/29/2017 [facility] Personal history of nicotine dependence 10/29/2017 [facility] Medications Medication Details Route Status Patient Instructions Ordering Provider Order Date Source Ticagrelor 90 MG Oral Tablet [Brilinta] 1 Tab, PO BID, Qty: 60 Tab, Refills: 0, Print Requisition Active [facility] lisinopril 10 mg oral tablet 1 Tab Tab, PO qDay, Qty: 30 Tab, Refills: 0, Print Requisition Active [facility] Metoprolol Tartrate 50 MG Oral Tablet [Lopressor] 1 Tab Tab, PO BID, Qty: 60 Tab, Refills: 0, Print Requisition Active [facility] atorvastatin 80 mg oral tablet 1 Tab Tab, PO qDay, Qty: 30 Tab, Refills: 0, Print Requisition Active [facility] Aspirin 81 MG Enteric Coated Tablet 1 Tab Tab, EC, PO qDay, Qty: 30 Tab, Refills: 0, Print Requisition Active [facility] alfuzosin 10 mg oral tablet, extended release 1 Tab, PO Daily, Refills: 0 Active [facility] Allergies, Adverse Reactions, Alerts Substance Category Reaction [...] 70 years of age, or in women. [facility] Hemogram WBC 12.3 4.0 - 12.0 10/22 H Note: Reference range change effective 12/13/2014 [facility] Hemogram RBC 4.79 4.00 - 6.00 10/22 Note: Reference range change effective 12/13/2014 [facility] Hemogram Hgb 14.1 12.5 - 17.5 10/22 Note: Reference range change effective 12/13/2014 [facility] Hemogram Hct 42.9 35.0 - 50.0 10/22 Note: Reference range change effective 12/13/2014 [facility] Hemogram MCV 89.7 81.0 - 99.0 10/22 [facility] Hemogram MCH 29.5 27.0 - 34.0 10/22 [facility] Hemogram MCHC 32.9 32.0 - 36.0 10/22 [facility] Hemogram RDW 15.0 12.0 - 17.0 10/22 Note: Reference range change effective 12/13/2014 [facility] Hemogram Plt 253 150 - 400 10/[facility] MPV 8.5 6.0 - 11.0 10/22 Note: Reference range change effective 12/13/2014 [facility] CBC MCHC 32.9 32.0 - 36.0 [...] Pnl Sodium 144 134 - 144 10/21 [facility] Renal Pnl Potassium 3.4 3.4 - 4.6 10/21 [facility] Renal Pnl Chloride 110 98 - 111 10/21 [facility] Renal Pnl CO2 22 19 - 29 10/21 [facility] Renal Pnl Anion Gap 12 10/21 [facility] Renal Pnl BUN 23 5 - 23 10/21 [facility] Renal Pnl Creatinine .81 .50 - 1.20 10/21 [facility] Renal Pnl Glucose Level 106 65 - 99 10/[address] [facility] Renal Pnl BUN/Cr Ratio 28.4 10/21 [...] 10/21 Note: Reference range change effective 12/13/2014 [facility] Hemogram MCV 88.8 81.0 - 99.0 10/21 [facility] MCH 29.3 27.0 - 34.0 10/21 [facility] MCHC 33.0 32.0 - 36.0 10/21 [facility] RDW 15.2 12.0 - 17.0 10/21 Note: Reference range change effective 12/13/2014 [facility] Hemogram Plt 274 150 - 400 10/21 [facility] MPV 8.7 6.0 - 11.0 10/21 Note: Reference range change effective 12/13/2014 [facility] CBC MPV 8.7 6.0 - 11.0 [...] confirmed by repeating test on different day. [facility] HgbA1C Est Mean Bld Glu 114 10/21 [facility] PTT PTT 45.4 25.1 - 36.5 [...] assay.??? Note: Reference range change effective 06/11/2015 [facility] Lipid Panel Cholesterol 156 140 - 200 10/20 [facility] Lipid Panel Triglycerides 78 30 - 150 10/20 [facility] Lipid Panel HDL 44 35 - 65 10/20 [facility] Lipid Panel Cholest/HDL Ratio 3.55 10/20 [facility] Lipid Panel LDL 96 70 - 130 10/20 Triglycerides greater than 400 mg/dL render the LDL calculation invalid. [facility] Lipid Panel VLDL 16 0 - 40 10/20 [facility] Hemogram WBC 15.7 4.0 - 12.0 10/20 H Note: Reference range change effective 12/13/2014 [facility] Hemogram RBC 4.98 4.00 - 6.00 10/20 Note: Reference range change effective 12/13/2014 [facility] Hemogram Hgb 14.8 12.5 - 17.5 10/20 Note: Reference range change effective 12/13/2014 [facility] Hemogram Hct 44.2 35.0 - 50.0 10/20 Note: Reference range change effective 12/13/2014 [facility] Hemogram MCV 88.8 81.0 - 99.0 10/20 [facility] Hemogram MCH 29.8 27.0 - 34.0 10/20 [facility] Hemogram MCHC 33.6 32.0 - 36.0 10/20 [facility] Hemogram RDW 15.3 12.0 - 17.0 10/20 Note: Reference range change effective 12/13/2014 [facility] Hemogram Plt 279 150 - 400 10/20 [facility] Hemogram MPV 8.2 6.0 - 11.0 10/20 Note: Reference range change effective 12/13/2014 [facility] CBC MPV 8.2 6.0 - 11.0 [...] 10/20 Note: Reference range change effective 06/11/2015 [facility] PT INR 1.06 0.86 - 1.14 10/20 Recommended therapeutic ranges for INR: Therapeutic Range 2.0-3.0 Mechanical Prosthetic Aortic Valve Pts 2.0-3.0 Mechanical Prosthetic Mitral Valve Pts 2.5-3.5 Note: Reference range change effective 06/11/2015 [facility] PTT PTT 53.0 25.1 - 36.5 [...] assay.??? Note: Reference range change effective 06/11/2015 [facility] Troponin-I Troponin I 1.716 - <=0.028 [...] (94.6 ??? 96.5% specific for myocardial infarction) [facility] CMP Sodium 141 134 - 144 10/19 [facility] CMP Potassium 4.1 3.4 - 4.6 10/19 [facility] CMP Chloride 109 98 - 111 10/19 [facility] CMP CO2 20 19 - 29 10/19 [facility] CMP Anion Gap 12 10/19 [facility] CMP Glucose Level 149 65 - 99 10/[address] CMP BUN 15 5 - 23 10/19 [facility] CMP Creatinine .81 .50 - 1.20 10/19 [facility] CMP BUN/Cr Ratio 18.5 10/19 [facility] CMP Calcium 9.3 8.1 - 10.0 10/19 [facility] CMP Protein, Total 7.3 6.3 - [...] Reference range change effective 06/11/2015 [facility] PT INR 0.99 0.86 - 1.14 10/19 [...] effective 12/13/2014 [facility] *Diff Auto Turner% 1.1 2.0 - 15.0 10/19 L Note: [...] Diff MCV 88.8 81.0 - 99.0 10/19 [facility] w/ Diff MCH 30.0 27.0 - 34.0 10/19 [facility] CBC w/ Diff MCHC 33.8 32.0 - 36.0 10/19 [facility] CBC w/ Diff RDW 14.7 12.0 - 17.0 10/19 Note: Reference range change effective 12/13/2014 [facility] CBC w/ Diff Plt 237 150 - 400 10/19 [facility] CBC w/ Diff MPV 8.0 6.0 - 11.0 10/19 Note: Reference range change effective 12/13/2014 [facility] Cardiac Troponin I 1.529 <=0.028 ng/mL 10/19 [...] [facility] CBC Turner% 1.1 2.0 - 15.0 10/19 [facility] [...] assay.??? Note: Reference range change effective 06/11/2015 [facility] Troponin-I Troponin I 0.659 - <=0.028 10/19 HH _ results called (read-back confirmed) to nick shabazz @ 10/19/2017 00:27:28 PST by aylin. Less than normal high: No evidence of myocardial damage Normal high to critical high: Indeterminate Greater than critical high: Consistent with myocardial injury (94.6 ??? 96.5% specific for myocardial infarction) [facility] BNP B-Natriuretic Peptide 14 0 - 100 10/19 In the appropriate clinical setting, a BNP value greater than or equal to 100 pg/mL is consistent with the diagnosis of CHF. [facility] CK w/rflx CK 145 30 - 234 10/19 [facility] CMP Sodium 142 134 - 144 10/19 [facility] CMP Potassium 3.8 3.4 - 4.6 10/19 [facility] CMP Chloride 108 98 - 111 10/19 [facility] CMP CO2 21 19 - 29 10/19 [facility] CMP Anion Gap 13 10/19 [facility] CMP Glucose Level 109 65 - 99 10/19 H [facility] CMP BUN 17 5 - 23 10/19 [facility] CMP Creatinine .82 .50 - 1.20 10/19 [facility] CMP BUN/Cr Ratio 20.7 10/19 [facility] CMP Calcium 9.1 8.1 - 10.0 10/19 [facility] CMP Protein, Total 7.2 6.3 - 8.6 10/19 [facility] CMP Albumin 3.8 3.2 - 5.0 10/19 [facility] CMP Globulin 3.4 10/19 [facility] CMP A/G Ratio 1.1 10/19 St. [...] Reference range change effective 12/13/2014 [facility] *Diff Auto Turner% 7.2 2.0 - 15.0 10/19 Note: Reference [...] [facility] CBC Turner% 7.2 2.0 - 15.0 10/19 [facility] [...] 11/11 Note: Reference range change effective 10/18/2013 [facility] CMP Sodium 140 134 - 144 11/11 Note: Reference range change effective 10/18/2013 [facility] CMP Potassium 3.9 3.4 - 4.6 11/11 Note: Reference range change effective 10/18/2013 [facility] CMP Chloride 107 98 - 111 11/11 Note: Reference range change effective 02/05/2014 [facility] CMP CO2 22 19 - 29 [...] CMP Drug Calc Weight (kg) 97.000 11/11 [facility] CMP Height cm 180.00 0 11/11 [...] 11/[address] [facility] *Diff Auto Turner% 7.5 2.0 - 12.0 11/10 [facility] [...] Diff MCV 92.1 81.0 - 99.0 11/10 [facility] CBC w/ Diff MCH 30.3 27.0 - 34.0 11/10 [facility] CBC w/ Diff MCHC 32.9 32.0 - 36.0 11/10 [facility] CBC w/ Diff RDW 13.7 10.0 - 16.0 11/10 [facility] CBC w/ Diff Plt 294 150 - 400 11/10 [facility] CBC w/ Diff MPV 7.9 6.0 - 10.0 11/10 [facility] Diagnostic Reports Report Value Date Source EKG Stationary ECG Study SRS Test Date: 2017-10-22 Pat Name: TIANNA HERNANDEZ Department: Room: 2282 Gender: M Systems Designer: Raúl Mcdowell : 1945 Requested By: Lidia Finley Order Number: [id number] Reading MD: JARRED SANDERS MD Measurements Intervals [place] Rate: 61 P: 54 MT: 168 QRS: -7 QRSD: 105 T: 9 QT: 422 QTc: 427 Severity: Borderline ECG Interpretive Statements SINUS RHYTHM MODERATE VOLTAGE CRITERIA FOR LVH, CONSIDER NORMAL VARIANT Borderline ECG Compared to ECG 10/20/2017 04:23:27 Sinus bradycardia no longer present Left-axis deviation no longer present Electronically signed on 10-25-2017 17:08:05 PST by will Piedra on behalf of JARRED SANDERS MD 10/22/2017 [facility] EKG Stationary ECG Study SRS Test Date: 2017-10-20 Pat Name: TIANNA HERNANDEZ Department: Room: 2282 Gender: M Systems Designer: Hay Lemus : 1945 Requested By: LIZZY SUGGS Order Number: [id number] Reading MD: ALEXANDER CUMMINGS MD Measurements Intervals [place] Rate: 59 P: 64 MT: 178 QRS: -32 QRSD: 102 T: 28 QT: 421 QTc: 419 Severity: Abnormal ECG Interpretive Statements SINUS BRADYCARDIA MARKED LEFT AXIS DEVIATION Abnormal ECG Compared to ECG 10/18/2017 22:09:08 Left-axis deviation now present Sinus rhythm no longer present Electronically signed on 10-21-2017 15:14:13 PST by Batool Navarro on behalf of ALEXANDER CUMMINSG MD. 10/20/2017 [facility] ECHO TTE w Doppler Comp *[facility] *[facility]* [address] [place] [address] Shreya Gonzales [address] TRANSTHORACIC ECHOCARDIOGRAM PATIENT: Tianna Hernandez STUDY DATE: 10/19/2017 STUDY TIME: 05:08 PM : 1945 AGE: 72 GENDER: M HT/WT: 0 cm 0 kg ORDERING PHYSICIAN: Jerson Velásquez Md ALLERGY NURSE: Giovanna Fitzpatrick RDCS INTERPRETING PHYSICIAN: Lizzy Suggs [...] TIANNA HERNANDEZ Department: Room: 2282 Gender: M Systems Designer: SOLAAKASH PINOBRADEN : 1945 Requested By: Dang Dozier Order Number: [id number] Artis MD: ALESSIA WILLIAMSON MD Measurements Intervals [place] Rate: 75 P: 60 MT: 195 QRS: -31 QRSD: 100 T: 34 [...] consolidation or edema. Report generated on workstation: [id number] 10/19/2017 [facility] Electrocardiogram (behavioral technician) Stationary ECG Study SRS Test Date: 2017-10-18 Pat Name: TIANNA HERNANDEZ Department: Room: Gender: M Systems Designer: MANUEL CHARLTON : 1945 Requested By: Jada Hicks Order Number: [id number] Reading MD: Pedro Harris DO Measurements Intervals [place] Rate: 83 P: 63 MT: 188 QRS: -10 QRSD: 89 T: 75 [...] acute pathology noted. Report generated on workstation: [id number] 11/10/2014 [facility] EKG 83 Atrial Rate 83 BPM P-R Interval 166 ms QRS Duration 84 ms Q-T Interval 380 ms QTC Calculation(Bezet) 446 ms P [place] 72 degrees R [place] 14 degrees T [place] 51 degrees Diagnosis Normal sinus rhythm Normal ECG no stemi Confirmed by MD Meneses Patrick ([id number]), make up editor ANN ANDINO ([id number]) on 11/10/2014 3:18:20 PM 11/10/2014 [facility] Consultation Notes Results Value Date Source Office/Clinic Note-Physician Patient: TIANNA HERNANDEZ Age: 72 years Sex: M : 1945 Admitting MD: Location: [facility]: : Author: Neo Hampton MD Chief Complaint [...] pain. Patient interested in following up in [place] where he has family. He also has [...] Documented Social History Alcohol Current Denies Home/Environment Bahai restrictions/concerns: None. Living situation: Home/Independent. Alcohol abuse in household: No. Substance abuse in household: No. Smoker in household: No. Injuries/Abuse/Neglect in household: No. Feels unsafe at home: No. Bahai restrictions/concerns: None. Substance Abuse Denies Denies Tobacco Never (less than 100 in lifetime), Previous treatment: None. Never used tobacco, Denies Family History Heart disease...: Mother and Father. Electronically Signed By: Neo Hampton MD On 10/26/17 11:52 Co Signature By: Modified Signature By: 10/26/2017 [facility] Case Management DC Needs - Text Discharge Plan Entered On: 10/22/2017 10:58 PST Performed On: 10/22/2017 10:57 PST by Kim Jessica RN Discharge Plan Discharge Location : Home with family Important Message Notification (CM) : Yes DME (CM) : None Transportation (CM) : Family, Self Kim Jessica RN - 10/22/2017 10:57 PST 10/22/2017 [facility] Heart Cath Procedure \XEF\\[id number]\\XBF\ *[facility]* *[facility]* [address], [place] [address] INVASIVE CARDIAC PROCEDURE Patient: Lady, : 1945 Tianna Hernandez #: Patient [id number] Age: 72 ID: Study 10/21/2017 Gender: M Date: Tub Operator: Moses Galeana MD Ordering Physician: Moses Arredondo [...] the Seldinger technique. A 6Fr x 10cm [place] sheath was advanced into the vessel. 4. [...] clotting time measurement. ACT was 218 secby Degree Controls. This value was maintained throughout the case. [...] and electronically signed by Moses Galeana MD [id number] 10/22/2017 [facility] Case Management DC [...] is and goes back and forth between [facility] and [place]. PHYSICAL EXAMINATION: VITAL SIGNS: Blood pressure is [...] Signature By: Modified Signature By: 10/19/2017 [facility] ED Physician Notes Patient: TIANNA HERNANDEZ [...] All Problems Acute low back pain / 108403559 / Confirmed ADD (attention deficit disorder) / 2862221838 / Confirmed Decreased hearing / 420055685 / Confirmed Erectile dysfunction / 107769033 / Confirmed High cholesterol / 53957810 / Confirmed Hypertension / 5941642777 / Confirmed Obesity, Class I, BMI 30-34.9 / 8088032893 / Confirmed Inactive: Atrial fibrillation / 34825553, Per nurse's notes. Surgical history: Colonoscopy on [...] rhythm, No ST-T changes, no ectopy, normal MT and QRS intervals, EP Interp, The [place] is leftward. , EKG interpreted contemporaneously by me, QTC within normal limits. electronic device monitor: Time 10/18/17 22:09:00, Rate 83, normal sinus [...] fL Neut% 69.0 % Lymph% 21.1 % Turner% 7.2 % Eos% 2.5 % Baso% 0.2 [...] of care, Interpretation, Interventions, Case review (medical cash poster, nursing). Performed by: self. Impression and Plan Diagnosis NSTEMI (non-ST elevated myocardial infarction) (BGR74-UC I21.4, Admitting, Medical) Calls-Consults - 10/19/17 00:59:00 , Florence Diaz MD, Tub Operator, phone call, consult. Plan Condition: Stable. Disposition: Admit: Time 10/19/17 01:22:00, Jerson Velásquez MD, The patient has Medicare insurance which has no insurance directive. The patient's PCP is none who has no directive in which patient will be [facility]. Call returned: [phone] Dr[address] Velásquez covering, [...] Sex: M : 1945 Admitting MD: Location: [facility]: Exam 18: Author: Anu Marion MD [...] too. Ordered: Office Visit Level 4 Est 24035 AMB 2. Hypertension I10 Elevated today but controlled at home. H/o labile BP. Controlled using Lisinopril 10mg qday- pt to cont, no change in regimen. Ordered: Office Visit Level 4 Est 91780 AMB 3. Obesity, Class I, BMI 30-34.9 E66.9 Weight gain due to pt not monitoring nutrition. Discussed lifestyle changes- mon nutrition and inc activity. Rec DASH diet as pt with HTN. Ordered: Office Visit Level 4 Est 41889 AMB 4. Atrial fibrillation I48.91 Rate controlled on Verapamil- cont. Ordered: Office Visit Level 4 Est 22780 AMB Problem List/Past Medical History Chronic Acute [...] None Documented Social History Alcohol Denies Home/Environment Bahai restrictions/concerns: None. Substance Abuse Denies Tobacco Never used tobacco, Denies Electronically Signed By: Anu Marion MD On 12/14/16 03:22 Co Signature By: Modified Signature By: Anu Marion MD On 12/14/16 03:22 12/11/2016 [facility] Office/Clinic Note-Physician Patient: TIANNA HERNANDEZ Age: 71 years Sex: M : 1945 Admitting MD: Location: [facility]: Exam 17: Author: Anu Marion MD [...] pt. Ordered: Office Visit Level 4 Est 13825 AMB 2. Hypertension I10 Repeat improved. Cont current regimen. Cont mon BP. Seek medical attention if hypotensive. Ordered: Office Visit Level 4 Est 36406 AMB 3. Atrial fibrillation I48.91 Currently rate controlled. Cont current regimen. Ordered: Office Visit Level 4 Est 89482 AMB Problem List/Past Medical History Chronic Acute [...] None Documented Social History Alcohol Denies Home/Environment Bahai restrictions/concerns: None. Substance Abuse Denies Tobacco Never used tobacco, Denies Electronically Signed By: Anu Marion MD On 12/07/16 07:51 Co Signature By: Modified Signature By: Anu Marion MD On 12/07/16 07:51 12/04/2016 [facility] ED Physician Notes Patient: TIANNA HERNANDEZ [...] near syncope after eating a sandwich at [employer]. Denies nausea, visual or neurological changes, or [...] Medical history: All Problems High cholesterol / 87507585 / Confirmed Hypertension / 9518234560 / Confirmed, Atrial fibrillation. Surgical history: Hernia ([id number]). Shoulder ([id number]).. Family history: Not significant. Social [...] (SL): 3 mL, IV Push, qShift (12hr). electronic device monitor: Time 11/10/14 15:09:00, Rate 83, normal sinus rhythm, interpreted contemporaneously by me, no Premature Atrial Contraction (PAC). Electrocardiogram: Time 11/10/14 15:09:00, rate 83, normal sinus rhythm, No ST-T changes, no ectopy, normal MT and QRS intervals, The [place] is normal. , Previous EKG available None [...] 74.9 % H Lymph% 15.8 % L Turner% 7.5 % Eos% 1.3 % Baso% 0.5 [...] Roger Meneses on 11/10/14 at 16:41. 11/11/2014 [facility] Discharge Summaries Results Value Date Source Discharge Summary Patient: DIEGO HERNANDEZ Age: 72 years Sex: M : 1945 Admitting MD: Jerson Velásquez MD Location: [facility] COU: 2282: P Author: Constantin Rodriguez [...] Interpretation, This Encounter Name: TIANNA HERNANDEZ Account: [id number] : 1945 Result Date: 10/18/17 22:55 Verified [...] consolidation or edema. Report generated on workstation: [id number] 10/18/17 23:00 +++++++++++++++++++++++++++++++++++++++++ ++++++++++++++ Result Date: 10/18/17 22:08 Verified By: Moses Arredondo MD at 10/21/17 19:40 Report : [place] Heart Cath Procedure \XBB\XBF *[facility]* [facility]* [address] [place], [place] [id number] INVASIVE CARDIAC PROCEDURE Patient: Lday : 1945 Tianna Hernandez #: Patient [id number] Age: 72 ID: Study 10/21/2017 Gender: M Date: Tub Operator: Moses Galeana MD Ordering Physician: Moses Arredondo [...] the Seldinger technique. A 6Fr x 10cm [place] sheath was advanced into the vessel. 4. [...] and electronically signed by Moses Galeana MD [id number] 10/21/17 17:59 +++++++++++++++++++++++++++++++++++++++++ ++++++++++++++ Result Date: 10/18/17 22:08 Verified By: LIZZY SUGGS MD at 10/21/17 17:16 Report : [place] ECHO TTE w Doppler Comp *[facility]* *[facility]* [address], [place] [address] TRANSTHORACIC ECHOCARDIOGRAM PATIENT: Tianna Hernandez STUDY DATE: 10/19/2017 STUDY TIME: 05:08 PM : 1945 AGE: 72 GENDER: M HT/WT: 0 cm 0 kg ORDERING PHYSICIAN: Jerson Velásquez Md ALLERGY NURSE: Giovanna Fitzpatrick [facility] INTERPRETING PHYSICIAN: Lizzy Suggs MD [...] 10/22/17 10:16:00 PST, Today, Home or self [facility] self care Discharge Diet Heart Healthy Discharge [...] 1945 Admitting MD: Jerson Velásquez MD Location: [facility] COU: 2282: P Author: Lidia Finley [...] clinic (as well as establish care with carpet installation specialist in [place]) asa/brilinta discussed with patient and family add [...] Brett Barnes DO On 10/22/17 13:02 10/22/2017 [facility] History and Physical Patient: Loly HERNANDEZ Age: 72 years Sex: M : 1945 Admitting MD: Jerson Velásquez MD Location: [facility] COU: 2282: P Author: LIZZY SUGGS [...] RDW: 15.2 (10/21/17) Assessment/Plan 1. Non ST VT - cath planned for today. Iodine allergy [...] 1945 Admitting MD: Jerson Velásquez MD Location: [facility] COU: 2282: P Author: Constantin Rodriguez [...] Interpretation, This Encounter Name: TIANNA HERNANDEZ Account: [id number] : 1945 Result Date: 10/18/17 22:55 Verified [...] consolidation or edema. Report generated on workstation: [id number] 10/18/17 23:00 ++++++++++++++++++++++++++++++++++++++ +++++++++++++++++ Assessment/Plan Consults Cardiology: [...] 1945 Admitting MD: Jerson Velásquez MD Location: [facility] COU: 2282: P Author: Constantin Rodriguez [...] Interpretation, This Encounter Name: TIANNA HERNANDEZ Account: [id number] : 1945 Result Date: 10/18/17 22:55 Verified [...] consolidation or edema. Report generated on workstation: [id number] 10/18/17 23:00 ++++++++++++++++++++++++++++++++++++++ +++++++++++++++++ Assessment/Plan Consults Cardiology: [...] 1945 Admitting MD: Jerson Velásquez MD Location: [facility] EDIP: [facility]: Author: Constantin Rodriguez DO Subjective HPI: 72 year old male presents with 1 week of paroxysmal chest pain radiating to the jaw found to have an NSTEMI. Comfortable this AM with no Chest pain States carpet installation specialist just saw him Still on heparin gtt [...] (10/19/17) MCHC: 33.8 (10/19/17) MCV: 88.8 (10/19/17) Turner%: 1.1 (10/19/17) MPV: 8.0 (10/19/17) Neut%: 88.4 (10/19/17) Protein, Total: 7.3 (10/19/17) PT: 12.0 (10/19/17) PTT: 53.0 (10/19/17) RBC: 5.23 (10/19/17) RDW: 14.7 (10/19/17) Troponin I: 1.716 (10/19/17) Diagnostic Results Radiology - Full Interpretation, This Encounter Name: TIANNA HERNANDEZ Account: [id number] : 1945 Result Date: 10/18/17 22:55 Verified [...] consolidation or edema. Report generated on workstation: [id number] 10/18/17 23:00 ++++++++++++++++++++++++++++++++++++++ +++++++++++++++++ Assessment/Plan Consults Cardiology: [...] History: Resolved BPH - Benign prostatic hypertrophy (820734170): Resolved. Central sleep apnea (6491353564): Resolved. HLD - Hyperlipidaemia (285965957): Resolved. HTN - Hypertension (3976225847): Resolved. HTN - Hypertension (9153053885): Resolved. Procedure history: No active procedure history items have been selected or recorded. Family History: Mother Heart disease... Father Heart disease... Social History Social and Psychosocial Habits Alcohol 10/19/2017 Use: Current Home/Environment 10/19/2017 Bahai restrictions/concerns: None Living situation: Home/Independent Alcohol abuse [...] Results Radiologist's interpretation Name: TIANNA HERNANDEZ Account: [id number] : 1945 Result Date: 10/18/17 22:55 Verified By: Holden Marie MD at 10/18/17 23:00 Report : XR Chest 2 Views IMPRESSION: Acute viral small airway disease. No consolidation or edema.Report generated on workstation: [id number] 10/18/17 23:00 ++++++++++++++++++++++++++++++++++++++ +++++++++++++++++ Impression and Plan [...] Problems (Selected) Acute low back pain / 038585207 / Confirmed ADD (attention deficit disorder) / 6834287055 / Confirmed Decreased hearing / 186885210 / Confirmed High cholesterol / 96718181 / Confirmed Hypertension / 0009428156 / Confirmed Erectile dysfunction / 920155631 / Confirmed Obesity, Class I, BMI 30-34.9 / 6503636197 / Confirmed. Electronically Signed By: Jerson Velásquez MD On 10/19/17 02:57 Co Signature By: Modified Signature By: 10/19/2017 [facility] Vital Signs Vital Sign Value Date Comments Source Heart Rate (bpm) 62 10/22/2017 [facility] Respiratory Rate 16 Breaths/Min 10/22/2017 [facility] Oxygen Amount Room air (10/22/17 11:00 AM) 10/22/2017 [facility] Systolic (mm Hg) 127 10/22/2017 [facility] Diastolic (mm Hg) 71 10/22/2017 [facility] NIBP Mean 88 10/22/2017 [facility] Temperature (c) 36.6 10/22/2017 [facility] SPO2 95 10/22/2017 [facility] Glucose Level (mg/dL) 155 10/22/2017 [facility] NIBP Mean 99 10/22/2017 [facility] Respiratory Rate 18 Breaths/Min 10/22/2017 [facility] Temperature (c) 36.5 10/22/2017 [facility] Heart Rate (bpm) 60 10/22/2017 [facility] Oxygen Amount Room air (10/22/17 7:00 AM) 10/22/2017 [facility] Systolic (mm Hg) 155 10/22/2017 [facility] Diastolic (mm Hg) 76 10/22/2017 [facility] Monitored Cardiac Rhythm Normal sinus rh ythm (10/22/17 7:00 AM) 10/22/2017 [facility] SPO2 95 10/22/2017 [facility] Monitored Cardiac Rhythm Normal sinus rh ythm (10/22/17 4:00 AM) 10/22/2017 [facility] Monitored Cardiac Rhythm Normal sinus rh ythm (10/22/17 12:00 AM) 10/22/2017 [facility] Heart Rate (bpm) 50 10/22/2017 [facility] NIBP Mean 114 10/21/2017 [facility] SPO2 97 10/21/2017 [facility] Systolic (mm Hg) 154 10/21/2017 [facility] Diastolic (mm Hg) 96 10/21/2017 [facility] Respiratory Rate 20 Breaths/Min 10/21/2017 [facility] Oxygen Amount 1 L/min (10/21/17 12:00 PM) 10/21/2017 [facility] Oxygen Method Nasal cannula (10/21/17 12:00 PM) 10/21/2017 [facility] Oxygen Method Nasal cannula (10/21/17 8:00 AM) 10/21/2017 [facility] Temperature (c) 36.7 10/21/2017 [facility] Oxygen Method Nasal cannula (10/21/17 6:15 AM) 10/21/2017 [facility] Glucose Level (mg/dL) 106 10/21/2017 [facility] Balancing Self (10/20/17 4:00 PM) 10/21/2017 [facility] Toileting Self (10/20/17 4:00 PM) 10/21/2017 [facility] Walking Self (10/20/17 4:00 PM) 10/21/2017 [facility] Dressing Self (10/20/17 4:00 PM) 10/21/2017 [facility] Transferring Self (10/20/17 4:00 PM) 10/21/2017 [facility] Eating Self (10/20/17 4:00 PM) 10/21/2017 [facility] Bathing Self (10/20/17 4:00 PM) 10/21/2017 [facility] Assistive Devices Home None (10/20/17 4:0 0 PM) 10/21/2017 [facility] Sensory Deficits None (10/20/17 4:00 PM) 10/21/2017 [facility] Sensory Deficits None (10/20/17 1:58 PM) 10/20/2017 [facility] Transferring Self (10/19/17 8:00 PM) 10/20/2017 [facility] Toileting Self (10/19/17 8:00 PM) 10/20/2017 [facility] Bathing Self (10/19/17 8:00 PM) 10/20/2017 [facility] Dressing Self (10/19/17 8:00 PM) 10/20/2017 [facility] Eating Self (10/19/17 8:00 PM) 10/20/2017 [facility] Living Situation Lives with spouse (10/19/17 8:00 PM) 10/20/2017 [facility] Sensory Deficits None (10/19/17 8:00 PM) 10/20/2017 [facility] Balancing Self (10/19/17 8:00 PM) 10/20/2017 [facility] Walking Self (10/19/17 8:00 PM) 10/20/2017 [facility] Glucose Level (mg/dL) 149 10/19/2017 [facility] Encounters Location Location Details Encounter Type Encounter Number Reason For Visit Attending Provider ADM Date DC Date Status Source [facility] Inpatient [id number] Pedro Harris 10/19 [facility] Procedures Procedure Code Date Perfomer Comments Source DILATION OF 1 COR ART WITH 4 DRUG-ELUT, PERC APPROACH [id number] 10/21/2017 Keddie Brooklynn [id number] 10/21/2017 [facility] FLUOROSCOPY OF MULT COR ART USING L OSM CONTRAST [id number] 10/21/2017 [facility] FLUOROSCOPY OF R LOW EXTREM ART USING L OSM CONTRAST [id number] 10/21/2017 [facility] INTRODUCE PLATELET INHIBITOR IN PERIPH VEIN, PERC [id number] 10/19/2017 [facility] Colonoscopy 09/20/2008 [facility] Ear work [facility] Feet work [facility] Inguinal hernia [facility] Shoulder [facility] Testicle removal<sup>1</sup> Due to infection [facility] Umbilical hernia [facility] Vasectomy<sup>2</sup> 1973 [facility] Social History Social History Date Source [...] 10/22/17 10:16:00 PST, Today, Home or self [facility]DC self care Heart Healthy As tolerated in [...] Problems (Selected) Acute low back pain / 057086812 / Confirmed ADD (attention deficit disorder) / 2993233038 / Confirmed Decreased hearing / 163746856 / Confirmed High cholesterol / 92934212 / Confirmed Hypertension / 8155422724 / Confirmed Erectile dysfunction / 071014648 / Confirmed Obesity, Class I, BMI 30-34.9 / 7007283216 / Confirmed. 10/22/2017 [facility]
[2023-04-22 23:18] LABS: Bacteria Urine Moderate; Squamous Epithelial Cell Urine Moderate (None-Few); WBC Urine 25-50 (0-5)
[2023-04-22] MEDS: cephALEXin 500 MG CAPSULE PO (23:29)
[2023-04-22 23:30] VITALS: BP 174/85; PULSE 84; RESP 18; TEMP 37.7; O2SAT 99
[2023-04-22 23:32] VITALS: BP 174/85; PULSE 84; RESP 18; TEMP 37.7
--- NOTE | 2023-04-23 00:55 | ED.NURSE ---
pt called once discharged, stated catheter fell out. pt returned, on inspection catheter balloon was split open and leaked allowing it to fall out. New coude 18f inserted with sterile technique without complication, 30cc infused. pt tolerated without complaint, pt discharged.
== END 2023-04-22 23:32 | disposition home or self-care (01) ==
LOC: ED 23:11
PROVIDERS: Emergency Provider Emergency Medicine Emergency Medical Services; PCP Internal Medicine
DX: N39.0 Urinary tract infection, site not specified (principal)
CPT/HCPCS: 51702; 51798; 81001; 87086; 99283; 99284; A9270

== ENCOUNTER 2024-09-11 11:05 | Outpatient (CLI) | payer MEDICARE, SELFPAY | END 2024-09-11 11:06 | disposition home or self-care (01) | LOC: AMB 09-12 15:28 | PROVIDERS: PCP Internal Medicine; Visit Provider Emergency Medicine | DX: R07.89 Other chest pain (principal) | CPT/HCPCS: A0425; A0427 ==

== ENCOUNTER 2024-09-24 10:10 | Outpatient (CLI) | payer MEDICARE, SELFPAY | END 2024-09-24 10:11 | disposition home or self-care (01) | LOC: AMB 10-27 01:36 | PROVIDERS: PCP Internal Medicine; Visit Provider Emergency Medicine | DX: R42 Dizziness and giddiness (principal); R11.2 Nausea with vomiting, unspecified | CPT/HCPCS: A0425; A0427 ==

== ENCOUNTER 2024-10-25 13:45 | Outpatient (RCR) | payer MEDICARE, SELFPAY ==
--- NOTE | 2024-09-27 15:08 | PT.OPEX ---
Please sign the attached physical therapy evaluation. Thank you. PT [facility] Outpatient Eval PT [facility] Outpatient Eval Start: 09/27/24 09:40 Freq: Status: Active Protocol: Document 09/27/24 09:41 TLQ (Rec: 09/27/24 14:58 TLQ [id number]) E-signed By Radha La DPT Physical Therapy Outpatient Evaluation Insurance Information Recert Due Date 12/26/24 Insurance Name Medicare B Insurance Information/Comments A[employer] Health Care Options Medical Diagnosis R42 Dizziness and giddiness Treating Diagnosis Cervicalgia M54.2 Impaired balance R26.81 Impaired vestibular function H81.9 Referring MD Karan Mirza MD Subjective Preferred Name Oziel Subjective Patient subjective: Oziel presents today with his , Katherin, both providing patient history. States he presented to the ED at [facility] on 09/24/24, had a brain MRI to rule out a stroke . He was prescribed Meclizine when he was there, has taken it once and hasn't had any significant dizziness since. He has had some mild intermittent dizziness over the years, recent episode was significant dizziness that made it difficult to get out of bed and caused him to vomit . Dizziness was noticed with rolling over in bed, denies a room spinning sensation. No significant dizziness since taking Meclizine but does still have a feeling of fullness in his head. Can feel dizzy a little when moving his head. Needed to use a walker for one day due to feeling unsteady, able to walk today without an assistive device. states he still appears to stumble and be unsteady at times. Patient reports hearing loss due to an injury at age 14, wears hearing aids in both ears, has complete hearing loss on the left side and has an implant. He also reports a history of motion sickness. His reports he did have another episode of vomiting and dizziness after getting new trifocal lenses a few years ago. 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 Recent medical hx: Presented to ED at [facility] on 09/12/24 due to chest pain, left shoulder pain, and left sided neck/jaw pain. Carotid US and EKG were completed at the ED without significant acute findings. Patient follows up with outpatient cardiology tomorrow (09/28/24). He presented the [facility] ED a second time on 09/24/24 due to acute onset of vertigo. Brain MRI was completed without acute signs of CVA. He was discharged home without further hospitalization. Pain Comments reports a catch in his neck Date of Last Physician Visit 09/26/24 Date of Next Physician Visit 09/28/24 Current Work Status Retired Precautions Treatment Precautions/Contraindications PMHx: COPD, paroxysmal atrial fibrillation, chronic headaches, hx of TBI, hx of multiple concussions, hyperlipidemia, essential hypertension, ADD, hx of TIA ( 2019), dementia Therapy Limitations/Systems Review Cognition,Hearing Objective Other/Pertinent Objective CERVICAL ROM Flexion: WNL Extension: WNL, tight, change in pressure Rotation: WNL CERVICAL PALPATION tender with palpation of R upper trapezius muscle OCULOMOTOR SCREEN H-test: normal Saccades: normal, reports eye fatigue Convergence: normal Cover-uncover test: normal Head thrust test: normal OTHER ASSESSMENTS Coordination testing (finger to nose): normal Modified vertebral artery test : normal VOR: impaired VOR cancellation: normal Sherry Hallpike: negative BL Horizontal roll test: negative BL BALANCE/CTSIB Romberg eyes open firm surface : 30 seconds Romberg eyes closed firm surface: 5 seconds initial then 30 seconds, min-mod postural sway Romberg eyes open foam surface : 30 seconds, mod postural sway Romberg eyes closed foam surface: 26 seconds, mod postural sway, posterior lean, unstable GAIT slow courtney, without A.D. 4-ITEM DGI 10/12 Horizontal head turns (1) slow courtney, lateral path deviation Vertical head nods (3) Gait on level surfaces (3) Changes in gait speed (3) Functional Test Performed & Score VITALS BP: 121/76 HR: 70 bpm Assessment Assessment/Impression Oziel is a 79-year-old male who presents to physical therapy to address recent onset of vertigo. He is accompanied by his spouse due to patient history of dementia and chronic hearing loss. Patient presented to [facility] ED on 09/12/24 to address chest pain, presented a second time on 09/24/24 due to acute vertigo which impaired his ability to walk. Assessments were completed in the ED to rule out acute NM and CVA, respectively; patient discharged home same day from both ED visits. He reports his recent onset of vertigo impaired his ability to get out of bed and felt unsteady to walk, he associates this dizziness with rolling over in bed. Patient unable to recall which direction of rolling produces the dizziness and denied feeling a room spinning sensation. He was provided with a prescription of Meclizine at his most recent ED visit, has taken one dose and has noticed a reduction in the intensity of his dizziness. He describes current symptoms as a feeling of pressure in his head. Patient does have history of significant hearing loss, multiple concussions/TBI, and motion sickness - these symptoms may effect his susceptibility to vertigo and prolong recovery. Today's examination was positive for the following: cervicalgia, impaired VOR, and impaired balance/somatosensory organization. All other oculomotor assessments were negative for significant findings. BPPV assessments were negative bilaterally for posterior and horizontal canal involvement at this time. All examination findings were reviewed with the patient and his spouse. We had a discussion regarding differential causes of peripheral vertigo (BPPV versus cervicogenic) and discussed factors that can impact symptoms (i.e. dehydration, hx of motion sickness, etc.) . Patient was instructed through an initial HEP to address deficits observed in clinic today; his was also educated on exercises due to patient's cognitive deficits. Will reassess for positional vertigo as indicated. Recommend additional skilled interventions to decrease patient's symptoms for improved tolerance to and safety with positional changes and transitional movements. Primary Functional Limitations dizziness, impaired balance, cervicalgia, positional changes Plan of Care Rehabilitation Potential Good Physical Therapy Goals Therapy goals to be completed in prior to discharge: - Patient will report resolution of dizziness with all positional changes for >5 consecutive days to improve safety with transfers and daily activities. - Patient will demonstrate VOR without reproduction of dizziness symptoms for improved tolerance to all head movements. - Patient will display improved Romberg balance on foam surface with eyes closed 30 seconds with minimal sway to decrease fall risk. - Patient will be able to manage symptoms with his HEP outside of formal PT. Treatment Plan/Direct Interventions Canalith Repositioning,Gait Training,Manual Therapy, Neuromuscular Re-ed,Self-Care/ Home Management,Therapeutic Activities,Therapeutic Exercises Frequency/Duration 1x/week for up to 8 visits Patient Will Be Discharged From Therapy Completion of LTG(s),Skills Plateau,Independent w/HEP, Independently Progressing Evaluation Billing Untimed Code Treatment Minutes 60 Complexity Low Certification Information Initial Certification Date 09/27/24 Ending Certification Date 12/26/24 Provider Signature Required Yes Provider Signature Shows Agreement With POC & Medical Necessity Physician NPI Number Write NPI# Here Physician Comment/Change : Physician Signature & Date Requested Please Sign/Date Here
== END 2024-12-21 15:28 | disposition home or self-care (01) ==
PROVIDERS: PCP Internal Medicine; Visit Provider Internal Medicine
DX: H81.90 Unspecified disorder of vestibular function, unspecified ear (principal); M54.2 Cervicalgia; R26.81 Unsteadiness on feet; Z51.89 Encounter for other specified aftercare
CPT/HCPCS: 97110; 97112; 97161

== ENCOUNTER 2025-09-16 14:36 | Emergency (ER) | payer MEDICARE, SELFPAY ==
--- OUTSIDE RECORDS SUMMARY | 2025-01-10 12:17 | XMS_ITS | Continuity of Care Document ---
Author Organization [facility] Address [address] [place] [address] Phone Care Team Providers Care Deputy K 9 Name Role Phone Cristi Jones MD Unavailable Unavailabl e Allergies, Adverse Reactions, Alerts Substance Reaction Status Criticality Iodinated Contrast Media Active No Information Penicillins Active No Information Medications Medication Instructions Dosage Effective Dates (start - stop) Status Comments atorvastatin 40 mg tablet take 1 tablet by oral route every day 40 MG - Active verapamil ER 180 mg 24 hr capsule,extended release take 1 capsule by oral route every day 180 MG - Active lisinopril 10 mg tablet take 1 tablet by oral route every day 10 MG - Active alfuzosin ER 10 mg tablet,extended release 24 hr take 1 tablet by oral route every day 10 MG - Active Co-Veratrol 200 mg-5 mg-0.8 mg-400 mg capsule - Active Procedures Procedure Date GENERAL OPERATIONS AGENT Exam Level 3 Advance Directives Directive Yes / No Effective Date File Name No Information Encounters Encounter Description Practice Location Reason(s) For Visit Diagnoses Date Provider Providers Copied on Encounter [facility], [address], [id number], [place] tel:[phone] [facility] No Information Dec- Robert Colin. [address], [id number], [place]. tel:[phone] GENERAL OPERATIONS AGENT Exam Level 3 [facility], [address], [place], [id number], [place] tel:[phone] [facility] redness (chief complaint) Conjunctival hemorrhage, left eyeCombined forms of age-related cataract, bilateral 6 Robert Colin. [address], [place], [id number], [place]. tel:[phone] Referring Provider: Cristi Jones MD N, [address], [place], [address]. tel:[phone] Family History Family Member Type Diagnosis Age At Onset No Information Payers Payer name Insurance type Covered constitution party ID Authoriza tion(s) Medicare MB [id number] AARP Supplement CI [id number] Social History Type Description Quantity Date Captured Comments Sex Male Smoking Status No Information Chief Complaint And Reason For Visit No Information Reason For Referral Reason For Referral No Information Plan Of Treatment Date Type Action Status Patient Education Subconjunctival Hemorrh age: Care Instr completed History Of Present Illness Encounter Date Complaint History Of Prese nt Illness redness Unscheduled visi t for OS red and blood shot x yesterday. Denies pain or discomfort. [facility] is good. No tx. Patient reports taking medication for HTN which is under control. Reports noticed red eye when he woke up. Denies coughing, sneezing or rubbing his eye. Takes ASA. Similar episode 5-10 years ago. Functional Status Date Functional Assessmen t No Information Instructions Date Instruction Additional Infor mario alberto Continue care with Albert Biswas, aboriginal home school liaison officer Related to Conjunctival hemorrhage, left eye Impression/Plan - Emerson bconjunctival hemorrhage OS is not harmful and can last up to 2 weeks. No treatment to resolve redness. Will move inferiorly and color will change as hemorrhage heals. Similar to a bruise on skin. Use artificial tears and warm compresses to comfort. If reoccurs have patient contact primary care physician for blood pressure evaluation. Educational materials provided:Subconjunctival hemorrhage. Related to Conjunctival hemorrhage, left eye Follow up - Continue care with Dr. Biswas, aboriginal home school liaison officer Related to Conjunctival hemorrhage, left eye Assessments Type Assessment Date No Information Patient Care Teams Name Effective Dates (start - stop) Status Members No Information
[2025-09-16] VITALS (26 sets, daily range): BP systolic 119–174; BP diastolic 62–104; PULSE 52–72; RESP 14–28; TEMP 36.1; O2SAT 94–99; BMI 27.6
--- OUTSIDE RECORDS SUMMARY | 2025-09-16 14:39 | XMS_ITS | Clinical Summary ---
Author Organization [facility] Address [address] [place] [address] Care Team Providers Care Sales Enablement Manager Name Role Phone Karan Mirza MD Primary Care Provider Allergies Active AllergyReactionsCriticalityNoted DateCommentsAdhesiveItching,RashLow 05/31/2019Adhesive Tape-FvwpsxhcfRunexyd70/07/2018Iodinated Contrast MediaThroat Swelling/Closing,Anaphylaxis,Other - Describe In Comment MecsjGhrk75/01/2018 Throat Swelling reaction to Iodinated Contrast Dye Other reaction(s): Throat Irritation Other reaction(s): Throat Swelling/Closing Other reaction(s): Throat Irritation Throat Swelling reaction to Iodinated Contrast Dye Methylphenidate*Unknown - Follow up vawjdq913Penicillins*Unknown - Childhood Rxn,PeroNxzxfz26/08/2005 PN: THROAT SWELLS Medications MedicationSigDispense QuantityRefillsLast FilledStart DateEnd DateStatus donepeziL (ARICEPT) 10 mg tablet Take 10 mg by mouth at bedtime.Active lutein 40 mg cap Take 40 mg by mouth once daily.Active cyanocobalamin (Vitamin B-12) 1,000 mcg tablet Take 1,000 mcg by mouth once daily.Active nitroglycerin (NITROSTAT) 0.4 mg sublingual tablet Indications:Chest pain, unspecified typePlace 1 Tablet (0.4 mg) under the tongue every 5 minutes if needed for Chest pain 1st choice. Up to3 tablets in 15 minutes. 100 Tablet 09/12/2024 9:30 AM CST4Active tiotropium-olodateroL (Stiolto Respimat) 2.5-2.5 mcg/actuation inhaler Inhale 2 Puffs by mouth once daily.Active meclizine (ANTIVERT) 25 mg tablet Indications:DizzinessTake 1 Tablet (25 mg) by mouth 3 times daily if needed for Vertigo. 12 Tablet 5Active BIPAP Indications:DEANN (obstructive sleep apnea)BIPAP (E0470) machine for home use at pressure: autosetting EPAP 6 cmw IPAP max 15 PS 4, Choice of mask (A7030 or A7034) w/full face cushion (A7031) x1/mo, nasal cushion (A7032) x2/mo, or nasal pillows (A7033) x 2/mo; Length of Need: 99 months; Frequency of use: Daily 1 Each 5Active losartan 25 mg tablet Indications:Essential hypertensionTAKE 1 TABLET(25 MG) BY MOUTH DAILY 90 Tablet 5Active Eliquis 5 mg tablet Indications:Atrial fibrillation with controlled ventricular response (HC)TAKE 1 TABLET(5 MG) BY MOUTH TWICE DAILY 180 Tablet 5Active amLODIPine 5 mg tablet Indications:Essential hypertensionTAKE 1 TABLET(5 MG) BY MOUTH DAILY 90 Tablet 5Active ezetimibe (Zetia) 10 mg tablet Indications:Other hyperlipidemiaTake 1 Tablet (10 mg) by mouth once daily. 90 Tablet 5Active gabapentin (NEURONTIN) 300 mg capsule Indications:Lumbar facet arthropathy,Bulging of lumbar intervertebral disc, Lumbar radiculopathy,Leg crampingTake 1 Capsule (300 mg) by mouth at bedtime. 30 Capsule 5Active evolocumab (Repatha SureClick) 140 mg/mL subcutaneous pen injector INJECT 1 ML SUBCUTANEOUS EVERY 2 WEEKS. INJECT INTO ABDOMEN, THIGH OR UPPER ARM. ROTATE INJECTION SITES 6 mL 5Active Active Problems ProblemNoted DateDiagnosed DateAtypical nevi01/03/2025 Overview (01/03/2025): -11/24/2024, Left chest, Lentiginous compound nevus with moderate atypia -Monitor Chest pain4Bladder stone04/20/2023 Overview (11/01/2023): Added automatically from request for surgery [id number] Chronic pain of right knee03/21/2023 Overview (03/26/2023): February 2023: right knee cortisone injection by Dr. Smith . 95% Pain relief at 2 weeks. Symptomatic stenosis of left carotid gkjhtc3311/09/2019 Overview (11/09/2019): 11/09/2019- Left carotid endarterectomy with patch angioplasty. Dr. Bustamante Laahzrs3811/05/2019History of atrial /16/2020Coronary artery disease involving elem coronary artery of elem heart without angina pectoris 11/05/2019ADD (attention deficit disorder)09/06/2018NSTEMI (non-ST elevated myocardial infarction) (HC) - Chest pain09/06/2018Atrial fibrillation with controlled ventricular wspgxyvh57/29/2014Hypertrophy of prostate without urinary gdtphbkcsji91/08/2009 Overview (09/06/2018): Overview: BPH w/o Obstruction Obstructive sleep apnea05/11/2007 Overview (09/06/2018): Overview: Setting: Respironics AutoBilevel 4-15 cmH20 Supplied by: [employer] PSG done: 04/19/07, 10-10-07, 06-04-11 AHI 29 RDI 45 Lowest O2 Sat: 75% Boss Renew 04/30/15; 10/16/15 cmn, renew 04-20-17 Sleep Ed ord 15 LB; Moderate Obstructive sleep apnea Essential wytjlktfqipv88/07/2003 Overview (09/06/2018): Overview: Hypertension Nqokfvllpuywmy35/07/2003 Resolved Problems ProblemNoted DateDiagnosed DateResolved DateMild Alzheimer's dementia without behavioral disturbance, psychotic disturbance, mood disturbance, or anxiety, unspecified timing of dementia onset Encounters DateTypeDepartmentCare SwawXzbgendekht32/28/2025Telephone [facility] [address] [facility] [address] [place] [address] Raudel Landry MD Xvwrcuot26/23/2025Refill [facility] [address] [facility] [address] [place] [address] Raudel Landry MD Refill Request (Phani Humphreyclmartin)06/26/2025Telephone [facility] [address] [facility] [address] [place] [address] Raudel Landry MD Cardiology Appointmentfrom Last 3 Months Family History Medical HistoryRelationNameCommentsCancer-prostateBrotherCoronary artery disease FatherHeart failureMotherRelationNameStatusCommentsBrotherAliveFatherDeceased MotherDeceasedSisterAlive Social History Tobacco UseTypesPacks/DayYears UsedDateSmoking Tobacco: QgujwwRnhwrfpfrb181 Smokeless Tobacco: Never Tobacco Cessation:Counseling Given: Yes Alcohol UseStandard Drinks/WeekCommentsNo0 (1 standard drink = 0.6 oz pure alcohol)Social ConnectionsAnswerDate RecordedDo you often feel lonely or isolated from those around you?Financial Resource StrainAnswerDate RecordedDifficulty of Paying Living Whvvqqcb879ifficulty of Paying Living ExpensesNot on file02/18/2024Food InsecurityAnswerDate RecordedDo you worry your food will run out before you are able to buy more? Transportation NeedsAnswerDate RecordedDoes lack of transportation keep you from medical appointments?oes lack of transportation keep you from work, meetings or getting things that you need?Housing StabilityAnswerDate RecordedWhat is your housing situation today?Interpersonal Safety AnswerDate RecordedAre you being hit, kicked, pushed or yelled at (see row info)?No09/24/2024Interpersonal Safety Abuse 12 - 18Not on file09/24/2024 Interpersonal Safety Ambulatory VulnerabilityNot on file09/24/2024Utilities AnswerDate RecordedDo you have trouble paying for utilities (for example, heat, electricity, water, phone)?Sex and Gender InformationValueDate RecordedSex Assigned at BirthNot on fileLegal YarUaqz7105/07/2014 7:00 PM CDT Gender IdentityNot on fileSexual OrientationNot on file Last Filed Vital Signs Vital SignReadingTime TakenCommentsBlood Xxnnqcbu604/7208 11:00 AM CDT Gwtxs546104/25/2025 11:00 AM NMZRlctwjreiws86.7 ??C (98 ??F)09/24/2024 12:00 PM CSTRespiratory Bvjg523609/24/2024 1:20 PM CSTOxygen Qvacxvrupd79%04/25/2025 11:00 AM CDTInhaled Oxygen Concentration--Dqyoqt49.8 kg (220 lb)04/25/2025 11:00 AM YGXWzzucl226 cm (6' 2)09/28/2024 1:03 PM CSTBody Mass Index28.25009/28/2024 1:03 PM DASHBOARD 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 Plan of Treatment DateTypeDepartmentCare Team (Latest Contact Info)Akhpljbdkoe86/08/2026 7:50 AM CSTOffice Visit [facility] [place] [address] [place] [address] Tyrone Smith MD [address] [place] [address] Health MaintenanceDue DateLast DoneCommentsTetanus gahtdlp0909/11/1956Pneumococcal series for age 50+ (1 of 2 - PCV)1964Zoster (shingles) series for age 50+ (1 of 2)1995Medicare Wellness for age 65+2010Depression screening for age 12+RSV vaccine for adults or (1 - 1-dose 75+ series)2020COVID-19 vaccine series (2024- season)2025 01/30/2025, 07/28/2024, 06/25/2023, Additional history existsInfluenza Vaccine (#1)5BMI (ht and wt on same day) for age 18+601/05/2025, 03/31/2023, 03/15/2023, Additional history existsHepatitis B series for 19+Aged OutNo longer eligible based on patient's age to complete this topic Medical Devices ImplantedTypeAreaManufacturerDevice IdentifierShelf Expiration DateModel / Serial / LotTissue Pericardium 0.8x8cm Xenosure - [id number] Implanted:Qty: 1 on 11/09/2019 by [facility]: Carotid ArteryLeMaitre Vascular Inc50.8P8# / / [id number] [place] [address] Advance Directives * DNR (Latest Code Status on File) Date ActivatedDate DrabhebnirjWrocsxrv70/23/2024 3:20 PM09/12/2024 12:03 PM Discussed with patient, , daughter. Suggested more comprehensive conversation for his wishes.QuestionAnswerCommentsCode Status Discussion:* Reviewed Preferences * Full Code Date ActivatedDate InactivatedComments12/11/2022 10:20 AM12/11/2022 7:43 PM QuestionAnswerCommentsCode Status Discussion:* Other * Full Code Date ActivatedDate InactivatedComments11/05/2019 4:57 PM2 6:38 PM * Full Code Date ActivatedDate KluorringymKbnexjet73/19/2018 12:05 AM09/08/2018 2:22 PM Care Teams Team MemberRelationshipSpecialtyStart DateEnd Date Karan Mirza MD [address] [place] [address] PCP - GeneralInternal Medicine11/08/17
--- OUTSIDE RECORDS SUMMARY | 2025-09-16 14:39 | XMS_ITS | Clinical Summary ---
Author Organization [facility] Address [address] [place] [address] Care Team Providers Care Printed Circuit Boards Solder Leveler Name Role Phone Karan Mirza MD Primary Care Provider [phone] Source Comments You are receiving this document as you are listed as the primary care provider,follow-up provider, or the patient has been referred to you for consultation.This is in compliance with the Medicare andLakehealth Tripoint Medical Centercaid EHR Incentive Program,which states Providers who transition their patient to another setting of careor provider of care or refers their patient to another provider of care shouldprovide summary care record for each transition of care or referral. [facility] HospitalG[facility] Online Allergies Active AllergyReactionsCriticalityNoted DateCommentsAdhesiveItching,RashLow 05/31/2019Iodinated Contrast MediaThroat Irritation,CjskxgjtmyzCius11/01/2018 Throat Swelling reaction to Iodinated Contrast Dye Other reaction(s): Throat Irritation Other reaction(s): Throat Swelling/Closing GlcrncrwmelkvkbNybpxrk57/31/0438NzuisYpzhvrbHibz88/25/2007 Angiogram Dye: dye given when having angiogram JfugwrfttuhTitqTfqkhs01/08/2005 PN: THROAT SWELLS Opcipqfgpf52/29/2012 Medications MedicationSigDispense QuantityRefillsLast FilledStart DateEnd DateStatus unknown medication LW Comment:Bilevel I:14 E:10111/18/2007ctive amLODIPine (NORVASC) 5 MG tablet Take 1 Tablet (5 mg) by mouth daily.Active rosuvastatin (CRESTOR) 40 MG tablet Take 1 Tablet (40 mg) by mouth.11/10/2019Active donepezil (ARICEPT) 10 MG tablet Take 1 Tablet (10 mg) by mouth.10/31/2019Active losartan (COZAAR) 25 MG tablet Take 1 Tablet (25 mg) by mouth.11/04/2022ctive ELIQUIS 5 MG tablet Take 1 Tablet (5 mg) by mouth two times a day.03/18/2023ctive Lutein 40 MG Active vitamin B-12 (AKA: CYANOCOBALAMIN) 1000 MCG tablet Take 1 Tablet (1,000 mcg) by mouth.09/20/2022ctive PAXLOVID, 300/100, 300 mg & 100 mg tablet combo pack Take by mouth.4Active nitroglycerin (NITROSTAT) 0.[address] 1 Tablet (0.4 mg) under tongue every 2 hours as needed.4Active tiotropium-olodaterol (STIOLTO RESPIMAT) 2.5-2.5 MCG/ACT inhaler Inhale 2 Puffs daily. 1 Each 111415Active Active Problems ProblemNoted DateDiagnosed DateMild persistent asthma without complication 4Pulmonary nrwdccam95/31/2024ladder stone04/20/2023 Overview (04/20/2023): Added automatically from request for surgery [id number] Benign prostatic mfotwzqqtdv69/30/2019 Overview (04/18/2019): Added automatically from request for surgery [id number] Renal cyst10/13/2018Atrial zhhgpmtxnbpy60/30/2014 Overview (04/22/2016): acute onset and spontaneous cardioversion 12/17/2013. no structural heart disease on echo. CHADS2=1. started on metoprolol. Atrial fibrillation with controlled ventricular oirphpxr57/29/2014Impaired fasting usgghsz6011/18/2011Vitamin D utmixtivqu36/14/2009Hypertrophy of prostate without urinary piatxcnagup50/08/2009 Overview (05/12/2017): BPH w/o Obstruction Obstructive sleep apnea treated with bilevel positive airway pressure (BiPAP) 05/11/2007 Overview (04/24/2019): Setting: Respironics AutoBilevel 4-15 cmH20 Supplied by: [employer] PSG done: 04/19/07, 10-10-07, 06-04-11 AHI 29 RDI 45 Lowest O2 Sat: 75% Boss 04-24-19 Renew Renew 04/30/15; 10/16/15 cmn, renew 04-20-17 Sleep Ed ord 02-28-15 LB; Moderate Obstructive sleep apnea Essential rzefostnwsas56/07/2003 Overview (05/12/2017): Hypertension Nvcqnshkcjoznj51/07/2003ADD (attention deficit disorder)ED (erectile dysfunction) Immunizations ImmunizationAdministration DatesNext DueDT Ped02/02/1991,01/09/1984Flu Vac Preserv Free (3+yrs)07/05/2013,08/17/2011,06/18/2010,06/04/2009,07/23/2008, 07/04/2007,07/29/2006,09/02/2005H1n1 Miv [employer] 3+ Yr (Injected)09/27/2009 Influenza, Unspecified Npppbgzfsdt16/05/2003,06/29/2002,08/02/2001PPSV23 (Pneumovax)10/28/2010Td11/05/2003,11/23/2000Zoster (Zostavax)10/28/2010 Family History Medical HistoryRelationNameCommentsMyocardial InfarctionBirth FatherHeart FailureBirth MotherAge 70s, possible MICancer, ProstateBrother 2Age 40s.Lung DiseaseSister 2Uncertain diagnosisRelationNameStatusCommentsBirth FatherDeceased MotherDeceasedBrother 1AliveBrother 2Sister 1AliveSister 2 Social History Tobacco UseTypesPacks/DayYears UsedDateSmoking Tobacco: FormerSmokeless Tobacco: Never Comments:Quit smoking: Alcohol UseStandard Drinks/WeekCommentsNo0 (1 standard drink = 0.6 oz pure alcohol)Sex and Gender InformationValueDate RecordedSex Assigned at BirthNot on fileLegal FiaXjqq92/10/2012 4:24 AM CDTGender IdentityNot on fileSexual OrientationNot on fileOccupationIndustryJob Start DateJob End DateRetired business ownerNot on fileNot on fileNot on file Last Filed Vital Signs Vital SignReadingTime TakenCommentsBlood Ragyrygr825/7208 1:15 PM CDT Vyswi922309/19/2024 9:54 AM WLIDchufrpzwvn05.3 ??C (97.3 ??F)05/10/2023 1:15 PM CDTRespiratory Bwdn325005/10/2023 1:15 PM CDTOxygen Ubcvrrgwbi90%09/19/2024 9:54 AM CSTInhaled Oxygen Concentration--Iddcva917.7 kg (222 lb)09/19/2024 9:54 AM FYVFpympr291.4 cm (6' 1)09/19/2024 9:54 AM CSTBody Mass Index29.291 9:54 AM SHIPBUILDING 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 Plan of Treatment Health MaintenanceDue DateLast DoneCommentsMedicare Annual Wellness Visit 1945Pneumococcal Vaccine 50+ Yrs (2 of 2 - PCV) Ajikrydifso56RSV Vaccine (1 - 1-dose 75+ series)2020 COVID-19 Vaccine ( season), 12/07/2023, 06/25/2023, Additional history existsInfluenza Vaccine (#1), 06/15/2023, 06/01/2022, Additional history existsDTaP/Tdap/Td Vaccine (6 - Tdap) 6001/16/2016, 11/05/2003, 11/23/2000, Additional history exists ThhdfiwcjtlDeyinmlfrvhp04/12/2013, 11/16/2011, 10/29/2010, Additional history existsZoster/Shingles IrqwspqZgenyrnsd43/17/2020, 05/21/2020, 10/28/2010HepA VaccineAged OutNo longer eligible based on patient's age to complete this topic HepB VaccineAged OutNo longer eligible based on patient's age to complete this topicHib VaccineAged OutNo longer eligible based on patient's age to complete this topicMCV4 VaccineAged OutNo longer eligible based on patient's age to complete this topicMeningococcal B VaccineAged OutNo longer eligible based on patient's age to complete this topic Procedures Procedure NamePriorityDate/TimeAssociated DiagnosisCommentsLIPID PANEL & DIRECT LDL (IF NEEDED)Wgirzgg6208/31/2013 7:38 AM SHIPBUILDING 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 Other and unspecified hyperlipidemia (HRC) ENDOSCOPY, COLON, SCREENING/MJLIHVKMWCBdttohv51/08/2007 12:27 PM CSTfrom Last 3 Months or Most Recently Relevant to Health Maintenance Results * Lipid Panel and Direct LDL(If Needed) (08/31/2013 7:38 AM SHIPBUILDING 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)ComponentValue Ref RangeTest MethodAnalysis TimePerformed AtPathologist SignatureCholesterol 1390 - 200 mg/dLHP WVMPWTXNTSQkjyadbkmqlpt064 - 149 mg/dLHP CONVERSIONHDL Gtsltaswwjd26>39 mg/dLHP CONVERSIONCholesterol/HDL Ratio Screen3.3HP CONVERSIONLDL Hwvammnbii4132 - 130 mg/dLHP CONVERSIONHours FastingN/AHP CONVERSIONSpecimen (Source)Anatomical Location / LateralityCollection Method / VolumeCollection TimeReceived Time08/31/2013 7:38 AM CST08/31/2013 8:11 AM SHIPBUILDING 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 Narrative Authorizing ProviderResult TypeResult StatusYogesh Lomeli MDLAB_1Final Result Performing OrganizationAddressCity/State/ZIP CodePhone Number HP CONVERSION * Endoscopy, colon, diagnostic (11/25/2006 12:27 PM SHIPBUILDING 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)Anatomical Region LateralityModalityOtherSpecimen (Source)Anatomical Location / Laterality Collection Method / VolumeCollection TimeReceived Time Narrative Authorizing ProviderResult TypeResult StatusUser ConversionET GI PROCEDURE ORDERABLESFinal Result from Last 3 Months or Most Recently Relevant to Health Maintenance Insurance * Guarantor: Guillermo Narayanan TypeRelation to PatientDate of BirthPhone Billing AddressPersonal/MdaggeQhrs1945 [facility] [place] [address] * Guarantor: Guillermo Narayanan TypeRelation to PatientDate of BirthPhone Billing AddressPersonal/QitqliBgdu1945 [facility] [place] [address] [address] Advance Directives * Full Code (Latest Code Status on File) Date ActivatedDate InactivatedCom2014 7:38 PM12/17/2013 1:31 PM Care Teams Team MemberRelationshipSpecialtyStart DateEnd Date Karan Mirza MD [address] [place] [address] PCP - General04/20/17
--- OUTSIDE RECORDS SUMMARY | 2025-09-16 14:39 | XMS_ITS | Clinical Summary ---
Author Organization [facility] Address [address] [place] [address]. [place] [address] Care Team Providers Care Patient Day Coordinator Name Role Phone Karan Mirza MD Primary Care Provider Jefferson Mcdaniel MD Unavailable Kevin Jordan MD Unavailable [phone] Allergies Active AllergyReactionsCriticalityNoted DateCommentsAdhesive PsqoEnlzn61/17/2020 Contrast BqjTkzx6511/18/2017 Other reaction(s): Throat Swelling/Closing Iodinated Contrast TxyzaRffx48/12/2019 Other reaction(s): Throat Irritation Throat Swelling reaction to Iodinated Contrast Dye IodineOther (See Comments)High11/18/2017No Clinical Screening - Other Allergy XjnxkxzYnlp64/25/2007 Angiogram Dye: dye given when having angiogram JcwhvagqtvjLbbhfkuJplitc80/08/2005 PN: THROAT SWELLS Ockpkhwqvn00/29/2012 Medications MedicationSigDispense QuantityRefillsLast FilledStart DateEnd DateStatus aspirin 81 MG EC tablet Take 81 mg by mouth11/13/2017Active amLODIPine (NORVASC) 5 MG tablet Take 5 mg by mouth daily.Active rosuvastatin (CRESTOR) 40 MG tablet Take 40 mg by mouth dailyActive metoprolol tartrate (LOPRESSOR) 25 MG tablet Take 12.5 mg by mouth 2 times daily Stating taking half a tablet.Active cholecalciferol 125 MCG (5000 UT) CAPS Take 5,000 Units by mouth1Active apixaban ANTICOAGULANT (ELIQUIS) 5 MG tablet Take 5 mg by mouth07/25/2022ctive losartan (COZAAR) 25 MG tablet Take 1 tablet by mouth daily11/04/2022ctive Lutein 40 MG CAPS Active tamsulosin (FLOMAX) 0.4 MG capsule 09/21/2022ctive cyanocobalamin (VITAMIN B-12) 1000 MCG tablet Take 1,000 mcg by mouth dailyActive donepezil (ARICEPT) 10 MG tablet Indications:Mild cognitive impairmentTake 1 tablet (10 mg) by mouth at bedtime. 90 tablet 5Active amLODIPine (NORVASC) 2.5 MG tablet Take 2 tablets in the morning and take 1 tablet in the evening.Active evolocumab (REPATHA) 140 MG/ML prefilled autoinjector Inject 140 mg subcutaneously every 14 days.5Active ezetimibe (ZETIA) 10 MG tablet Take 1 Tablet (10 mg) by mouth once daily.5Active STIOLTO RESPIMAT 2.5-2.5 MCG/ACT AERS inhale 2 puffs by mouth dailyActive meclizine (ANTIVERT) 25 MG tablet Take 25 mg by mouth 3 times daily as needed for dizziness.Active nitroGLYcerin (NITROSTAT) 0.[address] 0.4 mg under the tongue every 5 minutes as needed for chest pain. For chest pain place 1 tablet under the tongue every 5 minutes for 3 doses. If symptoms persist 5 minutes after 1st dose call 911.Active Active Problems ProblemNoted DateDiagnosed DateCAD (coronary artery disease) Overview (11/22/2018): 4 drug eluting stents placed in Oct 2018 Immunizations ImmunizationAdministration DatesNext DueCOVID-19 12+ (MODERNA)4COVID-19 Bivalent 18+ (Moderna)3COVID-19 MONOVALENT 12+ (Pfizer)11/28/2021, 11/09/2020,1COVID-19 Monovalent 12+ (Pfizer 2021)2DT (PEDS <7y)02/02/1991,01/09/1984DTAP, 5 Pertussis Antigens (Daptacel)02/02/1991Flu 65+ (Fluad)06/09/2019Flu, Mdzayzeqkvi98/05/2003,06/29/2002,08/02/2001Influenza (H1N1)09/27/2009Influenza (High Dose) Trivalent,PF (Fluzone)06/14/2018, 05/24/2016Influenza (prior to 2023)07/05/2013,08/17/2011,06/18/2010,06/04/2009, 07/23/2008,07/04/2007,07/29/2006,09/02/2005Influenza Vaccine 65+ (FLUAD) 06/01/2022,06/19/2020Influenza Vaccine 65+ (Fluzone HD)06/15/2023,07/01/2021 Influenza Vaccine >6 months,quad, PF06/01/2022,06/19/2020,06/09/2019,06/14/2018, 05/24/2016,07/05/2013,08/17/2011,05/25/2011,06/18/2010,09/27/2009,06/04/2009, 07/23/2008,07/04/2007,07/29/2006,09/02/2005,07/25/2003,06/29/2002,08/02/2001 Pneumococcal 23 uxmscg0310/28/2010RSV (Abrysvo)06/16/2023TD,PF 7+ (Tenivac) 11/05/2003,11/23/2000TDAP Vaccine (Adacel)01/16/2016Zoster recombinant adjuvanted (Shingrix)08/06/2020,05/21/2020Zoster vaccine, live10/28/2010 Family History Medical HistoryRelationCommentsAlcoholismBrotherProstate CancerBrotherAlcoholism FatherHeart DiseaseFatherMI and arrhythmiaAlcoholismMotherHeart FailureMother age 76Other - See CommentsSisterdied age 66, viral infection became chronic lung problemRelationStatusCommentsBrotherAliveFatherDeceasedMotherDeceasedSister Social History Tobacco UseTypesPacks/DayYears UsedDateSmoking Tobacco: FormerCigarettes Smokeless Tobacco: Never Tobacco Cessation:Counseling Given: Not Answered Comments:3 packs per day x 25 years, quit in 1986 Alcohol UseStandard Drinks/WeekCommentsNo0 (1 standard drink = 0.6 oz pure alcohol)former heavy alcohol use, periodic relapse, quit 2016AUDIT-CAnswerDate RecordedFrequency of Alcohol GzarcfcuytcUtgcx25/15/2019Average Number of Drinks Not on file11/04/2018Frequency of Binge DrinkingNot on file11/04/2018PHQ-2Answer Date RecordedPHQ-2 Zzzzq7905Adolescent EducationAnswerDate Recorded Getting School Help NeededNot on file06/11/2023Sex and Gender InformationValue Date RecordedSex Assigned at BirthNot on fileLegal IomOaoi2010/13/2018 1:15 PM [employer] Gender IdentityNot on fileSexual OrientationNot on file Last Filed Vital Signs Vital SignReadingTime TakenCommentsBlood Jvicrgud046/7409 10:23 AM CDT Uzpvm236205/23/2025 10:23 AM FCMJsdvtkovvht19.6 ??C (97.9 ??F)05/23/2025 10:23 AM CDTRespiratory Qhlw580401/20/2019 8:06 AM CDTOxygen Onmkgikbdm49%05/23/2025 10:23 AM CDTInhaled Oxygen Concentration--Hfpxfh209.3 kg (230 lb)03/07/2025 11:06 AM PHPVutnwa090.7 cm (6' 2.29)03/07/2025 11:06 AM CDTBody Mass Index29.306 11:06 AM CDT Plan of Treatment DateTypeDepartmentCare Team (Latest Contact Info)Xjgverdykdd06/24/2026 11:00 AM CDTOffice Visit [facility] [address] [address] Kevin Jordan MD [address] [place] [phone] Health MaintenanceDue DateLast DoneCommentsADVANCE CARE [id number] REVIEW OF HM [id number] 1945DIABETES QFTGVCZFA64/23/1316PNNWC1945MEDICARE ANNUAL WELLNESS VISIT2010PNEUMOCOCCAL VACCINE 50+ YEARS (2 of 2 - PCV) DTAP/TDAP/TD VACCINE (5 - Td or Tdap)6001/16/2016, 11/05/2003, 11/23/2000, Additional history existsCOVID-19 VACCINE (2024- season)/, 01/30/2025, 07/28/2024, Additional history exists FALL RISK PYJMMNVGUU25/18/202606/, 03/10/2023, 06/13/2021, Additional history existsZOSTER OPWKYJZJspsbnkfn03/17/2020, 05/21/2020, 10/28/2010RSV LIARFHMAvkziafcl31/27/2023PHQ-2 (once per calendar year)Bbvabjcqc63/18/2025, 03/10/2024, 03/10/2023, Additional history existsINFLUENZA VACCINECompleted 08/02/2025, 07/28/2024, 06/15/2023, Additional history existsHPV VACCINE (No Doses Required)CompletedMENINGITIS VACCINEAged OutNo longer eligible based on patient's age to complete this topic Insurance Care Teams Team MemberRelationshipSpecialtyStart DateEnd Karan Mirza MD [facility] [place] [address] [place] [address] PCP - GeneralEmergency Medicine10/13/18 Jefferson Mcdaniel MD [facility] [address] [place], [place] [id number] Referring PhysicianNeurolog10/13/18 Kevin Jordan MD [address] [place] [id number] Assigned Neuroscience Provider11/24/20
--- NOTE | 2025-09-16 14:41 | ED.GENADULT ---
HPI - General Adult General Date Seen: 09/16/25 Chief complaint: Chest Pain Stated complaint: chest pain Time Seen by Provider: 09/16/25 14:41 History of Present Illness HPI narrative: 80-year-old male with a history of paroxysmal AFib (on Eliquis had ablation done through [facility] a year or 2 ago), history of TIA, rheumatic fever as a child, borderline diabetes, hyperlipidemia, arthritis, history of TBI with some impaired cognition , history of coronary artery disease with stents placed approximately 10 years ago at a hospital in [place], history of COPD (saw Dr. Mirza in February 2025 with COPD exacerbation). He presents to the ER today with his family with concern for chest pain. History is a little bit limited and oral a reliable here because the patient's history of TBI and memory loss. He notes that he can not remember all the details. It sounds like he does have some chest pain off and on has had like this for several months. However it sounds like his chest pain has been worse for the past 4 or 5 days. He did tell his family about his chest pain until today but he thinks he was having some chest pain for the past few days. He is not able to tell me if it has been intermittent or continuous. It is not related to activity or position. He does not know of any known injury, but his daughter notes that a couple of days ago he was lifting up his 's bed to make the legs lower. His family had asked him not to do that and to wait for his other relatives arrived to help him with that physical labor. His daughter wonders if he might have injured his muscle during that activity. He is able to tell me that he was having chest pain this morning. It feels like a tightness in his left chest and radiates up to his left neck to his jaw. Has a little bit of tingling in his left arm. He says he thinks it feels like when he had his stents several years ago. He is not nauseous. No pain through to the back. It does not hurt to breathe. He is not short of breath. No cough. No fever. No recent travel or immobilization. No swelling in his legs. No history of PE. He has been therapeutic with aching all of his meds. He is not feeling any palpitations or symptoms of AFib. He does have history of coronary disease. He can not recall when his last stress test or angiogram was. He knows his non destructive testing specialist through [facility]. He has been very careful about taking all of his prescribed meds. Related Data Home Medications ?Medication ?Instructions ?Recorded ?Confirmed donepezil 10 mg tablet 10 mg PO HS 07/24/22 07/10/25 tamsulosin 0.4 mg capsule 0.4 mg PO DAILY 07/24/22 07/10/25 apixaban 5 mg tablet (Eliquis) 5 mg PO BID 08/04/22 07/10/25 losartan 25 mg tablet 25 mg PO DAILY 12/22/22 07/10/25 cyanocobalamin (vitamin B-12) 1,000 mcg PO DAILY 04/10/23 07/10/25 1,000 mcg capsule loratadine 10 mg tablet (Claritin) 10 mg PO QDAY 09/26/24 07/10/25 nitroglycerin 0.4 mg sublingual 0.4 mg sublingual Q5M PRN 09/26/24 07/10/25 tablet lutein 20 mg capsule 40 mg PO DAILY 02/20/25 07/10/25 aspirin 81 mg tablet,delayed 81 mg PO QDAY 03/20/25 07/10/25 release (Adult Aspirin Regimen) cetirizine 10 mg tablet 10 mg PO QDAY PRN 03/20/25 07/10/25 cholecalciferol (vitamin D3) 125 125 mcg PO QDAY 03/20/25 07/10/25 mcg (5,000 unit) capsule evolocumab 140 mg/mL subcutaneous 140 mg subcut Q2W 03/20/25 07/10/25 pen injector ezetimibe 10 mg tablet 10 mg PO QDAY 03/20/25 07/10/25 metoprolol succinate 25 mg 12.5 mg PO BID 03/20/25 07/10/25 tablet,extended release 24 hr Previous Rx's ?Medication ?Instructions ?Recorded amlodipine 5 mg tablet 5 mg PO DAILY #30 tabs 04/12/23 tiotropium 2.5 mcg-olodaterol 2.5 2 puff inhalation Q24H #4 grams 09/26/24 mcg/actuation mist for inhalation (Stiolto Respimat) Allergies Allergy/AdvReac Type Severity Reaction Status Date / Time Iodinated Contrast Media Allergy Severe Anaphylaxis Verified 09/16/25 14:45 adhesive Allergy Mild Rash Verified 09/16/25 14:45 Penicillins Allergy Mild Rash Verified 09/16/25 14:45 methylphenidate (From AdvReac Unknown Verified 03/29/25 10:01 Ritalin) [facility] Medical History (Updated 09/16/25 @ 17:44 by Daron Mcmullen MD) Osteoarthritis of left knee ?M17.12 - Unilateral primary osteoarthritis, left knee (ICD-10) Knee pain ?M25.569 - Pain in unspecified knee (ICD-10) Memory change ?R41.3 - Other amnesia (ICD-10) Vertigo ?R42 - Dizziness and giddiness (ICD-10) COPD (chronic obstructive pulmonary disease) ?J44.9 - Chronic obstructive pulmonary disease, unspecified (ICD-10) COVID-19 ?U07.1 - COVID-19 (ICD-10) Bladder stone ?N21.0 - Calculus in bladder (ICD-10) Acute urinary retention ?R33.8 - Other retention of urine (ICD-10) Tear of lateral meniscus of left knee ?S83.282A - Other tear of lateral meniscus, current injury, left knee, initial encounter (ICD-10) Acute sinusitis ?J01.90 - Acute sinusitis, unspecified (ICD-10) Sinus pressure ?J34.89 - Other specified disorders of nose and nasal sinuses (ICD-10) Renal cyst ?N28.1 - Cyst of kidney, acquired (ICD-10) Paroxysmal atrial fibrillation ?I48.0 - Paroxysmal atrial fibrillation (ICD-10) Chronic headache ?R51.9 - Headache, unspecified (ICD-10) ?G89.29 - Other chronic pain (ICD-10) Carotid artery stenosis ?I65.29 - Occlusion and stenosis of unspecified carotid artery (ICD-10) Wears hearing aid ?Z97.4 - Presence of external hearing-aid (ICD-10) Traumatic brain injury (1959) ?S06.9XAA - Unspecified intracranial injury with loss of consciousness status unknown, initial encounter (ICD-10) Obstructive sleep apnea syndrome ?G47.33 - Obstructive sleep apnea (adult) (pediatric) (ICD-10) Hyperlipidemia ?E78.5 - Hyperlipidemia, unspecified (ICD-10) History of alcoholism ?F10.21 - Alcohol dependence, in remission (ICD-10) Essential hypertension ?I10 - Essential (primary) hypertension (ICD-10) Erectile dysfunction ?N52.9 - Male erectile dysfunction, unspecified (ICD-10) Dementia ?F03.90 - Unspecified dementia, unspecified severity, without behavioral disturbance, psychotic disturbance, mood disturbance, and anxiety (ICD-10) Coronary artery disease (2018) ?I25.10 - Atherosclerotic heart disease of [place] coronary artery without angina pectoris (ICD-10) BPH (benign prostatic hyperplasia) ?N40.0 - Benign prostatic hyperplasia without lower urinary tract symptoms (ICD-10) Borderline diabetes mellitus ?R73.03 - Prediabetes (ICD-10) Attention deficit disorder ?F98.8 - Other specified behavioral and emotional disorders with onset usually occurring in childhood and adolescence (ICD-10) History of TIA (transient ischemic attack) (11/05/19) ?Z86.73 - Personal history of transient ischemic attack (TIA), and cerebral infarction without residual deficits (ICD-10) History of rheumatic fever as a child ?Z86.79 - Personal history of other diseases of the circulatory system (ICD-10) History of atrial fibrillation (2013) ?Z86.79 - Personal history of other diseases of the circulatory system (ICD-10) Surgical History S/P ablation of atrial fibrillation ?Z98.890 - Other specified postprocedural states (ICD-10) ?Z86.79 - Personal history of other diseases of the circulatory system (ICD-10) History of left inguinal hernia repair ?Z98.890 - Other specified postprocedural states (ICD-10) ?Z87.19 - Personal history of other diseases of the digestive system (ICD-10) History of repair of right rotator cuff (1996) ?Z98.890 - Other specified postprocedural states (ICD-10) History of phacoemulsification of cataract of both eyes with intraocular lens implantation (12/31/21) ?Z98.41 - Cataract extraction status, right eye (ICD-10) ?Z98.42 - Cataract extraction status, left eye (ICD-10) ?Z96.1 - Presence of intraocular lens (ICD-10) History of coronary artery stent placement (2017) ?Z95.5 - Presence of coronary angioplasty implant and graft (ICD-10) History of vasectomy ?Z98.52 - Vasectomy status (ICD-10) History of unilateral orchiectomy (1973) ?Z90.79 - Acquired absence of other genital organ(s) (ICD-10) History of umbilical hernia repair ?Z98.890 - Other specified postprocedural states (ICD-10) ?Z87.19 - Personal history of other diseases of the digestive system (ICD-10) History of nasal septoplasty (2008) ?Z98.890 - Other specified postprocedural states (ICD-10) History of left-sided carotid endarterectomy (2020) ?Z98.890 - Other specified postprocedural states (ICD-10) History of detached retina repair ?Z98.890 - Other specified postprocedural states (ICD-10) ?Z86.69 - Personal history of other diseases of the nervous system and sense organs (ICD-10) Social History (Updated 09/26/24 @ 13:34 by Amanda Jenkins ~ [facility]) What is your current living situation?: declined to answer Problems where you live: declined to answer Problems where you live details: n/a In the past 12 months, utilities in danger of being shut off: declined to answer In past 12 months, lack of transportation kept you from medical appts, meetings, work, or getting things needed for daily living: unable to answer In the past 12 mos, have been you worried that your food would run out before you had money to buy more?: declined to answer In the past 12 mos, the food you bought just didn't last and you didn't have money to buy more?: declined to answer Highest level of school completed/degree received: Associate degree: occupational, technical, vocational program Smoking Status: Never smoker Do you use any of these nicotine containing products: None Second hand tobacco smoke exposure: No How often do you have a drink containing alcohol: never How often do you have six or more drinks on one occasion: Never AUDIT-C Alcohol total score: 0 Non-prescribed substance use: denies use Caffeine: Yes How often does anyone, including family, friends and others, physically hurt you: decline to answer How often does anyone, including family, friends and others, insult or talk down to you: decline to answer How often does anyone, including family, friends and others, threaten you with harm: decline to answer How often does anyone, including family, friends and others, scream or curse at you: decline to answer service: No Health Related Social Needs: unsheltered homelessness (Z59.02) Exam Narrative: Exam Narrative: Constitutional: Appears well-developed and well-nourished. Alert. Conversant. Non toxic. HENT: Head: Atraumatic. Nose: Nose normal. Mouth/Throat: Oral mucosa is clear . Mucous membranes are moist. no trismus. Pharynx normal. Eyes: Conjunctivae normal. EOM normal. Pupils equal, round, and reactive to light. No scleral icterus. Neck: Normal range of motion. Neck supple. No tracheal deviation present. No JVD Cardiovascular: Normal rate, regular rhythm. No gallop. No friction rub. No murmur heard. Symmetric radial and PT artery pulses Pulmonary/Chest: Effort normal. No stridor. No respiratory distress. No wheezes. No rales. No rhonchi . No tenderness. Abdominal: Soft.No distension. No mass. No tenderness. No rebound. No guarding. Musculoskeletal: RUE: Normal range of motion. No tenderness. No deformity LUE: Normal range of motion. No tenderness. No deformity RLE: Normal range of motion. No edema. No tenderness. No deformity LLE: Normal range of motion. No edema. No tenderness. No deformity Neurological: Alert and oriented to person, place, and time. Normal strength. CN II-VII intact. No sensory deficit. GCS eye subscore is 4. GCS verbal subscore is 5. GCS motor subscore is 6. Normal coordination Skin: Skin is warm and dry. No rash noted. No pallor. Normal capillary refill. Psychiatric: Normal mood. Normal affect. Const: Vital Signs, click to edit/add: Vital Signs - 24 hr 09/16/25 14:40 09/16/25 14:41 09/16/25 14:44 Temperature Pulse Rate 68 67 58 L Pulse Rate [Pulse Oximeter] Respiratory Rate 16 Blood Pressure 174/104 H 151/79 H Blood Pressure [Ri ght Upper Arm] Pulse Oximetry 97 98 98 Oxygen Delivery Me thod 09/16/25 14:45 09/16/25 14:45 09/16/25 15:00 Temperature 96.9 F L Pulse Rate 72 64 Pulse Rate [Pulse Oximeter] 65 Respiratory Rate 14 24 16 Blood Pressure Blood Pressure [Ri ght Upper Arm] 174/104 H Pulse Oximetry 98 97 96 Oxygen Delivery Me thod Room Air 09/16/25 15:02 09/16/25 15:15 09/16/25 15:22 Temperature Pulse Rate 64 68 64 Pulse Rate [Pulse Oximeter] Respiratory Rate 18 19 20 Blood Pressure 133/73 143/76 H Blood Pressure [Ri ght Upper Arm] Pulse Oximetry 96 96 95 Oxygen Delivery Me thod 09/16/25 15:30 09/16/25 15:41 09/16/25 15:42 Temperature Pulse Rate 67 65 65 Pulse Rate [Pulse Oximeter] Respiratory Rate 18 20 Blood Pressure 145/77 H Blood Pressure [Ri ght Upper Arm] Pulse Oximetry 96 94 96 Oxygen Delivery Me thod 09/16/25 15:45 09/16/25 16:00 09/16/25 16:02 Temperature Pulse Rate 69 69 63 Pulse Rate [Pulse Oximeter] Respiratory Rate 17 18 16 Blood Pressure 119/62 Blood Pressure [Ri ght Upper Arm] Pulse Oximetry 95 95 95 Oxygen Delivery Me thod 09/16/25 16:15 09/16/25 16:22 09/16/25 16:30 Temperature Pulse Rate 64 59 L 60 Pulse Rate [Pulse Oximeter] Respiratory Rate 21 Blood Pressure 128/67 Blood Pressure [Ri ght Upper Arm] Pulse Oximetry 98 97 97 Oxygen Delivery Me thod 09/16/25 16:42 09/16/25 16:45 09/16/25 17:00 Temperature Pulse Rate 59 L 53 L 58 L Pulse Rate [Pulse Oximeter] Respiratory Rate 18 17 22 Blood Pressure 128/69 Blood Pressure [Ri ght Upper Arm] Pulse Oximetry 97 97 98 Oxygen Delivery Me thod 09/16/25 17:02 09/16/25 17:15 09/16/25 17:22 Temperature Pulse Rate 55 L 53 L 64 Pulse Rate [Pulse Oximeter] Respiratory Rate 17 28 H 22 Blood Pressure 134/77 144/73 H Blood Pressure [Ri ght Upper Arm] Pulse Oximetry 99 99 98 Oxygen Delivery Me thod 09/16/25 17:30 09/16/25 17:42 09/16/25 17:45 Temperature Pulse Rate 60 52 L 55 L Pulse Rate [Pulse Oximeter] Respiratory Rate 18 17 17 Blood Pressure 130/67 Blood Pressure [Ri ght Upper Arm] Pulse Oximetry 98 99 98 Oxygen Delivery Me thod Course Vital Signs Vital signs: Initial Vital Signs Pulse Rate 68 09/16/25 14:40 Respiratory Rate 16 09/16/25 14:40 Pulse Oximetry 97 09/16/25 14:40 Vital Signs Pulse Rate 68 09/16/25 14:40 Respiratory Rate 16 09/16/25 14:40 Pulse Oximetry 97 09/16/25 14:40 Temperature 96.9 F L 09/16/25 14:45 Pulse Rate 55 L 09/16/25 17:45 Respiratory Rate 17 09/16/25 17:45 Blood Pressure 130/67 09/16/25 17:42 Pulse Oximetry 98 09/16/25 17:45 Oxygen Delivery Method Room Air 09/16/25 14:45 Medications Administered Medications: Discontinued Medications Generic Name Dose Route Start Last Admin Trade Name Freq PRN Reason Stop Dose Admin Aspirin 162 mg 09/16/25 14:58 09/16/25 15:37 Aspirin 81 Mg Tab.Chew PO 09/16/25 14:59 162 mg ONCE ONE Administration Sodium Chloride 1,000 mls @ 1,000 mls/hr 09/16/25 15:00 09/16/25 16:42 0.9 % Sodium Chloride 1000 Ml IV 09/16/25 15:59 Infused .Q1H SHABNAM Infusion Nitroglycerin 0.4 mg 09/16/25 14:57 09/16/25 15:38 Nitroglycerin 0.4 Mg Tab.Subl SUBLINGUAL 0.4 mg Q5M PRN Administration Medical Decision Making [facility] Narrative Medical decision making narrative: This patient presents to the ER today for evaluation of chest pain. No evidence of palpitations, syncope or other cardiac dysrhythmia. He has a history of AFib but has sinus rhythm on his EKG today. We considered possible ACS, however workup with EKG and troponin is negative. Given uncertainty about history and whether not he has had continuous or intermittent pain for the past couple of days we did keep him here and in the ER and check initial and 2 hour delta troponins. At this point we have definitive the ruled out STEMI an NSTEMI. The possibility for unstable angina remains on the differential. Discussed with Cardiology, Dr. Napoles, from [facility]. At this point he and I agree the patient is safe to discharge home with close outpatient follow-up. Cardiology will have their clinic call the patient in the morning to arrange a expeditious outpatient further risk stratification with a coronary CT angiogram or a stress nuclear test.. I discussed this plan of care with the patient and his and daughter. They understand that at this point there is no sign of active heart attack but angina remains on the differential. If he has any worsening or more frequent chest pain or other worsening symptoms he will return to the ER immediately. Differential was broad. EKG shows no evidence for pericarditis. Clinical presentation not suggestive of myocarditis. Chest x-ray shows no evidence for pneumonia, pneumothorax, pulmonary edema, pleural effusion, rib fracture, cardiomegaly. Mediastinum is normal on the x-ray. The patient has no ripping or tearing pain through to the back and has symmetric pulses on exam, no other acute neuro findings so I doubt aortic dissection. Risk of radiation and contrast exposure would outweigh the benefit of CT angiogram. We considered PE for this patient. However very low risk since he is already on therapeutic Eliquis. He has no leg swelling, immobilization, pleuritic component to his pain, tachycardia, hypoxia, or other signs or symptoms of PE. He does have a contrast allergy which contraindicate CT PA. No wheezing or bronchospasm to suggest COPD/asthma. No signs of chest wall cellulitis, shingles. It is possible that he may have injured his chest wall couple of days ago when he was moving his 's bed. However musculoskeletal pain remains a diagnosis of exclusion. With reasonable clinical confidence, I think the patient is safe for outpatient follow up. Discussed return precautions. Questions answered. Patient voices comfort with the plan. Lab Data Labs: Lab Results 09/16/25 09/16/25 09/16/25 Range/Units 14:57 15:20 17:00 WBC 8.79 (4.50-11.00) K/uL RBC 5.05 (4.30-5.90) m/uL Hgb 15.0 (13.5-17.5) gm/dL Hct 48.7 (37.0-53.0) % MCV 96 (80-100) fL MCH 30 (26-34) pg MCHC 31 L (32-36) gm/dL RDW Coeff of Gabe 14.4 (11.5-15.5) % Plt Count 296 (140-440) K/uL Neut % (Auto) 75.4 H (42.0-72.0) % Lymph % (Auto) 16.3 L (20-44) % [place] % (Auto) 6.6 (0.0-11.0) % Eos % (Auto) 1.1 (0.0-7.0) % Baso % (Auto) 0.1 (0.0-3.0) % Neut # (Auto) 6.60 (1.7-7.0) K/uL Lymph # (Auto) 1.40 (0.90-2.90) K/uL [place] # (Auto) 0.60 (0.00-0.90) K/UL Eos # (Auto) 0.10 (0.00-0.50) K/uL Baso # (Auto) 0.01 (0.00-0.30) K/uL Abs Immat Gran (auto) 0.04 (0.00-0.30) K/uL Imm/Tot Granulo (auto) 0.5 % Sodium 139 (135-149) mmol/L Potassium 3.7 (3.6-5.1) mmol/L Chloride 105 (96-114) mmol/L Carbon Dioxide 26 (20-32) mmol/L Anion Gap 8 (7-15) mEq/L BUN 18 (7-30) mg/dL Creatinine 0.8 (0.5-1.5) mg/dL Estimated Creat Clear 68.50 Estimated GFR 89 ml/min Glucose 115 (60-115) mg/dL Calcium 8.9 (8.4-10.6) mg/dL POC Troponin I High Sensi 3.8 3.7 (2.9-28.0) pg/mL Imaging Data Chest x-ray: Attestation: I have reviewed the pertinent imaging results. Radiologist's impression: IMPRESSION: No consolidation. Discharge Plan Discharge Clinical Impression: Chest pain Patient Disposition: Home, Self-Care Condition: Stable Instructions: Chest Pain (DC) Additional Instructions: As we discussed, please monitor your symptoms carefully and come back to the ER if you are having worsening chest pain, trouble breathing, dizziness or fainting, palpitations, or any other concerns. You should receive a phone call tomorrow from your non destructive testing specialist to set up some follow-up testing for your heart. If you do not receive a phone call by tomorrow afternoon, please call your non destructive testing specialist's office. Prescriptions: No Action tamsulosin 0.4 mg capsule 0.4 mg PO DAILY donepezil 10 mg tablet 10 mg PO HS losartan 25 mg tablet 25 mg PO DAILY cetirizine 10 mg tablet 10 mg PO QDAY PRN aspirin [Adult Aspirin Regimen] 81 mg tablet,delayed release (DR/EC) 81 mg PO QDAY metoprolol succinate 25 mg tablet extended release 24 hr 12.5 mg PO BID cholecalciferol (vitamin D3) 125 mcg (5,000 unit) capsule 125 mcg PO QDAY ezetimibe 10 mg tablet 10 mg PO QDAY evolocumab 140 mg/mL pen injector 140 mg subcut Q2W loratadine [Claritin] 10 mg tablet 10 mg PO QDAY nitroglycerin 0.4 mg tablet, sublingual 0.4 mg sublingual Q5M PRN Rx Instructions: do not exceed 3 doses per episode Stiolto Respimat 2.5-2.5 mcg/actuation mist 2 puff inhalation Q24H Qty: 4 2RF cyanocobalamin (vitamin B-12) 1,000 mcg capsule 1,000 mcg PO DAILY amlodipine 5 mg Tablet 5 mg PO DAILY Qty: 30 0RF lutein 20 mg capsule 40 mg PO DAILY Eliquis 5 mg tablet 5 mg PO BID Follow Up/Referrals: Karan Mirza MD [Primary Care Provider, Internal Medicine] Stand Alone Forms: [employer] Info Instructions
--- NOTE | 2025-09-16 14:57 | CRLHL7_ITS ---
For Patients: As a result of the Cures Act, medical imaging exams and procedure reports are released immediately into your electronic medical record. You may view this report before your referring provider. If you have questions, please contact your health care provider. INDICATION: Chest pain. TECHNIQUE: Chest 2 views. COMPARISON: October 2022 and July 2022. FINDINGS: Lungs: Normal lung volume. No consolidation. The tracheobronchial tree and hilar structures are unremarkable. Pleura: No pleural effusion or pneumothorax. Heart and Mediastinum: Normal heart size. The great vessels of the thorax are unremarkable. Bones: No acute displaced osseous process. IMPRESSION: No consolidation. Dictated by Rodney Calderon MD @ 09/16/2025 3:21:48 PM (Electronically Signed)
[2025-09-16] MEDS: ASPIRIN 81 MG TAB.CHEW 162 MG PO (15:37)
[2025-09-16] MEDS: NITROGLYCERIN 0.4 MG TAB.SUBL SUBLINGUAL (15:38)
[2025-09-16 15:39] LABS: Hematocrit* 48.7 % (37.0-53.0); Hemoglobin* 15.0 gm/dL (13.5-17.5); Immature Granulocytes Abs Auto 0.04 K/uL (0.00-0.30); Immature Granulocytes Pct Auto 0.5 %; Mean Corpuscular HGB Conc 31 gm/dL (32-36); Mean Corpuscular Hemoglobin 30 pg (26-34); Mean Corpuscular Volume 96 fL (80-100); RDW Coefficient of Variation % 14.4 % (11.5-15.5); Red Blood Count* 5.05 m/uL (4.30-5.90); White Blood Count* 8.79 K/uL (4.50-11.00)
[2025-09-16 15:41] LABS: Lymphocytes Absolute Auto 1.40 K/uL (0.90-2.90); Slide Review Reflex No
[2025-09-16 15:51] LABS: Chloride* 105 mmol/L (96-114)
[2025-09-16 15:52] LABS: Potassium* 3.7 mmol/L (3.6-5.1); Sodium* 139 mmol/L (135-149)
[2025-09-16 15:55] LABS: Anion Gap 8 mEq/L (7-15); Blood Urea Nitrogen* 18 mg/dL (7-30); Calcium* 8.9 mg/dL (8.4-10.6); Carbon Dioxide* 26 mmol/L (20-32); Creatinine* 0.8 mg/dL (0.5-1.5); Est. Creatinine Clearance* 68.50; Estimated Glomerular Filt Rate 89 ml/min; Glucose* 115 mg/dL (60-115)
== END 2025-09-16 18:04 | disposition home or self-care (01) ==
PROVIDERS: Emergency Provider Emergency Medicine; PCP Internal Medicine
DX: R07.89 Other chest pain (principal); I25.10 Atherosclerotic heart disease of native coronary artery without angina pectoris; Z79.01 Long term (current) use of anticoagulants; Z86.73 Personal history of transient ischemic attack (TIA), and cerebral infarction without residual deficits; Z86.79 Personal history of other diseases of the circulatory system; Z95.5 Presence of coronary angioplasty implant and graft
CPT/HCPCS: 36415; 71046; 80048; 84484; 85025; 85379; 93005; 94761; 96360; 99284; 99285; A9270; J7030